=== PATIENT | male | born 1950 | race Caucasian/White ===

== ENCOUNTER 2016-11-27 11:09 | Inpatient (IN) | payer OTHER, MEDICAID ==
[2016-11-27] MEDS ORDERED: KETOROLAC TROMETHAMINE INJ/PF 30 MG/1 ML SDV IV ONE (12:19)
--- NOTE | 2016-11-27 12:22 | ER Document Report ---
ED Medical Screen (RME) - General Chief Complaint: Abdominal Pain Stated Complaint: ABDOMINAL PAIN Time Seen by Provider: 11/27/16 12:19 Notes: The patient is a 66-year-old male, past medical history chronic back pain, diverticulosis, presents with 5 days of increasing right lower quadrant abdominal pain and constipation. He has tried polyethylene glycol without much relief of his symptoms. He is no longer following with the GI doctor and has not had any problems with constipation for 2 years. He is also feeling nauseous during the time, but denies vomiting. RLQ tenderness I have greeted and performed a rapid initial assessment of this patient. A comprehensive ED assessment and evaluation of the patient, analysis of test results and completion of the medical decision making process will be conducted by additional ED providers. TRAVEL OUTSIDE OF THE [place] IN LAST 30 DAYS: No - Related Data Allergies/Adverse Reactions: cillin Allergy (Intermediate, Uncoded 11/27/16 11:23) Anaphylaxis Past Medical History - Past Medical History Cardiac Medical History: Reports: Hx Hypertension Renal/ Medical History: Denies: Hx Peritoneal Dialysis GI Medical History: Reports: Hx Diverticulitis - Immunizations Hx Diphtheria, Pertussis, Tetanus Vaccination: Yes Physical Exam - Vital signs Vitals: Temp Pulse Resp BP Pulse Ox 99.3 F 92 20 147/74 H 95 11/27/16 11:23 11/27/16 11:23 11/27/16 11:23 11/27/16 11:23 11/27/16 11:23 Course - Vital Signs Vital signs: Temp Pulse Resp BP Pulse Ox 99.3 F 92 20 147/74 H 95 11/27/16 11:23 11/27/16 11:23 11/27/16 11:23 11/27/16 11:23 11/27/16 11:23
[2016-11-27] MEDS ORDERED: MAGNESIUM CITRATE 296 ML BOTTLE PO ONE (12:30)
[2016-11-27 13:46] LABS: HEMATOCRIT 49.5 % (37.9-51.0); HEMOGLOBIN 16.5 g/dL (13.5-17.0); MEAN CORPUSCULAR HGB CONC 33.4 g/dL (32.0-36.0); MEAN CORPUSCULAR VOLUME 90 fl (80-97); RED BLOOD COUNT 5.51 10^6/uL (4.35-5.55); RED CELL DISTRIBUTION WIDTH 14.1 % (11.5-14.0); WHITE BLOOD COUNT 26.6 10^3/uL (4.0-10.5)
[2016-11-27 13:51] LABS: ALANINE AMINOTRANSFERASE 37 U/L (21-72); ALBUMIN 4.6 g/dL (3.5-5.0); ALKALINE PHOSPHATASE 97 U/L (38-126); ANION GAP 19 (5-19); ASPARTATE AMINO TRANSFERASE 25 U/L (17-59); BILIRUBIN,DIRECT 0.4 mg/dL (0.0-0.4); BILIRUBIN,TOTAL 2.2 mg/dL (0.2-1.3); BLOOD UREA NITROGEN 14 mg/dL (7-20); CALCIUM 9.4 mg/dL (8.4-10.2); CARBON DIOXIDE 29 mmol/L (22-30); CHLORIDE 93 mmol/L (98-107); CREATININE RESULT 1.31 mg/dL (0.52-1.25); GLUCOSE 163 mg/dL (75-110); LIPASE 37.3 U/L (23-300); POTASSIUM 4.3 mmol/L (3.6-5.0); SODIUM 140.6 mmol/L (137-145); TOTAL PROTEIN 7.7 g/dL (6.3-8.2)
[2016-11-27 14:00] LABS: BAND NEUTROPHILS % (MANUAL) 4 % (3-5); BASOPHILS % (MANUAL) 0 % (0-2); EOSINOPHILS % (MANUAL) 0 % (0-6); LYMPHOCYTES % (MANUAL) 8 % (13-45); TOTAL CELLS COUNTED 100
[2016-11-27 14:02] LABS: RBC MORPHOLOGY COMMENT NORMO-CYTIC/CHROMIC
[2016-11-27] MEDS ORDERED: LEVOFLOXACIN 750 MG/D5W RTU 150 ML IV ONE (15:04)
[2016-11-27] MEDS ORDERED: METRONIDAZOLE 500 MG/NS RTU 100 ML IV ONE (15:04)
[2016-11-27] MEDS ORDERED: RINGERS SOLUTION,LACTATED 1,000 ML IV ONE (15:05)
--- NOTE | 2016-11-27 15:29 | ER Document Report ---
ED General - General Chief Complaint: Abdominal Pain Stated Complaint: ABDOMINAL PAIN Time Seen by Provider: 11/27/16 12:19 Mode of Arrival: Ambulatory Information source: Patient Notes: This is a 66-year-old male who presents with abdominal pain. He describes a 3 day history of right-sided abdominal pain mainly in the right lower quadrant. He has had associated nausea and vomiting and last vomited last night. He also describes constipation and states his last bowel movement was 5 days ago. No fevers or chills. No dysuria. Last po was a banana yesterday afternoon. Pt has a history of diverticulitis, and this feels similar, except diverticulitis pain was on the left side. TRAVEL OUTSIDE OF THE [place] IN LAST 30 DAYS: No - Related Data Allergies/Adverse Reactions: cillin Allergy (Intermediate, Uncoded 11/27/16 11:23) Anaphylaxis Past Medical History - General Information source: Patient - Social History Smoking Status: Never Smoker Chew tobacco use (# tins/day): No Frequency of alcohol use: None Drug Abuse: None Family History: Reviewed & Not Pertinent Patient has suicidal ideation: No Patient has homicidal ideation: No - Past Medical History Cardiac Medical History: Reports: Hx Hypertension Renal/ Medical History: Denies: Hx Peritoneal Dialysis GI Medical History: Reports: Hx Diverticulitis, Hx Gastroesophageal Reflux Disease Psychiatric Medical History: Reports: Hx Depression Past Surgical History: Denies: Hx Abdominal Surgery, Hx Appendectomy, Hx Cholecystectomy - Immunizations Hx Diphtheria, Pertussis, Tetanus Vaccination: Yes Hx Pneumococcal Vaccination: 08/24/11 Review of Systems - Review of Systems Constitutional: No symptoms reported. denies: Chills, Fever EENT: No symptoms reported Cardiovascular: No symptoms reported. denies: Chest pain Respiratory: No symptoms reported. denies: Cough, Short of breath Gastrointestinal: See HPI Genitourinary: No symptoms reported. denies: Dysuria Musculoskeletal: No symptoms reported Skin: No symptoms reported Hematologic/Lymphatic: No symptoms reported Neurological/Psychological: No symptoms reported. denies: Headaches Physical Exam - Vital signs Vitals: Temp Pulse Resp BP Pulse Ox 99.3 F 92 20 147/74 H 95 11/27/16 11:23 11/27/16 11:23 11/27/16 11:23 11/27/16 11:23 11/27/16 11:23 - Notes Notes: PHYSICAL EXAMINATION: GENERAL: Well-appearing, well-nourished pleasant and conversant, and in no acute distress. HEAD: Atraumatic, normocephalic. EYES: Pupils equal round and reactive to light, extraocular movements intact, sclera anicteric, conjunctiva are normal. ENT: nares patent, oropharynx clear without exudates. Moist mucous membranes. NECK: Normal range of motion, supple without lymphadenopathy LUNGS: Breath sounds clear to auscultation bilaterally and equal. No wheezes rales or rhonchi. HEART: Regular rate and rhythm without murmurs ABDOMEN: Soft, mildly distended, normoactive bowel sounds. TTP in RLQ/RUQ without peritonitis. No guarding, no rebound. No masses appreciated. EXTREMITIES: Normal range of motion, no pitting or edema. No cyanosis. NEUROLOGICAL: Cranial nerves grossly intact. Normal speech. No gross focal motor or sensory deficits PSYCH: Normal mood, normal affect. SKIN: Warm, Dry, normal turgor, no rashes or lesions noted. Course - Re-evaluation Re-evalutation: 11/27/16 20:00 Patient has remained hemodynamically stable in the ER. He has had no vomiting. CT and US reviewed and I discussed his diagnosis of diverticulitis with him. He has no focal peritonitis and nonsurgical exam, but persistent significant TTP and leukocytosis, will admit to hospitalist for IV antibiotics and further monitoring. Patient comfortable with this plan, questions answered. - Vital Signs Vital signs: Temp Pulse Resp BP Pulse Ox 98.5 F 93 16 148/63 H 98 11/27/16 17:43 11/27/16 17:43 11/27/16 17:43 11/27/16 17:43 11/27/16 17:43 - Laboratory Result Diagrams: 11/27/16 13:15 11/27/16 13:15 Laboratory results interpreted by me: 11/27/16 11/27/16 13:15 13:15 WBC 26.6 H RDW 14.1 H Seg Neuts % (Manual) 81 H Lymphocytes % (Manual) 8 L Abs Neuts (Manual) 22.6 H Abs Monocytes (Manual) 1.9 H Chloride 93 L Creatinine 1.31 H Est GFR (Non-Af Amer) 55 L Glucose 163 H Total Bilirubin 2.2 H - Diagnostic Test Radiology reviewed: Reports reviewed - CT: diverticulitis at hepatic flexure, possible cholecystitis, rec RUQ US Discharge - Discharge Clinical Impression: Diverticulitis Qualifiers: Diverticulitis site: large intestine Diverticulitis bleeding: without bleeding Diverticulitis complication: without perforation or abscess Qualified Code(s): K57.32 - Diverticulitis of large intestine without perforation or abscess without bleeding Leukocytosis Qualifiers: Leukocytosis type: unspecified Qualified Code(s): D72.829 - Elevated white blood cell count, unspecified Condition: Stable Disposition: ADMITTED INPATIENT Admitting Provider: Hospitalist - Dr. rOr Unit Admitted: Telemetry
[2016-11-27] MEDS ORDERED: MORPHINE SULFATE 10 MG/ML INJ IV PRN (20:51)
[2016-11-27] MEDS ORDERED: NORMAL SALINE 1000 ML 1,000 ML IV PRN (20:51)
[2016-11-27] MEDS ORDERED: ACETAMINOPHEN 325 MG TABLET PO PRN (20:51)
[2016-11-27 21:16] LABS: ADD ON TESTING BLD IN LAB ACKNOWLEDGE
--- NOTE | 2016-11-27 21:17 | PDOC H&P ---
History of Present Illness Admission Date/PCP: 11/27/16 19:43 Ayana Mccarty [place] Patient complains of: abd pain History of Present Illness: LIAM GOLDMAN is a 66 year old male with history of occasional problems with diverticulitis, who presents to the emergency room for evaluation of above complaint. Patient has been discussed with emergency room physician who evaluated the patient. He describes a 5 day history of slowly progressive combination cramping and sharp mostly right lower quadrant abdominal pain. Nothing in particular makes the pain worse. It has simply slowly progressed with time. Several episodes of nausea and vomiting; last emesis approximately 18-24 hours ago. No fever or chills, or dysuria. Last bowel movement was 5 days ago; typically only has constipation with a flareup of his diverticulitis. Prior such episodes have been primarily on his left. Currently resting quietly, stating he does feel a bit better. Laboratory results are listed in [facility] and are reviewed. X-ray summary results are listed below, with full report(s) reviewed. . Social history/personal habits: . 2 children. Self-employed in [employer]. Allergies/adverse reactions are listed in [facility] and are reviewed. No problems with Keflex. Home medications initially autopopulated into [facility] may not accurately reflect patient's true medications, dosages, and/or frequencies. computer operations technician to reconcile medications. Unfortunately, patient not completely certain of all his medications/dosages/ frequencies. REVIEW OF SYSTEMS: Constitutional: No fever or chills. Eyes: Wears glasses. ENT: No swallowing problems or complaints. Tinnitus. Pulmonary: No current complaints. Cardiovascular: No current complaints, including chest pain. Gastrointestinal: See history and present illness. Skin: No current complaints, including rashes. Hematologic: No unusual easy bruising. Neurologic: No current complaints, including numbness or tingling. Musculoskeletal:Joint pain from arthritis. Degenerative disc disease; walks with a cane. Reportedly to have back surgery in the near future. Psychiatric: Anxiety. Endocrine: No current complaints, including polyuria. Genitourinary: No current complaints, including dysuria. PHYSICAL EXAMINATION: 6 feet 2 inches tall. 131.5 kg. BMI 37.2 kg/m. Blood pressure 153/76. Pulse 98 and regular. 96% saturation on room air. Respirations are 20 and unlabored. Temperature 98.5; 99.3 earlier. Obese but also somewhat stocky otherwise well-developed male appearing a bit younger than his stated age. Pleasant awake alert and cooperative. Rather talkative gentleman. Mildly anxious, without agitation. Skin is warm and dry. No grossly obvious evidence of rash in areas of skin examined. No subcutaneous nodules palpated. ENT: Hearing grossly normal to normal conversation. Tongue midline on protrusion pink and slightly tacky. Eyes: No scleral icterus. Pupils equal and reactive to light at 4 mm. [employer] conjunctivae. Neck is supple and nontender to gentle active range of motion and palpation. Midline trachea. No palpable thyroid nodule mass enlargement or tenderness. Lymphatic: No palpable cervical or clavicular nodes. Neck and lymphatic exams limited by patient body habitus. Psychiatric: Reasonable insight into acute and chronic medical issues. Oriented to time location and why here. Lungs: Auscultation reveals clear and equal breath sounds bilaterally. No use of accessory respiratory muscles. Cardiovascular: Heart regular rate and rhythm, without gallop murmur or rub. No carotid or abdominal aortic bruits. No ankle or pedal edema. Faintly palpable dorsalis pedis pulses. Abdomen:soft somewhat obese, perhaps mildly distended with positive bowel sounds. Quite minimal lower abdominal discomfort to palpation. Certainly no evidence of guarding or peritoneal signs. Unable to adequately evaluate abdomen for masses or organomegaly due to body habitus and distention. Extremities: Feet are warm and dry. No calf tenderness to compression. No grossly obvious visual evidence of calf swelling. Gentle manipulation of lower extremities fails to reveal any obvious evidence of injury or instability to knees hips or ankles. Neurologic: Moves upper extremities grossly normally. Patellar reflexes absent. Absent Babinski. Light touch is intact at feet. Dorsiflexion and plantarflexion of feet 5 / 5 and symmetric. Past Medical History Cardiac Medical History: Reports: Hypertension Denies: Congestive Heart Failure, DVT, Myocardial Infarction, Hyperlipidema, Pulmonary Embolism Pulmonary Medical History: Denies: Asthma, Chronic Obstructive Pulmonary Disease (COPD), Sleep Apnea EENT Medical History: Reports: Eyes - Glasses, Ears - Tinnitus Denies: Throat Neurological Medical History: Denies: Hemorrhagic CVA, Ischemic CVA, Seizures Endocrine Medical History: Denies: Diabetes Mellitus Type 1, Diabetes Mellitus Type 2, Hyperthyroidism, Hypothyroidism Renal/ Medical History: Reports: None GI Medical History: Reports: Diverticulitis, Gastroesophageal Reflux Disease Denies: Cirrhosis, Hepatitis, Peptic Ulcer Disease Musculoskeltal Medical History: Reports: Arthritis, Other - Degenerative disc disease Skin Medical History: Reports: None Psychiatric Medical History: Reports: General Anxiety Disorder, Other - Insomnia Denies: Alcohol Dependency, Depression, Substance Abuse, Tobacco Dependency Hematology: Reports: None Infectious Medical History: Denies: Clostridium Difficile, Hepatitis B, Hepatitis C, Methicillin- Resistant Staph Aureus Past Surgical History Past Surgical History: Reports: Tonsillectomy Social History Information Source: Patient, Emergency Med Personnel, [facility] Records Lives with: Spouse/Significant other Smoking Status: Never Smoker Frequency of Alcohol Use: None Drugs: None - Advance Directive Resuscitation Status: Full Code Surrogate healthcare decision maker:: Family History Family History: Reviewed & Not Pertinent Parental Family History Reviewed: Yes - Mother of cancer. Father alive at 88 with macular degeneration. Children Family History Reviewed: Yes - Son with seizure disorder Sibling(s) Family History Reviewed.: Yes - Healthy Medication/Allergy Home Medications: RX: Alprazolam [Xanax] 1 mg PO Q8 11/28/16 RX: Metoprolol Tartrate [Lopressor 25 mg Tablet] 25 mg PO DAILY 11/28/16 RX: Omeprazole Magnesium [Prilosec Otc] 20 mg PO QAM 11/28/16 RX: Tramadol HCl [Ultram 50 mg Tablet] 50 mg PO Q6 11/28/16 RX: Docusate Sodium [Colace 100 mg Capsule] 100 mg PO BID #60 capsule 12/02/16 RX: Lisinopril [Prinivil 10 mg Tablet] 10 mg PO Q12 #60 tablet 12/02/16 RX: Sennosides/Docusate 8.6-50 mg [Senna Plus Tablet] 2 each PO HSP PRN #60 tablet 12/02/16 RX: Trazodone HCl [Desyrel 50 mg Tablet] 100 mg PO QHS tablet 12/02/16 RX: Zolpidem Tartrate [Ambien 5 mg Tablet] 2.5 mg PO QHS tablet 12/02/16 Allergies/Adverse Reactions: Penicillins Allergy (Severe, Verified 11/28/16 06:01) Anaphylaxis cillin Allergy (Intermediate, Uncoded 11/27/16 20:51) Anaphylaxis Physical Exam Vital Signs: Temp Pulse Resp BP Pulse Ox 98.5 F 93 16 148/63 H 98 11/27/16 17:43 11/27/16 17:43 11/27/16 17:43 11/27/16 17:43 11/27/16 17:43 Results Impressions: Abdomen/Pelvis CT 11/27/16 12:20 IMPRESSION: Diverticulitis hepatic flexure. Consider correlation with gallbladder ultrasound to exclude cholecystitis. Abdomen Ultrasound 11/27/16 15:05 IMPRESSION: 1. Limited study due to overlying bowel gas. 2. Hepatic steatosis. No focal liver lesions. 3. Otherwise unremarkable right upper quadrant ultrasound. Assessment & Plan - Diagnosis (1) Diverticulitis of colon Is this a current diagnosis for this admission?: YesPlan: Ice chips. IV fluids. Pain control. Cefepime and intravenous Flagyl. I have strongly encouraged patient to be careful getting out of bed, to avoid a fall with injury. Knee high SCDs for DVT prophylaxis, along with subcutaneous Lovenox. Impression and plans were discussed with patient who concurs. Time spent in evaluation and management of patient: 61 minutes. (2) Elevated LFTs Is this a current diagnosis for this admission?: YesPlan: Denies underlying biliary disease. Repeat chemistry. (3) Renal insufficiency Is this a current diagnosis for this admission?: YesPlan: Likely due to an element of mild dehydration. IV fluids. Follow-up chemistry. (4) HTN (hypertension) Qualifiers: Hypertension type: essential hypertension Qualified Code(s): I10 - Essential (primary) hypertension Is this a current diagnosis for this admission?: YesPlan: Resume home medications as appropriate once these have been determined and reviewed. - Inpatient Certification Based on my medical assessment, after consideration of the patient's comorbidities, presenting symptoms, or acuity I expect that the services needed warrant INPATIENT care.: Yes I certify that my determination is in accordance with my understanding of Medicare's requirements for reasonable and necessary INPATIENT services [42 CFR 412.3e].: Yes Medical Necessity: Need For IV Fluids, Need for Pain Control, Need for IV Antibiotics, Risk of Complication if Not Cared For in Hospital Post Hospital Care: D/C or Transfer Summary
[2016-11-27 21:33] LABS: MAGNESIUM 2.3 mg/dL (1.6-2.3)
[2016-11-27] MEDS: METRONIDAZOLE RTU 500 MG/NS 100 ML IV SCH (22:56)
[2016-11-27] MEDS ORDERED: ZOLPIDEM TARTRATE 5 MG TABLET PO PRN (23:22)
[2016-11-27] MEDS ORDERED: LORAZEPAM 0.5 MG TABLET PO PRN (23:28)
[2016-11-28] MEDS: METRONIDAZOLE RTU 500 MG/NS 100 ML IV SCH ×3 (05:25→21:20)
[2016-11-28] MEDS ORDERED: CEFEPIME 2 GM/D5W RTU 2 GM/50 ML RTUPB IV ONE (05:32)
[2016-11-28] MEDS ORDERED: CEFEPIME 2 GM/D5W RTU 50 ML IV SCH (06:00)
[2016-11-28 06:54] LABS: HEMATOCRIT 40.2 % (37.9-51.0); HGB HCT DIFFERENCE 0.6; MEAN CORPUSCULAR HEMOGLOBIN 30.3 pg (27.0-33.4); MEAN CORPUSCULAR HGB CONC 33.8 g/dL (32.0-36.0); MEAN CORPUSCULAR VOLUME 90 fl (80-97); RED BLOOD COUNT 4.48 10^6/uL (4.35-5.55); RED CELL DISTRIBUTION WIDTH 13.9 % (11.5-14.0); WHITE BLOOD COUNT 17.9 10^3/uL (4.0-10.5)
[2016-11-28 07:00] LABS: ALANINE AMINOTRANSFERASE 30 U/L (21-72); ALBUMIN 3.2 g/dL (3.5-5.0); ALKALINE PHOSPHATASE 74 U/L (38-126); ANION GAP 11 (5-19); ASPARTATE AMINO TRANSFERASE 20 U/L (17-59); BILIRUBIN,DIRECT 0.6 mg/dL (0.0-0.4); BILIRUBIN,TOTAL 2.5 mg/dL (0.2-1.3); BLOOD UREA NITROGEN 19 mg/dL (7-20); CALCIUM 7.9 mg/dL (8.4-10.2); CARBON DIOXIDE 26 mmol/L (22-30); CHLORIDE 95 mmol/L (98-107); CREATININE RESULT 1.13 mg/dL (0.52-1.25); GLUCOSE 138 mg/dL (75-110); SODIUM 131.9 mmol/L (137-145); TOTAL PROTEIN 6.2 g/dL (6.3-8.2)
[2016-11-28 07:20] LABS: HEMOGLOBIN 13.6 g/dL (13.5-17.0)
[2016-11-28 07:23] LABS: BAND NEUTROPHILS % (MANUAL) 4 % (3-5); BASOPHILS % (MANUAL) 0 % (0-2); EOSINOPHILS % (MANUAL) 2 % (0-6); LYMPHOCYTES % (MANUAL) 4 % (13-45); TOTAL CELLS COUNTED 100
[2016-11-28 07:25] LABS: PLATELET CLUMPS PRESENT; POIKILOCYTOSIS 1+; POLYCHROMASIA SLIGHT
[2016-11-28] MEDS: ENOXAPARIN SODIUM INJ 40 MG/0.4 ML DISP.SYRIN SUBCUT SCH (09:11)
[2016-11-28] MEDS: DOCUSATE SODIUM 100 MG CAPSULE PO SCH ×2 (09:13→17:29)
[2016-11-28] MEDS ORDERED: LISINOPRIL 10 MG TABLET PO SCH (10:00)
[2016-11-28] MEDS ORDERED: METOPROLOL TARTRATE 25 MG TABLET PO SCH (10:00)
[2016-11-28] MEDS ORDERED: ALPRAZOLAM 0.5 MG TABLET PO PRN (12:01)
[2016-11-28] MEDS ORDERED: KETOROLAC TROMETHAMINE INJ/PF 30 MG/1 ML SDV IV ONE (12:45)
[2016-11-28] MEDS: CEFEPIME HCL 2 GM in DEXTROSE 5%-WATER 50 ML IV SCH ×2 (13:58→21:20)
[2016-11-28] MEDS: METOPROLOL TARTRATE 25 MG TABLET PO SCH (14:03)
[2016-11-28] MEDS ORDERED: NORMAL SALINE 1000 ML 1,000 ML IV PRN (14:42)
--- NOTE | 2016-11-28 23:48 | CONSULTATION REPORT E ---
Consultation Report NAME: LIAM GOLDMAN : 1950 AGE: 66Y DATE: 11/28/2016 534 A TO: CHRIS WAKEFIELD M.D. FROM: MADELEINE ARREDONDO M.D. Requesting Physician The patient is seen in consultation with Tacho Marino NP. CHIEF COMPLAINT: Abdominal pain. HISTORY OF PRESENTING ILLNESS: The patient is a 66-year-old white gentleman who was admitted to the hospital under hospitalist service for evaluation and treatment of abdominal pain. The pain started approximately 7 days ago after which time he had no bowel movement. He took Citrucel, got somewhat better, had a bowel movement and symptoms improved. He continued to have abdominal pain, however unresolved right lower and left lower quadrant. He came to the emergency department yesterday where he was worked up and found to have evidence of cholelithiasis. He was admitted to the hospitalist service for possible diverticulitis and was started on intravenous antibiotics. His symptoms persisted. A CT scan of the abdomen and pelvis showed gallstones and subhepatic inflammatory changes. Surgery was consulted. PAST MEDICAL HISTORY: Significant for chronic back problems, hypertension, degenerative joint disease, irregular heartbeat and hypertension. PAST SURGICAL HISTORY: Significant for vasectomy and tonsillectomy. ALLERGIES: PENICILLIN. MEDICATIONS: Include: 1. Metoprolol. 2. Lisinopril. SOCIAL HISTORY: The patient does not smoke. The patient is retired. LOCAL MEDICAL DOCTOR: Dr. Comer in [place]. FAMILY HISTORY: Noncontributory. REVIEW OF SYSTEMS: CONSTITUTIONAL: The patient denies. CARDIOVASCULAR: The patient denies. MUSCULOSKELETAL: The patient has chronic back pain and walks with a cane. GASTROINTESTINAL: As per HPI. The patient underwent colonoscopy 11 years old while in [place]. He has been hospitalized at least once for diverticulitis. He has had multiple episodes since 2010, however no Hx of diverticular complications. The remainder of the review of systems is unremarkable. PHYSICAL EXAMINATION: The patient is examined on the 5th floor of [facility]. VITAL SIGNS: Temperature 100.7, heart rate 100. GENERAL: In no acute distress. HEAD: No gross deformities. EYES: Without icterus. NECK: No adenopathy. LUNGS: Diminished in bases bilaterally. HEART: Without murmur or gallop. ABDOMEN: Diffusely tender, more so on the right than the left. No peritoneal signs, however there is mild guarding on the right side. LOWER EXTREMITIES: Without edema. VASCULAR EXAM: Reveals palpable radial dorsalis pedis pulses. INDEPENDENT INTERPRETATION: CT scan of the abdomen and pelvis shows a large gallstone, distended gallbladder, pericholecystic inflammatory change. No free air. No free fluid. Gallbladder ultrasound shows a very large gallstone. LABORATORY PROFILE: Shows a white blood cell count of 18,000 with 86% segs. Hemoglobin of 13.6. Electrolytes: Sodium of 132, BUN and creatinine of 19 and 1.13. Total bilirubin up to 2.5. Alkaline phosphatase, AST, ALT all within normal limits. IMPRESSION: 1. Subacute abdominal pain, right sided associated with nausea and one episode of vomiting, incompletely resolved; highly suspicious for cholecystitis with cholelithiasis. 2. History of diverticulosis. 3. History of degenerative joint disease. 4. History of hypertension. RECOMMENDATIONS: 1. Keep the patient n.p.o., on IV fluids and intravenous antibiotics. 2. Will check EKG. 3. We will discuss the roll of interval cholecystectomy, laparoscopic versus open in the morning; the oncoming surgicalist will reevaluate the patient and make recommendations accordingly. DICTATING PHYSICIAN: CHRIS WAKEFIELD M.D. [id number] PHY#: [id number] ID: [id number] JOB#: [id number] ACCT: [id number] cc:CHRIS WAKEFIELD M.D. > MTDJelly
[2016-11-29] MEDS: METRONIDAZOLE RTU 500 MG/NS 100 ML IV SCH (05:23)
[2016-11-29] MEDS: CEFEPIME HCL 2 GM in DEXTROSE 5%-WATER 50 ML IV SCH ×2 (05:24→17:13)
[2016-11-29 06:31] LABS: ABSOLUTE LYMPHOCYTES (AUTO) 0.8 10^3/uL (0.5-4.7); ABSOLUTE MONOCYTES (AUTO) 1.2 10^3/uL (0.1-1.4); ABSOLUTE NEUT (AUTO) 11.9 10^3/uL (1.7-8.2); BASOPHILS % (AUTO) 0.4 % (0-2); EOSINOPHILS % (AUTO) 0.2 % (0-6); HEMATOCRIT 40.1 % (37.9-51.0); HEMOGLOBIN 13.6 g/dL (13.5-17.0); HGB HCT DIFFERENCE 0.7; LYMPHOCYTES % (AUTO) 5.7 % (13-45); MEAN CORPUSCULAR HGB CONC 33.9 g/dL (32.0-36.0); MEAN CORPUSCULAR VOLUME 89 fl (80-97); MONOCYTES % (AUTO) 8.5 % (3-13); RED BLOOD COUNT 4.52 10^6/uL (4.35-5.55); RED CELL DISTRIBUTION WIDTH 14.1 % (11.5-14.0); SEGMENTED NEUTROPHILS % (AUTO) 85.2 % (42-78)
[2016-11-29 06:54] LABS: ALANINE AMINOTRANSFERASE 29 U/L (21-72); ALBUMIN 2.9 g/dL (3.5-5.0); ALKALINE PHOSPHATASE 84 U/L (38-126); ANION GAP 12 (5-19); ASPARTATE AMINO TRANSFERASE 23 U/L (17-59); BILIRUBIN,DIRECT 0.5 mg/dL (0.0-0.4); BILIRUBIN,TOTAL 1.7 mg/dL (0.2-1.3); BLOOD UREA NITROGEN 14 mg/dL (7-20); CALCIUM 7.8 mg/dL (8.4-10.2); CARBON DIOXIDE 26 mmol/L (22-30); CHLORIDE 94 mmol/L (98-107); GLUCOSE 131 mg/dL (75-110); MAGNESIUM 2.4 mg/dL (1.6-2.3); POTASSIUM 3.7 mmol/L (3.6-5.0); SODIUM 131.6 mmol/L (137-145); TOTAL PROTEIN 5.6 g/dL (6.3-8.2)
--- NOTE | 2016-11-29 07:25 | PROGRESS NOTE E ---
Progress Note NAME: LIAM GOLDMAN : 1950 AGE: 66Y DATE: 11/28/2016 ROOM: 534 SUBJECTIVE: The patient is lying in bed. He does admit to intermittent abdominal pain especially under his ribcage which he feels is gas. The patient did ambulate and it improved slightly. The patient complains of ongoing fevers. He denies any nausea, vomiting, no diarrhea, shortness of breath, dizziness, chest pain. The patient does not voice any other concerns at this time. REVIEW OF SYSTEMS: Rest of review of systems is negative. MEDICATIONS: Medications have been reviewed. OBJECTIVE: GENERAL: The patient is a 56-year-old male who is awake and alert. He is oriented to person, place, time and situation. He is verbal and conversational. He does not appear to be in any acute distress. VITAL SIGNS: Temperature is 100.6, pulse 85, respirations 18, blood pressure 157/69, oxygen saturation is 97% on room air. SKIN: Warm. He is diaphoretic. No rash. CARDIOVASCULAR: Heart is regular. There is no murmur or rub. CHEST: Clear, symmetrical, unlabored. ABDOMEN: Soft. There is diffuse tenderness noted throughout. Bowel sounds are present. BACK: No CVA tenderness or sacral edema. EXTREMITIES: No clubbing, cyanosis or edema. PSYCHIATRIC: Appropriate affect, appropriate mood. NEUROLOGIC: Grossly intact. DIAGNOSTICS: Lab values are as follows: Hematology obtained on 11/28/2016: WBC's 17.9, hemoglobin 13.6, hematocrit 40.2, and platelet count is 182,000. Chemistry obtained on 11/28/2016: Sodium 131, potassium 4.0, chloride is 95, carbon dioxide 26, BUN 19, creatinine is 1.13, glucose 138, calcium 7.9, magnesium 2.3, bilirubin 2.5, direct bilirubin is 0.6. AST is 20, ALT is 30, alk phos 72, total protein 6.2, albumin 3.2. for stool for occult blood is negative. IMPRESSION AND PLAN: 1. ACUTE DIVERTICULITIS. This is the read on the patient's CT, however, it is in an atypical setting of near the hepatic flexure. Given that and the patient's acute elevation of bilirubin, is concern for underlying possible biliary process. A followup ultrasound was done which does not appear completely conclusive given bowel gas pattern. Will consider further dedicated imaging, however, will discuss the case with surgicalist and in the meantime will continue antibiotic coverage. patient's white count has improved. Patient's temperature does appear to be trending down. Will follow. 2. ACUTE KIDNEY INJURY. This did resolved with hydration. Will go ahead and resume the patient's NILA inhibitor. 3. HYPERTENSION: Will resume patient's home medications. 4. GENERAL ANXIETY DISORDER. Will continue p.r.n. benzodiazepines. 5. GASTROESOPHAGEAL REFLUX DISEASE. Will continue PPI therapy. 6. DVT PROPHYLAXIS. Continue subcu Lovenox. Patient has had no evidence of GI bleed. DISPOSITION: The patient is a FULL CODE. Pending the patient's symptomatology and diagnostic findings, will re-evaluate in the a.m. TIME: Time spent on this followup including assessment, plan, physical examination and patient education, specialty collaboration is 40 minutes. DICTATING PHYSICIAN: ISREAL RAMESH NP [id number] PHY#: [id number] ID: [id number] JOB#: [id number] ACCT: [id number] cc: >
--- NOTE | 2016-11-29 07:56 | EKG REPORT ---
SEVERITY:- ABNORMAL ECG - SINUS RHYTHM LEFT VENTRICULAR HYPERTROPHY : Confirmed by: Jono Guaman MD 29-Nov-2016 07:55:34
[2016-11-29] MEDS ORDERED: CIPROFLOXACIN 400 MG/D5W RTU 200 ML IV SCH (10:00)
[2016-11-29] MEDS: ENOXAPARIN SODIUM INJ 40 MG/0.4 ML DISP.SYRIN SUBCUT SCH (10:51)
[2016-11-29] MEDS: DOCUSATE SODIUM 100 MG CAPSULE PO SCH ×2 (10:51→17:55)
[2016-11-29] MEDS: LISINOPRIL 10 MG TABLET PO SCH (10:55)
[2016-11-29] MEDS: LANSOPRAZOLE 15 MG TAB.RAP.DR PO SCH (10:55)
[2016-11-29] MEDS ORDERED: DEXAMETHASONE SOD PHOSPHATE INJ 4 MG/1 ML VIAL ONE (11:19)
[2016-11-29] MEDS ORDERED: LIDOCAINE 2% INJ-PF (20 MG/ML) 10 ML AMPUL ONE (11:19)
[2016-11-29] MEDS ORDERED: KETOROLAC TROMETHAMINE 60 MG/2 ML SDV ONE (11:19)
[2016-11-29] MEDS ORDERED: SUCCINYLCHOLINE CHLORIDE INJ 200 MG/10 ML VIAL ONE (11:19)
[2016-11-29] MEDS ORDERED: NEOSTIGMINE METHYLSULFATE 10 MG/10 ML VIAL ONE (11:19)
[2016-11-29] MEDS ORDERED: ONDANSETRON HCL INJ/PF 4 MG/2 ML SDV ONE (11:19)
[2016-11-29] MEDS ORDERED: GLYCOPYRROLATE INJ 0.4 MG/2 ML VIAL ONE (11:19)
[2016-11-29] MEDS ORDERED: ROCURONIUM BROMIDE INJ 50 MG/5 ML VIAL IV ONE (11:19)
[2016-11-29] MEDS ORDERED: PHENYLEPHRINE HCL INJ/PF 10 MG/1 ML SDV ONE (11:19)
[2016-11-29] MEDS ORDERED: METRONIDAZOLE RTU 500 MG/NS 100 ML IV SCH (12:00)
[2016-11-29] MEDS: METRONIDAZOLE 500 MG/NS RTU 100 ML IV SCH ×2 (12:18→18:10)
[2016-11-29] MEDS: METOPROLOL TARTRATE 25 MG TABLET PO SCH (12:18)
[2016-11-29] MEDS ORDERED: BUPIVACAINE HCL 0.25 % INJ/PF (2.5 MG/1 ML) 30 ML VIAL ONE (12:58)
[2016-11-29] MEDS ORDERED: FENTANYL CITRATE INJ/PF 250 MCG/5 ML AMPULE ONE (13:15)
[2016-11-29] MEDS ORDERED: FENTANYL CITRATE INJ/PF 100 MCG/2 ML AMPUL ONE (13:15)
[2016-11-29] MEDS ORDERED: EPHEDRINE SULFATE INJ 50 MG/1 ML AMPULE ONE (13:15)
[2016-11-29] MEDS ORDERED: MIDAZOLAM 2 MG/2 ML INJ ONE (13:15)
[2016-11-29] MEDS ORDERED: MORPHINE SULFATE 10 MG/ML INJ ONE ×2 (13:16)
[2016-11-29] MEDS ORDERED: ACETAMINOPHEN 0 ML IV ONE (13:16)
[2016-11-29] MEDS ORDERED: PROPOFOL INJ 200 MG/20 ML VIAL IV ONE (13:16)
[2016-11-29] MEDS ORDERED: LORAZEPAM INJ 2 MG/1 ML VIAL ONE (13:17)
[2016-11-29] MEDS ORDERED: ACETAMINOPHEN 650 MG SUPP.RECT PR ONE ×2 (13:20→14:00)
[2016-11-29] MEDS ORDERED: LORAZEPAM INJ 2 MG/1 ML VIAL IV ONE (14:00)
[2016-11-29] MEDS ORDERED: MORPHINE SULFATE 10 MG/ML INJ IV ONE (14:00)
[2016-11-29] MEDS ORDERED: ONDANSETRON HCL INJ/PF 4 MG/2 ML SDV IV PRN (16:33)
[2016-11-29] MEDS ORDERED: NORMAL SALINE 1000 ML 1,000 ML IV PRN (16:38)
--- NOTE | 2016-11-29 17:19 | OPERATIVE REPORT E ---
Operative Report NAME: LIAM GOLDMAN : 1950 AGE: 66Y DATE OF SURGERY: ROOM: 534 PREOPERATIVE DIAGNOSIS: Acute calculus cholecystitis. POSTOPERATIVE DIAGNOSIS: Acute gangrenous cholecystitis. OPERATION: Laparoscopic cholecystectomy. SURGEON: FRANCESCA APPIAH M.D. ANESTHESIA: General. INDICATION: This is a 66-year-old male who has been having abdominal pains for the past 4 to 5 days with nausea and vomiting. He had a CT scan of the abdomen which showed gallstones. Ultrasound also showed a gallstone with thickened wall, and pericholecystic fluid. The patient had marked tenderness in the right upper quadrant with positive Ward's sign and elevated white count. PROCEDURE: The patient was placed in supine position and after adequate general anesthesia, the abdomen was then prepped and draped in the usual sterile fashion. After appropriate timeout, an infraumbilical incision was made and the fascia identified and grasped with Lamar clamps on each side. The fascia was then divided and finger dissection inside the peritoneal cavity was then performed. No evidence of adhesion noted. At this time, a Carolyn trocar was then inserted into the abdomen and CO2 insufflated up to a pressure of 15 mm through the trocar. Next, 3 other trocars were placed at 12 mm in the subxiphoid and two 5 mm in the right upper quadrant. The omentum was noted to be plastered around the gallbladder, and blunt dissection was then done. The gallbladder was noted to be tense and with 1 area noted to be quite gangrenous. The gallbladder was partially emptied through a needle. About 60 mL of bile was aspirated and specimen was sent for C and S. Next, the tip of the gallbladder was subsequently grasped and further blunt dissection was performed. However, the omentum was so much plastered and covering the area of the infundibulum that we needed to put another trocar in the left upper quadrant. We put in a fan retractor. The omentum needed to be bluntly dissected laterally from the liver and medially toward the area of the falciform ligament. The cystic duct was partially dissected. However, because visibility was not adequate, it was felt better to go from retrograde fashion and dissecting towards the area of the cystic duct. This was then performed with the use of harmonic kenn and blunt dissection of the gallbladder from the liver bed. The gallbladder at this point was noted to be with areas of gangrenous changes and eventually some of the bile extruded out into the peritoneal cavity. Most of the bile was then irrigated and suctioned out. The gallbladder was then dissected almost to the area of the cystic duct. The cystic duct area was then dissected at this point by pulling on the infundibulum and some of the liver bed adhesions were then bluntly dissected and also with the use of harmonic kenn. The cystic duct was better seen at this point, and subsequently dissected with [place] dissector, allowing placement of hemoclips. Hemoclips were placed on the cystic duct towards the common bile duct. About 4 clips were placed using large clips. The cystic duct was noted to be somewhat thickened with inflammation. Another clip was placed toward the area of the gallbladder and the cystic duct divided just below the gallbladder clip. Cystic artery was identified, clipped with hemoclips, and divided between the hemoclips with the use of harmonic kenn. The gallbladder was then completely taken off the liver bed and placed in an Endobag and pulled out through the umbilical port with little difficulty. Part of the gallbladder contents spilled from the Endobag towards the area of the subcutaneous area o the umbilical port. The gallbladder port was further dilated bluntly with a Yanni clamp, and the gallbladder was pulled out after enlarging the skin incision for about 1 cm. At this point, the gallbladder was palpated after removing it from the abdominal cavity. There is a big stone roughly measuring about 3 to 4 cm, almost the size of a golf ball. The gallbladder was removed intact, though with some leakage from the wall because of gangrenous changes. Next, the liver bed was then inspected and irrigated copiously with at least 3 liters of saline. A Scar-Kapoor drain was then placed in the area of the liver bed and brought out through the lateral most trocar site. There was adequate hemostasis noted prior to placement of the drain. The defect at the infraumbilical fascia was then closed with a [id number] suture using 0 Vicryl. The other trocars were removed and no bleeding noted at the trocar sites prior to removal of the camera. A single suture over the site of the fascial defect was closed with simple sutures using 0 Vicryl. The drain was then anchored to the skin with 3-0 Nylon, and all the skin incisions closed with running subcuticular closure using 4-0 Vicryl undyed. Prior to closure of the skin, the umbilical defect was copiously irrigated with saline solution. The incisions were then dressed with Dermabond. Needle, instrument, and sponge counts were all correct, and estimated blood loss was about 30 mL. The patient was then brought to the recovery room in guarded condition. DICTATING PHYSICIAN: FRANCESCA APPIAH M.D. [id number] PHY#: [id number] ID: [id number] JOB#: [id number] ACCT: [id number] cc:FRANCESCA APPIAH M.D. >
[2016-11-29] MEDS ORDERED: ACETAMINOPHEN 650 MG SUPP.RECT PR PRN (18:07)
--- NOTE | 2016-11-29 18:24 | PDOC PROGRESS REPORT ---
Subjective Progress Note for:: 11/29/16 Subjective:: Patient seen prior to surgery. Patient febrile to 102.8 at this time. Patient also hypertensive with a systolic of 190. Patient reports that he has not received his normal Xanax in several days of admission. Patient does complain of abdominal pain. Patient is to go to the OR today for laparoscopic cholecystectomy. Physical Exam Vital Signs: Temp Pulse Resp BP Pulse Ox 100.0 F 89 18 161/72 H 95 11/29/16 05:00 11/29/16 05:00 11/29/16 05:00 11/29/16 05:00 11/29/16 05:00 Intake & Output 11/28/16 11/29/16 11/30/16 06:59 06:59 06:59 Intake Total 1999 780 Balance 1999 780 Weight 138.4 kg Exam: General: Awake, alert, oriented 3, no acute respiratory distress, acutely ill- appearing, diaphoretic, pale HEENT: AT/NC, PERRL,EOMI, oropharynx is moist, pink, no scleral icterus, no conjunctival injection Neck: No JVD, trachea midline Chest: Clear to auscultation bilaterally, no wheezes rhonchi or rales CV: Regular rate and rhythm, normal S1 and S2, no murmur, rub, or gallop Abdomen: Soft, tender to palpation RUQ, nondistended, active bowel sounds; + diaz's sign Extremities: No cyanosis, clubbing or edema Neuro: Cranial nerves II through XII are grossly intact without focal deficits; awake alert and oriented x3 Psych: Normal mood and affect Results Laboratory Results: 11/29/16 06:02 11/29/16 06:02 11/29/16 11/29/16 06:02 06:02 WBC 14.0 H RBC 4.52 Hgb 13.6 Hct 40.1 MCV 89 MCH 30.0 MCHC 33.9 RDW 14.1 H Plt Count 170 Seg Neutrophils % 85.2 H Lymphocytes % 5.7 L Monocytes % 8.5 Eosinophils % 0.2 Basophils % 0.4 Absolute Neutrophils 11.9 H Absolute Lymphocytes 0.8 Absolute Monocytes 1.2 Absolute Eosinophils 0.0 Absolute Basophils 0.0 Sodium 131.6 L Potassium 3.7 Chloride 94 L Carbon Dioxide 26 Anion Gap 12 BUN 14 Creatinine 1.00 Est GFR ( Amer) > 60 Est GFR (Non-Af Amer) > 60 Glucose 131 H Calcium 7.8 L Magnesium 2.4 H Total Bilirubin 1.7 H AST 23 ALT 29 Alkaline Phosphatase 84 Total Protein 5.6 L Albumin 2.9 L Impressions: Abdomen/Pelvis CT 11/27/16 12:20 IMPRESSION: Diverticulitis hepatic flexure. Consider correlation with gallbladder ultrasound to exclude cholecystitis. Abdomen Ultrasound 11/27/16 15:05 IMPRESSION: 1. Limited study due to overlying bowel gas. 2. Hepatic steatosis. No focal liver lesions. 3. Otherwise unremarkable right upper quadrant ultrasound. Assessment & Plan - Diagnosis (1) Acute cholecystitis Is this a current diagnosis for this admission?: YesPlan: Placed patient on imipenem. Patient is to go to the OR today and we will tailor treatment according to their findings. Appreciate surgery input. (2) Sepsis Is this a current diagnosis for this admission?: YesPlan: Likely secondary to enteric pathogen. Place patient on imipenem. Currently on cefepime and Flagyl. (3) Anxiety Is this a current diagnosis for this admission?: YesPlan: We will give patient 1 mg of IV Ativan now and will resume patient's home Xanax. (4) Hypertensive urgency Is this a current diagnosis for this admission?: YesPlan: This is likely secondary to pain, fever, and benzodiazepine withdrawal. Will follow closely. (5) Severe obesity (BMI 35.0-39.9) with comorbidity Is this a current diagnosis for this admission?: Yes (6) Diverticulitis Qualifiers: Diverticulitis site: large intestine Diverticulitis bleeding: without bleeding Diverticulitis complication: without perforation or abscess Qualified Code(s): K57.32 - Diverticulitis of large intestine without perforation or abscess without bleeding Is this a current diagnosis for this admission?: NoPlan: Feel this was a red diaz and patient's underlying etiology is secondary to his gangrenous gallbladder (7) Renal insufficiency Is this a current diagnosis for this admission?: YesPlan: Improved secondary to dehydration - Time Time Spent with patient: 25-34 minutes Medications reviewed and adjusted accordingly: Yes Anticipated discharge: Home Within: within 48 hours, within 72 hours - Inpatient Certification Based on my medical assessment, after consideration of the patient's comorbidities, presenting symptoms, or acuity I expect that the services needed warrant INPATIENT care.: Yes I certify that my determination is in accordance with my understanding of Medicare's requirements for reasonable and necessary INPATIENT services [42 CFR 412.3e].: Yes Medical Necessity: Need For IV Fluids, Need for Pain Control, Need for IV Antibiotics, Need for Surgery Post Hospital Care: D/C Cigarette Inspector Documentation
[2016-11-29] MEDS ORDERED: IMIPENEM/CILASTATIN SODIUM 1,000 MG in NORMAL SALINE 250 ML IV ONE (20:00)
[2016-11-30] MEDS: HYDROMORPHONE HCL INJ/PF 2 MG/ML AMPULE IV PRN (00:42)
[2016-11-30] MEDS: IMIPENEM/CILASTATIN SODIUM 1,000 MG in NORMAL SALINE 250 ML IV SCH ×5 (05:56→18:19)
[2016-11-30 07:12] LABS: HEMATOCRIT 35.8 % (37.9-51.0); HEMOGLOBIN 12.2 g/dL (13.5-17.0); HGB HCT DIFFERENCE 0.8; MEAN CORPUSCULAR HEMOGLOBIN 30.6 pg (27.0-33.4); MEAN CORPUSCULAR HGB CONC 34.2 g/dL (32.0-36.0); MEAN CORPUSCULAR VOLUME 90 fl (80-97); RED CELL DISTRIBUTION WIDTH 14.3 % (11.5-14.0); WHITE BLOOD COUNT 12.6 10^3/uL (4.0-10.5)
[2016-11-30 07:33] LABS: ALANINE AMINOTRANSFERASE 38 U/L (21-72); ALBUMIN 2.5 g/dL (3.5-5.0); ALKALINE PHOSPHATASE 72 U/L (38-126); ANION GAP 9 (5-19); ASPARTATE AMINO TRANSFERASE 50 U/L (17-59); BILIRUBIN,DIRECT 0.4 mg/dL (0.0-0.4); BILIRUBIN,TOTAL 0.6 mg/dL (0.2-1.3); BLOOD UREA NITROGEN 20 mg/dL (7-20); CALCIUM 7.9 mg/dL (8.4-10.2); CARBON DIOXIDE 28 mmol/L (22-30); CHLORIDE 99 mmol/L (98-107); CREATININE RESULT 1.06 mg/dL (0.52-1.25); GLUCOSE 173 mg/dL (75-110); LIPASE 25.9 U/L (23-300); POTASSIUM 3.9 mmol/L (3.6-5.0); SODIUM 135.8 mmol/L (137-145); TOTAL PROTEIN 5.1 g/dL (6.3-8.2)
[2016-11-30] MEDS: LANSOPRAZOLE 15 MG TAB.RAP.DR PO SCH (11:09)
[2016-11-30] MEDS: ENOXAPARIN SODIUM INJ 40 MG/0.4 ML DISP.SYRIN SUBCUT SCH (11:09)
[2016-11-30] MEDS: LISINOPRIL 10 MG TABLET PO SCH ×2 (11:09→22:14)
[2016-11-30] MEDS: DOCUSATE SODIUM 100 MG CAPSULE PO SCH ×2 (11:09→18:12)
[2016-11-30] MEDS: METOPROLOL TARTRATE 25 MG TABLET PO SCH (11:10)
[2016-11-30] MEDS: OXYCODONE-ACETAMINOPHEN 5-325 MG TABLET PO PRN ×2 (11:10→18:19)
--- NOTE | 2016-11-30 11:34 | PROGRESS NOTE E ---
Progress Note NAME: LIAM GOLDMAN : 1950 AGE: 66Y DATE: 11/30/2016 ROOM: 534 SUBJECTIVE: Patient is first postop day post laparoscopic cholecystectomy for a gangrenous gallbladder. He feels better this morning though he still has some more of incisional pains. His REJI drained 200 mL since last night; but this is most likely from the irrigation that we used during the procedure. We will check his H and H. PHYSICAL EXAMINATION: ABDOMEN: Is soft and with minimal tenderness along the trocar sites. PLAN: We are still awaiting culture from the bile in the OR yesterday. In the meantime, continue him on IV antibiotics and get physical therapy to getting him ambulating. He is tolerating clear liquids this morning and will increase his diet as tolerated. DICTATING PHYSICIAN: FRANCESCA APPIAH M.D. [id number] PHY#: [id number] ID: [id number] JOB#: [id number] ACCT: [id number] cc: > MTDD
[2016-11-30] MEDS ORDERED: NORMAL SALINE 1000 ML 1,000 ML IV PRN (13:54)
--- NOTE | 2016-11-30 21:25 | PDOC PROGRESS REPORT ---
Subjective Progress Note for:: 11/30/16 Subjective:: Patient reports he is feeling much better. He is eating regular food. Patient denies chest pain, shortness of breath, fever, chills, nausea, vomiting , and new onset weakness. Patient does report some shortness of breath with ambulation. Patient reports flatus. Physical Exam Vital Signs: Temp Pulse Resp BP Pulse Ox 97.5 F 83 20 144/61 H 96 11/30/16 07:55 11/30/16 08:00 11/30/16 07:55 11/30/16 07:55 11/30/16 12:00 Pulse Oximeter Continuous Start: 11/29/16 17: 05 Freq: RTQ4 Status: Active Document 11/30/16 12:00 [facility] [place]Rec[facility] 11/30/16 12[facility]05 [id number] Pulse Oximetry Assessment Oxygen Saturation (92-100) 96 Oxygen Flow Rate (L/min) 3 Oxygen Delivery Method Nasal Cannula Fraction of Inspired Oxygen (FIO2) 32 Equipment Usage Equipment in Use Continuous SpO2 Machine # 13 Intake & Output 11/29/16 11/30/16 12/01/16 06:59 06:59 06:59 Intake Total 780 8349 Output Total 4315 Balance 780 4034 Weight 140.1 kg Exam: General: Awake, alert, oriented 3, no acute respiratory distress, acutely ill- appearing, diaphoretic, pale HEENT: AT/NC, PERRL,EOMI, oropharynx is moist, pink, no scleral icterus, no conjunctival injection Neck: No JVD, trachea midline Chest: Clear to auscultation bilaterally, no wheezes rhonchi or rales CV: Regular rate and rhythm, normal S1 and S2, no murmur, rub, or gallop Abdomen: Soft, mildly tender to palpation RUQ, nondistended, hypoactive bowel sounds Extremities: No cyanosis, clubbing; trace edema Neuro: Cranial nerves II through XII are grossly intact without focal deficits; awake alert and oriented x3 Psych: Normal mood and affect Results Laboratory Results: 11/30/16 06:44 11/30/16 06:44 11/30/16 11/30/16 06:44 06:44 WBC 12.6 H RBC 4.00 L Hgb 12.2 L Hct 35.8 L MCV 90 MCH 30.6 MCHC 34.2 RDW 14.3 H Plt Count 178 Sodium 135.8 L Potassium 3.9 Chloride 99 Carbon Dioxide 28 Anion Gap 9 BUN 20 Creatinine 1.06 Est GFR ( Amer) > 60 Est GFR (Non-Af Amer) > 60 Glucose 173 H Calcium 7.9 L Total Bilirubin 0.6 AST 50 ALT 38 Alkaline Phosphatase 72 Total Protein 5.1 L Albumin 2.5 L Lipase 25.9 Impressions: Abdomen/Pelvis CT 11/27/16 12:20 IMPRESSION: Diverticulitis hepatic flexure. Consider correlation with gallbladder ultrasound to exclude cholecystitis. Abdomen Ultrasound 11/27/16 15:05 IMPRESSION: 1. Limited study due to overlying bowel gas. 2. Hepatic steatosis. No focal liver lesions. 3. Otherwise unremarkable right upper quadrant ultrasound. Assessment & Plan - Diagnosis (1) Acute cholecystitis Is this a current diagnosis for this admission?: YesPlan: On imipenem. Patient is postoperative day #1 from cholecystectomy and REJI placement. Continue antibiotics pending culture. Drainage currently growing gram-negative rods. (2) Sepsis Qualifiers: Sepsis type: sepsis due to unspecified organism Qualified Code(s): A41.9 - Sepsis, unspecified organism Is this a current diagnosis for this admission?: YesPlan: Likely secondary to enteric, gram-negative, pathogen. Patient on imipenem. (3) Anxiety Is this a current diagnosis for this admission?: YesPlan: resume patient's home Xanax. (4) Hypertensive urgency Is this a current diagnosis for this admission?: YesPlan: Have resumed lisinopril and metoprolol. (5) Severe obesity (BMI 35.0-39.9) with comorbidity Is this a current diagnosis for this admission?: Yes (6) Renal insufficiency Is this a current diagnosis for this admission?: Yes - Time Time Spent with patient: 25-34 minutes
[2016-11-30] MEDS ORDERED: ZOLPIDEM TARTRATE 5 MG TABLET PO SCH (22:00)
[2016-11-30] MEDS ORDERED: (PENDING PHARMACY ID) (Zolpidem Tartrate [Ambien] 5 MG) PO SCH (22:00)
[2016-11-30] MEDS ORDERED: TRAZODONE HCL 50 MG TABLET PO SCH (22:00)
[2016-12-01] MEDS: HYDROMORPHONE HCL INJ/PF 2 MG/ML AMPULE IV PRN ×2 (00:30→07:04)
[2016-12-01] MEDS: IMIPENEM/CILASTATIN SODIUM 1,000 MG in NORMAL SALINE 250 ML IV SCH ×4 (00:30→18:13)
[2016-12-01 06:19] LABS: HEMATOCRIT 37.4 % (37.9-51.0); HEMOGLOBIN 12.4 g/dL (13.5-17.0); HGB HCT DIFFERENCE -0.2; MEAN CORPUSCULAR HEMOGLOBIN 29.7 pg (27.0-33.4); MEAN CORPUSCULAR HGB CONC 33.1 g/dL (32.0-36.0); MEAN CORPUSCULAR VOLUME 90 fl (80-97); RED BLOOD COUNT 4.18 10^6/uL (4.35-5.55); RED CELL DISTRIBUTION WIDTH 14.9 % (11.5-14.0); WHITE BLOOD COUNT 17.5 10^3/uL (4.0-10.5)
[2016-12-01 07:03] LABS: ALANINE AMINOTRANSFERASE 33 U/L (21-72); ALBUMIN 2.4 g/dL (3.5-5.0); ALKALINE PHOSPHATASE 95 U/L (38-126); ASPARTATE AMINO TRANSFERASE 30 U/L (17-59); BILIRUBIN,DIRECT 0.4 mg/dL (0.0-0.4); BILIRUBIN,TOTAL 0.6 mg/dL (0.2-1.3); TOTAL PROTEIN 5.1 g/dL (6.3-8.2)
[2016-12-01] MEDS: LANSOPRAZOLE 15 MG TAB.RAP.DR PO SCH (07:05)
[2016-12-01] MEDS: ENOXAPARIN SODIUM INJ 40 MG/0.4 ML DISP.SYRIN SUBCUT SCH (07:06)
[2016-12-01] MEDS: LISINOPRIL 10 MG TABLET PO SCH ×2 (10:00→22:40)
[2016-12-01] MEDS: DOCUSATE SODIUM 100 MG CAPSULE PO SCH ×2 (10:00→17:58)
[2016-12-01] MEDS ORDERED: OXYCODONE-ACETAMINOPHEN 5-325 MG TABLET PO PRN (11:06)
[2016-12-01] MEDS ORDERED: SENNOSIDES/DOCUSATE 8.6-50 MG 1 EACH TABLET PO PRN (11:07)
[2016-12-01] MEDS ORDERED: HYDROMORPHONE HCL INJ/PF 2 MG/ML AMPULE IV PRN (11:07)
[2016-12-01] MEDS: METOPROLOL TARTRATE 25 MG TABLET PO SCH (11:17)
[2016-12-01] MEDS: OXYCODONE-ACETAMINOPHEN 5-325 MG TABLET PO PRN ×2 (11:40→15:50)
--- NOTE | 2016-12-01 12:16 | PDOC PROGRESS REPORT ---
Subjective Progress Note for:: 12/01/16 Subjective:: Feels okay. But does not wish to go home. Wants to go home on Monday if possible. Tolerating a diet well. Pain under good control. Has not had a bowel movement yet. Physical Exam Vital Signs: Temp Pulse Resp BP Pulse Ox 98.0 F 81 16 184/79 H 95 12/01/16 11:22 12/01/16 11:22 12/01/16 11:22 12/01/16 11:22 12/01/16 11:22 Pulse Oximeter Continuous Start: 11/29/16 17: 05 Freq: RTQ4 Status: Complete Document 11/30/16 18:20 [facility] (Rec: 11/30/16 18:21 [facility] [id number]) Pulse Oximetry Assessment Equipment Usage Equipment Discontinued Continuous SpO2 Machine # [id number] Intake & Output 11/30/16 12/01/16 12/02/16 06:59 06:59 06:59 Intake Total 8351 3728 Output Total 431 945 Balance 4034 2783 Weight 140.1 kg General appearance: PRESENT: no acute distress, cooperative Respiratory exam: PRESENT: clear to auscultation ana Cardiovascular exam: PRESENT: RRR GI/Abdominal exam: PRESENT: other - Soft, nondistended, appropriate mild tenderness. Wounds clean dry and intact with no erythema Results Laboratory Results: 12/01/16 06:03 11/30/16 06:44 12/01/16 12/01/16 06:03 06:03 WBC 17.5 H RBC 4.18 L Hgb 12.4 L Hct 37.4 L MCV 90 MCH 29.7 MCHC 33.1 RDW 14.9 H Plt Count 217 Total Bilirubin 0.6 AST 30 ALT 33 Alkaline Phosphatase 95 Total Protein 5.1 L Albumin 2.4 L Impressions: Abdomen/Pelvis CT 11/27/16 12:20 IMPRESSION: Diverticulitis hepatic flexure. Consider correlation with gallbladder ultrasound to exclude cholecystitis. Abdomen Ultrasound 11/27/16 15:05 IMPRESSION: 1. Limited study due to overlying bowel gas. 2. Hepatic steatosis. No focal liver lesions. 3. Otherwise unremarkable right upper quadrant ultrasound. Assessment & Plan - Diagnosis (1) Acute cholecystitis Is this a current diagnosis for this admission?: YesPlan: Post laparoscopic cholecystectomy. Patient looks good. May discharge patient home once the social situation is straightened out. Patient will be receiving senna for constipation.
[2016-12-01] MEDS: HYDRALAZINE HCL INJ/PF 20 MG/1 ML SDV IV PRN ×2 (17:59→22:42)
[2016-12-01] MEDS ORDERED: HYDROCHLOROTHIAZIDE 25 MG TABLET PO ONE (18:00)
[2016-12-01] MEDS ORDERED: LACTULOSE SYRUP 20 GM/30 ML UDCUP PO ONE (20:37)
[2016-12-01] MEDS ORDERED: NA PHOS,M-B/NA PHOS,DI-BA (ADULT) 133 ML ENEMA PR ONE (20:37)
[2016-12-01] MEDS ORDERED: ZOLPIDEM TARTRATE 5 MG TABLET PO SCH (22:00)
[2016-12-01] MEDS ORDERED: TRAZODONE HCL 50 MG TABLET PO SCH (22:00)
[2016-12-01] MEDS: NA PHOS,M-B/NA PHOS,DI-BA (ADULT) 133 ML ENEMA PR SCH (22:41)
[2016-12-02] MEDS: IMIPENEM/CILASTATIN SODIUM 1,000 MG in NORMAL SALINE 250 ML IV SCH ×3 (00:06→11:16)
[2016-12-02] MEDS: LISINOPRIL 10 MG TABLET PO SCH (08:56)
[2016-12-02] MEDS: LANSOPRAZOLE 15 MG TAB.RAP.DR PO SCH (08:57)
[2016-12-02] MEDS: ENOXAPARIN SODIUM INJ 40 MG/0.4 ML DISP.SYRIN SUBCUT SCH (08:58)
[2016-12-02] MEDS: DOCUSATE SODIUM 100 MG CAPSULE PO SCH (08:58)
[2016-12-02] MEDS: NA PHOS,M-B/NA PHOS,DI-BA (ADULT) 133 ML ENEMA PR SCH (08:58)
[2016-12-02 09:24] LABS: ABSOLUTE BASOPHILS # (AUTO) 0.1 10^3/uL (0.0-0.2); ABSOLUTE EOSINOPHILS # (AUTO) 0.1 10^3/uL (0.0-0.6); ABSOLUTE LYMPHOCYTES (AUTO) 1.5 10^3/uL (0.5-4.7); ABSOLUTE MONOCYTES (AUTO) 1.5 10^3/uL (0.1-1.4); ABSOLUTE NEUT (AUTO) 8.5 10^3/uL (1.7-8.2); BASOPHILS % (AUTO) 0.5 % (0-2); HEMATOCRIT 39.6 % (37.9-51.0); HEMOGLOBIN 13.4 g/dL (13.5-17.0); HGB HCT DIFFERENCE 0.6; LYMPHOCYTES % (AUTO) 13.2 % (13-45); MEAN CORPUSCULAR HEMOGLOBIN 30.1 pg (27.0-33.4); MEAN CORPUSCULAR HGB CONC 33.8 g/dL (32.0-36.0); MEAN CORPUSCULAR VOLUME 89 fl (80-97); MONOCYTES % (AUTO) 12.5 % (3-13); RED BLOOD COUNT 4.45 10^6/uL (4.35-5.55); RED CELL DISTRIBUTION WIDTH 14.7 % (11.5-14.0); SEGMENTED NEUTROPHILS % (AUTO) 72.8 % (42-78); WHITE BLOOD COUNT 11.6 10^3/uL (4.0-10.5)
[2016-12-02] MEDS ORDERED: HYDROCHLOROTHIAZIDE 25 MG TABLET PO SCH (10:00)
[2016-12-02] MEDS ORDERED: LACTULOSE SYRUP 20 GM/30 ML UDCUP PO SCH (10:00)
[2016-12-02] MEDS: METOPROLOL TARTRATE 25 MG TABLET PO SCH (11:16)
--- NOTE | 2016-12-02 13:02 | PDOC PROGRESS REPORT ---
Subjective Progress Note for:: 12/02/16 Subjective:: Feels well, tolerating diet, voiding. Physical Exam Vital Signs: Temp Pulse Resp BP Pulse Ox 98.6 F 85 22 H 161/76 H 97 12/02/16 11:41 12/02/16 11:41 12/02/16 11:41 12/02/16 11:41 12/02/16 11:41 Pulse Oximeter Continuous Start: 11/29/16 17: 05 Freq: RTQ4 Status: Complete Document 11/30/16 18:20 [facility] (Rec: 11/30/16 18:21 [facility] [id number]) Pulse Oximetry Assessment Equipment Usage Equipment Discontinued Continuous SpO2 Machine # [id number] Intake & Output 12/01/16 12/02/16 12/03/16 06:59 06:59 06:59 Intake Total 3728 1800 Output Total 945 Balance 2783 1800 General appearance: PRESENT: no acute distress GI/Abdominal exam: PRESENT: other - All operative incisions healing satisfactorily. No peritoneal signs; no drainage. Results Laboratory Results: 12/02/16 09:06 11/30/16 06:44 12/02/16 09:06 WBC 11.6 H RBC 4.45 Hgb 13.4 L Hct 39.6 MCV 89 MCH 30.1 MCHC 33.8 RDW 14.7 H Plt Count 241 Seg Neutrophils % 72.8 Lymphocytes % 13.2 Monocytes % 12.5 Eosinophils % 1.0 Basophils % 0.5 Absolute Neutrophils 8.5 H Absolute Lymphocytes 1.5 Absolute Monocytes 1.5 H Absolute Eosinophils 0.1 Absolute Basophils 0.1 11/29/16 14:30 Gall Bladder Fluid Gram Stain - Final 11/29/16 14:30 Gall Bladder Fluid Body Fluid Culture - Final Escherichia Coli No Anaerobic Organisms Impressions: Abdomen/Pelvis CT 11/27/16 12:20 IMPRESSION: Diverticulitis hepatic flexure. Consider correlation with gallbladder ultrasound to exclude cholecystitis. Abdomen Ultrasound 11/27/16 15:05 IMPRESSION: 1. Limited study due to overlying bowel gas. 2. Hepatic steatosis. No focal liver lesions. 3. Otherwise unremarkable right upper quadrant ultrasound. Assessment & Plan - Diagnosis (1) Acute cholecystitis Is this a current diagnosis for this admission?: YesPlan: Patient is 3 days status post laparoscopic cholecystectomy. He is doing well has no complications no fever and white blood cell count diminished. Plan: 1. Discontinue IV antibiotics and support 2. Discharge patient home 3. Patient can follow-up with [place] [facility] in 1-2 weeks 4. I provided him a prescription for Toradol.
[2016-12-02 13:22] VITALS: BP 193/87
--- NOTE | 2016-12-02 20:48 | PDOC PROGRESS REPORT ---
Subjective Progress Note for:: 12/01/16 Subjective:: Patient reports he is feeling much better. He has had a bowel movement. Patient denies chest pain, shortness of breath, fever, chills, nausea, vomiting , and new onset weakness. Physical Exam Vital Signs: Selected Entries 12/01/16 07:36 Temperature 98.5 F Pulse Rate 80 Respiratory 16 Rate Blood Pressure 176/76 H O2 Sat by Pulse 96 Oximetry Oxygen Delivery Room Air Method Exam: General: Awake, alert, oriented 3, no acute respiratory distress, acutely ill- appearing, diaphoretic, pale HEENT: AT/NC, PERRL,EOMI, oropharynx is moist, pink, no scleral icterus, no conjunctival injection Neck: No JVD, trachea midline Chest: Clear to auscultation bilaterally, no wheezes rhonchi or rales CV: Regular rate and rhythm, normal S1 and S2, no murmur, rub, or gallop Abdomen: Soft, nontender to palpation, nondistended, active bowel sounds Extremities: No cyanosis, clubbing; trace edema Neuro: Cranial nerves II through XII are grossly intact without focal deficits; awake alert and oriented x3 Psych: Normal mood and affect Results Laboratory Results: 12/02/16 09:06 11/30/16 06:44 12/02/16 09:06 WBC 11.6 H RBC 4.45 Hgb 13.4 L Hct 39.6 MCV 89 MCH 30.1 MCHC 33.8 RDW 14.7 H Plt Count 241 Seg Neutrophils % 72.8 Lymphocytes % 13.2 Monocytes % 12.5 Eosinophils % 1.0 Basophils % 0.5 Absolute Neutrophils 8.5 H Absolute Lymphocytes 1.5 Absolute Monocytes 1.5 H Absolute Eosinophils 0.1 Absolute Basophils 0.1 11/29/16 14:30 Gall Bladder Fluid Gram Stain - Final 11/29/16 14:30 Gall Bladder Fluid Body Fluid Culture - Final Escherichia Coli No Anaerobic Organisms Impressions: Abdomen/Pelvis CT 11/27/16 12:20 IMPRESSION: Diverticulitis hepatic flexure. Consider correlation with gallbladder ultrasound to exclude cholecystitis. Abdomen Ultrasound 11/27/16 15:05 IMPRESSION: 1. Limited study due to overlying bowel gas. 2. Hepatic steatosis. No focal liver lesions. 3. Otherwise unremarkable right upper quadrant ultrasound. Assessment & Plan - Diagnosis (1) Acute cholecystitis Is this a current diagnosis for this admission?: Yes (2) Sepsis Qualifiers: Sepsis type: sepsis due to unspecified organism Qualified Code(s): A41.9 - Sepsis, unspecified organism Is this a current diagnosis for this admission?: Yes (3) Anxiety Is this a current diagnosis for this admission?: Yes (4) Hypertensive urgency Is this a current diagnosis for this admission?: Yes (5) Severe obesity (BMI 35.0-39.9) with comorbidity Is this a current diagnosis for this admission?: Yes (6) Renal insufficiency Is this a current diagnosis for this admission?: Yes - Time Time Spent with patient: 25-34 minutes Medications reviewed and adjusted accordingly: Yes - Plan Summary Plan Summary: Continue patient on IV antibiotics pending final culture from gallbladder fossa. Patient does report taking sleep aids at home and requests these. These will be provided.
--- NOTE | 2016-12-02 20:51 | PDOC DISCHARGE SUMMARY ---
General - Admit/Disc Date/PCP Admission Date/Primary Care Provider: 11/27/16 20:52 MARANDA BURNETTE, Discharge Date: 12/02/16 - Discharge Diagnosis (1) Acute cholecystitis Is this a current diagnosis for this admission?: Yes (2) Sepsis Is this a current diagnosis for this admission?: Yes (3) Anxiety Is this a current diagnosis for this admission?: Yes (4) Hypertensive urgency Is this a current diagnosis for this admission?: Yes (5) Severe obesity (BMI 35.0-39.9) with comorbidity Is this a current diagnosis for this admission?: Yes (6) Renal insufficiency Is this a current diagnosis for this admission?: Yes (7) Insomnia Is this a current diagnosis for this admission?: Yes (8) Anemia Is this a current diagnosis for this admission?: Yes (9) Hyponatremia Is this a current diagnosis for this admission?: Yes (10) Hypoalbuminemia due to protein-calorie malnutrition Is this a current diagnosis for this admission?: Yes - Additional Information Resuscitation Status: Full Code Discharge Diet: Cardiac Discharge Activity: Activity As Tolerated, No Lifting Over 10 Pounds, Slowly Increase Activity, Walk Frequently Home Medications: Alprazolam [Xanax] 1 mg PO Q8 11/28/16 Metoprolol Tartrate [Lopressor 25 mg Tablet] 25 mg PO DAILY 11/28/16 Omeprazole Magnesium [Prilosec Otc] 20 mg PO QAM 11/28/16 Tramadol HCl [Ultram 50 mg Tablet] 50 mg PO Q6 11/28/16 Docusate Sodium [Colace 100 mg Capsule] 100 mg PO BID #60 capsule 12/02/16 Lisinopril [Prinivil 10 mg Tablet] 10 mg PO Q12 #60 tablet 12/02/16 Sennosides/Docusate 8.6-50 mg [Senna Plus Tablet] 2 each PO HSP PRN #60 tablet 12/02/16 Trazodone HCl [Desyrel 50 mg Tablet] 100 mg PO QHS tablet 12/02/16 Zolpidem Tartrate [Ambien 5 mg Tablet] 2.5 mg PO QHS tablet 12/02/16 History of Present Illness History of Present Illness: Please see H&P for full HPI Hospital Course Hospital Course: Patient was admitted initially thought due to CT findings to have diverticulitis and started empirically on Flagyl and Cipro. Patient was found as evaluated by surgery to have acute cholecystitis and taken urgently to the operating room. Patient was found to have gangrenous cholecystitis. Patient underwent laparoscopic cholecystectomy with REJI drain placement. Patient was continued on imipenem for 48 hours postoperatively. Patient's drain was removed by surgery. He was doing well eating drinking passing flatus and had a bowel movement. The remainder patient's hospital course was unremarkable. Patient was discharged home in stable condition to follow-up with the surgical team. He is advised to follow-up with his primary care physician. Physical Exam Vital Signs: Temp Pulse Resp BP Pulse Ox 98.6 F 85 22 H 193/87 H 97 12/02/16 13:21 12/02/16 13:21 12/02/16 13:21 12/02/16 13:21 12/02/16 13:21 Pulse Oximeter Continuous Start: 11/29/16 17: 05 Freq: RTQ4 Status: Complete Document 11/30/16 18:20 [facility] (Rec: 11/30/16 18:21 [facility] [id number]) Pulse Oximetry Assessment Equipment Usage Equipment Discontinued Continuous SpO2 Machine # [id number] Intake & Output 12/01/16 12/02/16 12/03/16 06:59 06:59 06:59 Intake Total 3728 1800 Output Total 945 Balance 2783 1800 Exam: General: Awake, alert, oriented 3, no acute respiratory distress HEENT: AT/NC, PERRL,EOMI, oropharynx is moist, pink, no scleral icterus, no conjunctival injection Neck: No JVD, trachea midline Chest: Clear to auscultation bilaterally, no wheezes rhonchi or rales CV: Regular rate and rhythm, normal S1 and S2, no murmur, rub, or gallop Abdomen: Soft, nontender to palpation, nondistended, active bowel sounds Extremities: No cyanosis, clubbing; trace edema Neuro: Cranial nerves II through XII are grossly intact without focal deficits; awake alert and oriented x3 Psych: Normal mood and affect Results Laboratory Results: 12/02/16 09:06 11/30/16 06:44 12/02/16 09:06 WBC 11.6 H RBC 4.45 Hgb 13.4 L Hct 39.6 MCV 89 MCH 30.1 MCHC 33.8 RDW 14.7 H Plt Count 241 Seg Neutrophils % 72.8 Lymphocytes % 13.2 Monocytes % 12.5 Eosinophils % 1.0 Basophils % 0.5 Absolute Neutrophils 8.5 H Absolute Lymphocytes 1.5 Absolute Monocytes 1.5 H Absolute Eosinophils 0.1 Absolute Basophils 0.1 11/29/16 14:30 Gall Bladder Fluid Gram Stain - Final 11/29/16 14:30 Gall Bladder Fluid Body Fluid Culture - Final Escherichia Coli No Anaerobic Organisms Impressions: Abdomen/Pelvis CT 11/27/16 12:20 IMPRESSION: Diverticulitis hepatic flexure. Consider correlation with gallbladder ultrasound to exclude cholecystitis. Abdomen Ultrasound 11/27/16 15:05 IMPRESSION: 1. Limited study due to overlying bowel gas. 2. Hepatic steatosis. No focal liver lesions. 3. Otherwise unremarkable right upper quadrant ultrasound. Qualifiers PATEINT BEING DISCHARGED WITH ANY OF THE FOLLOWING DIAGNOSIS?: No Plan Time Spent: Less than 30 Minutes
== END 2016-12-02 15:51 | disposition home or self-care (01) | DRG 854 ==
LOC: ER 11:09 → EH 19:43 → UNDOADMIN 19:43 → EH 20:52 → 5 22:17
PROVIDERS: ADMIT Family Medicine; ATTEND Family Medicine
PROC: 0DNS4ZZ (ICD-10-PCS; 2016-11-29)
PROC: 0FN04ZZ Release Liver, Percutaneous Endoscopic Approach (ICD-10-PCS; 2016-11-29)
PROC: 0W9G40Z Drainage of Peritoneal Cavity with Drainage Device, Percutaneous Endoscopic Approach (ICD-10-PCS; 2016-11-29)
PROC: 0FT44ZZ Resection of Gallbladder, Percutaneous Endoscopic Approach (ICD-10-PCS; principal; 2016-11-29 15:00)
DX: A41.9 Sepsis, unspecified organism (principal); K80.00 Calculus of gallbladder with acute cholecystitis without obstruction; E87.1 Hypo-osmolality and hyponatremia; E46 Unspecified protein-calorie malnutrition; K82.8 Other specified diseases of gallbladder; K66.0 Peritoneal adhesions (postprocedural) (postinfection); I16.0 Hypertensive urgency; I10 Essential (primary) hypertension; K59.00 Constipation, unspecified; K21.9 Gastro-esophageal reflux disease without esophagitis; M19.90 Unspecified osteoarthritis, unspecified site; F41.1 Generalized anxiety disorder; G47.00 Insomnia, unspecified; N28.9 Disorder of kidney and ureter, unspecified; E86.0 Dehydration; E66.01 Morbid (severe) obesity due to excess calories; Z79.899 Other long term (current) drug therapy; Z90.49 Acquired absence of other specified parts of digestive tract; Z88.0 Allergy status to penicillin; Z68.39 Body mass index [BMI] 39.0-39.9, adult
CPT/HCPCS: 00790; 36415; 74177; 76705; 80053; 80076; 82272; 83036; 83690; 83735; 85025; 85027; 87040; 87070; 87075; 87077; 87186; 87205; 87493; 88304; 93005; 93010; 94762; 94799; 96365; 96368; 96375; 99285; J0131; J0330; J0360; J0692; J0743; J0744; J1100; J1170; J1650; J1885; J1956; J2060; J2250; J2270; J2370; J2405; J2704; J3010; J3490; J7050; J7120

== ENCOUNTER 2018-09-01 03:19 | Emergency (ER) | payer OTHER, MEDICARE, MEDICAID ==
[2018-09-01] MEDS ORDERED: FAMOTIDINE INJ/PF 20 MG/2 ML SDV IV ONE (03:42)
[2018-09-01] MEDS ORDERED: EPINEPHRINE INJ/PF 1 MG/1 ML AMPULE IM ONE (03:43)
--- NOTE | 2018-09-01 03:56 | ER Document Report ---
ED Allergic Reaction - General Chief Complaint: Allergic Reaction Stated Complaint: SWOLLEN TONGUE Time Seen by Provider: 09/01/18 03:34 Primary Care Provider: MARANDA BURNETTE DO [Primary Care Provider] - Follow up as needed Notes: Patient is a 68 year old male that comes to the Emergency Department for chief complaint of tongue swelling that started at approximately midnight. He states that he noticed that only one side of his tongue is swollen (the left), he is not having difficulty swallowing or breathing, he denies rash, he denies any other complaints. At 1:30 AM he took 75 mg of Benadryl. He states that since the medication was taken he has not noticed improvement or progression. He denies history of the same. He is on lisinopril, he also was recently placed on prednisone and albuterol, he states he had an allergic reaction to prednisone as a child as well. TRAVEL OUTSIDE OF THE [place] IN LAST 30 DAYS: No - Related Data Allergies/Adverse Reactions: Penicillins Allergy (Severe, Verified 11/28/16 06:01) Anaphylaxis cillin Allergy (Intermediate, Uncoded 11/27/16 20:51) Anaphylaxis Past Medical History - General Information source: Patient - Social History Smoking Status: Never Smoker Frequency of alcohol use: None Drug Abuse: None Lives with: Alone Family History: Reviewed & Not Pertinent - Past Medical History Cardiac Medical History: Reports: Hx Hypertension Denies: Hx Congestive Heart Failure, Hx DVT, Hx Heart Attack, Hx Hypercholesterolemia, Hx Pulmonary Embolism Pulmonary Medical History: Denies: Hx Asthma, Hx COPD, Hx Sleep Apnea Neurological Medical History: Denies: Hx Seizures Endocrine Medical History: Denies: Hx Diabetes Mellitus Type 1, Hx Diabetes Mellitus Type 2, Hx Hyperthyroidism, Hx Hypothyroidism Renal/ Medical History: Denies: Hx Peritoneal Dialysis GI Medical History: Reports: Hx Diverticulitis, Hx Gastroesophageal Reflux Disease. Denies: Hx Cirrhosis, Hx Hepatitis Musculoskeletal Medical History: Reports Hx Arthritis Psychiatric Medical History: Denies: Hx Depression Infectious Medical History: Denies: Hx C-Diff, Hx Hepatitis, Hx MRSA Past Surgical History: Reports: Hx Tonsillectomy. Denies: Hx Abdominal Surgery, Hx Appendectomy, Hx Cholecystectomy - Immunizations Hx Diphtheria, Pertussis, Tetanus Vaccination: Yes Hx Pneumococcal Vaccination: 08/24/11 Review of Systems - Review of Systems Constitutional: No symptoms reported EENT: See HPI Cardiovascular: No symptoms reported Respiratory: No symptoms reported Gastrointestinal: No symptoms reported Genitourinary: No symptoms reported Male Genitourinary: No symptoms reported Musculoskeletal: No symptoms reported Skin: No symptoms reported Hematologic/Lymphatic: No symptoms reported Neurological/Psychological: No symptoms reported Physical Exam - Vital signs Vitals: Temp Pulse Resp BP Pulse Ox 98.7 F 101 H 18 161/82 H 97 09/01/18 03:26 09/01/18 03:26 09/01/18 03:26 09/01/18 03:26 09/01/18 03:26 - Notes Notes: GENERAL: Alert, interacts well. No acute distress. HEAD: Normocephalic, atraumatic. EYES: Pupils equal, round, and reactive to light. Extraocular movements intact. ENT: Oral mucosa moist, tongue is very swollen on the left side, not swollen on the right,. Oropharynx unremarkable. Airway patent. Nares patent, no nasal septal hematoma, TM's intact. NECK: Full range of motion. Supple. Trachea midline. LUNGS: Clear to auscultation bilaterally, no wheezes, rales, or rhonchi. No respiratory distress. HEART: Regular rate and rhythm. No murmur ABDOMEN: Soft, non-tender. Non-distended. Bowel sounds present in all 4 quadrants. GENITOURINARY: Deferred EXTREMITIES: Moves all 4 extremities spontaneously. No edema, normal radial and dorsalis pedis pulses bilaterally. No cyanosis. BACK: no cervical, thoracic, lumbar midline tenderness. No saddle anesthesia, normal distal neurovascular exam. NEUROLOGICAL: Alert and oriented x3. Normal speech. [cranial nerves II through XII grossly intact]. PSYCH: Normal affect, normal mood. SKIN: Warm, dry, normal turgor. No rashes or lesions noted. Course - Re-evaluation Re-evalutation: Slightly mixed clinical picture. Patient is a , he is on lisinopril, he reports allergic reaction to prednisone as a child but is unable to give specifics of this. Has already taken Benadryl, given Pepcid, epinephrine ini tially, will closely monitor. If this does not show improvement we will give FFP. Discussed with Dr. Abdi. 09/01/18 04:10 Patient reevaluated closely, approximately 5 minutes after the epinephrine he had significant reduction in the swelling of the tongue, this is very obvious on evaluation, this is apparently allergic reaction based on the response to treatment. He will continue to be monitored. 09/01/18 04:50 Patient has significantly improved again, there is some swelling but patient no longer has a strange sounding voice secondary to tongue swelling. We will continue to monitor. Patient monitored for about 2 and half hours. Swelling has almost completely resolved of the tongue now. Patient has asked multiple times to leave. Patient will be given epinephrine pen along with antihistamines, discussed follow-up, discussed strict return precautions. Patient states satisfaction and agreement with plan. - Vital Signs Vital signs: Temp Pulse Resp BP Pulse Ox 97.7 F 88 18 167/87 H 98 09/01/18 06:35 09/01/18 06:35 09/01/18 06:35 09/01/18 06:35 09/01/18 06:35 Discharge - Discharge Clinical Impression: Tongue swelling Allergic reaction Qualifiers: Encounter type: initial encounter Qualified Code(s): T78.40XA - Allergy, unspecified, initial encounter Condition: Stable Disposition: HOME, SELF-CARE Additional Instructions: Your evaluation is consistent with a severe allergic reaction causing the swelling of the tongue. The exact allergic source is uncertain but because you previously had problems with prednisone and recently started this again you should probably avoid this in the future. Take the antihistamines as prescribed for 1 week. Follow-up with primary care. In the event of a severe allergic reaction (difficulty breathing, difficulty swallowing, swelling of the tongue, lips, or face, etc), take the epinephrine pen and return immediately. Prescriptions: Cetirizine HCl [Zyrtec 10 mg Tablet] 1 tab PO DAILY #30 tablet Epinephrine [Epipen 2-Xavi] 0.3 mg IM ASDIR PRN #1 packet PRN Reason: Famotidine [Pepcid 20 mg Tablet] 20 mg PO DAILY #14 tablet Referrals: MARANDA BURNETTE DO [Primary Care Provider] - Follow up as needed
[2018-09-01] MEDS ORDERED: CETIRIZINE 10 MG TABLET PO ONE (05:27)
[2018-09-01 06:36] VITALS: BP 167/87
== END 2018-09-01 06:36 | disposition home or self-care (01) ==
LOC: ER 03:19
DX: T78.40XA Allergy, unspecified, initial encounter (principal); R22.0 Localized swelling, mass and lump, head; X58.XXXA Exposure to other specified factors, initial encounter; I10 Essential (primary) hypertension; Z79.899 Other long term (current) drug therapy; Z88.8 Allergy status to other drugs, medicaments and biological substances; Z88.0 Allergy status to penicillin
CPT/HCPCS: 99283; 96372; 96374; J0171; S0028

== ENCOUNTER → 2018-11-25 | Outpatient (CLI) | payer OTHER ==
--- NOTE | 2018-11-26 11:18 | RADIOLOGY REPORT (SQ) ---
EXAM DESCRIPTION: PET CT SKULL/THIGH COMPLETED DATE/TIME: 11/26/2018 4:09 am REASON FOR STUDY: LOCALIZED ENLARGED LYMPH NODES (R59.0) R59.0 LOCALIZED ENLARGED LYMPH NODES COMPARISON: None. RADIONUCLIDE AND DOSE: 9.79 mCi F18 FDG The route of agent administration: Intravenous FASTING BLOOD SUGAR: 112 mg/dl CONTRAST TYPE AND DOSE: No CT contrast given. TECHNIQUE: Blood glucose level was verified. Above dose of FDG was injected intravenously. 2-D seg mented attenuation correction images were obtained from the base of the skull to the midthighs. Nonc ontrast CT images were obtained for attenuation correction and fusion with emission images. CT image s were performed without oral or intravenous contrast and are not sensitive for parenchymal lesions. A series of overlapping emission PET images were obtained. Images reviewed and manipulated at [facility] work station by the radiologist. Images stored on PACS. LIMITATIONS: None. FINDINGS: HEAD AND NECK: No areas of abnormal metabolic activity in the soft tissues of the head and neck. CHEST: Image 72, hypermetabolic 1 cm level 1 R node. 2.6 SUV. Image 78, hypermetabolic 1.5 x 3.3 cm asygoesophageal node. 10.9 SUV. Image 90, hypermetabolic 2.6 x 3.0 cm level 7 node. 13.3 SUV. Image 116, hypermetabolic 1.5 cm pericardial node. 3.6 SUV. ABDOMEN AND PELVIS: Several hypermetabolic foci within mildly enlarged spleen without obvious corresp onding morphologic lesion. Hypermetabolic large rind of retroperitoneal nodes encasing the aorta to the iliac bifurcation. Sample measurement image 166, hypermetabolic 9.7 x 11.4 cm retroperitoneal diane mass. 13.6 SUV. PROXIMAL LOWER EXTREMITIES: No areas of abnormal metabolic activity in the soft tissues of the lower extremities. BONES: No abnormal metabolic activity in the visualized skeleton. ADDITIONAL CT FINDINGS: Large hiatal hernia. Diverticulosis. OTHER: Blood pool 1.6 SUV. Liver background 2.8 SUV. IMPRESSION: Extensive hypermetabolic adenopathy consistent with lymphoma. TECHNICAL DOCUMENTATION: JOB ID: [id number] [place]- All Rights Reserved Reading location - IP/workstation name: [email or web address]
== END ==
LOC: RAD 18:45
PROVIDERS: ATTEND Internal Medicine Medical Oncology
DX: R59.0 Localized enlarged lymph nodes (principal)
CPT/HCPCS: 78815; A9552

== ENCOUNTER 2018-12-01 18:55 | Emergency (ER) | payer OTHER, MEDICARE ==
--- NOTE | 2018-12-01 19:52 | ER Document Report ---
ED Medical Screen (RME) - General Chief Complaint: Constipation Stated Complaint: CONSTIPATION Time Seen by Provider: 12/01/18 19:41 Primary Care Provider: MALENA MANDUJANO MD [Primary Care Provider] - Follow up as needed Mode of Arrival: Wheelchair Information source: Patient Notes: 68-year-old male presented to ED for no stool in 7-3/4-day.. He states he has a history of lymphoma and is supposed to have biopsies done at the end of the month. He states he took MiraLAX for 2 days please suppository last night and biscadyl several times starting on November 26. He states he took the maximum dose. Patient is alert oriented respirations regular and unlabored and speaking in full sentences. Patient states he has had multiple CAT scans recently. We will get lab and an acute abdomen series at this time. I have greeted and performed a rapid initial assessment of this patient. A comprehensive ED assessment and evaluation of the patient, analysis of test res ults and completion of medical decision making process will be conducted by an additional ED providers. Dictation of this chart was performed using voice recognition software; therefore, there may be some unintended grammatical errors. TRAVEL OUTSIDE OF THE [place] IN LAST 30 DAYS: No - Related Data Allergies/Adverse Reactions: Penicillins Allergy (Severe, Verified 12/01/18 18:58) Anaphylaxis cillin Allergy (Intermediate, Uncoded 12/01/18 18:58) Anaphylaxis Past Medical History - Past Medical History Cardiac Medical History: Reports: Hx Hypertension Denies: Hx Congestive Heart Failure, Hx DVT, Hx Heart Attack, Hx Hypercholesterolemia, Hx Pulmonary Embolism Pulmonary Medical History: Denies: Hx Asthma, Hx COPD, Hx Sleep Apnea Neurological Medical History: Denies: Hx Seizures Endocrine Medical History: Denies: Hx Diabetes Mellitus Type 1, Hx Diabetes Mellitus Type 2, Hx Hyperthyroidism, Hx Hypothyroidism Renal/ Medical History: Denies: Hx Peritoneal Dialysis GI Medical History: Reports: Hx Diverticulitis, Hx Gastroesophageal Reflux Disease. Denies: Hx Cirrhosis, Hx Hepatitis Musculoskeltal Medical History: Reports Hx Arthritis Psychiatric Medical History: Denies: Hx Depression Infectious Medical History: Denies: Hx C-Diff, Hx Hepatitis, Hx MRSA Past Surgical History: Reports: Hx Tonsillectomy. Denies: Hx Abdominal Surgery, Hx Appendectomy, Hx Cholecystectomy - Immunizations Hx Diphtheria, Pertussis, Tetanus Vaccination: Yes Physical Exam - Vital signs Vitals: Temp Pulse Resp BP Pulse Ox 98.5 F 95 16 142/79 H 96 12/01/18 19:04 12/01/18 19:04 12/01/18 19:04 12/01/18 19:04 12/01/18 19:04 Course - Vital Signs Vital signs: Temp Pulse Resp BP Pulse Ox 98.5 F 95 16 142/79 H 96 12/01/18 19:04 12/01/18 19:04 12/01/18 19:04 12/01/18 19:04 12/01/18 19:04 Doctor's Discharge - Discharge Referrals: MALENA MANDUJANO MD [Primary Care Provider] - Follow up as needed
[2018-12-01 20:44] LABS: ABSOLUTE LYMPHOCYTES (AUTO) 1.1 10^3/uL (0.5-4.7); ABSOLUTE MONOCYTES (AUTO) 1.6 10^3/uL (0.1-1.4); ABSOLUTE NEUT (AUTO) 11.5 10^3/uL (1.7-8.2); BASOPHILS % (AUTO) 0.2 % (0-2); EOSINOPHILS % (AUTO) 0.2 % (0-6); HEMATOCRIT 33.3 % (37.9-51.0); HEMOGLOBIN 10.8 g/dL (13.5-17.0); LYMPHOCYTES % (AUTO) 7.8 % (13-45); MEAN CORPUSCULAR HEMOGLOBIN 23.9 pg (27.0-33.4); MEAN CORPUSCULAR HGB CONC 32.4 g/dL (32.0-36.0); MEAN CORPUSCULAR VOLUME 74 fl (80-97); MONOCYTES % (AUTO) 11.3 % (3-13); PLATELET COUNT 943 10^3/uL (150-450); RED BLOOD COUNT 4.53 10^6/uL (4.35-5.55); RED CELL DISTRIBUTION WIDTH 18.6 % (11.5-14.0); SEGMENTED NEUTROPHILS % (AUTO) 80.5 % (42-78); TOTAL CELLS COUNTED % (AUTO) 100 %; WHITE BLOOD COUNT 14.3 10^3/uL (4.0-10.5)
--- NOTE | 2018-12-01 20:46 | RADIOLOGY REPORT (SQ) ---
EXAM DESCRIPTION: XR ABDOMEN SUPINE AND ERECT WITH CHEST (ABD ACUTE SERIES) COMPLETED DATE/TME: 12/01/2018 19:47 CLINICAL HISTORY: 68 years, Male, no stool in 7 days COMPARISON: None. NUMBER OF VIEWS: Three TECHNIQUE: Three frontal radiographs of the chest and abdomen were performed. LIMITATIONS: None. FINDINGS: Cardiac and mediastinal contours are normal in appearance. Lungs are clear. No pleural effusion or pneumothorax. There is a moderately sized hiatal hernia. Cholecystectomy clips project over the right upper quadrant. Gas and a large amount of stool are noted throughout the large bowel. Scattered nondilated loops of small bowel are evident. Scattered phleboliths project over the pelvic inlet. Moderate right and mild left hip joint osteoarthrosis are noted. No suspicious soft tissue calcifications. No subdiaphragmatic free air. IMPRESSION: No acute disease within chest. Nonobstructive bowel gas pattern with large colonic stool load. Moderate hiatal hernia. copyright 2010 [employer]- All Rights Reserved
[2018-12-01 20:58] LABS: ALANINE AMINOTRANSFERASE 54 U/L (21-72); ALBUMIN 3.3 g/dL (3.5-5.0); ALKALINE PHOSPHATASE 452 U/L (38-126); ANION GAP 17 (5-19); ASPARTATE AMINO TRANSFERASE 50 U/L (17-59); BILIRUBIN,DIRECT 0.4 mg/dL (0.0-0.4); BILIRUBIN,TOTAL 0.8 mg/dL (0.2-1.3); BLOOD UREA NITROGEN 16 mg/dL (7-20); CALCIUM 9.4 mg/dL (8.4-10.2); CARBON DIOXIDE 30 mmol/L (22-30); CHLORIDE 93 mmol/L (98-107); GLUCOSE 143 mg/dL (75-110); POTASSIUM 4.8 mmol/L (3.6-5.0); SODIUM 139.5 mmol/L (137-145)
[2018-12-01] MEDS ORDERED: MINERAL OIL 30 ML UDCUP PR ONE (21:40)
[2018-12-01] MEDS ORDERED: LACTULOSE SYRUP 20 GM/30 ML UDCUP PO ONE (21:40)
[2018-12-01] MEDS ORDERED: MAGNESIUM CITRATE 296 ML BOTTLE PO ONE (23:48)
--- NOTE | 2018-12-01 23:54 | ER Document Report ---
ED General - General Chief Complaint: Constipation Stated Complaint: CONSTIPATION Time Seen by Provider: 12/01/18 19:41 Primary Care Provider: MALENA MANDUJANO MD [Primary Care Provider] - Follow up as needed Mode of Arrival: Wheelchair Notes: Patient is a 68-year-old male with a past medical history of hypertension, lymphoma, chronic constipation, presents complaining of abdominal distention, feeling uncomfortable with abdominal cramping, not having had a bowel movement in 1 week. The patient reports that he has tried MiraLAX at home with no relief. No exacerbating factors. Describes the abdominal cramping as being intermittent, generalized, mild to moderate in nature. States that it makes him feel very full. Denies associated nausea or vomiting. No melena or hematochezia. No hematemesis. No history of abdominal surgeries. Has not seen his primary care physician regarding today's concerns. TRAVEL OUTSIDE OF THE [place] IN LAST 30 DAYS: No - Related Data Allergies/Adverse Reactions: Penicillins Allergy (Severe, Verified 12/01/18 18:58) Anaphylaxis cillin Allergy (Intermediate, Uncoded 12/01/18 18:58) Anaphylaxis Past Medical History - General Information source: Patient - Social History Smoking Status: Never Smoker Frequency of alcohol use: None Drug Abuse: None Family History: Reviewed & Not Pertinent Patient has suicidal ideation: No Patient has homicidal ideation: No - Past Medical History Cardiac Medical History: Reports: Hx Hypertension Denies: Hx Congestive Heart Failure, Hx DVT, Hx Heart Attack, Hx Hypercholesterolemia, Hx Pulmonary Embolism Pulmonary Medical History: Denies: Hx Asthma, Hx COPD, Hx Sleep Apnea Neurological Medical History: Denies: Hx Seizures Endocrine Medical History: Denies: Hx Diabetes Mellitus Type 1, Hx Diabetes Mellitus Type 2, Hx Hyperthyroidism, Hx Hypothyroidism Renal/ Medical History: Denies: Hx Peritoneal Dialysis GI Medical History: Reports: Hx Diverticulitis, Hx Gastroesophageal Reflux Disease. Denies: Hx Cirrhosis, Hx Hepatitis Musculoskeletal Medical History: Reports Hx Arthritis Psychiatric Medical History: Denies: Hx Depression Infectious Medical History: Denies: Hx C-Diff, Hx Hepatitis, Hx MRSA Past Surgical History: Reports: Hx Tonsillectomy. Denies: Hx Abdominal Surgery, Hx Appendectomy, Hx Cholecystectomy - Immunizations Hx Diphtheria, Pertussis, Tetanus Vaccination: Yes Hx Pneumococcal Vaccination: 08/24/11 Review of Systems - Review of Systems Notes: Constitutional: Negative for fever. HENT: Negative for sore throat. Eyes: Negative for visual changes. Cardiovascular: Negative for chest pain. Respiratory: Negative for shortness of breath. Gastrointestinal: Positive for abdominal cramping, constipation Genitourinary: Negative for dysuria. Musculoskeletal: Negative for back pain. Skin: Negative for rash. Neurological: Negative for headaches, weakness or numbness. 10 point ROS negative except as marked above and in HPI. Physical Exam - Vital signs Vitals: Temp Pulse Resp BP Pulse Ox 98.5 F 95 16 142/79 H 96 12/01/18 19:04 12/01/18 19:04 12/01/18 19:04 12/01/18 19:04 12/01/18 19:04 Interpretation: Hypertensive Notes: PHYSICAL EXAMINATION: GENERAL: Well-appearing, well-nourished and in no acute distress. HEAD: Atraumatic, normocephalic. EYES: Pupils equal round and reactive to light, extraocular movements intact, sclera anicteric, conjunctiva are normal. ENT: nares patent, oropharynx clear without exudates. Moist mucous membranes. NECK: Normal range of motion, supple without lymphadenopathy LUNGS: Breath sounds clear to auscultation bilaterally and equal. No wheezes rales or rhonchi. HEART: Regular rate and rhythm without murmurs ABDOMEN: Soft, nontender, normoactive bowel sounds. No guarding, no rebound. No masses appreciated. EXTREMITIES: Normal range of motion, no pitting or edema. No cyanosis. NEUROLOGICAL: No focal neurological deficits. Moves all extremities spontaneously and on command. PSYCH: Normal mood, normal affect. SKIN: Warm, Dry, normal turgor, no rashes or lesions noted. Course - Re-evaluation Re-evalutation: 12/01/18 23:56 Patient presents with complaints of not having a bowel movement for 1 week and having generalized abdominal discomfort. Patient is very well in appearance, no focal abdominal tenderness, rebound or guarding on exam. Bowel sounds are present. No tympany. Acute abdominal series without evidence of perforation or obstruction, does show heavy colonic stool burden. Number symptoms many times in the past. States that his only complaint is that he cannot currently have a bowel movement. He has been tolerating oral intake without any difficulty, denies any vomiting. Denies any abdominal surgical history. I do not clinically suspect an acute appendicitis, biliary pathology, pancreatitis, bowel obstruction, bowel perforation or mesenteric ischemia based on exam and history. I provided symptom medic treatment here in the emergency department and advised excluding doses of MiraLAX at home. At this time will discharge with return precautions and follow-up recommendations. Verbal discharge instructions given a the bedside and opportunity for questions given. Medication warnings reviewed. Patient is in agreement with this plan and has verbalized understanding of return precautions and the need for primary care follow-up in the next 24-72 hours. - Vital Signs Vital signs: Temp Pulse Resp BP Pulse Ox 98.5 F 82 16 144/86 H 98 12/01/18 19:04 12/02/18 03:01 12/02/18 03:01 12/02/18 03:01 12/02/18 03:01 - Laboratory Result Diagrams: 12/01/18 20:14 12/01/18 20:14 Laboratory results interpreted by me: 12/01/18 12/01/18 20:14 20:14 WBC 14.3 H Hgb 10.8 L Hct 33.3 L MCV 74 L MCH 23.9 L RDW 18.6 H Plt Count 943 H Seg Neutrophils % 80.5 H Lymphocytes % 7.8 L Absolute Neutrophils 11.5 H Absolute Monocytes 1.6 H Chloride 93 L Glucose 143 H Alkaline Phosphatase 452 H Albumin 3.3 L - Diagnostic Test Radiology reviewed: Image reviewed, Reports reviewed Radiology results interpreted by me: 12/02/18 04:47 Abdominal series: No evidence of obstruction or perforation Discharge - Discharge Clinical Impression: Abdominal discomfort Constipation Qualifiers: Constipation type: unspecified constipation type Qualified Code(s): K59.00 - Constipation, unspecified Condition: Good Disposition: HOME, SELF-CARE Additional Instructions: For your constipation: You should take 8 caps of MiraLAX and placed in 1 liter of Gatorade. Drink one half of the solution and wait 4 hours. If you do not have a bowel movement take the remaining half of the solution. Return if you have vomiting, worsening discomfort, become unable to have a bowel movement for greater than 24 additional hours, or have any other symptoms that are worrisome to you. Once you have had a successful bowel movement, encourage you to take 1- 2 capfuls of MiraLAX every day and supplement fiber into your diet. Please follow-up with your primary care doctor within the next 72 hours. Referrals: MALENA MANDUJANO MD [Primary Care Provider] - Follow up as needed
[2018-12-02] MEDS ORDERED: ACETAMINOPHEN 325 MG TABLET ONE (02:48)
[2018-12-02 03:02] VITALS: BP 144/86
== END 2018-12-02 03:03 | disposition home or self-care (01) ==
LOC: ER 18:55
DX: K59.00 Constipation, unspecified (principal); R10.9 Unspecified abdominal pain; R14.0 Abdominal distension (gaseous); I10 Essential (primary) hypertension; Z79.899 Other long term (current) drug therapy
CPT/HCPCS: 99283; 36415; 85025; 80053; 74022; J3490

== ENCOUNTER 2018-12-24 14:54 | Emergency (ER) | payer OTHER, MEDICARE ==
[2018-12-24] MEDS ORDERED: TRAMADOL HCL 50 MG TABLET PO ONE (16:08)
[2018-12-24 16:22] LABS: APPEARANCE,URINE CLOUDY; BILIRUBIN,URINE NEGATIVE (NEGATIVE); COLOR,URINE AMBER; GLUCOSE, URINE NEGATIVE (NEGATIVE); KETONES,URINE NEGATIVE (NEGATIVE); LEUKOCYTE ESTERASE,URINE NEGATIVE (NEGATIVE); NITRITE,URINE NEGATIVE (NEGATIVE); PROTEIN,URINE 30 mg/dL (NEGATIVE); UROBILINOGEN,URINE NEGATIVE mg/dL (<2.0)
[2018-12-24 16:23] LABS: HEMATOCRIT 24.9 % (37.9-51.0); HEMOGLOBIN 8.2 g/dL (13.5-17.0); MEAN CORPUSCULAR HEMOGLOBIN 24.4 pg (27.0-33.4); MEAN CORPUSCULAR VOLUME 74 fl (80-97); RED BLOOD COUNT 3.37 10^6/uL (4.35-5.55); RED CELL DISTRIBUTION WIDTH 21.4 % (11.5-14.0); WHITE BLOOD COUNT 2.4 10^3/uL (4.0-10.5)
[2018-12-24 16:28] LABS: INTERNATIONAL RATION (INR) 1.27; PROTHROMBIN TIME 16.5 SEC (11.4-15.4); VENOUS BLOOD BASE EXCESS 5.5 mmol/L; VENOUS BLOOD PCO2 43.7 mmHg (35-63); VENOUS BLOOD PH 7.46 (7.30-7.42)
[2018-12-24 16:46] LABS: ABSOLUTE LYMPHOCYTES# (MANUAL) 0.9 10^3/uL (0.5-4.7); BAND NEUTROPHILS % (MANUAL) 3 % (3-5); BASOPHILS % (MANUAL) 0 % (0-2); EOSINOPHILS % (MANUAL) 5 % (0-6); LYMPHOCYTES % (MANUAL) 34 % (13-45); NUCLEATED RED BLOOD CELLS 1 /100 WBC (0); SEGMENTED NEUTROPHILS % (MAN) 12 % (42-78); TOTAL CELLS COUNTED 100
[2018-12-24 16:49] LABS: ALANINE AMINOTRANSFERASE 29 U/L (21-72); ALBUMIN 2.5 g/dL (3.5-5.0); ALKALINE PHOSPHATASE 159 U/L (38-126); ANION GAP 7 (5-19); ANISOCYTOSIS 3+; ASPARTATE AMINO TRANSFERASE 12 U/L (17-59); BILIRUBIN,DIRECT 0.3 mg/dL (0.0-0.4); BILIRUBIN,TOTAL 0.5 mg/dL (0.2-1.3); BLOOD UREA NITROGEN 9 mg/dL (7-20); CARBON DIOXIDE 31 mmol/L (22-30); CHLORIDE 95 mmol/L (98-107); GLUCOSE 112 mg/dL (75-110); LIPASE 42.1 U/L (23-300); OVALOCYTES SLIGHT; PLATELET CLUMPS PRESENT; PLATELET LARGE PRESENT; POIKILOCYTOSIS SLIGHT; POLYCHROMASIA 1+; POTASSIUM 3.5 mmol/L (3.6-5.0); TOTAL PROTEIN 5.7 g/dL (6.3-8.2)
[2018-12-24 16:50] LABS: PLATELET COMMENT INCREASED; PLATELET COUNT 524 10^3/uL (150-450)
[2018-12-24 16:51] LABS: CREATINE KINASE < 20 U/L (55-170); MONOCYTES % (MANUAL) 41 % (3-13)
[2018-12-24 17:08] LABS: CREATINE KINASE MB < 0.22 ng/mL (<4.55); TROPONIN I < 0.012 ng/mL
--- NOTE | 2018-12-24 18:06 | RADIOLOGY REPORT (SQ) ---
EXAM DESCRIPTION: CT ABD/PELVIS WITH IV ONLY COMPLETED DATE/TIME: 12/24/2018 5:41 pm REASON FOR STUDY: abd pain, worsened post neupogen, has abd lymphoma COMPARISON: 11/27/2016 TECHNIQUE: CT scan of the abdomen and pelvis performed using helical scanning technique with dynamic intravenous contrast injection. No oral contrast. Images reviewed with lung, soft tissue, and bone windows. Reconstructed coronal and sagittal MPR images reviewed. Delayed images for evaluation of the urinary system also acquired. All images stored on PACS. All CT scanners at this facility use dose modulation, iterative reconstruction, and/or weight based d osing when appropriate to reduce radiation dose to as low as reasonably achievable (ALARA). [facility]: Dose Right [facility]: CareDose [facility]: Dose Right [facility]: Teradose 4D [facility]: [employer]Gate CONTRAST TYPE AND DOSE: contrast/concentration: Isovue 350.00 mg/ml; Total Contrast Delivered: 100.0 ml; Total Saline Delivered: 72.0 ml RENAL FUNCTION: BUN 9; creatinine is 0.72 RADIATION DOSE: CT Rad equipment meets quality standard of care and radiation dose reduction techniq ues were employed. CTDIvol: 13.9 - 18.3 mGy. DLP: 1920 mGy-cm.. LIMITATIONS: None. FINDINGS: LOWER CHEST: Large hiatal hernia. LIVER: Normal size. No masses. No dilated ducts. SPLEEN: The spleen appears enlarged, demonstrating heterogeneous enhancement. PANCREAS: No masses. No significant calcifications. No adjacent inflammation or peripancreatic fluid collections. Pancreatic duct not dilated. GALLBLADDER: Surgically absent. ADRENAL GLANDS: No significant masses or asymmetry. RIGHT KIDNEY AND URETER: No solid masses. No significant calcifications. No hydronephrosis or hyd roureter. LEFT KIDNEY AND URETER: No solid masses. No significant calcifications. No hydronephrosis or hydr oureter. AORTA AND VESSELS: No aneurysm. No dissection. Renal arteries, SMA, celiac without stenosis. RETROPERITONEUM: Bulky retroperitoneal lymphadenopathy, asymmetric to the left, but surrounding the a heriberto and proximal iliac arteries. BOWEL AND PERITONEAL CAVITY: Scattered colonic diverticula without focal inflammatory changes. No ma sses. APPENDIX: Not visualized. PELVIS: No mass. No free fluid. Normal bladder. ABDOMINAL WALL: No masses. No hernias. BONES: Degenerative changes are seen of the hips and spine. No lytic or blastic osseous lesions. OTHER: No other significant finding. IMPRESSION: Bulky retroperitoneal lymphadenopathy and enlarged heterogeneous spleen, consistent with metastatic neoplasm of indeterminate origin. TECHNICAL DOCUMENTATION: JOB ID: [id number] Quality ID # [id number]: Final reports with documentation of one or more dose reduction techniques (e.g., Au tomated exposure control, adjustment of the mA and/or kV according to patient size, use of iterative reconstruction technique) 2010 [employer]- All Rights Reserved Reading location - IP/workstation name: [email or web address]
[2018-12-24] MEDS ORDERED: METHOCARBAMOL 750 MG TABLET PO ONE (19:49)
[2018-12-24 22:50] VITALS: BP 129/69
--- NOTE | 2018-12-24 22:55 | ER Document Report ---
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 Patient states that his discomfort began shortly after he left his oncologist's office today, Dr. Mandujano, who started him on Neupogen today. Patient denies dizziness, nausea, chest pain or discomfort, or shortness of breath. When I spoke with Dr. Mandujano she states that the patient was diagnosed with Hodgkin's lymphoma in his abdomen. TRAVEL OUTSIDE OF THE [place] IN LAST 30 DAYS: No - Related Data Allergies/Adverse Reactions: Penicillins Allergy (Severe, Verified 12/24/18 14:56) Anaphylaxis cillin Allergy (Intermediate, Uncoded 12/24/18 14:56) Anaphylaxis Past Medical History - General Information source: Patient, [facility] Records - Social History Smoking Status: Never Smoker Cigarette use (# per day): No Frequency of alcohol use: None Drug Abuse: None Lives with: Family Family History: Reviewed & Not Pertinent Patient has suicidal ideation: No Patient has homicidal ideation: No - Past Medical History Cardiac Medical History: Reports: Hx Hypertension Malignancy Medical History: Reports Hx Leukemia GI Medical History: Reports: Hx Diverticulitis, Hx Gastroesophageal Reflux Disease Musculoskeletal Medical History: Reports Hx Arthritis Past Surgical History: Reports: Hx Tonsillectomy - Immunizations Hx Diphtheria, Pertussis, Tetanus Vaccination: Yes Hx Pneumococcal Vaccination: 08/24/11 Review of Systems - Review of Systems Constitutional: No symptoms reported EENT: No symptoms reported Cardiovascular: See HPI, Chest pain. denies: Dizziness Respiratory: denies: Short of breath Gastrointestinal: See HPI, Abdominal pain. denies: Nausea Genitourinary: No symptoms reported Male Genitourinary: No symptoms reported Musculoskeletal: No symptoms reported Skin: No symptoms reported Hematologic/Lymphatic: No symptoms reported Neurological/Psychological: No symptoms reported -: Yes All other systems reviewed and negative Physical Exam - Vital signs Vitals: Temp Pulse Resp BP Pulse Ox 98.8 F 109 H 16 128/61 H 98 12/24/18 15:04 12/24/18 15:04 12/24/18 15:04 12/24/18 15:04 12/24/18 15:04 Interpretation: Tachycardic - Notes Notes: PHYSICAL EXAM GENERAL: Alert, interacts well. Pleasant. HEAD: Normocephalic, atraumatic. EYES: Pupils equal, round, and reactive to light. Extraocular movements intact. ENT: Oral mucosa moist, tongue midline. NECK: Full range of motion. Supple. Trachea midline. LUNGS: Clear to auscultation bilaterally, no wheezes, rales, or rhonchi. No respiratory distress. HEART: Mild tachycardia. No murmurs, gallops, or rubs. ABDOMEN: Soft, LUQ tenderness with palpation. Non-distended. Bowel sounds present in all 4 quadrants. No guarding, rigidity, or rebound. EXTREMITIES: Moves all 4 extremities spontaneously. No edema, radial and dorsa lis pedis pulses 2/4 bilaterally. No cyanosis. NEUROLOGICAL: Alert and oriented x3. Normal speech. PSYCH: Normal affect, normal mood. SKIN: Warm, dry, normal turgor. No rashes or lesions noted. Course - Re-evaluation Re-evalutation: 12/24/18 21:37 CBC shows neutropenia with a white blood cell count of 2.4 which is actually improved, anemia with hemoglobin 8.2, platelets are elevated at 524, he does have a monocytosis, INR slightly prolonged at 1.27, venous blood gas grossly unremarkable, CMP has multiple mild abnormalities but no signs of sepsis, cardiac enzymes negative x2, lipase normal, urinalysis unremarkable, CT scan of the abdomen and pelvis shows bulky retroperitoneal lymphadenopathy, heterogeneous enhancement of the spleen which is enlarged. This is consistent with the patient's history of abdominal lymphoma. Patient's pain was treated with his usual home tramadol and he then developed muscle spasms in his back that steadily worsened and he was treated with Robaxin. Patient does not wish to try a stronger muscle or x-ray at this time. There is no evidence of acute surgical intra-abdominal pathology nor is there any evidence of acute infection that needs to be treated at this time. On arrival I did discuss the patient with Dr. Mandujano who asked that we perform the CT scan of the abdomen pelvis and I agree and she was also concerned about cardiac etiology. At this point patient will be discharged to home to follow-up with Dr. Mandujano as an outpatient tomorrow. 12/24/18 22:54 Patient has remained mildly tachycardic despite decrease in his pain. Patient is not pain-free, still complains of low back pain. Patient is up CT scan of the abdomen and pelvis that does not reveal any intra-abdominal catastrophe, there was no evidence of bony involvement on the CAT scan although I did not specifically ask for lumbar reconstructions. Patient is not having any bowel or bladder dysfunction, not having any numbness or tingling in his legs, no red flag symptoms. At present I do think patient is still safe for discharge to home and patient is agreeable to discharge to home. I suspect the tachycardia is coming from his ongoing discomfort. - Vital Signs Vital signs: Temp Pulse Resp BP Pulse Ox 98.8 F 109 H 16 129/69 H 95 12/24/18 15:04 12/24/18 15:04 12/24/18 22:35 12/24/18 22:35 12/24/18 22:35 - Laboratory Result Diagrams: 12/24/18 16:05 12/24/18 16:05 Laboratory results interpreted by me: 12/24/18 12/24/18 12/24/18 15:31 16:05 16:05 WBC 2.4 L RBC 3.37 L Hgb 8.2 L Hct 24.9 L MCV 74 L MCH 24.4 L RDW 21.4 H Plt Count 524 H Seg Neuts % (Manual) 12 L Monocytes % (Manual) 41 H Abs Neuts (Manual) 0.4 L PT 16.5 H VBG pH Sodium Potassium Chloride Carbon Dioxide Glucose Calcium AST Alkaline Phosphatase Creatine Kinase Total Protein Albumin Urine Protein 30 H Urine Ascorbic Acid 40 H 12/24/18 12/24/18 16:05 16:05 WBC RBC Hgb Hct MCV MCH RDW Plt Count Seg Neuts % (Manual) Monocytes % (Manual) Abs Neuts (Manual) PT VBG pH 7.46 H Sodium 133.0 L Potassium 3.5 L Chloride 95 L Carbon Dioxide 31 H Glucose 112 H Calcium 8.0 L AST 12 L Alkaline Phosphatase 159 H Creatine Kinase < 20 L Total Protein 5.7 L Albumin 2.5 L Urine Protein Urine Ascorbic Acid - EKG Interpretation by Me Additional EKG results interpreted by me: 12/24/18 21:38 EKG shows sinus rhythm rate 98, occasional PACs, interventricular conduction delay with a QRS duration of 120, left axis deviation, no ST segment elevations or depressions per my interpretation. 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 It helps your bone marrow make white blood cells but it can cause pain. Some of your pain may also be coming from the lymphoma itself that causes e nlarged lymph nodes throughout your abdomen and your spleen. Please return to the emergency department for any new or concerning symptoms including fevers or uncontrollable pain. You may use your Ultram as prescribed at home up to 3 times a day. I have also prescribed the Robaxin which you may use up to 1500 mg 3 times a day as needed for muscle cramping. Prescriptions: Methocarbamol [Robaxin 750 mg Tablet] 750 mg PO ASDIR PRN #40 tablet PRN Reason: Referrals: MALENA MANDUJANO MD [Primary Care Provider] - Follow up tomorrow I personally performed the services described in the documentation, reviewed and edited the documentation which was dictated to the scribe in my presence, and it accurately records my words and actions.
--- NOTE | 2018-12-24 23:36 | EKG REPORT ---
SEVERITY:- ABNORMAL ECG - SINUS TACHYCARDIA BORDERLINE PROLONGED QT INTERVAL : Confirmed by: Kaitlin Ramirez MD 24-Dec-2018 23:35:45
--- NOTE | 2018-12-24 23:36 | EKG REPORT ---
SEVERITY:- ABNORMAL ECG - SINUS TACHYCARDIA ATRIAL PREMATURE COMPLEX NONSPECIFIC INTRAVENTRICULAR CONDUCTION DELAY MINIMAL ST DEPRESSION, LATERAL LEADS : Confirmed by: Kaitlin Ramirez MD 24-Dec-2018 23:35:34
[2018-12-25 12:12] LABS: PATH REVIEW PATHOLOGIST REVIEWED
== END 2018-12-24 23:30 | disposition home or self-care (01) ==
LOC: ER 14:54
DX: C81.93 Hodgkin lymphoma, unspecified, intra-abdominal lymph nodes (principal); M89.8X8 Other specified disorders of bone, other site; D70.9 Neutropenia, unspecified; D64.9 Anemia, unspecified; I10 Essential (primary) hypertension; K21.9 Gastro-esophageal reflux disease without esophagitis; M19.90 Unspecified osteoarthritis, unspecified site; Z88.0 Allergy status to penicillin; Z88.8 Allergy status to other drugs, medicaments and biological substances
CPT/HCPCS: 93005; 99284; 36415; 87040; 87086; 82553; 82962; 82550; 83690; 85025; 85610; 80053; 81001; 84484; 82803; 83605; 74177; 93010; J3490

== ENCOUNTER 2018-12-27 23:17 | Emergency (ER) | payer OTHER ==
--- NOTE | 2018-12-28 02:30 | ER Document Report ---
ED Medical Screen (RME) - General Chief Complaint: Leg Swelling Stated Complaint: LEG SWELLING Time Seen by Provider: 12/28/18 02:16 Primary Care Provider: MALENA MANDUJANO MD [Primary Care Provider] - Follow up as needed Notes: 68-year-old male with recent diagnosis of lymphoma presents to the emergency department with chief complaint of acute bilateral lower extremity edema. He said he was on his porch in the backyard yesterday laid down for a nap woke up about 7 PM and had acute swelling. He said there is no pain, no pain with passive movement, no redness or warmth, no fevers, no acute shortness of breath or chest pain. I have greeted and performed a rapid initial assessment of this patient. A comprehensive ED assessment and evaluation of the patient, analysis of test results and completion of medical decision making process will be conducted by an additional ED providers. TRAVEL OUTSIDE OF THE [place] IN LAST 30 DAYS: No - Related Data Allergies/Adverse Reactions: Penicillins Allergy (Severe, Verified 12/24/18 14:56) Anaphylaxis cillin Allergy (Intermediate, Uncoded 12/24/18 14:56) Anaphylaxis Past Medical History - Social History Chew tobacco use (# tins/day): No Drug Abuse: None - Past Medical History Cardiac Medical History: Reports: Hx Hypertension Denies: Hx Congestive Heart Failure, Hx DVT, Hx Heart Attack, Hx Hypercholesterolemia, Hx Pulmonary Embolism Pulmonary Medical History: Denies: Hx Asthma, Hx COPD, Hx Sleep Apnea Neurological Medical History: Denies: Hx Seizures Endocrine Medical History: Denies: Hx Diabetes Mellitus Type 1, Hx Diabetes Mellitus Type 2, Hx Hyperthyroidism, Hx Hypothyroidism Renal/ Medical History: Denies: Hx Peritoneal Dialysis Malignancy Medical History: Reports Hx Leukemia GI Medical History: Reports: Hx Diverticulitis, Hx Gastroesophageal Reflux Disease. Denies: Hx Cirrhosis, Hx Hepatitis Musculoskeltal Medical History: Reports Hx Arthritis Psychiatric Medical History: Denies: Hx Depression Infectious Medical History: Denies: Hx C-Diff, Hx Hepatitis, Hx MRSA Past Surgical History: Reports: Hx Tonsillectomy. Denies: Hx Abdominal Surgery, Hx Appendectomy, Hx Cholecystectomy - Immunizations Hx Diphtheria, Pertussis, Tetanus Vaccination: Yes Physical Exam - Vital signs Vitals: Temp Pulse Resp BP Pulse Ox 98.4 F 80 14 144/75 H 96 12/28/18 00:00 12/28/18 00:00 12/28/18 00:00 12/28/18 00:00 12/28/18 00:00 - Cardiovascular Rhythm: Regular Heart sounds: Normal auscultation, S1 appreciated, S2 appreciated Murmur: No Pulses: Normal: Posterior tibial, Dorsalis pedis Notes: 2+ pitting edema bilateral lower extremities Course - Vital Signs Vital signs: Temp Pulse Resp BP Pulse Ox 98.4 F 80 14 144/75 H 96 12/28/18 00:00 12/28/18 00:00 12/28/18 00:00 12/28/18 00:00 12/28/18 00:00 Doctor's Discharge - Discharge Referrals: MALENA MANDUJANO MD [Primary Care Provider] - Follow up as needed
[2018-12-28 03:00] LABS: HEMATOCRIT 29.2 % (37.9-51.0); HEMOGLOBIN 9.5 g/dL (13.5-17.0); MEAN CORPUSCULAR HEMOGLOBIN 24.1 pg (27.0-33.4); MEAN CORPUSCULAR HGB CONC 32.4 g/dL (32.0-36.0); MEAN CORPUSCULAR VOLUME 74 fl (80-97); PLATELET COUNT 521 10^3/uL (150-450); RED BLOOD COUNT 3.93 10^6/uL (4.35-5.55); RED CELL DISTRIBUTION WIDTH 20.7 % (11.5-14.0); WHITE BLOOD COUNT 6.6 10^3/uL (4.0-10.5)
[2018-12-28 03:14] LABS: ANION GAP 8 (5-19); BLOOD UREA NITROGEN 13 mg/dL (7-20); CALCIUM 8.8 mg/dL (8.4-10.2); CARBON DIOXIDE 32 mmol/L (22-30); CHLORIDE 99 mmol/L (98-107); GLUCOSE 155 mg/dL (75-110); POTASSIUM 3.9 mmol/L (3.6-5.0); SODIUM 138.6 mmol/L (137-145)
[2018-12-28 03:32] LABS: ABSOLUTE LYMPHOCYTES# (MANUAL) 0.5 10^3/uL (0.5-4.7); ABSOLUTE MONOCYTES # (MANUAL) 0.6 10^3/uL (0.1-1.4); BAND NEUTROPHILS % (MANUAL) 2 % (3-5); BASOPHILS % (MANUAL) 1 % (0-2); EOSINOPHILS % (MANUAL) 0 % (0-6); LYMPHOCYTES % (MANUAL) 8 % (13-45); MONOCYTES % (MANUAL) 9 % (3-13); SEGMENTED NEUTROPHILS % (MAN) 80 % (42-78); TOTAL CELLS COUNTED 100
[2018-12-28 03:34] LABS: ANISOCYTOSIS 3+; HYPOCHROMASIA 3+; PLATELET COMMENT INCREASED
--- NOTE | 2018-12-28 05:27 | ER Document Report ---
Entered by ALCON BERNABE SCRIBE 12/28/18 0524 Acting as scribe for:LITO LANCE MD ED General - General Mode of Arrival: Ambulatory Information source: Patient TRAVEL OUTSIDE OF THE [place] IN LAST 30 DAYS: No <LITO LANCE - Last Filed: 12/28/18 06:05> <SPENSER VALENTINO - Last Filed: 12/28/18 09:48> - General Chief Complaint: Leg Swelling Stated Complaint: LEG SWELLING Time Seen by Provider: 12/28/18 02:16 Primary Care Provider: MALENA MANDUJANO MD [Primary Care Provider] - Follow up as needed Notes: Patient is a 68 year old male with Hodgkin's lymphoma in the abdomen presents to the emergency department complaining of bilateral lower extremity swelling onset yesterday afternoon. Patient states after he woke up from a nap around 7 PM, he noticed his BLE were extremely swollen. Patient states "this has never happened to me before". Patient denies any pain to the legs or any other focal symptoms. Patient reports receiving chemo 2 days ago. (ALCON BERNABE) Patient is a 68 year old male with Hodgkin's lymphoma in the abdomen presents to the emergency department complaining of bilateral lower extremity swelling onset yesterday afternoon. Patient states after he woke up from a nap around 7 PM, he noticed his BLE were extremely swollen. Patient states "this has never happened to me before". Patient denies any pain to the legs or any other focal symptoms. Patient reports receiving chemo 2 days ago. (LITO LANCE) - Related Data Allergies/Adverse Reactions: Penicillins Allergy (Severe, Verified 12/24/18 14:56) Anaphylaxis cillin Allergy (Intermediate, Uncoded 12/24/18 14:56) Anaphylaxis Past Medical History - General Information source: Patient - Social History Smoking Status: Never Smoker Chew tobacco use (# tins/day): No Drug Abuse: None Family History: Reviewed & Not Pertinent Patient has suicidal ideation: No Patient has homicidal ideation: No - Past Medical History Cardiac Medical History: Reports: Hx Hypertension Malignancy Medical History: Reports Hx Lymphoma - Hodgkins Lymphoma GI Medical History: Reports: Hx Diverticulitis, Hx Gastroesophageal Reflux Disease Musculoskeletal Medical History: Reports Hx Arthritis Past Surgical History: Reports: Hx Tonsillectomy - Immunizations Hx Diphtheria, Pertussis, Tetanus Vaccination: Yes Hx Pneumococcal Vaccination: 08/24/11 <LITO LANCE - Last Filed: 12/28/18 06:05> Review of Systems - Review of Systems Constitutional: No symptoms reported EENT: No symptoms reported Cardiovascular: No symptoms reported Respiratory: No symptoms reported Gastrointestinal: No symptoms reported Genitourinary: No symptoms reported Male Genitourinary: No symptoms reported Musculoskeletal: See HPI Skin: No symptoms reported Hematologic/Lymphatic: No symptoms reported Neurological/Psychological: No symptoms reported -: Yes All other systems reviewed and negative <LITO LANCE - Last Filed: 12/28/18 06:05> Physical Exam <LITO LANCE - Last Filed: 12/28/18 06:05> - Vital signs Vitals: Temp Pulse Resp BP Pulse Ox 98.4 F 80 14 144/75 H 96 12/28/18 00:00 12/28/18 00:00 12/28/18 00:00 12/28/18 00:00 12/28/18 00:00 - Notes Notes: GENERAL: Alert, interacts well. No acute distress. HEAD: Normocephalic, atraumatic. EYES: Pupils equal, round, and reactive to light. Extraocular movements intact. ENT: Oral mucosa moist, tongue midline. NECK: Full range of motion. Supple. Trachea midline. LUNGS: Clear to auscultation bilaterally, no wheezes, rales, or rhonchi. No respiratory distress. HEART: Regular rate and rhythm. No murmurs, gallops, or rubs. ABDOMEN: Soft, non-tender. Non-distended. Bowel sounds present in all 4 quadrants. No guarding, rigidity, or rebound. EXTREMITIES: Moves all 4 extremities spontaneously. Pitting edema from below the knees to the feet bilaterally, progressively worsening distally. No calf tenderness or firmness bilaterally. NEUROLOGICAL: Alert and oriented x3. Normal speech. PSYCH: Normal affect, normal mood. SKIN: Warm, dry, normal turgor. No rashes or lesions noted. (ALCON BERNABE) GENERAL: Alert, interacts well. No acute distress. HEAD: Normocephalic, atraumatic. EYES: Pupils equal, round, and reactive to light. Extraocular movements intact. ENT: Oral mucosa moist, tongue midline. NECK: Full range of motion. Supple. Trachea midline. LUNGS: Clear to auscultation bilaterally, no wheezes, rales, or rhonchi. No re spiratory distress. HEART: Regular rate and rhythm. No murmurs, gallops, or rubs. ABDOMEN: Soft, non-tender. Non-distended. Bowel sounds present in all 4 quadrants. No guarding, rigidity, or rebound. EXTREMITIES: Moves all 4 extremities spontaneously. Pitting edema from below the knees to the feet bilaterally, progressively worsening distally. No calf tenderness or firmness bilaterally. NEUROLOGICAL: Alert and oriented x3. Normal speech. PSYCH: Normal affect, normal mood. SKIN: Warm, dry, normal turgor. No rashes or lesions noted. (LITO LANCE) Course - Laboratory Result Diagrams: 12/28/18 02:41 12/28/18 02:41 <LITO LANCE - Last Filed: 12/28/18 06:05> - Laboratory Result Diagrams: 12/28/18 02:41 12/28/18 02:41 <SPENSER VALENTINO - Last Filed: 12/28/18 09:48> - Vital Signs Vital signs: Temp Pulse Resp BP Pulse Ox 98.4 F 80 11 L 163/81 H 99 12/28/18 00:00 12/28/18 00:00 12/28/18 08:02 12/28/18 08:02 12/28/18 08:02 - Laboratory Laboratory results interpreted by me: 12/28/18 12/28/18 02:41 02:41 RBC 3.93 L Hgb 9.5 L Hct 29.2 L MCV 74 L MCH 24.1 L RDW 20.7 H Plt Count 521 H Seg Neuts % (Manual) 80 H Band Neutrophils % 2 L Lymphocytes % (Manual) 8 L Carbon Dioxide 32 H Glucose 155 H Discharge <LITO LANCE - Last Filed: 12/28/18 06:05> <SPENSER VALENTINO - Last Filed: 12/28/18 09:48> - Discharge Clinical Impression: Swelling of lower extremity, IVC (inferior vena cava obstruction) Condition: Good Disposition: HOME, SELF-CARE Prescriptions: Apixaban [Eliquis 5 mg Tablet] 5 mg PO DAILY #30 tablet Furosemide [Lasix 20 mg Tablet] 20 mg PO QAM #20 tablet Referrals: MALENA MANDUJANO MD [Primary Care Provider] - Follow up in 3-5 days Scribe Attestation: 12/28/18 06:05 I personally performed the services described in the documentation, reviewed and edited the documentation which was dictated to the scribe in my presence, and it accurately records my words and actions. (LITO LANCE) I personally performed the services described in the documentation, reviewed and edited the documentation which was dictated to the scribe in my presence, and it accurately records my words and actions.
--- NOTE | 2018-12-28 07:51 | RADIOLOGY REPORT (SQ) ---
EXAM DESCRIPTION: CT ABDOMEN WITHOUT THEN WITH IV CONTRAST, CT CHEST ANGIOGRAPHY WITHOUT THEN WITH IV CONTRAST COMPLETED DATE/TME: 12/28/2018 05:25 CLINICAL HISTORY: 68 years Male, Abd lymphoma,acute peripheral edema, SOB Comparison: CT, 12/24/2018. Technique: IV contrast. Coronal and sagittal reformat. 3d reconstruction. This exam was performed according to our departmental dose-optimization program, which includes automated exposure control, adjustment of the mA and/or kV according to patient size and/or use of iterative reconstruction technique.[facility]: Dose Right [facility]: CareDose [facility]: Dose Right [facility]: Teradose 4D [facility]: TryLife LIMITATIONS: Pelvis not imaged. Findings: No pulmonary embolus. No right ventricular strain. No thoracic aortic aneurysm. No dissection. Moderate hiatal hernia. Moderate matted retroperitoneal and posterior mediastinal lymphadenopathy consistent with clinical history of lymphoma. Mild right hilar lymphadenopathy. Colonic diverticulosis. Hepatic steatosis. Cholecystectomy. Numerous low-attenuation splenic lesions. Small fibrosis-scar of the left lower lobe. 0.2 cm right renal stone. Mild right hydronephrosis/hydroureter. Degenerative disc disease. Spondylosis. No ascites. Normal appendix. No bowel obstruction. No evidence of abdominal aortic aneurysm. Inferior neck, axillae, lungs, airway, heart, liver, pancreas, adrenals, remaining renal system, gastrointestinal tract, upper pelvis, vasculature, and musculoskeleton appear otherwise unremarkable. Impression: 1. Moderate, extensive matted lymphadenopathy involves the mediastinum, retroperitoneum, and right hilum. Numerous low-attenuation splenic lesions. These findings are consistent with clinical history of lymphoma. 2. No evidence of pulmonary embolus. No acute CTA findings of the chest and abdomen. 3. Moderate hiatal hernia. 4. Mild right hydronephrosis/hydroureter partially imaged. 0.2 cm right nephrolithiasis.
[2018-12-28 09:50] VITALS: BP 152/76
--- NOTE | 2018-12-28 10:17 | ER Document Report ---
ED General - General Chief Complaint: Leg Swelling Stated Complaint: LEG SWELLING Time Seen by Provider: 12/28/18 02:16 Primary Care Provider: MALENA MANDUJANO MD [Primary Care Provider] - Follow up in 3-5 days Mode of Arrival: Ambulatory Notes: 68-year-old male being followed by Dr. Mandujano for Hodgkin's lymphoma last chemo 1 week ago presents with leg swelling, onset yesterday abruptly. Has not had leg swelling this bad ever. Has no history of CHF. Swelling is symmetric and nonpainful. No redness or fever. TRAVEL OUTSIDE OF THE [place] IN LAST 30 DAYS: No - Related Data Allergies/Adverse Reactions: Penicillins Allergy (Severe, Verified 12/24/18 14:56) Anaphylaxis cillin Allergy (Intermediate, Uncoded 12/24/18 14:56) Anaphylaxis Past Medical History - General Information source: Patient - Social History Smoking Status: Never Smoker Chew tobacco use (# tins/day): No Drug Abuse: None Family History: Reviewed & Not Pertinent Patient has suicidal ideation: No Patient has homicidal ideation: No - Past Medical History Cardiac Medical History: Reports: Hx Hypertension Denies: Hx Congestive Heart Failure, Hx DVT, Hx Heart Attack, Hx Hyperc holesterolemia, Hx Pulmonary Embolism Pulmonary Medical History: Denies: Hx Asthma, Hx COPD, Hx Sleep Apnea Neurological Medical History: Denies: Hx Seizures Endocrine Medical History: Denies: Hx Diabetes Mellitus Type 1, Hx Diabetes Mellitus Type 2, Hx Hyperthyroidism, Hx Hypothyroidism Renal/ Medical History: Denies: Hx Peritoneal Dialysis Malignancy Medical History: Reports Hx Leukemia, Reports Hx Lymphoma - Hodgkins Lymphoma GI Medical History: Reports: Hx Diverticulitis, Hx Gastroesophageal Reflux Disease. Denies: Hx Cirrhosis, Hx Hepatitis Musculoskeletal Medical History: Reports Hx Arthritis Psychiatric Medical History: Denies: Hx Depression Infectious Medical History: Denies: Hx C-Diff, Hx Hepatitis, Hx MRSA Past Surgical History: Reports: Hx Tonsillectomy. Denies: Hx Abdominal Surgery, Hx Appendectomy, Hx Cholecystectomy - Immunizations Hx Diphtheria, Pertussis, Tetanus Vaccination: Yes Hx Pneumococcal Vaccination: 08/24/11 Review of Systems - Review of Systems Notes: REVIEW OF SYSTEMS GEN: Denies fever, chills, weight loss ENT: Denies sore throat, nasal discharge, ear pain EYES: Denies blurry vision, eye pain, discharge CV: Denies chest pain, palpitations, edema RESP: Denies cough, shortness of breath, wheezing GI: Denies abdominal pain, nausea, vomiting, diarrhea MSK: leg swelling SKIN: Denies rash, skin lesions LYMPH: Denies swollen glands/lymph nodes NEURO: Denies headache, focal weakness or numbness, dizziness PSYCH: Denies depression, suicidal or homicidal ideation PHYSICAL EXAMINATION General: No acute distress, well-nourished Head: Atraumatic, normocephalic ENT: Mouth normal, oropharynx moist, no exudates or tonsillar enlargement Eyes: Conjunctiva normal, pupils equal, lids normal Neck: No JVD, supple, no guarding CVS: Normal rate, regular rhythm, no murmurs Resp: No resp distress, equal and normal breath sounds bilaterally GI: Nondistended, soft, no tenderness to palpation, no rebound or guarding Ext: 2+ bilateral leg pitting edema worse at the toes but going up to the knees Back: No CVA or midline TTP Skin: No rash, warm Lymphatic: No lymphadeopathy noted Neuro: Awake, alert. Face symmetric. GCS 15. Physical Exam - Vital signs Vitals: Temp Pulse Resp BP Pulse Ox 98.4 F 80 14 144/75 H 96 12/28/18 00:00 12/28/18 00:00 12/28/18 00:00 12/28/18 00:00 12/28/18 00:00 Course - Re-evaluation Re-evalutation: 12/28/18 10:16 Hodgkin's patient presents with acute leg swelling bilaterally. Differential includes PE IVC or SVC occlusion or bilateral DVT. Previous provider had ordered CT chest abdomen pelvis. I reviewed the resultsthis shows lymphadenopathy in the retroperitoneum but is not protocoled adequately to see IVC compression. DVT scans are negative. Labs are otherwise essentially normal her baseline. Discussed with Dr. Murray who says that it would be reasonable to suspect IVC compression. Discussed with Dr. Mandujano the patient's oncologist. She wants to avoid hospital admission and asked me to start Lasix and anticoagulation to avoid potential blood clots. I discussed this with the patient he is amenable. He is stable for discharge and was discharged in stable condition and will follow up with Dr. Alan. I have discussed with the patient there likely diagnosis, aftercare plan, follow-up plans and my usual and customary return precautions. They verbalized understanding of this. - Vital Signs Vital signs: Temp Pulse Resp BP Pulse Ox 98.1 F 80 10 L 152/76 H 99 12/28/18 10:09 12/28/18 00:00 12/28/18 09:01 12/28/18 09:01 12/28/18 09:01 - Laboratory Result Diagrams: 12/28/18 02:41 12/28/18 02:41 Laboratory results interpreted by me: 12/28/18 12/28/18 02:41 02:41 RBC 3.93 L Hgb 9.5 L Hct 29.2 L MCV 74 L MCH 24.1 L RDW 20.7 H Plt Count 521 H Seg Neuts % (Manual) 80 H Band Neutrophils % 2 L Lymphocytes % (Manual) 8 L Carbon Dioxide 32 H Glucose 155 H - Diagnostic Test Radiology reviewed: Image reviewed, Reports reviewed Discharge - Discharge Clinical Impression: Swelling of lower extremity, IVC (inferior vena cava obstruction) Condition: Good Disposition: HOME, SELF-CARE Prescriptions: Apixaban [Eliquis 5 mg Tablet] 5 mg PO DAILY #30 tablet Furosemide [Lasix 20 mg Tablet] 20 mg PO QAM #20 tablet Referrals: MALENA MANDUJANO MD [Primary Care Provider] - Follow up in 3-5 days
--- NOTE | 2018-12-28 12:58 | XCELERA REPORT ---
[address] [facility] [address] Lower Extremity Venous Evaluation Procedure: Color flow and duplex imaging bilaterally of the veins of the lower extremities as well as the Common Femoral veins. Right Sided Venous Evaluation Normal vessel filling wall to wall, compression and augmentation as well as Colour flow down to the infrageniculate veins. Left Sided Venous Evaluation Normal vessel filling wall to wall, compression and augmentation as well as Colour flow down to the infrageniculate veins. Interpretation Summary No duplex evidence of DVT or obstruction in the bilateral lower extremities. Name: LIAM GOLDMAN Age: 68 yrs Gender: Male : 1950 Patient Status: Emergency Patient Location: ER Study Date: 12/28/2018 08:32 AM Reason For Study: acute BLE edema; active [place] Ordering Physician: JOSE SAAVEDRA Performed By: Pascual Nevarez : JOSE SAAVEDRA > Zohaib Griggs
== END 2018-12-28 10:09 | disposition home or self-care (01) ==
LOC: ER 23:17
DX: I87.1 Compression of vein (principal); M79.89 Other specified soft tissue disorders; C81.93 Hodgkin lymphoma, unspecified, intra-abdominal lymph nodes; I10 Essential (primary) hypertension; Z88.0 Allergy status to penicillin
CPT/HCPCS: 36415; 71275; 74174; 80048; 85025; 93970; 99283

== ENCOUNTER 2018-12-29 20:41 | Emergency (ER) | payer OTHER, MEDICARE ==
--- NOTE | 2018-12-29 21:26 | ER Document Report ---
ED Medical Screen (RME) - General Chief Complaint: Shortness Of Breath Stated Complaint: TROUBLE BREATHING Time Seen by Provider: 12/29/18 20:57 Primary Care Provider: MALENA MANDUJANO MD [Primary Care Provider] - Follow up as needed Notes: Patient is a 68-year-old male presents to the emergency department for respiratory distress. States he was at this facility yesterday for same. States he was given a prescription for Lasix and Eliquis. States he has been unable to fill those prescriptions due to they are too expensive. Patient states he continues with generalized respiratory distress but today "I am really shaky." States the only thing new is that he took his potassium medication 4 hours prior to his "feeling shaky." Patient initially complains of generalized respiratory distress and generalized chest pressure. GENERAL: Alert, diaphoretic, pale LUNGS: Diminished to auscultation bilaterally, No respiratory distress. I have greeted and performed a rapid initial assessment of this patient. A co mprehensive ED assessment and evaluation of the patient, analysis of test results and completion of the medical decision making process will be conducted by additional ED providers. I have specifically instructed the patient or family members with the patient to immediately return to any nursing staff should anything change in the patient's condition or with their chief complaint. This medical record was dictated with voice recognizing software. There may be grammatical, syntax errors that are unintended. TRAVEL OUTSIDE OF THE [place] IN LAST 30 DAYS: No - Related Data Allergies/Adverse Reactions: Penicillins Allergy (Severe, Verified 12/24/18 14:56) Anaphylaxis cillin Allergy (Intermediate, Uncoded 12/24/18 14:56) Anaphylaxis Past Medical History - Past Medical History Cardiac Medical History: Reports: Hx Hypertension Denies: Hx Congestive Heart Failure, Hx DVT, Hx Heart Attack, Hx Hypercholesterolemia, Hx Pulmonary Embolism Pulmonary Medical History: Denies: Hx Asthma, Hx COPD, Hx Sleep Apnea Neurological Medical History: Denies: Hx Seizures Endocrine Medical History: Denies: Hx Diabetes Mellitus Type 1, Hx Diabetes Mellitus Type 2, Hx Hyperthyroidism, Hx Hypothyroidism Renal/ Medical History: Denies: Hx Peritoneal Dialysis Malignancy Medical History: Reports Hx Leukemia, Reports Hx Lymphoma - Hodgkins Lymphoma GI Medical History: Reports: Hx Diverticulitis, Hx Gastroesophageal Reflux Disease. Denies: Hx Cirrhosis, Hx Hepatitis Musculoskeltal Medical History: Reports Hx Arthritis Psychiatric Medical History: Denies: Hx Depression Infectious Medical History: Denies: Hx C-Diff, Hx Hepatitis, Hx MRSA Past Surgical History: Reports: Hx Tonsillectomy. Denies: Hx Abdominal Surgery, Hx Appendectomy, Hx Cholecystectomy - Immunizations Hx Diphtheria, Pertussis, Tetanus Vaccination: Yes Physical Exam - Vital signs Vitals: Temp Pulse Resp BP Pulse Ox 98.3 F 104 H 22 H 137/80 H 99 12/29/18 20:46 12/29/18 20:46 12/29/18 20:46 12/29/18 20:46 12/29/18 20:46 Course - Vital Signs Vital signs: Temp Pulse Resp BP Pulse Ox 98.3 F 112 H 22 H 139/83 H 100 12/29/18 20:46 12/29/18 21:12 12/29/18 20:46 12/29/18 21:12 12/29/18 21:12 Doctor's Discharge - Discharge Referrals: MALENA MANDUJANO MD [Primary Care Provider] - Follow up as needed
[2018-12-29 21:34] LABS: ABSOLUTE LYMPHOCYTES (AUTO) 1.7 10^3/uL (0.5-4.7); ABSOLUTE MONOCYTES (AUTO) 0.3 10^3/uL (0.1-1.4); ABSOLUTE NEUT (AUTO) 5.6 10^3/uL (1.7-8.2); BASOPHILS % (AUTO) 0.1 % (0-2); HEMATOCRIT 32.2 % (37.9-51.0); HEMOGLOBIN 10.5 g/dL (13.5-17.0); LYMPHOCYTES % (AUTO) 22.6 % (13-45); MEAN CORPUSCULAR HGB CONC 32.7 g/dL (32.0-36.0); MEAN CORPUSCULAR VOLUME 73 fl (80-97); MONOCYTES % (AUTO) 4.3 % (3-13); PLATELET COUNT 547 10^3/uL (150-450); RED BLOOD COUNT 4.39 10^6/uL (4.35-5.55); RED CELL DISTRIBUTION WIDTH 20.5 % (11.5-14.0); TOTAL CELLS COUNTED % (AUTO) 100 %; WHITE BLOOD COUNT 7.7 10^3/uL (4.0-10.5)
[2018-12-29 21:51] LABS: ALANINE AMINOTRANSFERASE 30 U/L (21-72); ALBUMIN 3.6 g/dL (3.5-5.0); ALKALINE PHOSPHATASE 171 U/L (38-126); ANION GAP 11 (5-19); ASPARTATE AMINO TRANSFERASE 31 U/L (17-59); BILIRUBIN,DIRECT 0.3 mg/dL (0.0-0.4); BLOOD UREA NITROGEN 10 mg/dL (7-20); CALCIUM 9.2 mg/dL (8.4-10.2); CARBON DIOXIDE 28 mmol/L (22-30); CHLORIDE 96 mmol/L (98-107); GLUCOSE 125 mg/dL (75-110); SODIUM 134.7 mmol/L (137-145)
[2018-12-29 22:03] LABS: NT PRO BNP 1670 pg/mL (5-900)
[2018-12-29 22:08] LABS: TROPONIN I < 0.012 ng/mL
--- NOTE | 2018-12-29 22:29 | RADIOLOGY REPORT (SQ) ---
EXAM DESCRIPTION: [facility]: XR CHEST 2 VIEWS Views: 2 CLINICAL HISTORY: 68 years Male, SOB COMPARISON: 12/21/2018 FINDINGS: The lungs are clear. No pneumothorax or significant pleural effusion. Cardiomediastinal silhouette is within normal limits. Anterior bridging osteophytes are noted in the mid and lower thoracic spine. No acute bone findings. IMPRESSION: 1. No acute cardiothoracic abnormality.
--- NOTE | 2018-12-29 23:46 | ER Document Report ---
ED General - General Chief Complaint: Tremor Stated Complaint: Abdominal spasming Time Seen by Provider: 12/29/18 20:57 Primary Care Provider: MALENA MANDUJANO MD [Primary Care Provider] - Follow up as needed Notes: Patient is a 68-year-old male actively receiving chemotherapy for Hodgkin's lymphoma who presents with an ambiguous chief complaint. Apparently in triage she was complaining of shortness of breath although seems surprised when I bring this up to him on my initial assessment stating that he is here because he is having abdominal wall muscle spasming "quivering". When I asked the patient about his recent ED visit he states "I was here 2 days ago?" And then states that he has significant difficulty remembering events secondary to chemotherapy. The patient cannot actually identify why he came to the emergency department today. States that he feels "like I usually do" at the time of my assessment. He is specifically denying any abdominal pain, vomiting, diarrhea, fever, shortness of breath, headache or any other symptoms. In regards to his abdominal wall quivering nothing seems to improve or worsen this. States is intermittent in nature. It is not painful. He is uncertain whether or not this is happened in the past. States that he thinks this may be a side effect from chemotherapy. TRAVEL OUTSIDE OF THE [place] IN LAST 30 DAYS: No - Related Data Allergies/Adverse Reactions: Penicillins Allergy (Severe, Verified 12/24/18 14:56) Anaphylaxis cillin Allergy (Intermediate, Uncoded 12/24/18 14:56) Anaphylaxis Past Medical History - General Information source: Patient - Social History Smoking Status: Never Smoker Frequency of alcohol use: None Drug Abuse: None Lives with: Alone Family History: Reviewed & Not Pertinent Patient has suicidal ideation: No Patient has homicidal ideation: No - Past Medical History Cardiac Medical History: Reports: Hx Hypertension Denies: Hx Congestive Heart Failure, Hx DVT, Hx Heart Attack, Hx Hypercholesterolemia, Hx Pulmonary Embolism Pulmonary Medical History: Denies: Hx Asthma, Hx COPD, Hx Sleep Apnea Neurological Medical History: Denies: Hx Seizures Endocrine Medical History: Denies: Hx Diabetes Mellitus Type 1, Hx Diabetes Mellitus Type 2, Hx Hyperthyroidism, Hx Hypothyroidism Renal/ Medical History: Denies: Hx Peritoneal Dialysis Malignancy Medical History: Reports Hx Leukemia, Reports Hx Lymphoma - Hodgkins Lymphoma GI Medical History: Reports: Hx Diverticulitis, Hx Gastroesophageal Reflux Disease. Denies: Hx Cirrhosis, Hx Hepatitis Musculoskeletal Medical History: Reports Hx Arthritis Psychiatric Medical History: Denies: Hx Depression Infectious Medical History: Denies: Hx C-Diff, Hx Hepatitis, Hx MRSA Past Surgical History: Reports: Hx Tonsillectomy. Denies: Hx Abdominal Surgery, Hx Appendectomy, Hx Cholecystectomy - Immunizations Hx Diphtheria, Pertussis, Tetanus Vaccination: Yes Hx Pneumococcal Vaccination: 08/24/11 Review of Systems - Review of Systems Notes: Constitutional: Negative for fever. HENT: Negative for sore throat. Eyes: Negative for visual changes. Cardiovascular: Negative for chest pain. Respiratory: Negative for shortness of breath. Gastrointestinal: Negative for abdominal pain, vomiting or diarrhea. Genitourinary: Negative for dysuria. Musculoskeletal: Negative for back pain. Skin: Negative for rash. Neurological: Negative for headaches, weakness or numbness. 10 point ROS negative except as marked above and in HPI. Physical Exam - Vital signs Vitals: Temp Pulse Resp BP Pulse Ox 98.3 F 104 H 22 H 137/80 H 99 12/29/18 20:46 12/29/18 20:46 12/29/18 20:46 12/29/18 20:46 12/29/18 20:46 Interpretation: Tachycardic - Resolved at the time of my assessment Notes: PHYSICAL EXAMINATION: GENERAL: Well-appearing, well-nourished and in no acute distress. HEAD: Atraumatic, normocephalic. EYES: Pupils equal round and reactive to light, extraocular movements intact, sclera anicteric, conjunctiva are normal. ENT: nares patent, oropharynx clear without exudates. Moist mucous membranes. NECK: Normal range of motion, supple without lymphadenopathy LUNGS: Breath sounds clear to auscultation bilaterally and equal. No wheezes rales or rhonchi. HEART: Regular rate and rhythm without murmurs ABDOMEN: Soft, nontender, normoactive bowel sounds. No guarding, no rebound. No masses appreciated. EXTREMITIES: Normal range of motion, no pitting or edema. No cyanosis. NEUROLOGICAL: No focal neurological deficits. Moves all extremities spontaneously and on command. PSYCH: Normal mood, normal affect. SKIN: Warm, Dry, normal turgor, no rashes or lesions noted. Course - Re-evaluation Re-evalutation: 06/22/19 23:32 Patient presents with complaints that he is having tremors of his abdomen. Contrary to triage assessment at no point as the patient told me that he is having difficulty breathing although this is what he documented in triage. The patient was seen 2 days ago, had a CT scan of his chest abdomen pelvis which showed possible compression of the IVC. He was started clot formation as well as Lasix but states that he has not started any of these medications. At the time of my evaluation patient states that the only concern he actually has is that he is having spasming of his abdominal wall musculature that this made him concerned and prompted him to come back to the emergency department. On exam he is otherwise nontoxic in appearance, in no form of respiratory distress, vitals are within acceptable limits at the time of my patient without tachycardia, hypoxia or tachypnea. Patient's abdominal exam is likewise completely benign without any areas of focal tenderness, rebound or guarding. I do not suspect any acute pathology and the patient and I both have agreed that repeat CT imaging is not appropriate today. At this time will discharge with return precautions and follow-up recommendations. Verbal discharge instructions given a the bedside and opportunity for questions given. Medication warnings reviewed. Patient is in agreement with this plan and has verbalized understanding of retur n precautions and the need for primary care follow-up in the next 24-72 hours. - Vital Signs Vital signs: Temp Pulse Resp BP Pulse Ox 98.3 F 112 H 22 H 112/69 98 12/29/18 20:46 12/29/18 21:12 12/29/18 20:46 12/30/18 00:00 12/30/18 00:00 - Laboratory Result Diagrams: 12/29/18 21:15 12/29/18 21:15 Laboratory results interpreted by me: 12/29/18 12/29/18 12/29/18 21:15 21:15 21:15 Hgb 10.5 L Hct 32.2 L MCV 73 L MCH 24.0 L RDW 20.5 H Plt Count 547 H Sodium 134.7 L Chloride 96 L Glucose 125 H Alkaline Phosphatase 171 H NT-Pro-B Natriuret Pep 1670 H - Diagnostic Test Radiology reviewed: Image reviewed, Reports reviewed Radiology results interpreted by me: 12/29/18 23:46 Chest x-ray: No acute infiltrate or pneumothorax - EKG Interpretation by Me Additional EKG results interpreted by me: 12/29/18 23:46 Sinus tachycardia, rate 109, no ST elevations or depressions. QTC is 469. Discharge - Discharge Clinical Impression: Muscle spasm, Renal insufficiency, IVC (inferior vena cava obstruction) Lymphoma Qualifiers: Lymphoma type: non-Hodgkin Non-Hodgkin lymphoma type: unspecified type Lymphoma site: unspecified region Qualified Code(s): C85.90 - Non-Hodgkin lymphoma, unspecified, unspecified site Condition: Stable Disposition: HOME, SELF-CARE Additional Instructions: Please begin taking medications as prescribed previously. Return to the emergency department if you develop shortness of breath, nausea, vomiting, abdominal pain, pass out, develop a fever greater 101 F, or have any other symptoms that are worrisome to you. Referrals: MALENA MANDUJANO MD [Primary Care Provider] - Follow up as needed
[2018-12-30 00:07] VITALS: BP 112/69
--- NOTE | 2018-12-30 09:32 | EKG REPORT ---
SEVERITY:- ABNORMAL ECG - SINUS TACHYCARDIA CONSIDER ANTEROLATERAL INFARCT BORDERLINE T ABNORMALITIES, INFERIOR LEADS : Confirmed by: Kaitlin Ramirez MD 30-Dec-2018 09:31:19
== END 2018-12-30 00:27 | disposition home or self-care (01) ==
LOC: ER 20:41
DX: M62.838 Other muscle spasm (principal); C85.90 Non-Hodgkin lymphoma, unspecified, unspecified site; D65 Disseminated intravascular coagulation [defibrination syndrome]; N28.9 Disorder of kidney and ureter, unspecified; R00.0 Tachycardia, unspecified; I10 Essential (primary) hypertension; Z87.892 Personal history of anaphylaxis; Z88.0 Allergy status to penicillin
CPT/HCPCS: 36415; 71046; 80053; 83880; 84484; 85025; 93005; 93010; 99284

== ENCOUNTER 2019-01-10 17:40 | Inpatient (IN) | payer OTHER, MEDICARE ==
--- NOTE | 2019-01-10 18:03 | ER Document Report ---
ED Medical Screen (RME) - General Chief Complaint: Constipation Stated Complaint: ABDOMINAL PAIN, LEFT SIDE PAIN Time Seen by Provider: 01/10/19 17:57 Primary Care Provider: MALENA MANDUJANO MD [Primary Care Provider] - Follow up as needed Mode of Arrival: Wheelchair Information source: Patient Notes: 68-year-old male presents to ED for complaint of left lower quadrant abdominal pain. He thinks he is constipated has not had a bowel movement in 5 days. He does have severe tenderness to the left lower quadrant with a low-grade fever and pulse of 108. Patient states he has a history of diverticulitis but has not had a flareup in a long time. He also has Hodgkin's lymphoma high blood pressure and a clavicular fracture. He states his gallbladder has been removed. Patient states Lexa is his oncologist I have greeted and performed a rapid initial assessment of this patient. A comprehensive ED assessment and evaluation of the patient, analysis of test results and completion of medical decision making process will be conducted by an additional ED providers. Dictation of this chart was performed using voice recognition software; therefore, there may be some unintended grammatical errors. TRAVEL OUTSIDE OF THE [place] IN LAST 30 DAYS: No - Related Data Allergies/Adverse Reactions: Penicillins Allergy (Severe, Verified 12/24/18 14:56) Anaphylaxis cillin Allergy (Intermediate, Uncoded 12/24/18 14:56) Anaphylaxis Past Medical History - Past Medical History Cardiac Medical History: Reports: Hx Hypertension Denies: Hx Congestive Heart Failure, Hx DVT, Hx Heart Attack, Hx Hypercholesterolemia, Hx Pulmonary Embolism Pulmonary Medical History: Denies: Hx Asthma, Hx COPD, Hx Sleep Apnea Neurological Medical History: Denies: Hx Seizures Endocrine Medical History: Denies: Hx Diabetes Mellitus Type 1, Hx Diabetes Mellitus Type 2, Hx Hyperthyroidism, Hx Hypothyroidism Renal/ Medical History: Denies: Hx Peritoneal Dialysis Malignancy Medical History: Reports Hx Leukemia, Reports Hx Lymphoma - Hodgkins Lymphoma GI Medical History: Reports: Hx Diverticulitis, Hx Gastroesophageal Reflux Disease. Denies: Hx Cirrhosis, Hx Hepatitis Musculoskeltal Medical History: Reports Hx Arthritis Psychiatric Medical History: Denies: Hx Depression Infectious Medical History: Denies: Hx C-Diff, Hx Hepatitis, Hx MRSA Past Surgical History: Reports: Hx Tonsillectomy. Denies: Hx Abdominal Surgery, Hx Appendectomy, Hx Cholecystectomy - Immunizations Hx Diphtheria, Pertussis, Tetanus Vaccination: Yes Doctor's Discharge - Discharge Referrals: MALENA MANDUJANO MD [Primary Care Provider] - Follow up as needed
[2019-01-10] MEDS ORDERED: NORMAL SALINE 1000 ML 1,000 ML IV ONE ×2 (18:07→19:11)
--- NOTE | 2019-01-10 18:40 | EKG REPORT ---
SEVERITY:- ABNORMAL ECG - SINUS TACHYCARDIA ATRIAL PREMATURE COMPLEX LVH WITH SECONDARY REPOLARIZATION ABNORMALITY : Confirmed by: Oskar Fiore 10-Jan-2019 18:39:29
[2019-01-10 18:43] LABS: HEMOGLOBIN 10.7 g/dL (13.5-17.0); MEAN CORPUSCULAR HEMOGLOBIN 24.7 pg (27.0-33.4); MEAN CORPUSCULAR HGB CONC 32.5 g/dL (32.0-36.0); MEAN CORPUSCULAR VOLUME 76 fl (80-97); PLATELET COUNT 500 10^3/uL (150-450); RED BLOOD COUNT 4.34 10^6/uL (4.35-5.55); RED CELL DISTRIBUTION WIDTH 22.3 % (11.5-14.0); WHITE BLOOD COUNT 4.3 10^3/uL (4.0-10.5)
--- NOTE | 2019-01-10 18:53 | RADIOLOGY REPORT (SQ) ---
EXAM DESCRIPTION: ACUTE ABDOMEN SERIES COMPLETED DATE/TIME: 01/10/2019 6:45 pm REASON FOR STUDY: abdominal pain palpitations COMPARISON: 12/01/2018 NUMBER OF VIEWS: Three views. TECHNIQUE: Frontal chest, supine abdomen and upright/decubitus abdomen radiographic images acquired. LIMITATIONS: None. FINDINGS: CHEST: Lungs clear of infiltrates. FREE AIR: None. No abnormal gas collections. BOWEL GAS PATTERN: Nonobstructive pattern. No dilated loops or air fluid levels. CALCIFICATIONS: No suspicious calcifications. HARDWARE: None in the abdomen. SOFT TISSUES: No gross mass or suggestion of organomegaly. BONES: No acute fracture. No worrisome bone lesions. OTHER: No other significant finding. IMPRESSION: NO RADIOGRAPHIC EVIDENCE FOR ACUTE ABDOMINAL DISEASE. TECHNICAL DOCUMENTATION: JOB ID: [id number] [employer]- All Rights Reserved Reading location - IP/workstation name: [email or web address]
[2019-01-10 18:59] LABS: ALANINE AMINOTRANSFERASE 31 U/L (21-72); ALBUMIN 3.2 g/dL (3.5-5.0); ALKALINE PHOSPHATASE 128 U/L (38-126); ANION GAP 12 (5-19); ASPARTATE AMINO TRANSFERASE 31 U/L (17-59); BILIRUBIN,DIRECT 0.4 mg/dL (0.0-0.4); BLOOD UREA NITROGEN 7 mg/dL (7-20); CALCIUM 8.3 mg/dL (8.4-10.2); CARBON DIOXIDE 25 mmol/L (22-30); CHLORIDE 97 mmol/L (98-107); GLUCOSE 199 mg/dL (75-110); LIPASE 69.9 U/L (23-300); POTASSIUM 3.8 mmol/L (3.6-5.0); SODIUM 133.6 mmol/L (137-145); TOTAL PROTEIN 6.2 g/dL (6.3-8.2)
[2019-01-10 19:01] LABS: CREATINE KINASE < 20 U/L (55-170)
[2019-01-10 19:06] LABS: ABSOLUTE LYMPHOCYTES# (MANUAL) 0.5 10^3/uL (0.5-4.7); BASOPHILS % (MANUAL) 0 % (0-2); EOSINOPHILS % (MANUAL) 1 % (0-6); LYMPHOCYTES % (MANUAL) 11 % (13-45); METAMYELOCYTES % (MANUAL) 1 % (0); MONOCYTES % (MANUAL) 0 % (3-13); SEGMENTED NEUTROPHILS % (MAN) 72 % (42-78); TOTAL CELLS COUNTED 100
[2019-01-10 19:07] LABS: PLATELET COMMENT INCREASED
[2019-01-10 19:10] LABS: ANISOCYTOSIS 3+; HYPOCHROMASIA 1+; POIKILOCYTOSIS 1+
[2019-01-10 19:11] LABS: STOMATOCYTES SLIGHT
[2019-01-10] MEDS ORDERED: MORPHINE SULFATE 10 MG/ML INJ IV ONE (19:11)
[2019-01-10 19:12] LABS: BAND NEUTROPHILS % (MANUAL) 15 % (3-5)
[2019-01-10] MEDS ORDERED: ONDANSETRON HCL INJ/PF 4 MG/2 ML SDV IV ONE (19:12)
[2019-01-10 19:14] LABS: CREATINE KINASE MB < 0.22 ng/mL (<4.55); TROPONIN I < 0.012 ng/mL
--- NOTE | 2019-01-10 19:47 | ER Document Report ---
ED GI/ - General Chief Complaint: Constipation Stated Complaint: ABDOMINAL PAIN, LEFT SIDE PAIN Time Seen by Provider: 01/10/19 17:57 Mode of Arrival: Wheelchair Information source: Patient TRAVEL OUTSIDE OF THE [place] IN LAST 30 DAYS: No - HPI Patient complains to provider of: Abdominal pain - Left lower abdominal pain which has been ongoing for the past 2 days., Other - No bowel movement in the past 5 days. Patient has a history of common Hodgkin's lymphoma. Onset: Other - Days ago. Timing/Duration: Gradual, Constant Quality of pain: Sharp Severity at maximum: Severe Severity in ED: Severe Pain Level: 4 Context: denies: Bad food Location: LLQ. No: Chest pain Associated symptoms: Fever Exacerbated by: Movement, Other - Palpation Relieved by: Remaining still Similar symptoms previously: No Recently seen / treated by doctor: No - Related Data Allergies/Adverse Reactions: Penicillins Allergy (Severe, Verified 12/24/18 14:56) Anaphylaxis cillin Allergy (Intermediate, Uncoded 12/24/18 14:56) Anaphylaxis Past Medical History - General Information source: Patient - Social History Smoking Status: Unknown if Ever Smoked Family History: Reviewed & Not Pertinent - Past Medical History Cardiac Medical History: Reports: Hx Hypertension Denies: Hx Congestive Heart Failure, Hx DVT, Hx Heart Attack, Hx Hype rcholesterolemia, Hx Pulmonary Embolism Pulmonary Medical History: Denies: Hx Asthma, Hx COPD, Hx Sleep Apnea Neurological Medical History: Denies: Hx Seizures Endocrine Medical History: Denies: Hx Diabetes Mellitus Type 1, Hx Diabetes Mellitus Type 2, Hx Hyperthyroidism, Hx Hypothyroidism Renal/ Medical History: Denies: Hx Peritoneal Dialysis Malignancy Medical History: Reports Hx Leukemia, Reports Hx Lymphoma - Hodgkins Lymphoma GI Medical History: Reports: Hx Diverticulitis, Hx Gastroesophageal Reflux Disease. Denies: Hx Cirrhosis, Hx Hepatitis Musculoskeletal Medical History: Reports Hx Arthritis Psychiatric Medical History: Denies: Hx Depression Infectious Medical History: Denies: Hx C-Diff, Hx Hepatitis, Hx MRSA Past Surgical History: Reports: Hx Tonsillectomy. Denies: Hx Abdominal Surgery, Hx Appendectomy, Hx Cholecystectomy - Immunizations Hx Diphtheria, Pertussis, Tetanus Vaccination: Yes Hx Pneumococcal Vaccination: 08/24/11 Review of Systems - Review of Systems Constitutional: Fever EENT: No symptoms reported Cardiovascular: No symptoms reported Respiratory: No symptoms reported Gastrointestinal: Abdominal pain, Constipation Genitourinary: No symptoms reported Male Genitourinary: No symptoms reported Musculoskeletal: No symptoms reported Skin: No symptoms reported Hematologic/Lymphatic: No symptoms reported Neurological/Psychological: No symptoms reported Physical Exam - Vital signs Vitals: Temp Pulse Resp BP Pulse Ox 100.8 F H 107 H 18 144/90 H 97 01/10/19 17:52 01/10/19 17:52 01/10/19 17:52 01/10/19 17:52 01/10/19 17:52 Interpretation: Normal - General General appearance: Appears well, Alert - HEENT Head: Normocephalic, Atraumatic Eyes: Normal Pupils: PERRL - Respiratory Respiratory status: No respiratory distress Chest status: Nontender Breath sounds: Normal Chest palpation: Normal - Cardiovascular Rhythm: Regular Heart sounds: Normal auscultation Murmur: No - Abdominal Inspection: Normal Distension: No distension Bowel sounds: Normal Tenderness: Tender, Guarding - Left lower quadrant tenderness to palpation., Rebound Organomegaly: No organomegaly - Back Back: Normal, Nontender - Extremities General upper extremity: Normal inspection, Nontender, Normal color, Normal ROM, Normal temperature General lower extremity: Normal inspection, Nontender, Normal color, Normal ROM, Normal temperature, Normal weight bearing. No: Nubia's sign - Neurological Neuro grossly intact: Yes Cognition: Normal Orientation: AAOx4 [place] Coma Scale Eye Opening: Spontaneous [place] Coma Scale Verbal: Oriented [place] Coma Scale Motor: Obeys Commands [place] Coma Scale Total: 15 Speech: Normal Motor strength normal: LUE, RUE, LLE, RLE Sensory: Normal - Psychological Associated symptoms: Normal affect, Normal mood - Skin Skin Temperature: Warm Skin Moisture: Dry Skin Color: Normal Course - Vital Signs Vital signs: Temp Pulse Resp BP Pulse Ox 99.3 F 107 H 16 153/77 H 92 01/10/19 21:50 01/10/19 17:52 01/11/19 00:14 01/11/19 00:14 01/11/19 00:14 - Laboratory Result Diagrams: 01/10/19 18:26 01/10/19 18:26 Laboratory results interpreted by me: 01/10/19 01/10/19 01/10/19 18:26 18:26 18:26 RBC 4.34 L Hgb 10.7 L Hct 33.0 L MCV 76 L MCH 24.7 L RDW 22.3 H Plt Count 500 H Band Neutrophils % 15 H Lymphocytes % (Manual) 11 L Monocytes % (Manual) 0 L Metamyelocytes % 1 H Abs Monocytes (Manual) 0.0 L Sodium 133.6 L Chloride 97 L Glucose 199 H Lactic Acid 3.0 H Calcium 8.3 L Alkaline Phosphatase 128 H Creatine Kinase < 20 L Total Protein 6.2 L Albumin 3.2 L Urine Blood 01/10/19 21:15 RBC Hgb Hct MCV MCH RDW Plt Count Band Neutrophils % Lymphocytes % (Manual) Monocytes % (Manual) Metamyelocytes % Abs Monocytes (Manual) Sodium Chloride Glucose Lactic Acid Calcium Alkaline Phosphatase Creatine Kinase Total Protein Albumin Urine Blood MODERATE H - Diagnostic Test Radiology reviewed: Image reviewed, Reports reviewed Radiology results interpreted by me: 01/10/19 22:28 Acute diverticulitis with microperforation. - EKG Interpretation by Me EKG shows normal: Sinus rhythm Rate: Tachycardia When compared to previous EKG there are: No significant change Additional EKG results interpreted by me: 01/10/19 19:[address] changes. LVH with repolarization abnormality. No STEMI. - Consults No standard instances Time consulted: 22:25 Reason for consultation: 01/10/19 22:[address]Gary Plascencia was consulted and he will evaluate the patient in the emergency room. - Transfer of Care Notes: 01/10/19 23:25 Patient will be admitted to the hospital for further management by the hospitalist Dr. Black Everett. Discharge - Discharge Clinical Impression: Acute diverticulitis Abdominal pain Qualifiers: Abdominal location: left lower quadrant Qualified Code(s): R10.32 - Left lower quadrant pain Constipation Qualifiers: Constipation type: unspecified constipation type Qualified Code(s): K59.00 - Constipation, unspecified Condition: Stable Disposition: ADMITTED INPATIENT Admitting Provider: Karlos (Hospitalist) Unit Admitted: [facility]
[2019-01-10 22:14] LABS: APPEARANCE,URINE CLEAR; BILIRUBIN,URINE NEGATIVE (NEGATIVE); COLOR,URINE YELLOW; GLUCOSE, URINE NEGATIVE (NEGATIVE); KETONES,URINE NEGATIVE (NEGATIVE); LEUKOCYTE ESTERASE,URINE NEGATIVE (NEGATIVE); NITRITE,URINE NEGATIVE (NEGATIVE); PROTEIN,URINE NEGATIVE (NEGATIVE); URINE SPECIFIC GRAVITY 1.006; UROBILINOGEN,URINE NEGATIVE mg/dL (<2.0)
--- NOTE | 2019-01-10 22:16 | RADIOLOGY REPORT (SQ) ---
CT ABDOMEN PELVIS WITH IV CONTRAST EXAM DATE: 01/10/2019 6:37 PM CDT HISTORY: Left lower quadrant pain. COMPARISON: 12/24/2018 TECHNIQUE: CT scan of the abdomen and pelvis was performed with IV contrast. This exam was performed according to our departmental dose-optimization program, which includes automated exposure control, adjustment of the mA and/or kV according to patient size and/or use of iterative reconstruction technique. FINDINGS: The lung bases are clear without pleural or pericardial effusions. There is a large hiatal hernia. Unchanged right hilar adenopathy. There has been a prior cholecystectomy. Multiple subcentimeter nonspecific hypodense lesions in the spleen and pancreas. The liver, adrenal glands, and kidneys are unremarkable, with a punctate nonobstructing stone in the right kidney. No hydronephrosis. The pelvic organs are normal. Moderate amount of stool in the colon with scattered diverticula. Additionally, there is focal wall thickening with inflammatory stranding of the distal descending colon, consistent with acute diverticulitis. There are a few scattered pockets of free air in this region suggesting microperforation although no abscess or fluid collection is seen. There is a small amount of fluid in the pelvis. The colon is fluid-filled, suggesting a diarrheal illness. The appendix is normal. No small bowel obstruction. Again seen is bulky adenopathy most prominent in the retroperitoneum system with history of lymphoma. The aorta is normal caliber. No body wall hernia is seen. The bony structures are intact. IMPRESSION: 1. Acute diverticulitis involving the descending colon with microperforation. No abscess or fluid collection is seen however. 2. Unchanged bulky retroperitoneal and right hilar adenopathy along with small hypodense lesions in the pancreas and spleen, which may be related to patient's history of lymphoma.
[2019-01-10] MEDS ORDERED: LEVOFLOXACIN 750 MG/D5W RTU 750 MG/150 ML RTUPB IV ONE (22:26)
[2019-01-10] MEDS ORDERED: HYDROMORPHONE HCL INJ/PF 2 MG/ML AMPULE IV ONE (22:48)
[2019-01-10] MEDS ORDERED: DEXTROSE 40% GEL 15 GM TUBE PO PRN ×2 (23:08)
[2019-01-10] MEDS ORDERED: IPRATROPIUM/ALBUTEROL 0.5-2.5 MG/3 ML AMPUL NEB PRN (23:08)
[2019-01-10] MEDS ORDERED: METOPROLOL TARTRATE PF/INJ 5 MG/5 ML SDV IV PRN (23:08)
[2019-01-10] MEDS ORDERED: MAGNESIUM HYDROXIDE SUSP 30 ML UDCUP PO PRN (23:08)
[2019-01-10] MEDS ORDERED: MAG HYDROX/AL HYDROX/SIMETH SUSP 30 ML UDCUP PO PRN (23:08)
[2019-01-10] MEDS ORDERED: ACETAMINOPHEN 325 MG TABLET PO PRN (23:08)
[2019-01-10] MEDS ORDERED: GLUCAGON,HUMAN RECOMB 1 MG INJ SUBCUT PRN (23:08)
[2019-01-10] MEDS ORDERED: DEXTROSE 50%-WATER 25 GM/50 ML DISP.SYRIN IV PRN ×2 (23:08)
--- NOTE | 2019-01-10 23:18 | PDOC CONSULTATION ---
Consultation Consult Date: 01/10/19 Provider Consulted: UTE MARTINEZ Consult reason:: abdominal pain, diverticulitis History of Present Illness Admission Date/PCP: 01/10/19 22:53 MALENA MANDUJANO MD History of Present Illness: LIAM GOLDMAN is a 68 year old male with hx of lymphoma, on chemo rx. last dose 2 days ago. pt has hx of diverticuliits in the past in 2002. presents with 5 days of constipation and now with left sided abd pain no fever, chills or sweats, c/o generalized weakness ct in er c/w acute diverticulitis iwth microperf Past Medical History Cardiac Medical History: Reports: Hypertension Denies: Congestive Heart Failure, DVT, Myocardial Infarction, Hyperlipidema, Pulmonary Embolism Pulmonary Medical History: Denies: Asthma, Chronic Obstructive Pulmonary Disease (COPD), Sleep Apnea Neurological Medical History: Denies: Seizures Endocrine Medical History: Denies: Diabetes Mellitus Type 1, Diabetes Mellitus Type 2, Hyperthyroidism, Hypothyroidism Malignancy Medical History: Reports: Leukemia, Lymphoma - Hodgkins Lymphoma GI Medical History: Reports: Diverticulitis, Gastroesophageal Reflux Disease Denies: Cirrhosis, Hepatitis Musculoskeltal Medical History: Reports: Arthritis Psychiatric Medical History: Denies: Depression Infectious Medical History: Denies: Clostridium Difficile, Methicillin-Resistant Staph Aureus Past Surgical History Past Surgical History: Reports: Tonsillectomy Denies: Appendectomy, Cholecystectomy Social History Smoking Status: Unknown if Ever Smoked Frequency of Alcohol Use: None Drugs: None Family History Family History: Reviewed & Not Pertinent Parental Family History Reviewed: No Children Family History Reviewed: NA Sibling(s) Family History Reviewed.: NA Medication/Allergy Home Medications: Alprazolam [Xanax] 1 mg PO Q8 11/28/16 Metoprolol Tartrate [Lopressor 25 mg Tablet] 25 mg PO DAILY 11/28/16 Omeprazole Magnesium [Prilosec Otc] 20 mg PO QAM 11/28/16 Tramadol HCl [Ultram 50 mg Tablet] 50 mg PO Q6 11/28/16 Docusate Sodium [Colace 100 mg Capsule] 100 mg PO BID #60 capsule 12/02/16 Lisinopril [Prinivil 10 mg Tablet] 10 mg PO Q12 #60 tablet 12/02/16 Sennosides/Docusate 8.6-50 mg [Senna Plus Tablet] 2 each PO HSP PRN #60 tablet 12/02/16 Trazodone HCl [Desyrel 50 mg Tablet] 100 mg PO QHS tablet 12/02/16 Zolpidem Tartrate [Ambien 5 mg Tablet] 2.5 mg PO QHS tablet 12/02/16 Cetirizine HCl [Zyrtec 10 mg Tablet] 1 tab PO DAILY #30 tablet 09/01/18 Epinephrine [Epipen 2-Xavi] 0.3 mg IM ASDIR PRN #1 packet 09/01/18 Famotidine [Pepcid 20 mg Tablet] 20 mg PO DAILY #14 tablet 09/01/18 Nystatin [Mycostatin 500,000 Unit/5 ml Susp Udcup] 500,000 unit PO QID #28 udc 12/22/18 Methocarbamol [Robaxin 750 mg Tablet] 750 mg PO ASDIR PRN #40 tablet 12/24/18 Apixaban [Eliquis 5 mg Tablet] 5 mg PO DAILY #30 tablet 12/28/18 Furosemide [Lasix 20 mg Tablet] 20 mg PO QAM #20 tablet 12/28/18 Allergies/Adverse Reactions: Penicillins Allergy (Severe, Verified 12/24/18 14:56) Anaphylaxis cillin Allergy (Intermediate, Uncoded 12/24/18 14:56) Anaphylaxis Review of Systems Constitutional: PRESENT: fatigue, weakness Eyes: ABSENT: as per HPI, visual disturbances, other Ears: ABSENT: hearing changes Nose, Mouth, and Throat: ABSENT: as per HPI, headache(s), mouth pain, sore throat, vertigo, other Breasts: ABSENT: as per HPI, other Cardiovascular: ABSENT: as per HPI, chest pain, dyspnea on exertion, edema, orthropnea, palpitations, other Respiratory: ABSENT: as per HPI, cough, dyspnea, hemoptysis, sputum, other Gastrointestinal: PRESENT: as per HPI Genitourinary: ABSENT: as per HPI, difficulty urinating, dysuria, hematuria, nocturia, other Musculoskeletal: ABSENT: as per HPI, back pain, deformity, joint swelling, muscle weakness, other Integumentary: ABSENT: as per HPI, diaphoresis, erythema, lesions, pruritus, rash, wounds, other Neurological: ABSENT: as per HPI, abnormal gait, abnormal movements, abnormal speech, confusion, convulsions, dizziness, focal weakness, frequent falls, lack of coordination, memory loss, numbness, paresthesias, restless legs, syncope, tingling, tremor(s), vertigo, weakness, other Psychiatric: ABSENT: as per HPI, anxiety, depression, hallucinations, homidical ideation, suicidal ideation, other Endocrine: ABSENT: as per HPI, cold intolerance, flushing, heat intolerance, menstrual abnormalities, polydipsia, polyphagia, polyuria, other Hematologic/Lymphatic: ABSENT: as per HPI, easy bleeding, easy bruising, lymp hadenopathy, other Allergic/Immunologic: ABSENT: as per HPI, seasonal rhinorrhea, other Physical Exam Vital Signs: Temp Pulse Resp BP Pulse Ox 99.3 F 107 H 32 H 166/90 H 96 01/10/19 21:50 01/10/19 17:52 01/10/19 21:08 01/10/19 21:08 01/10/19 21:08 Intake & Output 01/09/19 01/10/19 01/11/19 06:59 06:59 06:59 Intake Total 1999 Output Total 20 Balance -20 1999 Weight 105 kg General appearance: PRESENT: mild distress Head exam: PRESENT: normocephalic Eye exam: PRESENT: EOMI Ear exam: PRESENT: normal external ear exam Mouth exam: PRESENT: moist Neck exam: PRESENT: full ROM Respiratory exam: PRESENT: clear to auscultation ana, unlabored Cardiovascular exam: PRESENT: other - sl tachycardia 90-106 GI/Abdominal exam: PRESENT: tenderness - tender to palpation in llq no rebound. Rectal exam: PRESENT: deferred Extremities exam: PRESENT: full ROM, +2 edema - lower ext edema secondary to lymphedema Neurological exam: PRESENT: alert, awake, oriented to person, oriented to place Psychiatric exam: PRESENT: appropriate affect Skin exam: PRESENT: dry Results Laboratory Results: 01/10/19 18:26 01/10/19 18:26 01/10/19 01/10/19 01/10/19 18:26 18:26 18:26 WBC 4.3 RBC 4.34 L Hgb 10.7 L Hct 33.0 L MCV 76 L MCH 24.7 L MCHC 32.5 RDW 22.3 H Plt Count 500 H Seg Neutrophils % Not Reportable Lymphocytes % Not Reportable Monocytes % Not Reportable Eosinophils % Not Reportable Basophils % Not Reportable Absolute Neutrophils Not Reportable Absolute Lymphocytes Not Reportable Absolute Monocytes Not Reportable Absolute Eosinophils Not Reportable Absolute Basophils Not Reportable Sodium 133.6 L Potassium 3.8 Chloride 97 L Carbon Dioxide 25 Anion Gap 12 BUN 7 Creatinine 0.53 Est GFR ( Amer) > 60 Est GFR (Non-Af Amer) > 60 Glucose 199 H Lactic Acid 3.0 H Calcium 8.3 L Total Bilirubin 1.0 AST 31 ALT 31 Alkaline Phosphatase 128 H Total Protein 6.2 L Albumin 3.2 L Lipase 69.9 Urine Color Urine Appearance Urine pH Ur Specific [place] Urine Protein Urine Glucose (UA) Urine Ketones Urine Blood Urine Nitrite Ur Leukocyte Esterase Urine WBC (Auto) Urine RBC (Auto) 01/10/19 01/10/19 21:15 22:13 WBC RBC Hgb Hct MCV MCH MCHC RDW Plt Count Seg Neutrophils % Lymphocytes % Monocytes % Eosinophils % Basophils % Absolute Neutrophils Absolute Lymphocytes Absolute Monocytes Absolute Eosinophils Absolute Basophils Sodium Potassium Chloride Carbon Dioxide Anion Gap BUN Creatinine Est GFR ( Amer) Est GFR (Non-Af Amer) Glucose Lactic Acid 1.6 Calcium Total Bilirubin AST ALT Alkaline Phosphatase Total Protein Albumin Lipase Urine Color YELLOW Urine Appearance CLEAR Urine pH 6.0 Ur Specific [place] 1.006 Urine Protein NEGATIVE Urine Glucose (UA) NEGATIVE Urine Ketones NEGATIVE Urine Blood MODERATE H Urine Nitrite NEGATIVE Ur Leukocyte Esterase NEGATIVE Urine WBC (Auto) 1 Urine RBC (Auto) 14 01/10/19 01/10/19 18:26 18:26 Creatine Kinase < 20 L CK-MB (CK-2) < 0.22 Troponin I < 0.012 Impressions: Acute Abdomen Series 01/10/19 17:58 IMPRESSION: NO RADIOGRAPHIC EVIDENCE FOR ACUTE ABDOMINAL DISEASE. Abdomen/Pelvis CT 01/10/19 18:37 IMPRESSION: 1. Acute diverticulitis involving the descending colon with microperforation. No abscess or fluid collection is seen however. 2. Unchanged bulky retroperitoneal and right hilar adenopathy along with small hypodense lesions in the pancreas and spleen, which may be related to patient's history of lymphoma. Assessment & Plan - Plan Summary Plan Summary: impression- acute diverticulitis with microperforation second bout,(last bout 15 yrs ago) colonosopy (reported by pt about 5 yrs ago) wnl hodgkins lymphoma on chemo recommend npo iv abx close observation hydration.
[2019-01-10] MEDS ORDERED: METOPROLOL TARTRATE 25 MG TABLET PO ONE (23:40)
[2019-01-11] MEDS ORDERED: IMIPENEM/CILASTATIN SODIUM 500 MG in NORMAL SALINE 100 ML IV SCH ×2
[2019-01-11] MEDS: METRONIDAZOLE 500 MG/NS RTU 500 MG/100 ML RTUPB IV SCH ×4 (00:59→17:14)
[2019-01-11] MEDS ORDERED: IMIPENEM/CILASTATIN SODIUM INJ 500 MG VIAL IV PRN (01:48)
[2019-01-11] MEDS ORDERED: IMIPENEM/CILASTATIN SODIUM 500 MG in NORMAL SALINE 100 ML IV ONE (02:00)
[2019-01-11] MEDS: NORMAL SALINE 1000 ML 1,000 ML IV PRN ×3 (02:10→12:40)
[2019-01-11] MEDS ORDERED: IMIPENEM/CILASTATIN SODIUM INJ 500 MG VIAL IV ONE (03:08)
[2019-01-11] MEDS ORDERED: PANTOPRAZOLE SODIUM 20 MG TABLET.DR PO ONE (04:00)
[2019-01-11] MEDS ORDERED: ALPRAZOLAM 0.5 MG TABLET PO ONE (04:00)
--- NOTE | 2019-01-11 04:31 | PDOC H&P ---
History of Present Illness Admission Date/PCP: 01/10/19 22:53 MALENA MANDUJANO MD Patient complains of: Constipation left lower quadrant pain History of Present Illness: LIAM GOLDMAN is a 68 year old male with a past medical history of GERD, anxiety, Hodgkin's lymphoma under treatment with Dr. Mandujano last chemotherapy 2 days ago. He presents with several days of constipation and left lower quadrant pain prompting evaluation in the emergency department where he has a CT revealing diverticulitis with microperforation and leukocytosis with bandemia. He is started on empiric antibiotics and referred to the hospitalist for admission. Patient admits to previous episode of diverticulitis approximately 5 or 6 years ago. Past Medical History Cardiac Medical History: Reports: Hypertension Denies: Congestive Heart Failure, DVT, Myocardial Infarction, Hyperlipidema, Pulmonary Embolism Pulmonary Medical History: Denies: Asthma, Chronic Obstructive Pulmonary Disease (COPD), Sleep Apnea Neurological Medical History: Denies: Seizures Endocrine Medical History: Denies: Diabetes Mellitus Type 1, Diabetes Mellitus Type 2, Hyperthyroidism, Hypothyroidism Malignancy Medical History: Reports: Leukemia, Lymphoma - Hodgkins Lymphoma GI Medical History: Reports: Diverticulitis, Gastroesophageal Reflux Disease Denies: Cirrhosis, Hepatitis Musculoskeltal Medical History: Reports: Arthritis Psychiatric Medical History: Reports: Depression, General Anxiety Disorder Infectious Medical History: Denies: Clostridium Difficile, Methicillin-Resistant Staph Aureus Past Surgical History Past Surgical History: Reports: Cholecystectomy, Tonsillectomy Denies: Appendectomy Social History Information Source: Patient, [facility] Records Smoking Status: Never Smoker Frequency of Alcohol Use: None Hx Recreational Drug Use: No Drugs: None Hx Prescription Drug Abuse: No - Advance Directive Resuscitation Status: Full Code Family History Family History: Hypertension Parental Family History Reviewed: Yes Children Family History Reviewed: Yes Sibling(s) Family History Reviewed.: Yes Medication/Allergy Home Medications: Alprazolam [Xanax] 1 mg PO Q8 11/28/16 Metoprolol Tartrate [Lopressor 25 mg Tablet] 25 mg PO DAILY 11/28/16 Omeprazole Magnesium [Prilosec Otc] 20 mg PO QAM 11/28/16 Tramadol HCl [Ultram 50 mg Tablet] 50 mg PO Q6 11/28/16 Docusate Sodium [Colace 100 mg Capsule] 100 mg PO BID #60 capsule 12/02/16 Lisinopril [Prinivil 10 mg Tablet] 10 mg PO Q12 #60 tablet 12/02/16 Sennosides/Docusate 8.6-50 mg [Senna Plus Tablet] 2 each PO HSP PRN #60 tablet 12/02/16 Trazodone HCl [Desyrel 50 mg Tablet] 100 mg PO QHS tablet 12/02/16 Zolpidem Tartrate [Ambien 5 mg Tablet] 2.5 mg PO QHS tablet 12/02/16 Cetirizine HCl [Zyrtec 10 mg Tablet] 1 tab PO DAILY #30 tablet 09/01/18 Epinephrine [Epipen 2-Xavi] 0.3 mg IM ASDIR PRN #1 packet 09/01/18 Famotidine [Pepcid 20 mg Tablet] 20 mg PO DAILY #14 tablet 09/01/18 Nystatin [Mycostatin 500,000 Unit/5 ml Susp Udcup] 500,000 unit PO QID #28 udc 12/22/18 Methocarbamol [Robaxin 750 mg Tablet] 750 mg PO ASDIR PRN #40 tablet 12/24/18 Apixaban [Eliquis 5 mg Tablet] 5 mg PO DAILY #30 tablet 12/28/18 Furosemide [Lasix 20 mg Tablet] 20 mg PO QAM #20 tablet 12/28/18 Allergies/Adverse Reactions: Penicillins Allergy (Severe, Verified 12/24/18 14:56) Anaphylaxis cillin Allergy (Intermediate, Uncoded 12/24/18 14:56) Anaphylaxis Review of Systems Constitutional: PRESENT: as per HPI, anorexia, chills, fatigue, fever(s), weakness, weight loss Eyes: ABSENT: visual disturbances Ears: ABSENT: hearing changes Cardiovascular: ABSENT: chest pain, dyspnea on exertion, edema, orthropnea, palpitations Respiratory: ABSENT: cough, hemoptysis Gastrointestinal: PRESENT: as per HPI, abdominal pain, constipation, nausea. ABSENT: bloating Genitourinary: ABSENT: dysuria, hematuria Musculoskeletal: ABSENT: joint swelling Integumentary: ABSENT: rash, wounds Neurological: ABSENT: abnormal gait, abnormal speech, confusion, dizziness, focal weakness, syncope Psychiatric: PRESENT: as per HPI, anxiety, other - Mild confusion and word finding difficulty post chemotherapy. ABSENT: depression, homidical ideation, suicidal ideation Endocrine: ABSENT: cold intolerance, heat intolerance, polydipsia, polyuria Hematologic/Lymphatic: ABSENT: easy bleeding, easy bruising Physical Exam Vital Signs: Temp Pulse Resp BP Pulse Ox 98.6 F 90 20 159/68 H 96 01/11/19 03:06 01/11/19 03:06 01/11/19 03:06 01/11/19 03:06 01/11/19 03:06 Intake & Output 01/09/19 01/10/19 01/11/19 11:59 11:59 11:59 Intake Total 2250 Output Total 20 Balance -20 0 Weight 105 kg General appearance: PRESENT: cooperative, mild distress, thin, well-developed, other - Temporal wasting, though appears younger than stated age Head exam: PRESENT: atraumatic, normocephalic Eye exam: PRESENT: conjunctiva pink, EOMI, PERRLA. ABSENT: scleral icterus Ear exam: PRESENT: normal external ear exam Mouth exam: PRESENT: dry mucosa. ABSENT: laceration, moist Neck exam: ABSENT: carotid bruit, JVD, lymphadenopathy, thyromegaly Respiratory exam: PRESENT: clear to auscultation ana. ABSENT: rales, rhonchi, wheezes Cardiovascular exam: PRESENT: RRR. ABSENT: diastolic murmur, rubs, systolic murmur Pulses: PRESENT: normal [place] pedis pul Vascular exam: PRESENT: normal capillary refill GI/Abdominal exam: PRESENT: hypoactive bowel sounds, soft, tenderness. ABSENT: distended, firm, guarding, rigid Rectal exam: PRESENT: deferred Extremities exam: PRESENT: full ROM, +1 edema. ABSENT: calf tenderness, clubbing, pedal edema Neurological exam: PRESENT: alert, awake, oriented to person, oriented to place, oriented to time, oriented to situation, CN II-XII grossly intact. ABSENT: motor sensory deficit Psychiatric exam: PRESENT: appropriate affect, normal mood. ABSENT: homicidal ideation, suicidal ideation Skin exam: PRESENT: dry, intact, warm. ABSENT: cyanosis, rash Results Laboratory Results: 01/10/19 18:26 01/10/19 18:26 01/10/19 01/10/19 01/10/19 18:26 18:26 18:26 WBC 4.3 RBC 4.34 L Hgb 10.7 L Hct 33.0 L MCV 76 L MCH 24.7 L MCHC 32.5 RDW 22.3 H Plt Count 500 H Seg Neutrophils % Not Reportable Lymphocytes % Not Reportable Monocytes % Not Reportable Eosinophils % Not Reportable Basophils % Not Reportable Absolute Neutrophils Not Reportable Absolute Lymphocytes Not Reportable Absolute Monocytes Not Reportable Absolute Eosinophils Not Reportable Absolute Basophils Not Reportable Sodium 133.6 L Potassium 3.8 Chloride 97 L Carbon Dioxide 25 Anion Gap 12 BUN 7 Creatinine 0.53 Est GFR ( Amer) > 60 Est GFR (Non-Af Amer) > 60 Glucose 199 H Lactic Acid 3.0 H Calcium 8.3 L Total Bilirubin 1.0 AST 31 ALT 31 Alkaline Phosphatase 128 H Total Protein 6.2 L Albumin 3.2 L Lipase 69.9 Urine Color Urine Appearance Urine pH Ur Specific [place] Urine Protein Urine Glucose (UA) Urine Ketones Urine Blood Urine Nitrite Ur Leukocyte Esterase Urine WBC (Auto) Urine RBC (Auto) 01/10/19 01/10/19 21:15 22:13 WBC RBC Hgb Hct MCV MCH MCHC RDW Plt Count Seg Neutrophils % Lymphocytes % Monocytes % Eosinophils % Basophils % Absolute Neutrophils Absolute Lymphocytes Absolute Monocytes Absolute Eosinophils Absolute Basophils Sodium Potassium Chloride Carbon Dioxide Anion Gap BUN Creatinine Est GFR ( Amer) Est GFR (Non-Af Amer) Glucose Lactic Acid 1.6 Calcium Total Bilirubin AST ALT Alkaline Phosphatase Total Protein Albumin Lipase Urine Color YELLOW Urine Appearance CLEAR Urine pH 6.0 Ur Specific [place] 1.006 Urine Protein NEGATIVE Urine Glucose (UA) NEGATIVE Urine Ketones NEGATIVE Urine Blood MODERATE H Urine Nitrite NEGATIVE Ur Leukocyte Esterase NEGATIVE Urine WBC (Auto) 1 Urine RBC (Auto) 14 01/10/19 01/10/19 18:26 18:26 Creatine Kinase < 20 L CK-MB (CK-2) < 0.22 Troponin I < 0.012 Impressions: Acute Abdomen Series 01/10/19 17:58 IMPRESSION: NO RADIOGRAPHIC EVIDENCE FOR ACUTE ABDOMINAL DISEASE. Abdomen/Pelvis CT 01/10/19 18:37 IMPRESSION: 1. Acute diverticulitis involving the descending colon with microperforation. No abscess or fluid collection is seen however. 2. Unchanged bulky retroperitoneal and right hilar adenopathy along with small hypodense lesions in the pancreas and spleen, which may be related to patient's history of lymphoma. Assessment and Plan - Diagnosis (1) Acute diverticulitis Is this a current diagnosis for this admission?: Yes Plan: Med floor admission, symptomatic management, bowel rest, imipenem ordered given immunocompromise and penicillin allergic. Given microperforation surgery consulted (2) Abdominal pain Qualifiers: Abdominal location: left lower quadrant Qualified Code(s): R10.32 - Left lower quadrant pain Is this a current diagnosis for this admission?: Yes Plan: Secondary to diverticulitis, symptomatic management (3) Constipation Qualifiers: Constipation type: unspecified constipation type Qualified Code(s): K59.00 - Constipation, unspecified Is this a current diagnosis for this admission?: Yes Plan: Bowel regiment (4) Lymphoma Is this a current diagnosis for this admission?: Yes Plan: Oncology consult with Dr. Mandujano ordered
[2019-01-11] MEDS: HEPARIN SOD (PORCINE) 5,000 UNIT/ML 1 ML SYRINGE SUBCUT SCH ×3 (05:13→22:04)
[2019-01-11] MEDS: ALPRAZOLAM 0.5 MG TABLET PO SCH ×3 (05:13→22:02)
[2019-01-11 05:45] LABS: HEMATOCRIT 27.1 % (37.9-51.0); HEMOGLOBIN 8.9 g/dL (13.5-17.0); MEAN CORPUSCULAR HEMOGLOBIN 24.9 pg (27.0-33.4); MEAN CORPUSCULAR HGB CONC 32.7 g/dL (32.0-36.0); MEAN CORPUSCULAR VOLUME 76 fl (80-97); PLATELET COUNT 265 10^3/uL (150-450); RED BLOOD COUNT 3.57 10^6/uL (4.35-5.55); RED CELL DISTRIBUTION WIDTH 22.6 % (11.5-14.0); WHITE BLOOD COUNT 5.5 10^3/uL (4.0-10.5)
[2019-01-11 05:53] LABS: ANION GAP 6 (5-19); BLOOD UREA NITROGEN 7 mg/dL (7-20); CALCIUM 7.6 mg/dL (8.4-10.2); CARBON DIOXIDE 29 mmol/L (22-30); CHLORIDE 99 mmol/L (98-107); GLUCOSE 106 mg/dL (75-110); POTASSIUM 3.6 mmol/L (3.6-5.0); SODIUM 133.5 mmol/L (137-145)
[2019-01-11 06:55] LABS: ABSOLUTE LYMPHOCYTES# (MANUAL) 0.4 10^3/uL (0.5-4.7); ABSOLUTE MONOCYTES # (MANUAL) 0.2 10^3/uL (0.1-1.4); BAND NEUTROPHILS % (MANUAL) 7 % (3-5); BASOPHILS % (MANUAL) 0 % (0-2); EOSINOPHILS % (MANUAL) 0 % (0-6); LYMPHOCYTES % (MANUAL) 7 % (13-45); MONOCYTES % (MANUAL) 4 % (3-13); SEGMENTED NEUTROPHILS % (MAN) 82 % (42-78); TOTAL CELLS COUNTED 100
[2019-01-11 06:57] LABS: ANISOCYTOSIS 3+; PLATELET COMMENT ADEQUATE; STOMATOCYTES 1+
[2019-01-11] MEDS: IMIPENEM/CILASTATIN SODIUM 500 MG in NORMAL SALINE 100 ML IV SCH ×3 (09:55→22:00)
[2019-01-11] MEDS: METOPROLOL TARTRATE 25 MG TABLET PO SCH ×2 (09:55→22:02)
[2019-01-11] MEDS: FENTANYL CITRATE INJ/PF 100 MCG/2 ML AMPUL IV PRN ×2 (12:42→17:18)
[2019-01-11 13:11] LABS: PATH REVIEW PATHOLOGIST REVIEWED
--- NOTE | 2019-01-11 14:12 | PDOC PROGRESS REPORT ---
Subjective Progress Note for:: 01/11/19 Subjective:: Patient still complaining of left lower quadrant pain. He remains n.p.o. No bowel movement this morning; however this afternoon patient attempted to evacuate stool and had some blood per rectum. He was straining. Of note the patient took milk of magnesia, parallax, suppositories and other [id number] agents prior to admission. Reason For Visit: SEPSPIS,ACUTE DIVERTICULITIS,NHL Physical Exam Vital Signs: Temp Pulse Resp BP Pulse Ox 98.4 F 76 16 147/72 H 96 01/11/19 11:59 01/11/19 11:59 01/11/19 11:59 01/11/19 11:59 01/11/19 11:59 Intake & Output 01/10/19 01/11/19 01/12/19 06:59 06:59 06:59 Intake Total 3350 1000 Output Total 1000 Balance 2350 1000 Weight 106 kg General appearance: PRESENT: mild distress GI/Abdominal exam: PRESENT: other - Tender left lower quadrant with guarding. No rigidity. Musculoskeletal exam: PRESENT: other - Moderate to severe edema lower extremities especially ankles Results Laboratory Results: 01/11/19 04:39 01/11/19 04:39 01/10/19 01/10/19 01/10/19 18:26 18:26 18:26 WBC 4.3 RBC 4.34 L Hgb 10.7 L Hct 33.0 L MCV 76 L MCH 24.7 L MCHC 32.5 RDW 22.3 H Plt Count 500 H Seg Neutrophils % Not Reportable Lymphocytes % Not Reportable Monocytes % Not Reportable Eosinophils % Not Reportable Basophils % Not Reportable Absolute Neutrophils Not Reportable Absolute Lymphocytes Not Reportable Absolute Monocytes Not Reportable Absolute Eosinophils Not Reportable Absolute Basophils Not Reportable Sodium 133.6 L Potassium 3.8 Chloride 97 L Carbon Dioxide 25 Anion Gap 12 BUN 7 Creatinine 0.53 Est GFR ( Amer) > 60 Est GFR (Non-Af Amer) > 60 Glucose 199 H Lactic Acid 3.0 H Calcium 8.3 L Magnesium Total Bilirubin 1.0 AST 31 ALT 31 Alkaline Phosphatase 128 H Total Protein 6.2 L Albumin 3.2 L Lipase 69.9 Urine Color Urine Appearance Urine pH Ur Specific [place] Urine Protein Urine Glucose (UA) Urine Ketones Urine Blood Urine Nitrite Ur Leukocyte Esterase Urine WBC (Auto) Urine RBC (Auto) 01/10/19 01/10/19 01/11/19 21:15 22:13 04:39 WBC 5.5 RBC 3.57 L Hgb 8.9 L Hct 27.1 L MCV 76 L MCH 24.9 L MCHC 32.7 RDW 22.6 H Plt Count 265 Seg Neutrophils % Not Reportable Lymphocytes % Not Reportable Monocytes % Not Reportable Eosinophils % Not Reportable Basophils % Not Reportable Absolute Neutrophils Not Reportable Absolute Lymphocytes Not Reportable Absolute Monocytes Not Reportable Absolute Eosinophils Not Reportable Absolute Basophils Not Reportable Sodium Potassium Chloride Carbon Dioxide Anion Gap BUN Creatinine Est GFR ( Amer) Est GFR (Non-Af Amer) Glucose Lactic Acid 1.6 Calcium Magnesium Total Bilirubin AST ALT Alkaline Phosphatase Total Protein Albumin Lipase Urine Color YELLOW Urine Appearance CLEAR Urine pH 6.0 Ur Specific [place] 1.006 Urine Protein NEGATIVE Urine Glucose (UA) NEGATIVE Urine Ketones NEGATIVE Urine Blood MODERATE H Urine Nitrite NEGATIVE Ur Leukocyte Esterase NEGATIVE Urine WBC (Auto) 1 Urine RBC (Auto) 14 01/11/19 04:39 WBC RBC Hgb Hct MCV MCH MCHC RDW Plt Count Seg Neutrophils % Lymphocytes % Monocytes % Eosinophils % Basophils % Absolute Neutrophils Absolute Lymphocytes Absolute Monocytes Absolute Eosinophils Absolute Basophils Sodium 133.5 L Potassium 3.6 Chloride 99 Carbon Dioxide 29 Anion Gap 6 BUN 7 Creatinine 0.47 L Est GFR ( Amer) > 60 Est GFR (Non-Af Amer) > 60 Glucose 106 Lactic Acid Calcium 7.6 L Magnesium 1.9 Total Bilirubin AST ALT Alkaline Phosphatase Total Protein Albumin Lipase Urine Color Urine Appearance Urine pH Ur Specific [place] Urine Protein Urine Glucose (UA) Urine Ketones Urine Blood Urine Nitrite Ur Leukocyte Esterase Urine WBC (Auto) Urine RBC (Auto) 01/10/19 01/10/19 18:26 18:26 Creatine Kinase < 20 L CK-MB (CK-2) < 0.22 Troponin I < 0.012 Impressions: Acute Abdomen Series 01/10/19 17:58 IMPRESSION: NO RADIOGRAPHIC EVIDENCE FOR ACUTE ABDOMINAL DISEASE. Abdomen/Pelvis CT 01/10/19 18:37 IMPRESSION: 1. Acute diverticulitis involving the descending colon with microperforation. No abscess or fluid collection is seen however. 2. Unchanged bulky retroperitoneal and right hilar adenopathy along with small hypodense lesions in the pancreas and spleen, which may be related to patient's history of lymphoma. Status: Pending Assessment & Plan - Time Time Spent with patient: 15-24 minutes Smoking Cessation Education: over 10 minutes Medications reviewed and adjusted accordingly: Yes Anticipated discharge: Home - Plan Summary Plan Summary: Impression: Complicated diverticulitis of the sigmoid colon, Hinchey classification 1, 24 hours on intravenous antibiotics with modest improvement in symptoms; still requiring pain medication. Active non-Hodgkin's lymphoma currently receiving chemotherapy Recommendations: 1. Keep patient n.p.o. on IV fluids intravenous antibiotics; may try gentle cathartics 2. Initiate [place] magic mouthwash 3. Explained pts pathophysiology, chadwick diagram on board;
[2019-01-11] MEDS ORDERED: HYDRALAZINE HCL INJ/PF 20 MG/1 ML SDV IV PRN (14:16)
--- NOTE | 2019-01-11 14:18 | PDOC PROGRESS REPORT ---
Subjective Progress Note for:: 01/11/19 Subjective:: This is a 68 year old male with a past medical history of GERD, anxiety, Hodgkin's lymphoma under treatment with Dr. Lindquist with last chemotherapy 2 days ago who presented with abdominal pain. He was found to have acute diverticulitis with microperforation. He was started on IV fluids, antibiotics and made n.p.o. Surgery was also consulted. No acute event overnight. Upon encounter, he appears comfortable and is currently abdominal pain-free. He does state that his left lower quadrant is tender when pressed. He is passing out gas. No nausea or vomiting. Reason For Visit: SEPSPIS,ACUTE DIVERTICULITIS,NHL Physical Exam Vital Signs: Temp Pulse Resp BP Pulse Ox 98.4 F 76 16 147/72 H 96 01/11/19 11:59 01/11/19 11:59 01/11/19 11:59 01/11/19 11:59 01/11/19 11:59 Intake & Output 01/10/19 01/11/19 01/12/19 06:59 06:59 06:59 Intake Total 3350 1000 Output Total 1000 Balance 2350 1000 Weight 233 lb 11.04 oz General appearance: PRESENT: no acute distress, well-developed, well-nourished Head exam: PRESENT: atraumatic, normocephalic Eye exam: PRESENT: conjunctiva pink, EOMI, PERRLA. ABSENT: scleral icterus Ear exam: PRESENT: normal external ear exam Mouth exam: PRESENT: moist, tongue midline Neck exam: ABSENT: carotid bruit, JVD, lymphadenopathy, thyromegaly Respiratory exam: PRESENT: clear to auscultation ana. ABSENT: rales, rhonchi, wheezes Cardiovascular exam: PRESENT: RRR. ABSENT: diastolic murmur, rubs, systolic murmur Pulses: PRESENT: normal dorsalis pedis pul GI/Abdominal exam: PRESENT: normal bowel sounds, soft, tenderness - Mild direct left lower quadrant tenderness, negative rebound tenderness. ABSENT: distended, guarding, mass, organolmegaly, rebound Rectal exam: PRESENT: deferred Neurological exam: PRESENT: alert, awake, oriented to person, oriented to place, oriented to time, oriented to situation, CN II-XII grossly intact. ABSENT: motor sensory deficit Results Laboratory Results: 01/11/19 04:39 01/11/19 04:39 01/10/19 01/10/19 01/10/19 18:26 18:26 18:26 WBC 4.3 RBC 4.34 L Hgb 10.7 L Hct 33.0 L MCV 76 L MCH 24.7 L MCHC 32.5 RDW 22.3 H Plt Count 500 H Seg Neutrophils % Not Reportable Lymphocytes % Not Reportable Monocytes % Not Reportable Eosinophils % Not Reportable Basophils % Not Reportable Absolute Neutrophils Not Reportable Absolute Lymphocytes Not Reportable Absolute Monocytes Not Reportable Absolute Eosinophils Not Reportable Absolute Basophils Not Reportable Sodium 133.6 L Potassium 3.8 Chloride 97 L Carbon Dioxide 25 Anion Gap 12 BUN 7 Creatinine 0.53 Est GFR ( Amer) > 60 Est GFR (Non-Af Amer) > 60 Glucose 199 H Lactic Acid 3.0 H Calcium 8.3 L Magnesium Total Bilirubin 1.0 AST 31 ALT 31 Alkaline Phosphatase 128 H Total Protein 6.2 L Albumin 3.2 L Lipase 69.9 Urine Color Urine Appearance Urine pH Ur Specific [place] Urine Protein Urine Glucose (UA) Urine Ketones Urine Blood Urine Nitrite Ur Leukocyte Esterase Urine WBC (Auto) Urine RBC (Auto) 01/10/19 01/10/19 01/11/19 21:15 22:13 04:39 WBC 5.5 RBC 3.57 L Hgb 8.9 L Hct 27.1 L MCV 76 L MCH 24.9 L MCHC 32.7 RDW 22.6 H Plt Count 265 Seg Neutrophils % Not Reportable Lymphocytes % Not Reportable Monocytes % Not Reportable Eosinophils % Not Reportable Basophils % Not Reportable Absolute Neutrophils Not Reportable Absolute Lymphocytes Not Reportable Absolute Monocytes Not Reportable Absolute Eosinophils Not Reportable Absolute Basophils Not Reportable Sodium Potassium Chloride Carbon Dioxide Anion Gap BUN Creatinine Est GFR ( Amer) Est GFR (Non-Af Amer) Glucose Lactic Acid 1.6 Calcium Magnesium Total Bilirubin AST ALT Alkaline Phosphatase Total Protein Albumin Lipase Urine Color YELLOW Urine Appearance CLEAR Urine pH 6.0 Ur Specific [place] 1.006 Urine Protein NEGATIVE Urine Glucose (UA) NEGATIVE Urine Ketones NEGATIVE Urine Blood MODERATE H Urine Nitrite NEGATIVE Ur Leukocyte Esterase NEGATIVE Urine WBC (Auto) 1 Urine RBC (Auto) 14 01/11/19 04:39 WBC RBC Hgb Hct MCV MCH MCHC RDW Plt Count Seg Neutrophils % Lymphocytes % Monocytes % Eosinophils % Basophils % Absolute Neutrophils Absolute Lymphocytes Absolute Monocytes Absolute Eosinophils Absolute Basophils Sodium 133.5 L Potassium 3.6 Chloride 99 Carbon Dioxide 29 Anion Gap 6 BUN 7 Creatinine 0.47 L Est GFR ( Amer) > 60 Est GFR (Non-Af Amer) > 60 Glucose 106 Lactic Acid Calcium 7.6 L Magnesium 1.9 Total Bilirubin AST ALT Alkaline Phosphatase Total Protein Albumin Lipase Urine Color Urine Appearance Urine pH Ur Specific [place] Urine Protein Urine Glucose (UA) Urine Ketones Urine Blood Urine Nitrite Ur Leukocyte Esterase Urine WBC (Auto) Urine RBC (Auto) 01/10/19 01/10/19 18:26 18:26 Creatine Kinase < 20 L CK-MB (CK-2) < 0.22 Troponin I < 0.012 Impressions: Acute Abdomen Series 01/10/19 17:58 IMPRESSION: NO RADIOGRAPHIC EVIDENCE FOR ACUTE ABDOMINAL DISEASE. Abdomen/Pelvis CT 01/10/19 18:37 IMPRESSION: 1. Acute diverticulitis involving the descending colon with microperforation. No abscess or fluid collection is seen however. 2. Unchanged bulky retroperitoneal and right hilar adenopathy along with small hypodense lesions in the pancreas and spleen, which may be related to patient's history of lymphoma. Assessment and Plan - Diagnosis (1) Acute diverticulitis Is this a current diagnosis for this admission?: Yes Plan: He remains NPO. Continue IV fluids and IV antibiotics. Surgery following. (2) HTN (hypertension) Qualifiers: Hypertension type: essential hypertension Qualified Code(s): I10 - Essential (primary) hypertension Is this a current diagnosis for this admission?: Yes Plan: He is on metoprolol and lisinopril at home. Blood pressures in the 140/70s. Hydralazine as needed. (3) Hodgkin lymphoma Is this a current diagnosis for this admission?: Yes Plan: Recently on chemotherapy. He follows up with Dr. Lindquist. - Time Time Spent with patient: 25-34 minutes
[2019-01-11] MEDS: NYSTATIN/DEXAMETH/DIPHEN SUSP 120 ML PO PRN (15:45)
[2019-01-11] MEDS: ZOLPIDEM TARTRATE 5 MG TABLET PO SCH (22:01)
[2019-01-12] MEDS: METRONIDAZOLE 500 MG/NS RTU 500 MG/100 ML RTUPB IV SCH ×4 (01:17→17:26)
[2019-01-12] MEDS: NYSTATIN/DEXAMETH/DIPHEN SUSP 120 ML PO PRN ×2 (01:31→20:20)
[2019-01-12] MEDS: IMIPENEM/CILASTATIN SODIUM 500 MG in NORMAL SALINE 100 ML IV SCH ×4 (02:34→21:59)
[2019-01-12] MEDS: PANTOPRAZOLE SODIUM 20 MG TABLET.DR PO SCH (05:20)
[2019-01-12] MEDS: HEPARIN SOD (PORCINE) 5,000 UNIT/ML 1 ML SYRINGE SUBCUT SCH ×3 (05:21→22:14)
[2019-01-12] MEDS: ALPRAZOLAM 0.5 MG TABLET PO SCH ×3 (05:21→22:15)
[2019-01-12] MEDS ORDERED: PANTOPRAZOLE SODIUM 20 MG TABLET.DR PO SCH (06:00)
[2019-01-12 06:03] LABS: ABSOLUTE LYMPHOCYTES (AUTO) 0.4 10^3/uL (0.5-4.7); ABSOLUTE MONOCYTES (AUTO) 0.1 10^3/uL (0.1-1.4); ABSOLUTE NEUT (AUTO) 6.4 10^3/uL (1.7-8.2); BASOPHILS % (AUTO) 0.3 % (0-2); EOSINOPHILS % (AUTO) 0.2 % (0-6); HEMATOCRIT 25.8 % (37.9-51.0); HEMOGLOBIN 8.4 g/dL (13.5-17.0); LYMPHOCYTES % (AUTO) 5.4 % (13-45); MEAN CORPUSCULAR HEMOGLOBIN 24.8 pg (27.0-33.4); MEAN CORPUSCULAR HGB CONC 32.8 g/dL (32.0-36.0); MEAN CORPUSCULAR VOLUME 76 fl (80-97); MONOCYTES % (AUTO) 1.5 % (3-13); PLATELET COUNT 278 10^3/uL (150-450); RED BLOOD COUNT 3.41 10^6/uL (4.35-5.55); RED CELL DISTRIBUTION WIDTH 22.1 % (11.5-14.0); SEGMENTED NEUTROPHILS % (AUTO) 92.6 % (42-78); TOTAL CELLS COUNTED % (AUTO) 100 %
[2019-01-12 06:23] LABS: ANION GAP 7 (5-19); BLOOD UREA NITROGEN 9 mg/dL (7-20); CARBON DIOXIDE 29 mmol/L (22-30); CHLORIDE 98 mmol/L (98-107); GLUCOSE 102 mg/dL (75-110); POTASSIUM 3.2 mmol/L (3.6-5.0); SODIUM 133.8 mmol/L (137-145)
[2019-01-12] MEDS: ALLOPURINOL 300 MG TABLET PO SCH (08:07)
[2019-01-12] MEDS: METOPROLOL TARTRATE 25 MG TABLET PO SCH (09:59)
[2019-01-12] MEDS ORDERED: POTASSIUM CHLORIDE 10 MEQ CAPSULE.ER PO ONE (10:00)
--- NOTE | 2019-01-12 11:04 | PDOC PROGRESS REPORT ---
Subjective Progress Note for:: 01/12/19 Subjective:: This is a 68 year old male with a past medical history of GERD, anxiety, Hodgkin's lymphoma under treatment with Dr. Lindquist with last chemotherapy 2 days ago who presented with abdominal pain. He was found to have acute diverticulitis with microperforation. He was started on IV fluids, antibiotics and made n.p.o. Surgery was also consulted. Upon encounter, he appears comfortable and is currently abdominal pain-free. He does state that his left lower quadrant is tender when pressed. He is passing out gas. No nausea or vomiting. 01/12: No acute event overnight aside from a BM with a few bright red blood yesterday afternoon. He says his left lower quadrant is less tender today. He was evaluated by surgery this morning and he is being advanced to clear liquid diet today. He says he feels better today and that he wants to eat or drink. Reason For Visit: SEPSPIS,ACUTE DIVERTICULITIS,NHL Physical Exam Vital Signs: Temp Pulse Resp BP Pulse Ox 98.2 F 83 14 146/66 H 96 01/12/19 07:09 01/12/19 09:00 01/12/19 09:00 01/12/19 07:09 01/12/19 09:00 Intake & Output 01/11/19 01/12/19 01/13/19 06:59 06:59 06:59 Intake Total 3350 2300 Output Total 1000 2050 Balance 2350 250 Weight 233 lb 11.04 oz 225 lb 12.054 oz General appearance: PRESENT: no acute distress, well-developed, well-nourished Head exam: PRESENT: atraumatic, normocephalic Eye exam: PRESENT: conjunctiva pink, EOMI, PERRLA. ABSENT: scleral icterus Ear exam: PRESENT: normal external ear exam Mouth exam: PRESENT: moist, tongue midline Neck exam: ABSENT: carotid bruit, JVD, lymphadenopathy, thyromegaly Respiratory exam: PRESENT: clear to auscultation ana. ABSENT: rales, rhonchi, wheezes Cardiovascular exam: PRESENT: RRR. ABSENT: diastolic murmur, rubs, systolic murmur Pulses: PRESENT: normal dorsalis pedis pul GI/Abdominal exam: PRESENT: normal bowel sounds, soft, tenderness - minimal LLQ tenderness. ABSENT: distended, guarding, mass, organolmegaly, rebound Rectal exam: PRESENT: deferred Extremities exam: PRESENT: full ROM. ABSENT: calf tenderness, clubbing, pedal edema Neurological exam: PRESENT: alert, awake, oriented to person, oriented to place, oriented to time, oriented to situation, CN II-XII grossly intact. ABSENT: motor sensory deficit Results Laboratory Results: 01/12/19 05:17 01/12/19 05:17 01/12/19 01/12/19 05:17 05:17 WBC 7.0 RBC 3.41 L Hgb 8.4 L Hct 25.8 L MCV 76 L MCH 24.8 L MCHC 32.8 RDW 22.1 H Plt Count 278 Seg Neutrophils % 92.6 H Lymphocytes % 5.4 L Monocytes % 1.5 L Eosinophils % 0.2 Basophils % 0.3 Absolute Neutrophils 6.4 Absolute Lymphocytes 0.4 L Absolute Monocytes 0.1 Absolute Eosinophils 0.0 Absolute Basophils 0.0 Sodium 133.8 L Potassium 3.2 L Chloride 98 Carbon Dioxide 29 Anion Gap 7 BUN 9 Creatinine 0.49 L Est GFR ( Amer) > 60 Est GFR (Non-Af Amer) > 60 Glucose 102 Calcium 8.0 L 01/10/19 01/10/19 18:26 18:26 Creatine Kinase < 20 L CK-MB (CK-2) < 0.22 Troponin I < 0.012 Impressions: Acute Abdomen Series 01/10/19 17:58 IMPRESSION: NO RADIOGRAPHIC EVIDENCE FOR ACUTE ABDOMINAL DISEASE. Abdomen/Pelvis CT 01/10/19 18:37 IMPRESSION: 1. Acute diverticulitis involving the descending colon with microperforation. No abscess or fluid collection is seen however. 2. Unchanged bulky retroperitoneal and right hilar adenopathy along with small hypodense lesions in the pancreas and spleen, which may be related to patient's history of lymphoma. Assessment and Plan - Diagnosis (1) Acute diverticulitis Is this a current diagnosis for this admission?: Yes Plan: 01/11: He remains NPO. Continue IV fluids and IV antibiotics. Surgery following. 01/12: Improving. Advance to clear liquid diet today. (2) HTN (hypertension) Qualifiers: Hypertension type: essential hypertension Qualified Code(s): I10 - Essential (primary) hypertension Is this a current diagnosis for this admission?: Yes Plan: He is on metoprolol and lisinopril at home. Blood pressures in the 140/70s. Hydralazine as needed. 01/12: Resume metoprolol and lisinopril. (3) Hodgkin lymphoma Is this a current diagnosis for this admission?: Yes Plan: Recently on chemotherapy. He follows up with Dr. Lindquist. (4) Hypokalemia Is this a current diagnosis for this admission?: Yes Plan: Replace with PO Potassium. - Time Time Spent with patient: 25-34 minutes
[2019-01-12] MEDS: LISINOPRIL 10 MG TABLET PO SCH (12:16)
--- NOTE | 2019-01-12 13:41 | PDOC PROGRESS REPORT ---
Subjective Progress Note for:: 01/12/19 Subjective:: This is a 68-year-old male with acute sigmoid diverticulitis. The patient reports that his pain is slowly improving. He denies fevers, chills, chest pain, shortness of breath, nausea, vomiting, dizziness, orthostasis, malaise, fatigue, blurry vision, melena, hematochezia, or hematemesis. Reason For Visit: SEPSPIS,ACUTE DIVERTICULITIS,NHL Physical Exam Vital Signs: Temp Pulse Resp BP Pulse Ox 97.9 F 89 16 137/76 H 95 01/12/19 11:26 01/12/19 11:26 01/12/19 11:26 01/12/19 11:26 01/12/19 11:26 Intake & Output 01/11/19 01/12/19 01/13/19 06:59 06:59 06:59 Intake Total 3350 2400 832 Output Total 1000 2050 650 Balance 2350 350 182 Weight 106 kg 102.4 kg General appearance: PRESENT: no acute distress, cooperative Head exam: PRESENT: atraumatic, normocephalic Eye exam: PRESENT: EOMI, PERRLA Mouth exam: PRESENT: moist, neck supple Neck exam: ABSENT: meningismus, tenderness, thyromegaly, tracheal deviation Respiratory exam: PRESENT: clear to auscultation ana, unlabored. ABSENT: chest wall tenderness, tachypnea Cardiovascular exam: PRESENT: RRR Pulses: PRESENT: normal radial pulses Vascular exam: PRESENT: normal capillary refill. ABSENT: pallor GI/Abdominal exam: PRESENT: soft, tenderness - LLQ. ABSENT: distended, firm, guarding, rebound Rectal exam: PRESENT: deferred Extremities exam: ABSENT: clubbing Musculoskeletal exam: ABSENT: deformity Neurological exam: PRESENT: alert, awake, oriented to person, oriented to place, oriented to time, oriented to situation, CN II-XII grossly intact. ABSENT: motor sensory deficit Psychiatric exam: ABSENT: agitated, anxious, depressed Focused psych exam: ABSENT: delusional Skin exam: ABSENT: cyanosis, erythema, jaundice Results Laboratory Results: 01/12/19 05:17 01/12/19 05:17 01/12/19 01/12/19 05:17 05:17 WBC 7.0 RBC 3.41 L Hgb 8.4 L Hct 25.8 L MCV 76 L MCH 24.8 L MCHC 32.8 RDW 22.1 H Plt Count 278 Seg Neutrophils % 92.6 H Lymphocytes % 5.4 L Monocytes % 1.5 L Eosinophils % 0.2 Basophils % 0.3 Absolute Neutrophils 6.4 Absolute Lymphocytes 0.4 L Absolute Monocytes 0.1 Absolute Eosinophils 0.0 Absolute Basophils 0.0 Sodium 133.8 L Potassium 3.2 L Chloride 98 Carbon Dioxide 29 Anion Gap 7 BUN 9 Creatinine 0.49 L Est GFR ( Amer) > 60 Est GFR (Non-Af Amer) > 60 Glucose 102 Calcium 8.0 L 01/10/19 01/10/19 18:26 18:26 Creatine Kinase < 20 L CK-MB (CK-2) < 0.22 Troponin I < 0.012 Impressions: Acute Abdomen Series 01/10/19 17:58 IMPRESSION: NO RADIOGRAPHIC EVIDENCE FOR ACUTE ABDOMINAL DISEASE. Abdomen/Pelvis CT 01/10/19 18:37 IMPRESSION: 1. Acute diverticulitis involving the descending colon with microperforation. No abscess or fluid collection is seen however. 2. Unchanged bulky retroperitoneal and right hilar adenopathy along with small hypodense lesions in the pancreas and spleen, which may be related to patient's history of lymphoma. Assessment & Plan - Diagnosis (1) Acute diverticulitis Is this a current diagnosis for this admission?: Yes - Plan Summary Plan Summary: This is a 68-year-old male with acute sigmoid diverticulitis. His pain appears to be improving. Today he does have some left lower quadrant tenderness, but he does not exhibit signs of peritonitis. The patient reports that he is hungry. I will start him on clear liquids today. Continue antibiotics. Continue hospital admission. I will advance his diet slowly if he tolerates clear liquids. Will continue to follow with you.
[2019-01-12] MEDS: KETOROLAC TROMETHAMINE INJ/PF 30 MG/1 ML SDV IV PRN (17:30)
[2019-01-12] MEDS: ZOLPIDEM TARTRATE 5 MG TABLET PO SCH (22:15)
[2019-01-13] MEDS: METRONIDAZOLE 500 MG/NS RTU 500 MG/100 ML RTUPB IV SCH ×4 (00:44→17:01)
[2019-01-13] MEDS: KETOROLAC TROMETHAMINE INJ/PF 30 MG/1 ML SDV IV PRN ×3 (00:51→22:14)
[2019-01-13] MEDS: IMIPENEM/CILASTATIN SODIUM 500 MG in NORMAL SALINE 100 ML IV SCH ×4 (02:50→20:11)
[2019-01-13] MEDS: ALPRAZOLAM 0.5 MG TABLET PO SCH ×3 (05:41→22:14)
[2019-01-13] MEDS: PANTOPRAZOLE SODIUM 20 MG TABLET.DR PO SCH (05:41)
[2019-01-13] MEDS: HEPARIN SOD (PORCINE) 5,000 UNIT/ML 1 ML SYRINGE SUBCUT SCH ×3 (05:42→22:14)
[2019-01-13 06:27] LABS: ABSOLUTE EOSINOPHILS # (AUTO) 0.1 10^3/uL (0.0-0.6); ABSOLUTE LYMPHOCYTES (AUTO) 0.4 10^3/uL (0.5-4.7); ABSOLUTE MONOCYTES (AUTO) 0.1 10^3/uL (0.1-1.4); ABSOLUTE NEUT (AUTO) 3.8 10^3/uL (1.7-8.2); BASOPHILS % (AUTO) 0.8 % (0-2); EOSINOPHILS % (AUTO) 1.3 % (0-6); HEMATOCRIT 25.1 % (37.9-51.0); HEMOGLOBIN 8.3 g/dL (13.5-17.0); LYMPHOCYTES % (AUTO) 9.3 % (13-45); MEAN CORPUSCULAR HGB CONC 33.1 g/dL (32.0-36.0); MEAN CORPUSCULAR VOLUME 76 fl (80-97); MONOCYTES % (AUTO) 1.9 % (3-13); PLATELET COUNT 351 10^3/uL (150-450); RED BLOOD COUNT 3.32 10^6/uL (4.35-5.55); RED CELL DISTRIBUTION WIDTH 22.2 % (11.5-14.0); SEGMENTED NEUTROPHILS % (AUTO) 86.7 % (42-78); TOTAL CELLS COUNTED % (AUTO) 100 %; WHITE BLOOD COUNT 4.4 10^3/uL (4.0-10.5)
[2019-01-13 07:06] LABS: ANION GAP 5 (5-19); BLOOD UREA NITROGEN 10 mg/dL (7-20); CALCIUM 7.7 mg/dL (8.4-10.2); CARBON DIOXIDE 29 mmol/L (22-30); CHLORIDE 99 mmol/L (98-107); GLUCOSE 96 mg/dL (75-110); POTASSIUM 3.5 mmol/L (3.6-5.0); SODIUM 133.3 mmol/L (137-145)
[2019-01-13] MEDS: ALLOPURINOL 300 MG TABLET PO SCH (08:09)
[2019-01-13] MEDS: METOPROLOL SUCCINATE 25 MG TAB.SR.24H PO SCH (09:14)
[2019-01-13] MEDS: LISINOPRIL 10 MG TABLET PO SCH (09:14)
[2019-01-13] MEDS ORDERED: POTASSIUM CHLORIDE 10 MEQ CAPSULE.ER PO ONE (09:30)
--- NOTE | 2019-01-13 13:32 | PDOC PROGRESS REPORT ---
Subjective Progress Note for:: 01/13/19 Subjective:: This is a 68 year old male with a past medical history of GERD, anxiety, Hodgkin's lymphoma under treatment with Dr. Lindquist with last chemotherapy 2 days ago who presented with abdominal pain. He was found to have acute diverticulitis with microperforation. He was started on IV fluids, antibiotics and made n.p.o. Surgery was also consulted. Upon encounter, he appears comfortable and is currently abdominal pain-free. He does state that his left lower quadrant is tender when pressed. He is passing out gas. No nausea or vomiting. 01/12: No acute event overnight aside from a BM with a few bright red blood yesterday afternoon. He says his left lower quadrant is less tender today. He was evaluated by surgery this morning and he is being advanced to clear liquid diet today. He says he feels better today and that he wants to eat or drink. 01/13: No acute event overnight. His abdominal pain continues to improve. He had a regular, non-bloody bowel movement last night. He is tolerating clear liquid diet well. Plan to advance to soft diet later today if he continues to do well. Reason For Visit: SEPSPIS,ACUTE DIVERTICULITIS,NHL Physical Exam Vital Signs: Temp Pulse Resp BP Pulse Ox 97.5 F 98 16 146/72 H 97 01/13/19 07:52 01/13/19 07:52 01/13/19 07:52 01/13/19 07:52 01/13/19 07:52 Intake & Output 01/12/19 01/13/19 01/14/19 06:59 06:59 06:59 Intake Total 2400 1845 Output Total 2050 1150 Balance 350 695 Weight 225 lb 12.054 oz 226 lb 10.163 oz General appearance: PRESENT: no acute distress, well-developed, well-nourished Head exam: PRESENT: atraumatic, normocephalic Eye exam: PRESENT: conjunctiva pink, EOMI, PERRLA. ABSENT: scleral icterus Ear exam: PRESENT: normal external ear exam Mouth exam: PRESENT: moist, tongue midline Neck exam: ABSENT: carotid bruit, JVD, lymphadenopathy, thyromegaly Respiratory exam: PRESENT: clear to auscultation ana. ABSENT: rales, rhonchi, wheezes Cardiovascular exam: PRESENT: RRR. ABSENT: diastolic murmur, rubs, systolic murmur Pulses: PRESENT: normal dorsalis pedis pul GI/Abdominal exam: PRESENT: normal bowel sounds, soft, tenderness - minimal direct LLQ tenderness. ABSENT: distended, guarding, mass, organolmegaly, rebound Rectal exam: PRESENT: deferred Neurological exam: PRESENT: alert, awake, oriented to person, oriented to place, oriented to time, oriented to situation, CN II-XII grossly intact. ABSENT: motor sensory deficit Results Laboratory Results: 01/13/19 05:58 01/13/19 05:58 01/13/19 01/13/19 05:58 05:58 WBC 4.4 RBC 3.32 L Hgb 8.3 L Hct 25.1 L MCV 76 L MCH 25.0 L MCHC 33.1 RDW 22.2 H Plt Count 351 Seg Neutrophils % 86.7 H Lymphocytes % 9.3 L Monocytes % 1.9 L Eosinophils % 1.3 Basophils % 0.8 Absolute Neutrophils 3.8 Absolute Lymphocytes 0.4 L Absolute Monocytes 0.1 Absolute Eosinophils 0.1 Absolute Basophils 0.0 Sodium 133.3 L Potassium 3.5 L Chloride 99 Carbon Dioxide 29 Anion Gap 5 BUN 10 Creatinine 0.53 Est GFR ( Amer) > 60 Est GFR (Non-Af Amer) > 60 Glucose 96 Calcium 7.7 L 01/10/19 01/10/19 18:26 18:26 Creatine Kinase < 20 L CK-MB (CK-2) < 0.22 Troponin I < 0.012 Impressions: Acute Abdomen Series 01/10/19 17:58 IMPRESSION: NO RADIOGRAPHIC EVIDENCE FOR ACUTE ABDOMINAL DISEASE. Abdomen/Pelvis CT 01/10/19 18:37 IMPRESSION: 1. Acute diverticulitis involving the descending colon with microperforation. No abscess or fluid collection is seen however. 2. Unchanged bulky retroperitoneal and right hilar adenopathy along with small hypodense lesions in the pancreas and spleen, which may be related to patient's history of lymphoma. Assessment and Plan - Diagnosis (1) Acute diverticulitis Is this a current diagnosis for this admission?: Yes Plan: 01/11: He remains NPO. Continue IV fluids and IV antibiotics. Surgery following. 01/12: Improving. Advance to clear liquid diet today. 01/13: His abdominal pain continues to improve. He had a regular, non-bloody bowel movement last night. He is tolerating clear liquid diet well. Plan to advance to soft diet later today if he continues to do well. (2) HTN (hypertension) Qualifiers: Hypertension type: essential hypertension Qualified Code(s): I10 - Essential (primary) hypertension Is this a current diagnosis for this admission?: Yes Plan: He is on metoprolol and lisinopril at home. Blood pressures in the 140/70s. Hydralazine as needed. 01/12: Resume metoprolol and lisinopril. (3) Hodgkin lymphoma Is this a current diagnosis for this admission?: Yes Plan: Recently on chemotherapy. He follows up with Dr. Lindquist. (4) Hypokalemia Is this a current diagnosis for this admission?: Yes Plan: Replace with PO Potassium. - Time Time Spent with patient: 25-34 minutes
--- NOTE | 2019-01-13 16:12 | PDOC PROGRESS REPORT ---
Subjective Subjective:: This is a 68-year-old male with acute sigmoid diverticulitis. The patient reports that his pain is slowly improving. He denies fevers, chills, chest pain, shortness of breath, nausea, vomiting, dizziness, orthostasis, malaise, fatigue, blurry vision, melena, hematochezia, or hematemesis. The patient has been taking in clear liquids, but he reports an increase in cramping with the ingestion of liquids. The patient reports a bowel movement last night. Reason For Visit: SEPSPIS,ACUTE DIVERTICULITIS,NHL Physical Exam Vital Signs: Temp Pulse Resp BP Pulse Ox 97.6 F 86 22 H 144/69 H 96 01/13/19 11:33 01/13/19 14:00 01/13/19 11:33 01/13/19 11:33 01/13/19 11:33 Intake & Output 01/12/19 01/13/19 01/14/19 06:59 06:59 06:59 Intake Total 2400 1945 980 Output Total 2050 1150 750 Balance 350 795 230 Weight 102.4 kg 102.8 kg Exam: General appearance: PRESENT: no acute distress, cooperative Head exam: PRESENT: atraumatic, normocephalic Eye exam: PRESENT: EOMI, PERRLA Mouth exam: PRESENT: moist, neck supple Neck exam: ABSENT: meningismus, tenderness, thyromegaly, tracheal deviation Respiratory exam: PRESENT: clear to auscultation ana, unlabored. ABSENT: chest wall tenderness, tachypnea Cardiovascular exam: PRESENT: RRR Pulses: PRESENT: normal radial pulses Vascular exam: PRESENT: normal capillary refill. ABSENT: pallor GI/Abdominal exam: PRESENT: soft, tenderness - LLQ. ABSENT: distended, firm, guarding, rebound Rectal exam: PRESENT: deferred Extremities exam: ABSENT: clubbing Musculoskeletal exam: ABSENT: deformity Neurological exam: PRESENT: alert, awake, oriented to person, oriented to place, oriented to time, oriented to situation, CN II-XII grossly intact. ABSENT: motor sensory deficit Psychiatric exam: ABSENT: agitated, anxious, depressed Focused psych exam: ABSENT: delusional Skin exam: ABSENT: cyanosis, erythema, jaundice Results Laboratory Results: 01/13/19 05:58 01/13/19 05:58 01/13/19 01/13/19 05:58 05:58 WBC 4.4 RBC 3.32 L Hgb 8.3 L Hct 25.1 L MCV 76 L MCH 25.0 L MCHC 33.1 RDW 22.2 H Plt Count 351 Seg Neutrophils % 86.7 H Lymphocytes % 9.3 L Monocytes % 1.9 L Eosinophils % 1.3 Basophils % 0.8 Absolute Neutrophils 3.8 Absolute Lymphocytes 0.4 L Absolute Monocytes 0.1 Absolute Eosinophils 0.1 Absolute Basophils 0.0 Sodium 133.3 L Potassium 3.5 L Chloride 99 Carbon Dioxide 29 Anion Gap 5 BUN 10 Creatinine 0.53 Est GFR ( Amer) > 60 Est GFR (Non-Af Amer) > 60 Glucose 96 Calcium 7.7 L 01/10/19 01/10/19 18:26 18:26 Creatine Kinase < 20 L CK-MB (CK-2) < 0.22 Troponin I < 0.012 Impressions: Acute Abdomen Series 01/10/19 17:58 IMPRESSION: NO RADIOGRAPHIC EVIDENCE FOR ACUTE ABDOMINAL DISEASE. Abdomen/Pelvis CT 01/10/19 18:37 IMPRESSION: 1. Acute diverticulitis involving the descending colon with microperforation. No abscess or fluid collection is seen however. 2. Unchanged bulky retroperitoneal and right hilar adenopathy along with small hypodense lesions in the pancreas and spleen, which may be related to patient's history of lymphoma. Assessment & Plan - Diagnosis (1) Acute diverticulitis Is this a current diagnosis for this admission?: Yes - Plan Summary Plan Summary: This is a 68-year-old male with acute sigmoid diverticulitis. His pain appears to be improving. He again has some left lower quadrant tenderness, but he does not exhibit signs of peritonitis. The pt reports abdominal cramps with the ingestion of clear liquids. He denies any nausea or vomiting. Continue clears. Continue antibiotics. Continue hospital admission. I will advance his diet slowly once his abdominal cramps lessen. Will continue to follow with you.
[2019-01-13] MEDS: ZOLPIDEM TARTRATE 5 MG TABLET PO SCH (22:13)
[2019-01-13] MEDS: NYSTATIN/DEXAMETH/DIPHEN SUSP 120 ML PO PRN (22:20)
[2019-01-14] MEDS: METRONIDAZOLE 500 MG/NS RTU 500 MG/100 ML RTUPB IV SCH ×4 (01:11→17:06)
[2019-01-14] MEDS: IMIPENEM/CILASTATIN SODIUM 500 MG in NORMAL SALINE 100 ML IV SCH ×4 (02:52→20:46)
[2019-01-14] MEDS: PANTOPRAZOLE SODIUM 20 MG TABLET.DR PO SCH (05:14)
[2019-01-14] MEDS: HEPARIN SOD (PORCINE) 5,000 UNIT/ML 1 ML SYRINGE SUBCUT SCH ×3 (05:14→21:19)
[2019-01-14] MEDS: ALPRAZOLAM 0.5 MG TABLET PO SCH ×3 (05:14→21:17)
[2019-01-14] MEDS: KETOROLAC TROMETHAMINE INJ/PF 30 MG/1 ML SDV IV PRN (08:01)
[2019-01-14] MEDS: ALLOPURINOL 300 MG TABLET PO SCH (08:01)
--- NOTE | 2019-01-14 09:15 | PDOC PROGRESS REPORT ---
Subjective Progress Note for:: 01/14/19 Subjective:: Patient having some bowel movements. Is tolerating liquids. Still complaining of left lower abdominal pain. Reason For Visit: SEPSPIS,ACUTE DIVERTICULITIS,NHL Physical Exam Vital Signs: Temp Pulse Resp BP Pulse Ox 98.4 F 74 18 125/59 L 95 01/14/19 07:25 01/14/19 07:25 01/14/19 07:25 01/14/19 07:25 01/14/19 07:25 Intake & Output 01/13/19 01/14/19 01/15/19 06:59 06:59 06:59 Intake Total 1945 2860 Output Total 1150 2500 Balance 795 360 Weight 102.8 kg 104.1 kg General appearance: PRESENT: no acute distress GI/Abdominal exam: PRESENT: other - Tender left lower quadrant with mild guarding. No rigidity. No peritoneal irritation Results Laboratory Results: 01/13/19 05:58 01/13/19 05:58 01/10/19 01/10/19 18:26 18:26 Creatine Kinase < 20 L CK-MB (CK-2) < 0.22 Troponin I < 0.012 Impressions: Acute Abdomen Series 01/10/19 17:58 IMPRESSION: NO RADIOGRAPHIC EVIDENCE FOR ACUTE ABDOMINAL DISEASE. Abdomen/Pelvis CT 01/10/19 18:37 IMPRESSION: 1. Acute diverticulitis involving the descending colon with microperforation. No abscess or fluid collection is seen however. 2. Unchanged bulky retroperitoneal and right hilar adenopathy along with small hypodense lesions in the pancreas and spleen, which may be related to patient's history of lymphoma. Assessment & Plan - Diagnosis (1) Acute diverticulitis Is this a current diagnosis for this admission?: Yes Plan: Impression: First episode of acute, complicated diverticulitis, Hinchey classif ication 1, managed successfully with bowel rest and IV antibiotics. No indication for surgical intervention Recommendations: 1. May slowly advance diet as tolerated. Would keep on full liquids for now. 2. Patient can follow-up with [facility] in 1 to 2 weeks after discharge. 3. Apparently a repeat CT has been ordered for later today. Please re-contact surgery if there are any significant changes.
[2019-01-14] MEDS: DOCUSATE SODIUM 100 MG CAPSULE PO SCH ×2 (09:19→17:07)
[2019-01-14] MEDS: LISINOPRIL 10 MG TABLET PO SCH (09:19)
[2019-01-14] MEDS: METOPROLOL SUCCINATE 25 MG TAB.SR.24H PO SCH (09:19)
--- NOTE | 2019-01-14 11:48 | RADIOLOGY REPORT (SQ) ---
EXAM DESCRIPTION: CT ABD/PELVIS WITH IV ONLY COMPLETED DATE/TIME: 01/14/2019 10:00 am REASON FOR STUDY: reassess diverticulitis and microperforation COMPARISON: CT abdomen and pelvis 02/23/2019, 12/28/2018, 01/10/2019 PET-CT 11/25/2018 TECHNIQUE: CT scan of the abdomen and pelvis performed using helical scanning technique with dynamic intravenous contrast injection. No oral contrast. Images reviewed with lung, soft tissue, and bone windows. Reconstructed coronal and sagittal MPR images reviewed. Delayed images for evaluation of the urinary system also acquired. All images stored on PACS. All CT scanners at this facility use dose modulation, iterative reconstruction, and/or weight based d osing when appropriate to reduce radiation dose to as low as reasonably achievable (ALARA). [facility]: Dose Right [facility]: CareDose [facility]: Dose Right [facility]: Teradose 4D [facility]: UiTV CONTRAST TYPE AND DOSE: contrast/concentration: Isovue 350.00 mg/ml; Total Contrast Delivered: 100.0 ml; Total Saline Delivered: 72.0 ml RENAL FUNCTION: Creatinine 0.5 RADIATION DOSE: CT Rad equipment meets quality standard of care and radiation dose reduction techniq ues were employed. CTDIvol: 13.1 - 15.5 mGy. DLP: 1643 mGy-cm.. LIMITATIONS: None. FINDINGS: In the left lower quadrant, along the lateral aspect of the distal descending colon, a 3.8 cm craniocaudad by 2.3 cm AP x 1.7 cm transverse thin rim fluid collection is present worrisome for early abscess formation. At this point, this would be too small to effectively percutaneously draine d under CT. There is persistent inflammation along the distal descending colon with tiny extraluminal air bubbles between the colon and abscess on axial images 73 and 75. There is increase in the cul-de-sac and right lower quadrant free fluid as compared to 01/10/2019. Oral contrast given for CT scanning on 01/10/2019 is now seen in the colon in a nonobstructive pattern. Patient may be developing ileus, with mild distention of small bowel loops in the left upper quadra nt. LOWER CHEST: Trace left pleural effusion with minimal left basilar atelectasis. Huge retrocardiac hi atal hernia containing nearly the entire stomach LIVER: Normal size. No masses. No dilated ducts. SPLEEN: Currently 14 cm in length with few hypodensities likely treated lymphoma (was [address] length on PET-CT 11/25/2018) PANCREAS: No masses. No significant calcifications. No adjacent inflammation or peripancreatic fluid collections. Pancreatic duct not dilated. GALLBLADDER: Surgically absent ADRENAL GLANDS: No significant masses or asymmetry. RIGHT KIDNEY AND URETER: No solid masses. No significant calcifications. No hydronephrosis or hyd roureter. LEFT KIDNEY AND URETER: No solid masses. No significant calcifications. No hydronephrosis or hydr oureter. AORTA AND VESSELS: No aneurysm. No dissection. Renal arteries, SMA, celiac without stenosis. RETROPERITONEUM: Adenopathy encasing the left renal vein is present, 6.3 x 5.3 cm in size (was 10 x 9 cm in size on PET-CT 11/25/2018). BOWEL AND PERITONEAL CAVITY: As above APPENDIX: Not identified PELVIS: Moderate free fluid as above. Urinary bladder unremarkable ABDOMINAL WALL: No masses. No hernias. BONES: No significant or acute findings. OTHER: No other significant finding. IMPRESSION: Tiny abscesses developing in the left lower quadrant, currently too small to percutaneou sly drain by CT Moderate free pelvic fluid, increase compared to 01/10/2019 Question early ileus with mild distention of left upper quadrant small bowel loops Decrease in size of spleen and left retroperitoneal adenopathy since PET-CT 11/25/2018 TECHNICAL DOCUMENTATION: JOB ID: [id number] Quality ID # [id number]: Final reports with documentation of one or more dose reduction techniques (e.g., Au tomated exposure control, adjustment of the mA and/or kV according to patient size, use of iterative reconstruction technique) 2010 [employer]- All Rights Reserved Reading location - IP/workstation name: [email or web address]
--- NOTE | 2019-01-14 12:45 | PDOC PROGRESS REPORT ---
Subjective Progress Note for:: 01/14/19 Subjective:: This is a 68 year old male with a past medical history of GERD, anxiety, Hodgkin's lymphoma under treatment with Dr. Lindquist with last chemotherapy 2 days ago who presented with abdominal pain. He was found to have acute diverticulitis with microperforation. He was started on IV fluids, antibiotics and made n.p.o. Surgery was also consulted. Upon encounter, he appears comfortable and is currently abdominal pain-free. He does state that his left lower quadrant is tender when pressed. He is passing out gas. No nausea or vomiting. 01/12: No acute event overnight aside from a BM with a few bright red blood yesterday afternoon. He says his left lower quadrant is less tender today. He was evaluated by surgery this morning and he is being advanced to clear liquid diet today. He says he feels better today and that he wants to eat or drink. 01/13: His abdominal pain continues to improve. He had a regular, non-bloody bowel movement last night. He is tolerating clear liquid diet well. Plan to advance to soft diet later today if he continues to do well. 01/14: No acute event overnight. He continues to slowly improve but still complaining of left lower quadrant tenderness. Surgery has advanced his diet to soft diet today. He continues to have left lower tenderness albeit not worse from yesterday. We will repeat CT the abdomen pelvis today to reassess the diverticulitis with microperforation. Reason For Visit: SEPSPIS,ACUTE DIVERTICULITIS,NHL Physical Exam Vital Signs: Temp Pulse Resp BP Pulse Ox 98.4 F 74 18 125/59 L 95 01/14/19 07:25 01/14/19 07:25 01/14/19 07:25 01/14/19 07:25 01/14/19 07:25 Intake & Output 01/13/19 01/14/19 01/15/19 06:59 06:59 06:59 Intake Total 1945 2860 Output Total 1150 2500 Balance 795 360 Weight 226 lb 10.163 oz 229 lb 8.019 oz General appearance: PRESENT: no acute distress, well-developed, well-nourished Head exam: PRESENT: atraumatic, normocephalic Eye exam: PRESENT: conjunctiva pink, EOMI, PERRLA. ABSENT: scleral icterus Ear exam: PRESENT: normal external ear exam Mouth exam: PRESENT: moist, tongue midline Neck exam: ABSENT: carotid bruit, JVD, lymphadenopathy, thyromegaly Respiratory exam: PRESENT: clear to auscultation ana. ABSENT: rales, rhonchi, wheezes Cardiovascular exam: PRESENT: RRR. ABSENT: diastolic murmur, rubs, systolic murmur Pulses: PRESENT: normal dorsalis pedis pul GI/Abdominal exam: PRESENT: normal bowel sounds, soft, tenderness - minimal LLQ tenderness. ABSENT: distended, guarding, mass, organolmegaly, rebound Rectal exam: PRESENT: deferred Extremities exam: PRESENT: full ROM. ABSENT: calf tenderness, clubbing, pedal edema Neurological exam: PRESENT: alert, awake, oriented to person, oriented to place, oriented to time, oriented to situation, CN II-XII grossly intact. ABSENT: motor sensory deficit Results Laboratory Results: 01/13/19 05:58 01/13/19 05:58 01/10/19 01/10/19 18:26 18:26 Creatine Kinase < 20 L CK-MB (CK-2) < 0.22 Troponin I < 0.012 Impressions: Acute Abdomen Series 01/10/19 17:58 IMPRESSION: NO RADIOGRAPHIC EVIDENCE FOR ACUTE ABDOMINAL DISEASE. Assessment and Plan - Diagnosis (1) Acute diverticulitis Is this a current diagnosis for this admission?: Yes Plan: 01/11: He remains NPO. Continue IV fluids and IV antibiotics. Surgery following. 01/12: Improving. Advance to clear liquid diet today. 01/13: His abdominal pain continues to improve. He had a regular, non-bloody gertrudis wel movement last night. He is tolerating clear liquid diet well. Plan to advance to soft diet later today if he continues to do well. 01/14: He continues to slowly improve but still complaining of left lower quadrant tenderness. Surgery has advanced his diet to soft diet today. He continues to have left lower tenderness albeit not worse from yesterday. Will repeat CT the abdomen pelvis today to reassess the diverticulitis with microperforation. (2) HTN (hypertension) Qualifiers: Hypertension type: essential hypertension Qualified Code(s): I10 - Essential (primary) hypertension Is this a current diagnosis for this admission?: Yes Plan: He is on metoprolol and lisinopril at home. Blood pressures in the 140/70s. Hydralazine as needed. 01/12: Resume metoprolol and lisinopril. (3) Hodgkin lymphoma Is this a current diagnosis for this admission?: Yes Plan: Recently on chemotherapy. He follows up with Dr. Lindquist. (4) Hypokalemia Is this a current diagnosis for this admission?: Yes Plan: 01/14: Improved. Add scheduled PO Potassium. - Time Time Spent with patient: 25-34 minutes
[2019-01-14] MEDS: POTASSIUM CHLORIDE 10 MEQ CAPSULE.ER PO SCH (13:22)
[2019-01-14] MEDS: ZOLPIDEM TARTRATE 5 MG TABLET PO SCH (21:17)
[2019-01-15] MEDS: METRONIDAZOLE 500 MG/NS RTU 500 MG/100 ML RTUPB IV SCH ×4 (01:24→17:28)
[2019-01-15] MEDS: KETOROLAC TROMETHAMINE INJ/PF 30 MG/1 ML SDV IV PRN ×3 (01:28→20:05)
[2019-01-15] MEDS: NYSTATIN/DEXAMETH/DIPHEN SUSP 120 ML PO PRN ×2 (01:28→09:33)
[2019-01-15] MEDS: IMIPENEM/CILASTATIN SODIUM 500 MG in NORMAL SALINE 100 ML IV SCH ×4 (03:30→21:16)
[2019-01-15] MEDS: ALPRAZOLAM 0.5 MG TABLET PO SCH ×3 (05:33→21:17)
[2019-01-15] MEDS: PANTOPRAZOLE SODIUM 20 MG TABLET.DR PO SCH (05:33)
[2019-01-15] MEDS: HEPARIN SOD (PORCINE) 5,000 UNIT/ML 1 ML SYRINGE SUBCUT SCH ×3 (05:34→21:16)
[2019-01-15 05:49] LABS: ABSOLUTE LYMPHOCYTES (AUTO) 0.3 10^3/uL (0.5-4.7); ABSOLUTE MONOCYTES (AUTO) 0.3 10^3/uL (0.1-1.4); ABSOLUTE NEUT (AUTO) 2.4 10^3/uL (1.7-8.2); EOSINOPHILS % (AUTO) 1.3 % (0-6); HEMATOCRIT 25.7 % (37.9-51.0); HEMOGLOBIN 8.5 g/dL (13.5-17.0); LYMPHOCYTES % (AUTO) 9.8 % (13-45); MEAN CORPUSCULAR HEMOGLOBIN 25.2 pg (27.0-33.4); MEAN CORPUSCULAR HGB CONC 32.9 g/dL (32.0-36.0); MEAN CORPUSCULAR VOLUME 76 fl (80-97); MONOCYTES % (AUTO) 9.5 % (3-13); PLATELET COUNT 398 10^3/uL (150-450); RED BLOOD COUNT 3.37 10^6/uL (4.35-5.55); RED CELL DISTRIBUTION WIDTH 22.4 % (11.5-14.0); SEGMENTED NEUTROPHILS % (AUTO) 78.4 % (42-78); TOTAL CELLS COUNTED % (AUTO) 100 %; WHITE BLOOD COUNT 3.1 10^3/uL (4.0-10.5)
[2019-01-15 06:05] LABS: ANION GAP 6 (5-19); BLOOD UREA NITROGEN 5 mg/dL (7-20); CALCIUM 7.8 mg/dL (8.4-10.2); CARBON DIOXIDE 30 mmol/L (22-30); CHLORIDE 99 mmol/L (98-107); GLUCOSE 98 mg/dL (75-110); POTASSIUM 3.3 mmol/L (3.6-5.0); SODIUM 135.3 mmol/L (137-145)
[2019-01-15] MEDS: ALLOPURINOL 300 MG TABLET PO SCH (08:09)
[2019-01-15] MEDS: LISINOPRIL 10 MG TABLET PO SCH (09:30)
[2019-01-15] MEDS: METOPROLOL SUCCINATE 25 MG TAB.SR.24H PO SCH (09:30)
[2019-01-15] MEDS: DOCUSATE SODIUM 100 MG CAPSULE PO SCH ×2 (09:30→17:28)
[2019-01-15] MEDS: POTASSIUM CHLORIDE 10 MEQ CAPSULE.ER PO SCH (09:30)
--- NOTE | 2019-01-15 13:11 | PDOC PROGRESS REPORT ---
Subjective Progress Note for:: 01/15/19 Subjective:: Mr. Miranda is a very pleasant 68-year-old gentleman who was initially admitted with left lower quadrant pain and tenderness with a CAT scan showing a microperforation of diverticulitis. Patient continued to have left lower quadrant abdominal pain on palpation especially with pressure more so than on rebound. Patient states this pain is exacerbated by movement but states that pain is well controlled at this time with Toradol and tramadol. Patient had a CAT scan on 01/14/2018 that showed a small abscess that was not amendable to drainage at this time. Patient continues on a soft diet with no complaints. Reason For Visit: SEPSPIS,ACUTE DIVERTICULITIS,NHL Physical Exam Vital Signs: Temp Pulse Resp BP Pulse Ox 97.7 F 100 14 142/77 H 97 01/15/19 07:31 01/15/19 07:31 01/15/19 07:31 01/15/19 07:31 01/15/19 07:31 Intake & Output 01/14/19 01/15/19 01/16/19 06:59 06:59 06:59 Intake Total 2860 640 Output Total 2500 2225 Balance 360 -1585 Weight 104.1 kg 102 kg General appearance: PRESENT: no acute distress, well-developed, well-nourished Head exam: PRESENT: atraumatic, normocephalic Eye exam: PRESENT: conjunctiva pink, EOMI, PERRLA. ABSENT: scleral icterus Mouth exam: PRESENT: moist, tongue midline Neck exam: ABSENT: carotid bruit, JVD, lymphadenopathy, thyromegaly Respiratory exam: PRESENT: clear to auscultation ana. ABSENT: rales, rhonchi, wheezes Cardiovascular exam: PRESENT: RRR. ABSENT: diastolic murmur, rubs, systolic murmur Pulses: PRESENT: normal dorsalis pedis pul GI/Abdominal exam: PRESENT: hyperactive bowel sounds, soft, tenderness Extremities exam: PRESENT: full ROM. ABSENT: calf tenderness, clubbing, pedal edema Neurological exam: PRESENT: alert, awake, oriented to person, oriented to place, oriented to time, oriented to situation, CN II-XII grossly intact. ABSENT: motor sensory deficit Psychiatric exam: PRESENT: appropriate affect, normal mood. ABSENT: homicidal ideation, suicidal ideation Skin exam: PRESENT: dry, intact, warm. ABSENT: cyanosis, rash Results Laboratory Results: 01/15/19 04:54 01/15/19 04:54 01/15/19 01/15/19 04:54 04:54 WBC 3.1 L RBC 3.37 L Hgb 8.5 L Hct 25.7 L MCV 76 L MCH 25.2 L MCHC 32.9 RDW 22.4 H Plt Count 398 Seg Neutrophils % 78.4 H Lymphocytes % 9.8 L Monocytes % 9.5 Eosinophils % 1.3 Basophils % 1.0 Absolute Neutrophils 2.4 Absolute Lymphocytes 0.3 L Absolute Monocytes 0.3 Absolute Eosinophils 0.0 Absolute Basophils 0.0 Sodium 135.3 L Potassium 3.3 L Chloride 99 Carbon Dioxide 30 Anion Gap 6 BUN 5 L Creatinine 0.53 Est GFR ( Amer) > 60 Est GFR (Non-Af Amer) > 60 Glucose 98 Calcium 7.8 L 01/10/19 01/10/19 18:26 18:26 Creatine Kinase < 20 L CK-MB (CK-2) < 0.22 Troponin I < 0.012 Impressions: Acute Abdomen Series 01/10/19 17:58 IMPRESSION: NO RADIOGRAPHIC EVIDENCE FOR ACUTE ABDOMINAL DISEASE. Abdomen/Pelvis CT 01/14/19 00:00 IMPRESSION: Tiny abscesses developing in the left lower quadrant, currently too small to percutaneously drain by CT Moderate free pelvic fluid, increase compared to 01/10/2019 Question early ileus with mild distention of left upper quadrant small bowel loops Decrease in size of spleen and left retroperitoneal adenopathy since PET-CT 11/25/2018 Assessment and Plan - Diagnosis (1) Acute diverticulitis Is this a current diagnosis for this admission?: Yes Plan: Continue soft diet at this time. Patient states good pain control at this time with tramadol and Toradol. Patient had a CAT scan is worrisome for a small abscess forming and he does have nebulized with microperforation. We will continue to watch him overnight reassess in the a.m. We may have to repeat CAT scan at some point to assess if this abscesses growing to any extent. Patient continues to pass flatulence although he has not had a bowel movement in 3 days. He does not have an acute abdomen does not show any signs of small bowel obstruction at this time. (2) HTN (hypertension) Qualifiers: Hypertension type: essential hypertension Qualified Code(s): I10 - Essential (primary) hypertension Is this a current diagnosis for this admission?: Yes Plan: Controlled at this time will follow me just with plan of care based on needs. (3) Hodgkin lymphoma Is this a current diagnosis for this admission?: Yes Plan: Past found to chemotherapy was on 01/11/2019. He will continue to follow Dr. Lindquist. (4) Hypokalemia Is this a current diagnosis for this admission?: Yes Plan: Persist. Will continue potassium chloride 20 juventino p.o. daily repeat BMP in a.m. - Time Time Spent with patient: 15-24 minutes - Inpatient Certification Medical Necessity: Need For IV Fluids, Need for IV Antibiotics, Risk of Complication if Not Cared For in Hospital
[2019-01-15] MEDS: ZOLPIDEM TARTRATE 5 MG TABLET PO SCH (21:17)
[2019-01-16] MEDS: METRONIDAZOLE 500 MG/NS RTU 500 MG/100 ML RTUPB IV SCH ×4 (00:13→18:40)
[2019-01-16] MEDS: NYSTATIN/DEXAMETH/DIPHEN SUSP 120 ML PO PRN ×2 (00:13→16:45)
[2019-01-16] MEDS: IMIPENEM/CILASTATIN SODIUM 500 MG in NORMAL SALINE 100 ML IV SCH ×4 (03:47→22:07)
[2019-01-16] MEDS: ALPRAZOLAM 0.5 MG TABLET PO SCH ×3 (06:39→22:08)
[2019-01-16] MEDS: HEPARIN SOD (PORCINE) 5,000 UNIT/ML 1 ML SYRINGE SUBCUT SCH (06:39)
[2019-01-16] MEDS: PANTOPRAZOLE SODIUM 20 MG TABLET.DR PO SCH (06:39)
[2019-01-16] MEDS: ALLOPURINOL 300 MG TABLET PO SCH (08:29)
--- NOTE | 2019-01-16 10:38 | PDOC PROGRESS REPORT ---
Subjective Progress Note for:: 01/16/19 Subjective:: Mr. Miranda is a very pleasant 68-year-old gentleman who was initially admitted with left lower quadrant pain and tenderness with a CAT scan showing a microperforation of diverticulitis. Patient continued to have left lower quadrant abdominal pain on palpation especially with pressure more so than on rebound. Patient states this pain is exacerbated by movement but states that pain is well controlled at this time with Toradol and tramadol. Patient had a CAT scan on 01/14/2018 that showed a small abscess that was not amendable to drainage at this time. Patient continues on a soft diet with no complaints. 01/16/2019-patient states abdominal pain still in left lower quadrant. Patient did eat preface morning became distended and had some abdominal pain. Surgery stated they were going to repeat CAT scan at some point in time although patient may require exploratory lap. Previous CT did show a microperforation. Will await surgical recommendations. Reason For Visit: SEPSPIS,ACUTE DIVERTICULITIS,NHL Physical Exam Vital Signs: Temp Pulse Resp BP Pulse Ox 97.3 F 102 H 16 141/73 H 95 01/16/19 08:00 01/16/19 08:00 01/16/19 08:00 01/16/19 08:00 01/16/19 08:00 Intake & Output 01/15/19 01/16/19 01/17/19 06:59 06:59 06:59 Intake Total 640 860 Output Total 2225 1900 Balance -1585 -1040 Weight 102 kg 102.1 kg General appearance: PRESENT: no acute distress, well-developed, well-nourished Neck exam: ABSENT: carotid bruit, JVD, lymphadenopathy, thyromegaly Respiratory exam: PRESENT: clear to auscultation ana. ABSENT: rales, rhonchi, wheezes Cardiovascular exam: PRESENT: RRR. ABSENT: diastolic murmur, rubs, systolic m urmur Pulses: PRESENT: normal dorsalis pedis pul Vascular exam: PRESENT: normal capillary refill GI/Abdominal exam: PRESENT: hyperactive bowel sounds, other - Tenderness on palpation of her left lower quadrant. No other tenderness noted on exam. Abdomen is much softer than it was yesterday on exam. Extremities exam: PRESENT: full ROM. ABSENT: calf tenderness, clubbing, pedal edema Neurological exam: PRESENT: alert, awake, oriented to person, oriented to place, oriented to time, oriented to situation, CN II-XII grossly intact. ABSENT: motor sensory deficit Psychiatric exam: PRESENT: appropriate affect, normal mood. ABSENT: homicidal ideation, suicidal ideation Skin exam: PRESENT: dry, intact, warm. ABSENT: cyanosis, rash Results Laboratory Results: 01/15/19 04:54 01/15/19 04:54 01/11/19 00:48 Blood Blood Culture - Final NO GROWTH IN 5 DAYS 01/10/19 18:26 Blood Blood Culture - Final NO GROWTH IN 5 DAYS 01/10/19 01/10/19 18:26 18:26 Creatine Kinase < 20 L CK-MB (CK-2) < 0.22 Troponin I < 0.012 Impressions: Acute Abdomen Series 01/10/19 17:58 IMPRESSION: NO RADIOGRAPHIC EVIDENCE FOR ACUTE ABDOMINAL DISEASE. Abdomen/Pelvis CT 01/14/19 00:00 IMPRESSION: Tiny abscesses developing in the left lower quadrant, currently too small to percutaneously drain by CT Moderate free pelvic fluid, increase compared to 01/10/2019 Question early ileus with mild distention of left upper quadrant small bowel loops Decrease in size of spleen and left retroperitoneal adenopathy since PET-CT 11/25/2018 Assessment and Plan - Diagnosis (1) Acute diverticulitis Is this a current diagnosis for this admission?: Yes Plan: Continue soft diet at this time. Patient states good pain control at this time with tramadol and Toradol. Patient had a CAT scan is worrisome for a small abscess forming and he does have nebulized with microperforation. We will continue to watch him overnight reassess in the a.m. We may have to repeat CAT scan at some point to assess if this abscesses growing to any extent. Patient continues to pass flatulence although he has not had a bowel movement in 3 days. He does not have an acute abdomen does not show any signs of small bowel obstruction at this time. 01/16/2019-patient did have soft diet this morning. Patient nurse states that patient got distended and had further abdominal pain. Patient states that he over ate. CT scan 2 days ago did show worrisome for a small abscess forming al though it was not amendable to drainage. Patient may require exploratory lap for true visualization of GI complications. Will await surgical recommendations. (2) HTN (hypertension) Qualifiers: Hypertension type: essential hypertension Qualified Code(s): I10 - Essential (primary) hypertension Is this a current diagnosis for this admission?: Yes Plan: Controlled at this time will follow me just with plan of care based on needs. 01/16/2019-controlled at this time will continue current therapy. (3) Hodgkin lymphoma Is this a current diagnosis for this admission?: Yes Plan: Past found to chemotherapy was on 01/11/2019. He will continue to follow Dr. Lindquist. 01/16/2019-patient continue be followed by oncology. (4) Hypokalemia Is this a current diagnosis for this admission?: Yes Plan: Persist. Will continue potassium chloride 20 juventino p.o. daily repeat BMP in a.m. 01/16/2019-persist we will continue daily potassium replacement as well as daily BMPs. (5) Anemia Qualifiers: Anemia type: unspecified type Qualified Code(s): D64.9 - Anemia, unspecified Is this a current diagnosis for this admission?: Yes Plan: 01/16/2019-persistent. I believe stable at this time but I will obtain a stool for occult blood. Patient's hemoglobin in the mid 8's for the last 4 draws. Repeat CBC in a.m. hold heparin this time place patient on SCD's for DVT prophylaxis. - Time Time Spent with patient: 15-24 minutes - Inpatient Certification Medical Necessity: Other - Patient at risk for further abdominal perforation. Patient require IV antibiotics at this time. Patient may require surgical intervention.
[2019-01-16] MEDS: METOPROLOL SUCCINATE 25 MG TAB.SR.24H PO SCH (10:41)
[2019-01-16] MEDS: LISINOPRIL 10 MG TABLET PO SCH (10:42)
[2019-01-16] MEDS: POTASSIUM CHLORIDE 10 MEQ CAPSULE.ER PO SCH (10:43)
[2019-01-16] MEDS: DOCUSATE SODIUM 100 MG CAPSULE PO SCH ×2 (10:47→18:40)
[2019-01-16] MEDS ORDERED: NORMAL SALINE 500 ML IV ONE (16:45)
[2019-01-16] MEDS: ZOLPIDEM TARTRATE 5 MG TABLET PO SCH (22:07)
[2019-01-17] MEDS: METRONIDAZOLE 500 MG/NS RTU 500 MG/100 ML RTUPB IV SCH ×4 (00:37→18:15)
[2019-01-17] MEDS: IMIPENEM/CILASTATIN SODIUM 500 MG in NORMAL SALINE 100 ML IV SCH ×2 (04:05→08:39)
[2019-01-17] MEDS: PANTOPRAZOLE SODIUM 20 MG TABLET.DR PO SCH (05:13)
[2019-01-17] MEDS: ALPRAZOLAM 0.5 MG TABLET PO SCH ×3 (05:13→21:22)
[2019-01-17 05:26] LABS: HEMATOCRIT 28.7 % (37.9-51.0); HEMOGLOBIN 9.5 g/dL (13.5-17.0); MEAN CORPUSCULAR HEMOGLOBIN 25.4 pg (27.0-33.4); MEAN CORPUSCULAR VOLUME 77 fl (80-97); PLATELET COUNT 568 10^3/uL (150-450); RED BLOOD COUNT 3.73 10^6/uL (4.35-5.55); WHITE BLOOD COUNT 2.2 10^3/uL (4.0-10.5)
[2019-01-17 05:47] LABS: ANION GAP 6 (5-19); BLOOD UREA NITROGEN 3 mg/dL (7-20); CALCIUM 8.1 mg/dL (8.4-10.2); CARBON DIOXIDE 32 mmol/L (22-30); CHLORIDE 98 mmol/L (98-107); GLUCOSE 98 mg/dL (75-110); POTASSIUM 3.5 mmol/L (3.6-5.0); SODIUM 136.3 mmol/L (137-145)
[2019-01-17] MEDS: ALLOPURINOL 300 MG TABLET PO SCH (08:39)
--- NOTE | 2019-01-17 10:14 | PDOC PROGRESS REPORT ---
Addendum entered and electronically signed by CHUY CHÁVEZ NP 01/17/19 12:33: Provider Note Provider Note: CT scan from today shows slight improvement from previous. I discussed this with Dr. Starr from surgery. At this time we are going to do complete bowel rest, will change imipenem to Levaquin and follow patient. It is felt that this will allow time for complete healing of microperforation. I will discuss this further with Dr. Lindqiust the patient's oncologist. Original Note: Subjective Progress Note for:: 01/17/19 Subjective:: Mr. Miranda is a very pleasant 68-year-old gentleman who was initially admitted with left lower quadrant pain and tenderness with a CAT scan showing a microperforation of diverticulitis. Patient continued to have left lower quadrant abdominal pain on palpation especially with pressure more so than on rebound. Patient states this pain is exacerbated by movement but states that pain is well controlled at this time with Toradol and tramadol. Patient had a CAT scan on 01/14/2018 that showed a small abscess that was not amendable to drainage at this time. Patient continues on a soft diet with no complaints. 01/16/2019-patient states abdominal pain still in left lower quadrant. Patient did eat preface morning became distended and had some abdominal pain. Surgery stated they were going to repeat CAT scan at some point in time although patient may require exploratory lap. Previous CT did show a microperforation. Will await surgical recommendations. 01/17/2019-patient continues to have left lower quadrant abdominal pain. Patient states pain is getting somewhat worse but it is only when he is active. Patient also stating concern over possible expiratory lap and possible colostomy. I have talked with patient in order to set his mind a little more ease. I have also discussed case with Dr. Lindquist this a.m. Reason For Visit: SEPSPIS,ACUTE DIVERTICULITIS,NHL Physical Exam Vital Signs: Temp Pulse Resp BP Pulse Ox 98.2 F 87 16 141/76 H 97 01/17/19 07:22 01/17/19 07:22 01/17/19 07:22 01/17/19 07:22 01/17/19 07:22 Intake & Output 01/16/19 01/17/19 01/18/19 06:59 06:59 06:59 Intake Total 860 875 Output Total 1900 1465 Balance -1040 -590 Weight 102.1 kg 102.5 kg General appearance: PRESENT: no acute distress Neck exam: ABSENT: carotid bruit, JVD, lymphadenopathy, thyromegaly Respiratory exam: PRESENT: clear to auscultation ana. ABSENT: rales, rhonchi, wheezes Cardiovascular exam: PRESENT: RRR. ABSENT: diastolic murmur, rubs, systolic murmur Pulses: PRESENT: normal dorsalis pedis pul Vascular exam: PRESENT: normal capillary refill GI/Abdominal exam: PRESENT: guarding, hyperactive bowel sounds, tenderness - Left lower quadrant Neurological exam: PRESENT: alert, awake, oriented to person, oriented to place, oriented to time, oriented to situation, CN II-XII grossly intact. ABSENT: motor sensory deficit Psychiatric exam: PRESENT: anxious, depressed Skin exam: PRESENT: dry, intact, warm. ABSENT: cyanosis, rash Results Laboratory Results: 01/17/19 04:32 01/17/19 04:32 01/16/19 01/17/19 01/17/19 16:50 04:32 04:32 WBC 2.2 L RBC 3.73 L Hgb 9.5 L Hct 28.7 L MCV 77 L MCH 25.4 L MCHC 33.0 RDW 23.0 H Plt Count 568 H Sodium 136.3 L Potassium 3.5 L Chloride 98 Carbon Dioxide 32 H Anion Gap 6 BUN 3 L Creatinine 0.48 L Est GFR ( Amer) > 60 Est GFR (Non-Af Amer) > 60 Glucose 98 Calcium 8.1 L Stool Occult Blood NEGATIVE 01/10/19 01/10/19 18:26 18:26 Creatine Kinase < 20 L CK-MB (CK-2) < 0.22 Troponin I < 0.012 Impressions: Acute Abdomen Series 01/10/19 17:58 IMPRESSION: NO RADIOGRAPHIC EVIDENCE FOR ACUTE ABDOMINAL DISEASE. Abdomen/Pelvis CT 01/14/19 00:00 IMPRESSION: Tiny abscesses developing in the left lower quadrant, currently too small to percutaneously drain by CT Moderate free pelvic fluid, increase compared to 01/10/2019 Question early ileus with mild distention of left upper quadrant small bowel loo ps Decrease in size of spleen and left retroperitoneal adenopathy since PET-CT 11/25/2018 Assessment and Plan - Diagnosis (1) Acute diverticulitis Is this a current diagnosis for this admission?: Yes Plan: Continue soft diet at this time. Patient states good pain control at this time with tramadol and Toradol. Patient had a CAT scan is worrisome for a small abscess forming and he does have nebulized with microperforation. We will continue to watch him overnight reassess in the a.m. We may have to repeat CAT scan at some point to assess if this abscesses growing to any extent. Patient continues to pass flatulence although he has not had a bowel movement in 3 days. He does not have an acute abdomen does not show any signs of small bowel obstruction at this time. 01/16/2019-patient did have soft diet this morning. Patient nurse states that patient got distended and had further abdominal pain. Patient states that he over ate. CT scan 2 days ago did show worrisome for a small abscess forming although it was not amendable to drainage. Patient may require exploratory lap for true visualization of GI complications. Will await surgical recommendations. 01/17/2019-patient continues have increased left lower quadrant abdominal pain. At this time the patient n.p.o. I am going obtain a CT scan of abdomen pelvis with IV contrast and consult surgery if need be. I have discussed case with Dr. Lindquist and she is in agreement with plan. I have added Dilaudid 0.5 mg IV every 4 hours as needed I will adjust this dose as needed. (2) HTN (hypertension) Qualifiers: Hypertension type: essential hypertension Qualified Code(s): I10 - Essential (primary) hypertension Is this a current diagnosis for this admission?: Yes Plan: Controlled at this time will follow me just with plan of care based on needs. 01/16/2019-controlled at this time will continue current therapy. 01/17/2019-stable controlled (3) Hodgkin lymphoma Is this a current diagnosis for this admission?: Yes Plan: Past found to chemotherapy was on 01/11/2019. He will continue to follow Dr. Lindquist. 01/16/2019-patient continue be followed by oncology. 01/17/2019-discussed case with Dr. Lindquist. I will give patient 300 mics of Neupogen x1, Claritin 10 mg and Solu-Medrol 40 mg as patient had a reaction to previous doses of Neupogen. Neupogen was at the request of Dr. Lindquist. (4) Hypokalemia Is this a current diagnosis for this admission?: Yes Plan: Persist. Will continue potassium chloride 20 juventino p.o. daily repeat BMP in a.m. 01/16/2019-persist we will continue daily potassium replacement as well as daily BMPs. 01/17/2019-improved potassium 3.5 today. Continue daily BMPs. (5) Anemia Qualifiers: Anemia type: unspecified type Qualified Code(s): D64.9 - Anemia, unspecified Is this a current diagnosis for this admission?: Yes Plan: 01/16/2019-persistent. I believe stable at this time but I will obtain a stool for occult blood. Patient's hemoglobin in the mid 8's for the last 4 draws. Repeat CBC in a.m. hold heparin this time place patient on SCD's for DVT prophylaxis. 01/17/2019-stable continue to follow daily CBCs. - Time Time Spent with patient: 15-24 minutes - Inpatient Certification Medical Necessity: Other - Patient required IV pain control at this time, CT scan to rule out increased perforation and lower abdomen, and possible surgical consultation.
[2019-01-17] MEDS: HYDROMORPHONE HCL INJ/PF 2 MG/ML AMPULE IV PRN ×2 (10:15→18:12)
[2019-01-17] MEDS ORDERED: LORATADINE 10 MG TABLET PO ONE (10:15)
--- NOTE | 2019-01-17 10:18 | ADVANCED CARE ---
- Diagnosis (1) Acute diverticulitis Diagnosis Current: Yes (3) Hodgkin lymphoma Diagnosis Current: Yes Attendance: Patient Resuscitation Status: Full Code Discussion: After brief discussion with Dr. Lindquist over plan of care I discussed plan of care with patient. Patient educated we will obtain a CT scan abdomen pelvis with IV contrast to see if this microperforation has increased in size. If indeterminate or CT scan shows nothing new I will have patient evaluated by surgery for possible expiratory lap. I also educated patient that Dr. Lindquist wanted him to have Neupogen 300 mics subcu. Patient has had previous doses of Neupogen for which he had muscle spasm reactions. This was treated with Claritin before I will give him Claritin and 40 mg of IV Solu-Medrol. Patient also have increased pain all he has Toradol ordered I have added Dilaudid 0.5 mg IV every 4 hours as needed for pain and will titrate this to effect. I discussed with patient possible need for colostomy as this is what patient has been discussing with myself and nursing staff on every occasion. Patient's very concerned over the need for a possible colostomy and what effect this would have on his ability to obtain chemotherapy for his Hodgkin's lymphoma. After conversation patient felt better about the possible need for surgical intervention possible colostomy and his ability to continue chemotherapy. Care Planning Goals: 1. Reevaluate microperforation with CT abdomen pelvis with IV contrast 2. Surgical intervention as needed 3. Pain control with IV Dilaudid 4. Neupogen premedicate with Claritin and Solu-Medrol 40 mg IV x1 Document(s) Completed: Total of 20 minutes was spent discussing these issues with patient. Time Spent: 20 minutes
[2019-01-17] MEDS ORDERED: FILGRASTIM INJ 300 MCG/1 ML VIAL SUBCUT ONE (10:30)
[2019-01-17] MEDS ORDERED: METHYLPREDNISOLONE INJ 40 MG/1 ML SDV IV ONE (11:00)
--- NOTE | 2019-01-17 11:23 | RADIOLOGY REPORT (SQ) ---
EXAM DESCRIPTION: CT ABD/PELVIS WITH IV ONLY COMPLETED DATE/TIME: 01/17/2019 10:55 am REASON FOR STUDY: increased left quad abdominal pain COMPARISON: 01/14/2019 TECHNIQUE: CT scan of the abdomen and pelvis performed using helical scanning technique with dynamic intravenous contrast injection. No oral contrast. Images reviewed with lung, soft tissue, and bone windows. Reconstructed coronal and sagittal MPR images reviewed. Delayed images for evaluation of the urinary system also acquired. All images stored on PACS. All CT scanners at this facility use dose modulation, iterative reconstruction, and/or weight based d osing when appropriate to reduce radiation dose to as low as reasonably achievable (ALARA). [facility]: Dose Right [facility]: CareDose [facility]: Dose Right [facility]: Teradose 4D [facility]: WeShow CONTRAST TYPE AND DOSE: contrast/concentration: Isovue 350.00 mg/ml; Total Contrast Delivered: 100.0 ml; Total Saline Delivered: 72.0 ml RENAL FUNCTION: BUN 3, creatinine 0.48 RADIATION DOSE: CT Rad equipment meets quality standard of care and radiation dose reduction techniq ues were employed. CTDIvol: 12.0 - 14.0 mGy. DLP: 1534 mGy-cm.. LIMITATIONS: None. FINDINGS: LOWER CHEST: Small left effusion is again noted. This is at unchanged in size and configu ration. LIVER: Stable in appearance. SPLEEN: Stable in appearance. PANCREAS: No masses. No significant calcifications. No adjacent inflammation or peripancreatic fluid collections. Pancreatic duct not dilated. GALLBLADDER: Surgically absent. ADRENAL GLANDS: No significant masses or asymmetry. RIGHT KIDNEY AND URETER: No solid masses. No significant calcifications. No hydronephrosis or hyd roureter. LEFT KIDNEY AND URETER: No solid masses. No significant calcifications. No hydronephrosis or hydr oureter. AORTA AND VESSELS: No aneurysm. No dissection. Renal arteries, SMA, celiac without stenosis. RETROPERITONEUM: Retroperitoneal adenopathy is unchanged. BOWEL AND PERITONEAL CAVITY: Stable in appearance. Small fluid collection in the left lower quadrant is slightly decreased in size measured 1.9 cm in greatest dimensions on today's study. There is les s small-bowel distention today. APPENDIX: Not identified. PELVIS: Free fluid in the pelvis is unchanged from prior study. ABDOMINAL WALL: No masses. No hernias. BONES: No significant or acute findings. OTHER: No other significant finding. IMPRESSION: Less small-bowel distention on today's study. Small left lower quadrant fluid collectio n has slightly decreased in size now measured at 1.9 cm in greatest dimensions. TECHNICAL DOCUMENTATION: JOB ID: [id number] Quality ID # [id number]: Final reports with documentation of one or more dose reduction techniques (e.g., Au tomated exposure control, adjustment of the mA and/or kV according to patient size, use of iterative reconstruction technique) 2010 [employer]- All Rights Reserved Reading location - IP/workstation name: [email or web address]
[2019-01-17] MEDS: DOCUSATE SODIUM 100 MG CAPSULE PO SCH ×2 (11:32→18:19)
[2019-01-17] MEDS: POTASSIUM CHLORIDE 10 MEQ CAPSULE.ER PO SCH (11:42)
[2019-01-17] MEDS: METOPROLOL SUCCINATE 25 MG TAB.SR.24H PO SCH (11:45)
[2019-01-17] MEDS: LISINOPRIL 10 MG TABLET PO SCH (11:46)
--- NOTE | 2019-01-17 12:55 | PDOC PROGRESS REPORT ---
Subjective Progress Note for:: 01/17/19 Subjective:: Asked to reevaluate patient with diverticulitis. Patient has been on IV antibiotics for almost 1 week for proximal sigmoid distal descending colon diverticulitis. This is his second episode of diverticulitis, first one 15 years ago. Patient has been eating and has been having solid bowel movements with no emesis but the pain has been persistent for the past several days. Patient does state that he feels overall better than when he was first admitted. No fevers or chills. He does have a history of lymphoma for which he underwent a round of chemotherapy a few days before the diverticulitis episode. He is now apparently having neutropenia as a consequence. Oncology is planning Neupogen treatment today. Reason For Visit: SEPSPIS,ACUTE DIVERTICULITIS,NHL Physical Exam Vital Signs: Temp Pulse Resp BP Pulse Ox 98.2 F 87 16 141/76 H 97 01/17/19 07:22 01/17/19 07:22 01/17/19 07:22 01/17/19 07:22 01/17/19 07:22 Intake & Output 01/16/19 01/17/19 01/18/19 06:59 06:59 06:59 Intake Total 860 975 Output Total 1900 1465 Balance -1040 -490 Weight 102.1 kg 102.5 kg General appearance: PRESENT: no acute distress, cooperative Respiratory exam: PRESENT: clear to auscultation ana Cardiovascular exam: PRESENT: RRR GI/Abdominal exam: PRESENT: other - Soft, nondistended, focal tenderness to palpation in the left lower quadrant with focal guarding. Remainder the abdomen is nontender. Neurological exam: PRESENT: alert, awake Psychiatric exam: PRESENT: appropriate affect Results Laboratory Results: 01/17/19 04:32 01/17/19 04:32 01/16/19 01/17/19 01/17/19 16:50 04:32 04:32 WBC 2.2 L RBC 3.73 L Hgb 9.5 L Hct 28.7 L MCV 77 L MCH 25.4 L MCHC 33.0 RDW 23.0 H Plt Count 568 H Sodium 136.3 L Potassium 3.5 L Chloride 98 Carbon Dioxide 32 H Anion Gap 6 BUN 3 L Creatinine 0.48 L Est GFR ( Amer) > 60 Est GFR (Non-Af Amer) > 60 Glucose 98 Calcium 8.1 L Stool Occult Blood NEGATIVE 01/10/19 01/10/19 18:26 18:26 Creatine Kinase < 20 L CK-MB (CK-2) < 0.22 Troponin I < 0.012 Impressions: Acute Abdomen Series 01/10/19 17:58 IMPRESSION: NO RADIOGRAPHIC EVIDENCE FOR ACUTE ABDOMINAL DISEASE. Abdomen/Pelvis CT 01/17/19 09:55 IMPRESSION: Less small-bowel distention on today's study. Small left lower quadrant fluid collection has slightly decreased in size now measured at 1.9 cm in greatest dimensions. Assessment & Plan - Diagnosis (1) Acute diverticulitis Is this a current diagnosis for this admission?: Yes Plan: With small diverticular abscess less than 2 cm that appears stable from couple o f days ago, perhaps smaller-- too small to place a drain. He does not appear septic. Localized peritoneal signs in llq. Recommend bowel rest, change antibiotic to levaquin and flagyl. And see response to neupogen. Hopefully, combination of above measures will help. If not, will do partial colon resection with possible ostomy.
[2019-01-17] MEDS: LEVOFLOXACIN 750 MG/D5W RTU 750 MG/150 ML RTUPB IV SCH (13:46)
[2019-01-17] MEDS: ZOLPIDEM TARTRATE 5 MG TABLET PO SCH (21:21)
[2019-01-18] MEDS: METRONIDAZOLE 500 MG/NS RTU 500 MG/100 ML RTUPB IV SCH (01:15)
[2019-01-18] MEDS: NYSTATIN/DEXAMETH/DIPHEN SUSP 120 ML PO PRN (01:16)
[2019-01-18] MEDS: HYDROMORPHONE HCL INJ/PF 2 MG/ML AMPULE IV PRN ×3 (01:16→18:20)
[2019-01-18] MEDS: PANTOPRAZOLE SODIUM 20 MG TABLET.DR PO SCH (05:00)
[2019-01-18 05:29] LABS: HEMATOCRIT 31.5 % (37.9-51.0); HEMOGLOBIN 10.3 g/dL (13.5-17.0); MEAN CORPUSCULAR HEMOGLOBIN 25.6 pg (27.0-33.4); MEAN CORPUSCULAR HGB CONC 32.7 g/dL (32.0-36.0); MEAN CORPUSCULAR VOLUME 78 fl (80-97); PLATELET COUNT 677 10^3/uL (150-450); RED BLOOD COUNT 4.02 10^6/uL (4.35-5.55)
[2019-01-18 05:39] LABS: ANION GAP 9 (5-19); BLOOD UREA NITROGEN 8 mg/dL (7-20); CALCIUM 8.6 mg/dL (8.4-10.2); CARBON DIOXIDE 30 mmol/L (22-30); CHLORIDE 98 mmol/L (98-107); GLUCOSE 87 mg/dL (75-110); POTASSIUM 3.9 mmol/L (3.6-5.0); SODIUM 136.9 mmol/L (137-145)
[2019-01-18] MEDS: ALLOPURINOL 300 MG TABLET PO SCH (08:44)
[2019-01-18] MEDS: POTASSIUM CHLORIDE 10 MEQ CAPSULE.ER PO SCH (10:36)
[2019-01-18] MEDS: METOPROLOL SUCCINATE 25 MG TAB.SR.24H PO SCH (10:37)
[2019-01-18] MEDS: LISINOPRIL 10 MG TABLET PO SCH (10:38)
[2019-01-18] MEDS: LEVOFLOXACIN 750 MG/D5W RTU 750 MG/150 ML RTUPB IV SCH (10:38)
[2019-01-18] MEDS ORDERED: NORMAL SALINE 1000 ML 1,000 ML IV PRN (12:06)
--- NOTE | 2019-01-18 13:00 | PDOC PROGRESS REPORT ---
Subjective Progress Note for:: 01/18/19 Subjective:: Patient states he feels better. Has been n.p.o. Has swallowed pills with water. Had some loose stools yesterday. Reason For Visit: SEPSPIS,ACUTE DIVERTICULITIS,NHL Physical Exam Vital Signs: Temp Pulse Resp BP Pulse Ox 97.6 F 86 16 138/57 H 96 01/18/19 08:02 01/18/19 08:02 01/18/19 08:02 01/18/19 08:02 01/18/19 08:02 Intake & Output 01/17/19 01/18/19 01/19/19 06:59 06:59 06:59 Intake Total 975 350 0 Output Total 1465 900 Balance -490 -550 0 Weight 102.5 kg 98.9 kg General appearance: PRESENT: no acute distress GI/Abdominal exam: PRESENT: other - Slightly full left lower quadrant but no peritoneal signs no Results Laboratory Results: 01/18/19 04:12 01/18/19 04:12 01/18/19 01/18/19 04:12 04:12 WBC 5.0 D RBC 4.02 L Hgb 10.3 L Hct 31.5 L MCV 78 L MCH 25.6 L MCHC 32.7 RDW 24.0 H Plt Count 677 H Sodium 136.9 L Potassium 3.9 Chloride 98 Carbon Dioxide 30 Anion Gap 9 BUN 8 Creatinine 0.72 Est GFR ( Amer) > 60 Est GFR (Non-Af Amer) > 60 Glucose 87 Calcium 8.6 01/10/19 01/10/19 18:26 18:26 Creatine Kinase < 20 L CK-MB (CK-2) < 0.22 Troponin I < 0.012 Impressions: Acute Abdomen Series 01/10/19 17:58 IMPRESSION: NO RADIOGRAPHIC EVIDENCE FOR ACUTE ABDOMINAL DISEASE. Abdomen/Pelvis CT 01/17/19 09:55 IMPRESSION: Less small-bowel distention on today's study. Small left lower quadrant fluid collection has slightly decreased in size now measured at 1.9 cm in greatest dimensions. Assessment & Plan - Diagnosis (1) Acute diverticulitis Is this a current diagnosis for this admission?: Yes (2) Abdominal pain Qualifiers: Abdominal location: left lower quadrant Qualified Code(s): R10.32 - Left lower quadrant pain Is this a current diagnosis for this admission?: Yes Plan: Abdominal pain secondary to acute complicated diverticulitis; appears better today. No peritoneal signs on physical examination. Recommendations: 1. Start surgical sips of clear liquids 2. No clinical indication for surgical intervention today. Hopefully we can bridge patient over to be managed on an outpatient basis.
[2019-01-18] MEDS: DOCUSATE SODIUM 100 MG CAPSULE PO SCH ×2 (14:35→20:13)
[2019-01-18] MEDS: ALPRAZOLAM 0.5 MG TABLET PO SCH ×2 (14:40→21:24)
--- NOTE | 2019-01-18 15:11 | PDOC PROGRESS REPORT ---
Subjective Progress Note for:: 01/18/19 Subjective:: Mr. Miranda is a very pleasant 68-year-old gentleman who was initially admitted with left lower quadrant pain and tenderness with a CAT scan showing a microperforation of diverticulitis. Patient continued to have left lower quadrant abdominal pain on palpation especially with pressure more so than on rebound. Patient states this pain is exacerbated by movement but states that pain is well controlled at this time with Toradol and tramadol. Patient had a CAT scan on 01/14/2018 that showed a small abscess that was not amendable to drainage at this time. Patient continues on a soft diet with no complaints. 01/16/2019-patient states abdominal pain still in left lower quadrant. Patient did eat preface morning became distended and had some abdominal pain. Surgery stated they were going to repeat CAT scan at some point in time although patient may require exploratory lap. Previous CT did show a microperforation. Will await surgical recommendations. 01/17/2019-patient continues to have left lower quadrant abdominal pain. Patient states pain is getting somewhat worse but it is only when he is active. Patient also stating concern over possible expiratory lap and possible colostomy. I have talked with patient in order to set his mind a little more ease. I have also discussed case with Dr. Lindquist this a.m. 01/18/2019-improved abdominal pain today after bowel rest. Patient was seen by surgery today and okayed for brenda gabriella which he is tolerating well at this time. Abdomen much less tender on palpation at this time. Will reassess in the a.m. Reason For Visit: SEPSPIS,ACUTE DIVERTICULITIS,NHL Physical Exam Vital Signs: Temp Pulse Resp BP Pulse Ox 97.6 F 86 16 138/57 H 96 01/18/19 08:02 01/18/19 08:02 01/18/19 08:02 01/18/19 08:02 01/18/19 08:02 Intake & Output 01/17/19 01/18/19 01/19/19 06:59 06:59 06:59 Intake Total 975 350 240 Output Total 1465 900 Balance -490 -550 240 Weight 102.5 kg 98.9 kg General appearance: PRESENT: no acute distress, well-developed, well-nourished Neck exam: ABSENT: carotid bruit, JVD, lymphadenopathy, thyromegaly Respiratory exam: PRESENT: clear to auscultation ana. ABSENT: rales, rhonchi, wheezes Cardiovascular exam: PRESENT: RRR. ABSENT: diastolic murmur, rubs, systolic murmur Pulses: PRESENT: normal dorsalis pedis pul Vascular exam: PRESENT: normal capillary refill GI/Abdominal exam: PRESENT: diminished bowel sounds, tenderness Extremities exam: PRESENT: full ROM. ABSENT: calf tenderness, clubbing, pedal edema Neurological exam: PRESENT: alert, awake, oriented to person, oriented to place, oriented to time, oriented to situation, CN II-XII grossly intact. ABSENT: motor sensory deficit Psychiatric exam: PRESENT: appropriate affect, normal mood. ABSENT: homicidal ideation, suicidal ideation Skin exam: PRESENT: dry, intact, warm. ABSENT: cyanosis, rash Results Laboratory Results: 01/18/19 04:12 01/18/19 04:12 01/18/19 01/18/19 04:12 04:12 WBC 5.0 D RBC 4.02 L Hgb 10.3 L Hct 31.5 L MCV 78 L MCH 25.6 L MCHC 32.7 RDW 24.0 H Plt Count 677 H Sodium 136.9 L Potassium 3.9 Chloride 98 Carbon Dioxide 30 Anion Gap 9 BUN 8 Creatinine 0.72 Est GFR ( Amer) > 60 Est GFR (Non-Af Amer) > 60 Glucose 87 Calcium 8.6 01/10/19 01/10/19 18:26 18:26 Creatine Kinase < 20 L CK-MB (CK-2) < 0.22 Troponin I < 0.012 Impressions: Acute Abdomen Series 01/10/19 17:58 IMPRESSION: NO RADIOGRAPHIC EVIDENCE FOR ACUTE ABDOMINAL DISEASE. Abdomen/Pelvis CT 01/17/19 09:55 IMPRESSION: Less small-bowel distention on today's study. Small left lower quadrant fluid collection has slightly decreased in size now measured at 1.9 cm in greatest dimensions. Assessment and Plan - Diagnosis (1) Acute diverticulitis Is this a current diagnosis for this admission?: Yes Plan: Continue soft diet at this time. Patient states good pain control at this time with tramadol and Toradol. Patient had a CAT scan is worrisome for a small abscess forming and he does have nebulized with microperforation. We will continue to watch him overnight reassess in the a.m. We may have to repeat CAT scan at some point to assess if this abscesses growing to any extent. Patient continues to pass flatulence although he has not had a bowel movement in 3 days. He does not have an acute abdomen does not show any signs of small bowel obstruction at this time. 01/16/2019-patient did have soft diet this morning. Patient nurse states that patient got distended and had further abdominal pain. Patient states that he over ate. CT scan 2 days ago did show worrisome for a small abscess forming although it was not amendable to drainage. Patient may require exploratory lap for true visualization of GI complications. Will await surgical recommendations. 01/17/2019-patient continues have increased left lower quadrant abdominal pain. At this time the patient n.p.o. I am going obtain a CT scan of abdomen pelvis with IV contrast and consult surgery if need be. I have discussed case with Dr. Lindquist and she is in agreement with plan. I have added Dilaudid 0.5 mg IV every 4 hours as needed I will adjust this dose as needed. 01/18/2019-improved. Brenda quiroz at this time. Patient is being followed by surgery as well. Continue PRN pain medications. (2) HTN (hypertension) Qualifiers: Hypertension type: essential hypertension Qualified Code(s): I10 - Essential (primary) hypertension Is this a current diagnosis for this admission?: Yes (3) Hodgkin lymphoma Is this a current diagnosis for this admission?: Yes Plan: Past found to chemotherapy was on 01/11/2019. He will continue to follow Dr. Lindquist. 01/16/2019-patient continue be followed by oncology. 01/17/2019-discussed case with Dr. Lindquist. I will give patient 300 mics of Neupogen x1, Claritin 10 mg and Solu-Medrol 40 mg as patient had a reaction to previous doses of Neupogen. Neupogen was at the request of Dr. Lindquist. 01/18/2019-continue to follow along with Dr. Lindquist. Patient's white count up to 5 today after Neupogen. Continue to follow daily CBCs (4) Hypokalemia Is this a current diagnosis for this admission?: Yes Plan: Persist. Will continue potassium chloride 20 juventino p.o. daily repeat BMP in a.m. 01/16/2019-persist we will continue daily potassium replacement as well as daily BMPs. 01/17/2019-improved potassium 3.5 today. Continue daily BMPs. 01/18/2019-resolved (5) Anemia Qualifiers: Anemia type: unspecified type Qualified Code(s): D64.9 - Anemia, unspecified Is this a current diagnosis for this admission?: Yes Plan: 01/16/2019-persistent. I believe stable at this time but I will obtain a stool for occult blood. Patient's hemoglobin in the mid 8's for the last 4 draws. Repeat CBC in a.m. hold heparin this time place patient on SCD's for DVT prophylaxis. 01/17/2019-stable continue to follow daily CBCs. 01/18/2019-stable, daily CBCs - Time Time Spent with patient: 15-24 minutes - Inpatient Certification Based on my medical assessment, after consideration of the patient's comorbidities, presenting symptoms, or acuity I expect that the services needed warrant INPATIENT care.: Yes I certify that my determination is in accordance with my understanding of Medicare's requirements for reasonable and necessary INPATIENT services [42 CFR 412.3e].: Yes Medical Necessity: Other - Continue IV fluids and IV pain medication
[2019-01-18] MEDS: METHOCARBAMOL 750 MG TABLET PO PRN (16:25)
[2019-01-18] MEDS: KETOROLAC TROMETHAMINE INJ/PF 30 MG/1 ML SDV IV PRN (21:24)
[2019-01-19] MEDS: METHOCARBAMOL 750 MG TABLET PO PRN (04:26)
[2019-01-19] MEDS: HYDROMORPHONE HCL INJ/PF 2 MG/ML AMPULE IV PRN (04:26)
[2019-01-19 04:58] LABS: HEMATOCRIT 29.1 % (37.9-51.0); HEMOGLOBIN 9.5 g/dL (13.5-17.0); MEAN CORPUSCULAR HEMOGLOBIN 25.2 pg (27.0-33.4); MEAN CORPUSCULAR HGB CONC 32.7 g/dL (32.0-36.0); MEAN CORPUSCULAR VOLUME 77 fl (80-97); PLATELET COUNT 585 10^3/uL (150-450); RED BLOOD COUNT 3.78 10^6/uL (4.35-5.55); RED CELL DISTRIBUTION WIDTH 23.8 % (11.5-14.0); WHITE BLOOD COUNT 4.5 10^3/uL (4.0-10.5)
[2019-01-19 05:21] LABS: ANION GAP 6 (5-19); BLOOD UREA NITROGEN 5 mg/dL (7-20); CALCIUM 8.3 mg/dL (8.4-10.2); CARBON DIOXIDE 32 mmol/L (22-30); CHLORIDE 98 mmol/L (98-107); GLUCOSE 86 mg/dL (75-110); POTASSIUM 3.6 mmol/L (3.6-5.0); SODIUM 136.2 mmol/L (137-145)
[2019-01-19] MEDS: ALPRAZOLAM 0.5 MG TABLET PO SCH ×3 (06:17→21:29)
[2019-01-19] MEDS: PANTOPRAZOLE SODIUM 20 MG TABLET.DR PO SCH (06:17)
[2019-01-19] MEDS: ALLOPURINOL 300 MG TABLET PO SCH (07:39)
--- NOTE | 2019-01-19 09:15 | Progress Note Acknowledgement ---
Progress Note Acknowledgement Progess Note Acknowledgement: I, the undersigned member of the medical staff with appropriate privileges and with supervisory authority over Brian Hernandez, a [facility] practice allied health professional, acknowledge that I have reviewed the progress notes entered on this patient, and in my professional judgment believe that the assessment made and/or any care evidenced was appropriate
--- NOTE | 2019-01-19 09:20 | PDOC PROGRESS REPORT ---
Subjective Progress Note for:: 01/19/19 Subjective:: Mr. Miranda is a very pleasant 68-year-old gentleman who was initially admitted with left lower quadrant pain and tenderness with a CAT scan showing a microperforation of diverticulitis. Patient continued to have left lower quadrant abdominal pain on palpation especially with pressure more so than on rebound. Patient states this pain is exacerbated by movement but states that pain is well controlled at this time with Toradol and tramadol. Patient had a CAT scan on 01/14/2018 that showed a small abscess that was not amendable to drainage at this time. Patient continues on a soft diet with no complaints. 01/16/2019-patient states abdominal pain still in left lower quadrant. Patient did eat preface morning became distended and had some abdominal pain. Surgery stated they were going to repeat CAT scan at some point in time although patient may require exploratory lap. Previous CT did show a microperforation. Will await surgical recommendations. 01/17/2019-patient continues to have left lower quadrant abdominal pain. Patient states pain is getting somewhat worse but it is only when he is active. Patient also stating concern over possible expiratory lap and possible colostomy. I have talked with patient in order to set his mind a little more ease. I have also discussed case with Dr. Lindquist this a.m. 01/18/2019-improved abdominal pain today after bowel rest. Patient was seen by surgery today and okayed for brenda gabriella which he is tolerating well at this time. Abdomen much less tender on palpation at this time. Will reassess in the a.m. 01/19/2019-much improved today. Patient has no point tenderness at this time. Will discuss with surgery if we can increase patient's diet. Reason For Visit: SEPSPIS,ACUTE DIVERTICULITIS,NHL Physical Exam Vital Signs: Temp Pulse Resp BP Pulse Ox 98.0 F 82 16 146/70 H 96 01/19/19 07:41 01/19/19 07:41 01/19/19 07:41 01/19/19 07:41 01/19/19 07:41 Intake & Output 01/18/19 01/19/19 01/20/19 06:59 06:59 06:59 Intake Total 350 1391 Output Total 900 1750 Balance -550 -359 Weight 98.9 kg 99.9 kg General appearance: PRESENT: no acute distress, well-developed, well-nourished Neck exam: ABSENT: carotid bruit, JVD, lymphadenopathy, thyromegaly Respiratory exam: PRESENT: clear to auscultation ana. ABSENT: rales, rhonchi, wheezes Cardiovascular exam: PRESENT: RRR. ABSENT: diastolic murmur, rubs, systolic murmur Pulses: PRESENT: normal dorsalis pedis pul Vascular exam: PRESENT: normal capillary refill GI/Abdominal exam: PRESENT: normal bowel sounds, soft. ABSENT: distended, guarding, mass, organolmegaly, rebound, tenderness Extremities exam: PRESENT: full ROM. ABSENT: calf tenderness, clubbing, pedal edema Neurological exam: PRESENT: alert, awake, oriented to person, oriented to place, oriented to time, oriented to situation, CN II-XII grossly intact. ABSENT: motor sensory deficit Psychiatric exam: PRESENT: appropriate affect, normal mood. ABSENT: homicidal ideation, suicidal ideation Skin exam: PRESENT: dry, intact, warm. ABSENT: cyanosis, rash Results Laboratory Results: 01/19/19 04:38 01/19/19 04:38 01/19/19 01/19/19 04:38 04:38 WBC 4.5 RBC 3.78 L Hgb 9.5 L Hct 29.1 L MCV 77 L MCH 25.2 L MCHC 32.7 RDW 23.8 H Plt Count 585 H Sodium 136.2 L Potassium 3.6 Chloride 98 Carbon Dioxide 32 H Anion Gap 6 BUN 5 L Creatinine 0.60 Est GFR ( Amer) > 60 Est GFR (Non-Af Amer) > 60 Glucose 86 Calcium 8.3 L 01/10/19 01/10/19 18:26 18:26 Creatine Kinase < 20 L CK-MB (CK-2) < 0.22 Troponin I < 0.012 Impressions: Acute Abdomen Series 01/10/19 17:58 IMPRESSION: NO RADIOGRAPHIC EVIDENCE FOR ACUTE ABDOMINAL DISEASE. Abdomen/Pelvis CT 01/17/19 09:55 IMPRESSION: Less small-bowel distention on today's study. Small left lower quadrant fluid collection has slightly decreased in size now measured at 1.9 cm in greatest dimensions. Assessment and Plan - Diagnosis (1) Acute diverticulitis Is this a current diagnosis for this admission?: Yes Plan: Continue soft diet at this time. Patient states good pain control at this time with tramadol and Toradol. Patient had a CAT scan is worrisome for a small abscess forming and he does have nebulized with microperforation. We will continue to watch him overnight reassess in the a.m. We may have to repeat CAT scan at some point to assess if this abscesses growing to any extent. Patient continues to pass flatulence although he has not had a bowel movement in 3 days. He does not have an acute abdomen does not show any signs of small bowel obstruction at this time. 01/16/2019-patient did have soft diet this morning. Patient nurse states that patient got distended and had further abdominal pain. Patient states that he over ate. CT scan 2 days ago did show worrisome for a small abscess forming although it was not amendable to drainage. Patient may require exploratory lap for true visualization of GI complications. Will await surgical recommendations. 01/17/2019-patient continues have increased left lower quadrant abdominal pain. At this time the patient n.p.o. I am going obtain a CT scan of abdomen pelvis with IV contrast and consult surgery if need be. I have discussed case with Dr. Lindquist and she is in agreement with plan. I have added Dilaudid 0.5 mg IV every 4 hours as needed I will adjust this dose as needed. 01/18/2019-improved. Brenda quiroz at this time. Patient is being followed by surgery as well. Continue PRN pain medications. 01/19/2019-improved. Discussed with surgery will increase patient to clear liquid full diet will continue to increase as patient can tolerate. (2) HTN (hypertension) Qualifiers: Hypertension type: essential hypertension Qualified Code(s): I10 - Essential (primary) hypertension Is this a current diagnosis for this admission?: Yes (3) Hodgkin lymphoma Is this a current diagnosis for this admission?: Yes Plan: Past found to chemotherapy was on 01/11/2019. He will continue to follow Dr. Lindquist. 01/16/2019-patient continue be followed by oncology. 01/17/2019-discussed case with Dr. Lindquist. I will give patient 300 mics of Neupogen x1, Claritin 10 mg and Solu-Medrol 40 mg as patient had a reaction to previous doses of Neupogen. Neupogen was at the request of Dr. Lindquist. 01/18/2019-continue to follow along with Dr. Lindquist. Patient's white count up to 5 today after Neupogen. Continue to follow daily CBCs 01/19/2019-following with daily CBCs and oncology. (4) Hypokalemia Is this a current diagnosis for this admission?: Yes Plan: Persist. Will continue potassium chloride 20 juventino p.o. daily repeat BMP in a.m. 01/16/2019-persist we will continue daily potassium replacement as well as daily BMPs. 01/17/2019-improved potassium 3.5 today. Continue daily BMPs. 01/18/2019-resolved 01/19/2019-potassium 3.6 today. (5) Anemia Qualifiers: Anemia type: unspecified type Qualified Code(s): D64.9 - Anemia, unspecified Is this a current diagnosis for this admission?: Yes Plan: 01/16/2019-persistent. I believe stable at this time but I will obtain a stool for occult blood. Patient's hemoglobin in the mid 8's for the last 4 draws. Repeat CBC in a.m. hold heparin this time place patient on SCD's for DVT prophylaxis. 01/17/2019-stable continue to follow daily CBCs. 01/18/2019-stable, daily CBCs 01/19/2019-remained stable - Time Time Spent with patient: 15-24 minutes - Inpatient Certification Based on my medical assessment, after consideration of the patient's comorbidities, presenting symptoms, or acuity I expect that the services needed warrant INPATIENT care.: Yes I certify that my determination is in accordance with my understanding of Medicare's requirements for reasonable and necessary INPATIENT services [42 CFR 412.3e].: Yes Medical Necessity: Other - Continue IV pain medication surgical consultation.
[2019-01-19] MEDS: DOCUSATE SODIUM 100 MG CAPSULE PO SCH ×2 (09:24→17:13)
[2019-01-19] MEDS: POTASSIUM CHLORIDE 10 MEQ CAPSULE.ER PO SCH (09:24)
[2019-01-19] MEDS: LISINOPRIL 10 MG TABLET PO SCH (09:24)
[2019-01-19] MEDS: LEVOFLOXACIN 750 MG/D5W RTU 750 MG/150 ML RTUPB IV SCH (09:25)
[2019-01-19] MEDS: METOPROLOL SUCCINATE 25 MG TAB.SR.24H PO SCH (09:25)
--- NOTE | 2019-01-19 11:05 | PDOC PROGRESS REPORT ---
Subjective Progress Note for:: 01/19/19 Subjective:: Feeling better passing some flatus Reason For Visit: SEPSPIS,ACUTE DIVERTICULITIS,NHL Physical Exam Vital Signs: Temp Pulse Resp BP Pulse Ox 98.0 F 82 16 146/70 H 96 01/19/19 07:41 01/19/19 07:41 01/19/19 07:41 01/19/19 07:41 01/19/19 07:41 Intake & Output 01/18/19 01/19/19 01/20/19 06:59 06:59 06:59 Intake Total 350 1541 Output Total 900 1750 Balance -550 -209 Weight 98.9 kg 99.9 kg General appearance: PRESENT: no acute distress Head exam: PRESENT: normocephalic Eye exam: PRESENT: EOMI Ear exam: PRESENT: normal external ear exam Mouth exam: PRESENT: moist Neck exam: PRESENT: full ROM Respiratory exam: PRESENT: clear to auscultation ana Cardiovascular exam: PRESENT: RRR Pulses: PRESENT: +2 pedal pulses bilateral GI/Abdominal exam: PRESENT: firm, soft Rectal exam: PRESENT: deferred Extremities exam: PRESENT: full ROM Musculoskeletal exam: PRESENT: full ROM Neurological exam: PRESENT: alert, awake, oriented to person, oriented to place Psychiatric exam: PRESENT: appropriate affect Skin exam: PRESENT: dry Results Laboratory Results: 01/19/19 04:38 01/19/19 04:38 01/19/19 01/19/19 04:38 04:38 WBC 4.5 RBC 3.78 L Hgb 9.5 L Hct 29.1 L MCV 77 L MCH 25.2 L MCHC 32.7 RDW 23.8 H Plt Count 585 H Sodium 136.2 L Potassium 3.6 Chloride 98 Carbon Dioxide 32 H Anion Gap 6 BUN 5 L Creatinine 0.60 Est GFR ( Amer) > 60 Est GFR (Non-Af Amer) > 60 Glucose 86 Calcium 8.3 L 01/10/19 01/10/19 18:26 18:26 Creatine Kinase < 20 L CK-MB (CK-2) < 0.22 Troponin I < 0.012 Impressions: Acute Abdomen Series 01/10/19 17:58 IMPRESSION: NO RADIOGRAPHIC EVIDENCE FOR ACUTE ABDOMINAL DISEASE. Abdomen/Pelvis CT 01/17/19 09:55 IMPRESSION: Less small-bowel distention on today's study. Small left lower quadrant fluid collection has slightly decreased in size now measured at 1.9 cm in greatest dimensions. Assessment & Plan - Diagnosis (1) Acute diverticulitis Is this a current diagnosis for this admission?: Yes - Plan Summary Plan Summary: Impression diverticulitis Patient's exam has improved we he is passing some flatus we will start him on clear liquid diet today continue IV antibiotics and observation
[2019-01-19] MEDS: KETOROLAC TROMETHAMINE INJ/PF 30 MG/1 ML SDV IV PRN (19:10)
[2019-01-20] MEDS: NYSTATIN/DEXAMETH/DIPHEN SUSP 120 ML PO PRN ×2 (01:54→21:48)
[2019-01-20] MEDS: KETOROLAC TROMETHAMINE INJ/PF 30 MG/1 ML SDV IV PRN (01:55)
[2019-01-20] MEDS: PANTOPRAZOLE SODIUM 20 MG TABLET.DR PO SCH (05:15)
[2019-01-20] MEDS: ALPRAZOLAM 0.5 MG TABLET PO SCH ×3 (05:16→21:44)
[2019-01-20 05:21] LABS: HEMATOCRIT 31.2 % (37.9-51.0); MEAN CORPUSCULAR HEMOGLOBIN 24.8 pg (27.0-33.4); MEAN CORPUSCULAR VOLUME 78 fl (80-97); PLATELET COUNT 572 10^3/uL (150-450); RED BLOOD COUNT 4.02 10^6/uL (4.35-5.55); WHITE BLOOD COUNT 5.5 10^3/uL (4.0-10.5)
[2019-01-20 05:52] LABS: ANION GAP 6 (5-19); BLOOD UREA NITROGEN 6 mg/dL (7-20); CALCIUM 8.2 mg/dL (8.4-10.2); CARBON DIOXIDE 32 mmol/L (22-30); CHLORIDE 97 mmol/L (98-107); GLUCOSE 88 mg/dL (75-110); POTASSIUM 3.3 mmol/L (3.6-5.0); SODIUM 135.3 mmol/L (137-145)
[2019-01-20] MEDS: ALLOPURINOL 300 MG TABLET PO SCH (07:18)
[2019-01-20] MEDS: METOPROLOL SUCCINATE 25 MG TAB.SR.24H PO SCH (09:37)
[2019-01-20] MEDS: LISINOPRIL 10 MG TABLET PO SCH (09:37)
[2019-01-20] MEDS: POTASSIUM CHLORIDE 10 MEQ CAPSULE.ER PO SCH (09:38)
[2019-01-20] MEDS: DOCUSATE SODIUM 100 MG CAPSULE PO SCH ×2 (09:38→17:01)
[2019-01-20] MEDS: LEVOFLOXACIN 750 MG/D5W RTU 750 MG/150 ML RTUPB IV SCH (09:38)
[2019-01-20] MEDS ORDERED: POTASSIUM CHLORIDE 10 MEQ CAPSULE.ER PO ONE (10:47)
--- NOTE | 2019-01-20 10:47 | PDOC PROGRESS REPORT ---
Subjective Progress Note for:: 01/20/19 Subjective:: Feeling better now passing stool Reason For Visit: SEPSPIS,ACUTE DIVERTICULITIS,NHL Physical Exam Vital Signs: Temp Pulse Resp BP Pulse Ox 97.8 F 89 20 145/66 H 95 01/20/19 08:07 01/20/19 08:07 01/20/19 08:07 01/20/19 08:07 01/20/19 08:07 Intake & Output 01/19/19 01/20/19 01/21/19 06:59 06:59 06:59 Intake Total 1541 2220 Output Total 1750 2250 Balance -209 -30 Weight 99.9 kg 98.7 kg General appearance: PRESENT: no acute distress Head exam: PRESENT: normocephalic Eye exam: PRESENT: EOMI Ear exam: PRESENT: normal external ear exam Mouth exam: PRESENT: moist Neck exam: PRESENT: full ROM Respiratory exam: PRESENT: clear to auscultation ana Cardiovascular exam: PRESENT: RRR Pulses: PRESENT: normal radial pulses, normal femoral pulses Vascular exam: PRESENT: normal capillary refill GI/Abdominal exam: PRESENT: soft - Abdominal exam shows markedly decreased tenderness on the left side however still slightly tender to deep palpation no evidence of rebound tenderness Extremities exam: PRESENT: full ROM Musculoskeletal exam: PRESENT: full ROM Neurological exam: PRESENT: alert, awake, oriented to person Psychiatric exam: PRESENT: appropriate affect Skin exam: PRESENT: dry Results Laboratory Results: 01/20/19 04:43 01/20/19 04:43 01/20/19 01/20/19 01/20/19 04:43 04:43 04:43 WBC 5.5 RBC 4.02 L Hgb 10.0 L Hct 31.2 L MCV 78 L MCH 24.8 L MCHC 32.0 RDW 24.0 H Plt Count 572 H Sodium 135.3 L Potassium 3.3 L Chloride 97 L Carbon Dioxide 32 H Anion Gap 6 BUN 6 L Creatinine 0.66 Est GFR ( Amer) > 60 Est GFR (Non-Af Amer) > 60 Glucose 88 Calcium 8.2 L Magnesium 1.8 01/10/19 01/10/19 18:26 18:26 Creatine Kinase < 20 L CK-MB (CK-2) < 0.22 Troponin I < 0.012 Impressions: Acute Abdomen Series 01/10/19 17:58 IMPRESSION: NO RADIOGRAPHIC EVIDENCE FOR ACUTE ABDOMINAL DISEASE. Abdomen/Pelvis CT 01/17/19 09:55 IMPRESSION: Less small-bowel distention on today's study. Small left lower quadrant fluid collection has slightly decreased in size now measured at 1.9 cm in greatest dimensions. Assessment & Plan - Time Time Spent with patient: 25-34 minutes - Plan Summary Plan Summary: Patient feeling better now passing liquid soft stools Continue antibiotics and slowly advance his diet If he tolerates his diet he probably could be discharged home tomorrow on p.o. antibiotics and follow-up in surgical clinic
--- NOTE | 2019-01-20 10:49 | PDOC PROGRESS REPORT ---
Subjective Progress Note for:: 01/20/19 Subjective:: Mr. Miranda is a very pleasant 68-year-old gentleman who was initially admitted with left lower quadrant pain and tenderness with a CAT scan showing a microperforation of diverticulitis. Patient continued to have left lower quadrant abdominal pain on palpation especially with pressure more so than on rebound. Patient states this pain is exacerbated by movement but states that pain is well controlled at this time with Toradol and tramadol. Patient had a CAT scan on 01/14/2018 that showed a small abscess that was not amendable to drainage at this time. Patient continues on a soft diet with no complaints. 01/16/2019-patient states abdominal pain still in left lower quadrant. Patient did eat preface morning became distended and had some abdominal pain. Surgery stated they were going to repeat CAT scan at some point in time although patient may require exploratory lap. Previous CT did show a microperforation. Will await surgical recommendations. 01/17/2019-patient continues to have left lower quadrant abdominal pain. Patient states pain is getting somewhat worse but it is only when he is active. Patient also stating concern over possible expiratory lap and possible colostomy. I have talked with patient in order to set his mind a little more ease. I have also discussed case with Dr. Lindquist this a.m. 01/18/2019-improved abdominal pain today after bowel rest. Patient was seen by surgery today and okayed for brenda gabriella which he is tolerating well at this time. Abdomen much less tender on palpation at this time. Will reassess in the a.m. 01/19/2019-much improved today. Patient has no point tenderness at this time. Will discuss with surgery if we can increase patient's diet. 01/20/2019-complains of having some tachycardia while ambulating. Reason For Visit: SEPSPIS,ACUTE DIVERTICULITIS,NHL Physical Exam Vital Signs: Temp Pulse Resp BP Pulse Ox 97.8 F 89 20 145/66 H 95 01/20/19 08:07 01/20/19 08:07 01/20/19 08:07 01/20/19 08:07 01/20/19 08:07 Intake & Output 01/19/19 01/20/19 01/21/19 06:59 06:59 06:59 Intake Total 1541 2220 Output Total 1750 2250 Balance -209 -30 Weight 99.9 kg 98.7 kg General appearance: PRESENT: no acute distress, well-developed, well-nourished Neck exam: ABSENT: carotid bruit, JVD, lymphadenopathy, thyromegaly Respiratory exam: PRESENT: clear to auscultation ana. ABSENT: rales, rhonchi, wheezes Cardiovascular exam: PRESENT: RRR. ABSENT: diastolic murmur, rubs, systolic murmur Pulses: PRESENT: normal dorsalis pedis pul Vascular exam: PRESENT: normal capillary refill GI/Abdominal exam: PRESENT: soft Extremities exam: PRESENT: full ROM. ABSENT: calf tenderness, clubbing, pedal edema Neurological exam: PRESENT: alert, awake, oriented to person, oriented to place, oriented to time, oriented to situation, CN II-XII grossly intact. ABSENT: motor sensory deficit Psychiatric exam: PRESENT: appropriate affect, normal mood. ABSENT: homicidal ideation, suicidal ideation Skin exam: PRESENT: dry, intact, warm. ABSENT: cyanosis, rash Results Laboratory Results: 01/20/19 04:43 01/20/19 04:43 01/20/19 01/20/19 01/20/19 04:43 04:43 04:43 WBC 5.5 RBC 4.02 L Hgb 10.0 L Hct 31.2 L MCV 78 L MCH 24.8 L MCHC 32.0 RDW 24.0 H Plt Count 572 H Sodium 135.3 L Potassium 3.3 L Chloride 97 L Carbon Dioxide 32 H Anion Gap 6 BUN 6 L Creatinine 0.66 Est GFR ( Amer) > 60 Est GFR (Non-Af Amer) > 60 Glucose 88 Calcium 8.2 L Magnesium 1.8 01/10/19 01/10/19 18:26 18:26 Creatine Kinase < 20 L CK-MB (CK-2) < 0.22 Troponin I < 0.012 Impressions: Acute Abdomen Series 01/10/19 17:58 IMPRESSION: NO RADIOGRAPHIC EVIDENCE FOR ACUTE ABDOMINAL DISEASE. Abdomen/Pelvis CT 01/17/19 09:55 IMPRESSION: Less small-bowel distention on today's study. Small left lower quadrant fluid collection has slightly decreased in size now measured at 1.9 cm in greatest dimensions. Assessment and Plan - Diagnosis (1) Acute diverticulitis Is this a current diagnosis for this admission?: Yes Plan: Continue soft diet at this time. Patient states good pain control at this time with tramadol and Toradol. Patient had a CAT scan is worrisome for a small abscess forming and he does have nebulized with microperforation. We will continue to watch him overnight reassess in the a.m. We may have to repeat CAT scan at some point to assess if this abscesses growing to any extent. Patient continues to pass flatulence although he has not had a bowel movement in 3 days. He does not have an acute abdomen does not show any signs of small bowel obstruction at this time. 01/16/2019-patient did have soft diet this morning. Patient nurse states that patient got distended and had further abdominal pain. Patient states that he over ate. CT scan 2 days ago did show worrisome for a small abscess forming although it was not amendable to drainage. Patient may require exploratory lap for true visualization of GI complications. Will await surgical recommendations. 01/17/2019-patient continues have increased left lower quadrant abdominal pain. At this time the patient n.p.o. I am going obtain a CT scan of abdomen pelvis with IV contrast and consult surgery if need be. I have discussed case with Dr. Lindquist and she is in agreement with plan. I have added Dilaudid 0.5 mg IV every 4 hours as needed I will adjust this dose as needed. 01/18/2019-improved. Brenda quiroz at this time. Patient is being followed by surgery as well. Continue PRN pain medications. 01/19/2019-improved. Discussed with surgery will increase patient to clear l iquid full diet will continue to increase as patient can tolerate. 01/20/2019-much improved. Patient take clear liquid diet without problem at this time. Will reassess process in the a.m. await surgical recommendations for patient to return home. (2) HTN (hypertension) Qualifiers: Hypertension type: essential hypertension Qualified Code(s): I10 - Essential (primary) hypertension Is this a current diagnosis for this admission?: Yes Plan: Controlled at this time will follow me just with plan of care based on needs. 01/16/2019-controlled at this time will continue current therapy. 01/17/2019-stable controlled 01/20/2019-stable (3) Hodgkin lymphoma Is this a current diagnosis for this admission?: Yes Plan: Past found to chemotherapy was on 01/11/2019. He will continue to follow Dr. Lindquist. 01/16/2019-patient continue be followed by oncology. 01/17/2019-discussed case with Dr. Lindquist. I will give patient 300 mics of Neupogen x1, Claritin 10 mg and Solu-Medrol 40 mg as patient had a reaction to previous doses of Neupogen. Neupogen was at the request of Dr. Lindquist. 01/18/2019-continue to follow along with Dr. Lindquist. Patient's white count up to 5 today after Neupogen. Continue to follow daily CBCs 01/19/2019-following with daily CBCs and oncology. [id number] with Dr. Lindquist on discharge (4) Hypokalemia Is this a current diagnosis for this admission?: Yes Plan: Persist. Will continue potassium chloride 20 juventino p.o. daily repeat BMP in a.m. 01/16/2019-persist we will continue daily potassium replacement as well as daily BMPs. 01/17/2019-improved potassium 3.5 today. Continue daily BMPs. 01/18/2019-resolved 01/19/2019-potassium 3.6 today. 01/20/2019-potassium 3.1 today. Give potassium chloride 40 mEq p.o. times 1 repeat potassium in the a.m. (5) Anemia Qualifiers: Anemia type: unspecified type Qualified Code(s): D64.9 - Anemia, unspecified Is this a current diagnosis for this admission?: Yes - Time Time Spent with patient: 15-24 minutes - Inpatient Certification Based on my medical assessment, after consideration of the patient's comorbidities, presenting symptoms, or acuity I expect that the services needed warrant INPATIENT care.: Yes I certify that my determination is in accordance with my understanding of Medicare's requirements for reasonable and necessary INPATIENT services [42 CFR 412.3e].: Yes Medical Necessity: Other - IV fluids, IV pain management surgical consultation.
[2019-01-21] MEDS: KETOROLAC TROMETHAMINE INJ/PF 30 MG/1 ML SDV IV PRN ×3 (03:22→17:37)
[2019-01-21] MEDS: PANTOPRAZOLE SODIUM 20 MG TABLET.DR PO SCH (05:19)
[2019-01-21] MEDS: ALPRAZOLAM 0.5 MG TABLET PO SCH ×3 (05:19→21:16)
[2019-01-21 07:04] LABS: HEMATOCRIT 32.7 % (37.9-51.0); HEMOGLOBIN 10.7 g/dL (13.5-17.0); MEAN CORPUSCULAR HEMOGLOBIN 25.5 pg (27.0-33.4); MEAN CORPUSCULAR HGB CONC 32.6 g/dL (32.0-36.0); MEAN CORPUSCULAR VOLUME 78 fl (80-97); PLATELET COUNT 561 10^3/uL (150-450); RED BLOOD COUNT 4.18 10^6/uL (4.35-5.55); RED CELL DISTRIBUTION WIDTH 23.2 % (11.5-14.0); WHITE BLOOD COUNT 7.7 10^3/uL (4.0-10.5)
[2019-01-21 07:26] LABS: ANION GAP 8 (5-19); BLOOD UREA NITROGEN 7 mg/dL (7-20); CALCIUM 8.2 mg/dL (8.4-10.2); CARBON DIOXIDE 32 mmol/L (22-30); CHLORIDE 97 mmol/L (98-107); GLUCOSE 94 mg/dL (75-110); POTASSIUM 3.8 mmol/L (3.6-5.0); SODIUM 137.1 mmol/L (137-145)
[2019-01-21] MEDS: ALLOPURINOL 300 MG TABLET PO SCH (08:01)
[2019-01-21] MEDS: METOPROLOL SUCCINATE 25 MG TAB.SR.24H PO SCH (09:25)
[2019-01-21] MEDS: LISINOPRIL 10 MG TABLET PO SCH (09:25)
[2019-01-21] MEDS: POTASSIUM CHLORIDE 10 MEQ CAPSULE.ER PO SCH (09:26)
[2019-01-21] MEDS: DOCUSATE SODIUM 100 MG CAPSULE PO SCH ×2 (09:26→17:37)
[2019-01-21] MEDS: LEVOFLOXACIN 750 MG/D5W RTU 750 MG/150 ML RTUPB IV SCH (09:26)
--- NOTE | 2019-01-21 09:46 | PDOC PROGRESS REPORT ---
Subjective Progress Note for:: 01/21/19 Subjective:: Patient tolerating full liquid; feels better. Reason For Visit: SEPSPIS,ACUTE DIVERTICULITIS,NHL Physical Exam Vital Signs: Temp Pulse Resp BP Pulse Ox 97.6 F 82 16 141/68 H 99 01/21/19 08:17 01/21/19 08:17 01/21/19 08:17 01/21/19 08:17 01/21/19 08:17 Intake & Output 01/20/19 01/21/19 01/22/19 06:59 06:59 06:59 Intake Total 2220 3613 Output Total 2250 2230 Balance -30 1383 Weight 98.7 kg 99.1 kg General appearance: PRESENT: no acute distress GI/Abdominal exam: PRESENT: other - Soft, negligible abdominal tenderness Results Laboratory Results: 01/21/19 06:12 01/21/19 06:12 01/20/19 01/21/19 01/21/19 04:43 06:12 06:12 WBC 7.7 RBC 4.18 L Hgb 10.7 L Hct 32.7 L MCV 78 L MCH 25.5 L MCHC 32.6 RDW 23.2 H Plt Count 561 H Sodium 137.1 Potassium 3.8 Chloride 97 L Carbon Dioxide 32 H Anion Gap 8 BUN 7 Creatinine 0.63 Est GFR ( Amer) > 60 Est GFR (Non-Af Amer) > 60 Glucose 94 Calcium 8.2 L Magnesium 1.8 01/10/19 01/10/19 18:26 18:26 Creatine Kinase < 20 L CK-MB (CK-2) < 0.22 Troponin I < 0.012 Impressions: Acute Abdomen Series 01/10/19 17:58 IMPRESSION: NO RADIOGRAPHIC EVIDENCE FOR ACUTE ABDOMINAL DISEASE. Abdomen/Pelvis CT 01/17/19 09:55 IMPRESSION: Less small-bowel distention on today's study. Small left lower quadrant fluid collection has slightly decreased in size now measured at 1.9 cm in greatest dimensions. Assessment & Plan - Diagnosis (1) Acute diverticulitis Is this a current diagnosis for this admission?: Yes Plan: Impression: Doing better no fever tolerating diet no leukocytosis. Recommendations: 1. We will sign off from surgical standpoint 2. Suggest considering port placement on an outpatient basis after acute colonic infection resolved (2) Abdominal pain Qualifiers: Abdominal location: left lower quadrant Qualified Code(s): R10.32 - Left lower quadrant pain Is this a current diagnosis for this admission?: Yes
--- NOTE | 2019-01-21 11:02 | Progress Note Acknowledgement ---
Progress Note Acknowledgement Progess Note Acknowledgement: I, the undersigned member of the medical staff with appropriate privileges and with supervisory authority over [Brian Hernandez], a dependent practice allied health professional, acknowledge that I have reviewed the progress notes entered on this patient, and in my professional judgment believe that the assessment made and/or any care evidenced was appropriate
--- NOTE | 2019-01-21 11:07 | PDOC PROGRESS REPORT ---
Subjective Progress Note for:: 01/21/19 Subjective:: Mr. Miranda is a very pleasant 68-year-old gentleman who was initially admitted with left lower quadrant pain and tenderness with a CAT scan showing a microperforation of diverticulitis. Patient continued to have left lower quadrant abdominal pain on palpation especially with pressure more so than on rebound. Patient states this pain is exacerbated by movement but states that pain is well controlled at this time with Toradol and tramadol. Patient had a CAT scan on 01/14/2018 that showed a small abscess that was not amendable to drainage at this time. Patient continues on a soft diet with no complaints. 01/16/2019-patient states abdominal pain still in left lower quadrant. Patient did eat preface morning became distended and had some abdominal pain. Surgery stated they were going to repeat CAT scan at some point in time although patient may require exploratory lap. Previous CT did show a microperforation. Will await surgical recommendations. 01/17/2019-patient continues to have left lower quadrant abdominal pain. Patient states pain is getting somewhat worse but it is only when he is active. Patient also stating concern over possible expiratory lap and possible colostomy. I have talked with patient in order to set his mind a little more ease. I have also discussed case with Dr. Lindquist this a.m. 01/18/2019-improved abdominal pain today after bowel rest. Patient was seen by surgery today and okayed for brenda gabriella which he is tolerating well at this time. Abdomen much less tender on palpation at this time. Will reassess in the a.m. 01/19/2019-much improved today. Patient has no point tenderness at this time. Will discuss with surgery if we can increase patient's diet. 01/20/2019-complains of having some tachycardia while ambulating. 01/21/2019-no further palpitations this morning. Reason For Visit: SEPSPIS,ACUTE DIVERTICULITIS,NHL Physical Exam Vital Signs: Temp Pulse Resp BP Pulse Ox 97.6 F 82 16 141/68 H 99 01/21/19 08:17 01/21/19 08:17 01/21/19 08:17 01/21/19 08:17 01/21/19 08:17 Intake & Output 01/20/19 01/21/19 01/22/19 06:59 06:59 06:59 Intake Total 2220 3613 Output Total 2250 2230 Balance -30 1383 Weight 98.7 kg 99.1 kg General appearance: PRESENT: no acute distress, well-developed, well-nourished Head exam: PRESENT: atraumatic, normocephalic Eye exam: PRESENT: conjunctiva pink, EOMI, PERRLA. ABSENT: scleral icterus Ear exam: PRESENT: normal external ear exam Mouth exam: PRESENT: moist, tongue midline Neck exam: ABSENT: carotid bruit, JVD, lymphadenopathy, thyromegaly Respiratory exam: PRESENT: clear to auscultation ana. ABSENT: rales, rhonchi, wheezes Cardiovascular exam: PRESENT: RRR. ABSENT: diastolic murmur, rubs, systolic murmur Pulses: PRESENT: normal dorsalis pedis pul Vascular exam: PRESENT: normal capillary refill GI/Abdominal exam: PRESENT: normal bowel sounds, soft. ABSENT: distended, guarding, mass, organolmegaly, rebound, tenderness Rectal exam: PRESENT: deferred Extremities exam: PRESENT: full ROM. ABSENT: calf tenderness, clubbing, pedal edema Neurological exam: PRESENT: alert, awake, oriented to person, oriented to place, oriented to time, oriented to situation, CN II-XII grossly intact. ABSENT: motor sensory deficit Psychiatric exam: PRESENT: appropriate affect, normal mood. ABSENT: homicidal ideation, suicidal ideation Skin exam: PRESENT: dry, intact, warm. ABSENT: cyanosis, rash Results Laboratory Results: 01/21/19 06:12 01/21/19 06:12 01/21/19 01/21/19 06:12 06:12 WBC 7.7 RBC 4.18 L Hgb 10.7 L Hct 32.7 L MCV 78 L MCH 25.5 L MCHC 32.6 RDW 23.2 H Plt Count 561 H Sodium 137.1 Potassium 3.8 Chloride 97 L Carbon Dioxide 32 H Anion Gap 8 BUN 7 Creatinine 0.63 Est GFR ( Amer) > 60 Est GFR (Non-Af Amer) > 60 Glucose 94 Calcium 8.2 L 01/10/19 01/10/19 18:26 18:26 Creatine Kinase < 20 L CK-MB (CK-2) < 0.22 Troponin I < 0.012 Impressions: Acute Abdomen Series 01/10/19 17:58 IMPRESSION: NO RADIOGRAPHIC EVIDENCE FOR ACUTE ABDOMINAL DISEASE. Abdomen/Pelvis CT 01/17/19 09:55 IMPRESSION: Less small-bowel distention on today's study. Small left lower quadrant fluid collection has slightly decreased in size now measured at 1.9 cm in greatest dimensions. Assessment and Plan - Diagnosis (1) Acute diverticulitis Is this a current diagnosis for this admission?: Yes Plan: Continue soft diet at this time. Patient states good pain control at this time with tramadol and Toradol. Patient had a CAT scan is worrisome for a small abscess forming and he does have nebulized with microperforation. We will continue to watch him overnight reassess in the a.m. We may have to repeat CAT scan at some point to assess if this abscesses growing to any extent. Patient continues to pass flatulence although he has not had a bowel movement in 3 days. He does not have an acute abdomen does not show any signs of small bowel obstruction at this time. 01/16/2019-patient did have soft diet this morning. Patient nurse states that patient got distended and had further abdominal pain. Patient states that he over ate. CT scan 2 days ago did show worrisome for a small abscess forming although it was not amendable to drainage. Patient may require exploratory lap for true visualization of GI complications. Will await surgical recommendations. 01/17/2019-patient continues have increased left lower quadrant abdominal pain. At this time the patient n.p.o. I am going obtain a CT scan of abdomen pelvis with IV contrast and consult surgery if need be. I have discussed case with Dr. Lindquist and she is in agreement with plan. I have added Dilaudid 0.5 mg IV every 4 hours as needed I will adjust this dose as needed. 01/18/2019-improved. Brenda quiroz at this time. Patient is being followed by surgery as well. Continue PRN pain medications. 01/19/2019-improved. Discussed with surgery will increase patient to clear liquid full diet will continue to increase as patient can tolerate. 01/20/2019-much improved. Patient take clear liquid diet without problem at this time. Will reassess process in the a.m. await surgical recommendations for patient to return home. 01/21/2019-patient feels much better today. Surgery is signed off. Advance diet to full. If patient tolerates anticipate discharge home tomorrow (2) HTN (hypertension) Qualifiers: Hypertension type: essential hypertension Qualified Code(s): I10 - Essential (primary) hypertension Is this a current diagnosis for this admission?: Yes Plan: Controlled at this time will follow me just with plan of care based on needs. 01/16/2019-controlled at this time will continue current therapy. 01/17/2019-stable controlled 01/20/2019-stable 01/21/2019-stable (3) Hodgkin lymphoma Is this a current diagnosis for this admission?: Yes Plan: Past found to chemotherapy was on 01/11/2019. He will continue to follow Dr. Lindquist. 01/16/2019-patient continue be followed by oncology. 01/17/2019-discussed case with Dr. Lindquist. I will give patient 300 mics of Neupogen x1, Claritin 10 mg and Solu-Medrol 40 mg as patient had a reaction to previous doses of Neupogen. Neupogen was at the request of Dr. Lindquist. 01/18/2019-continue to follow along with Dr. Lindquist. Patient's white count up to 5 today after Neupogen. Continue to follow daily CBCs 01/19/2019-following with daily CBCs and oncology. 01/[id number] with Dr. Lindquist on discharge 01/21/2019-anticipate discharge home tomorrow. At that time patient can scheduled to have outpatient port placed for chemotherapy. Dr. Lindquist will follow. (4) Hypokalemia Is this a current diagnosis for this admission?: Yes Plan: Persist. Will continue potassium chloride 20 juventino p.o. daily repeat BMP in a.m. 01/16/2019-persist we will continue daily potassium replacement as well as daily BMPs. 01/17/2019-improved potassium 3.5 today. Continue daily BMPs. 01/18/2019-resolved 01/19/2019-potassium 3.6 today. 01/20/2019-potassium 3.1 today. Give potassium chloride 40 mEq p.o. times 1 repeat potassium in the a.m. 01/21/2019-resolved repeat potassium in the a.m. (5) Anemia Qualifiers: Anemia type: unspecified type Qualified Code(s): D64.9 - Anemia, unspecified Is this a current diagnosis for this admission?: Yes Plan: 01/16/2019-persistent. I believe stable at this time but I will obtain a stool for occult blood. Patient's hemoglobin in the mid 8's for the last 4 draws. Repeat CBC in a.m. hold heparin this time place patient on SCD's for DVT prophylaxis. 01/17/2019-stable continue to follow daily CBCs. 01/18/2019-stable, daily CBCs 01/19/2019-remained stable 01/21/2019-stable - Time Time Spent with patient: 15-24 minutes - Inpatient Certification Based on my medical assessment, after consideration of the patient's comorbidities, presenting symptoms, or acuity I expect that the services needed warrant INPATIENT care.: Yes I certify that my determination is in accordance with my understanding of Medicare's requirements for reasonable and necessary INPATIENT services [42 CFR 412.3e].: Yes Medical Necessity: Other - Advance diet and pain control.
[2019-01-22] MEDS: PANTOPRAZOLE SODIUM 20 MG TABLET.DR PO SCH (05:16)
[2019-01-22] MEDS: ALPRAZOLAM 0.5 MG TABLET PO SCH ×3 (05:16→21:26)
[2019-01-22] MEDS: ALLOPURINOL 300 MG TABLET PO SCH (07:55)
[2019-01-22] MEDS: POTASSIUM CHLORIDE 10 MEQ CAPSULE.ER PO SCH (09:08)
[2019-01-22] MEDS: METOPROLOL SUCCINATE 25 MG TAB.SR.24H PO SCH (09:09)
[2019-01-22] MEDS: LEVOFLOXACIN 750 MG/D5W RTU 750 MG/150 ML RTUPB IV SCH (09:09)
[2019-01-22] MEDS: DOCUSATE SODIUM 100 MG CAPSULE PO SCH ×2 (09:09→17:15)
[2019-01-22] MEDS: LISINOPRIL 10 MG TABLET PO SCH (09:09)
[2019-01-22] MEDS: KETOROLAC TROMETHAMINE INJ/PF 30 MG/1 ML SDV IV PRN ×2 (09:17→17:16)
[2019-01-22] MEDS ORDERED: LISINOPRIL 10 MG TABLET PO ONE (14:00)
[2019-01-23] MEDS: KETOROLAC TROMETHAMINE INJ/PF 30 MG/1 ML SDV IV PRN ×2 (01:49→09:09)
[2019-01-23] MEDS: ALPRAZOLAM 0.5 MG TABLET PO SCH ×2 (05:07→14:24)
[2019-01-23] MEDS: PANTOPRAZOLE SODIUM 20 MG TABLET.DR PO SCH (05:07)
[2019-01-23 08:49] VITALS: BP 154/86
[2019-01-23] MEDS: POTASSIUM CHLORIDE 10 MEQ CAPSULE.ER PO SCH (09:09)
[2019-01-23] MEDS: DOCUSATE SODIUM 100 MG CAPSULE PO SCH (09:09)
[2019-01-23] MEDS: ALLOPURINOL 300 MG TABLET PO SCH (09:09)
[2019-01-23] MEDS: LISINOPRIL 10 MG TABLET PO SCH (09:09)
[2019-01-23] MEDS: METOPROLOL SUCCINATE 25 MG TAB.SR.24H PO SCH (09:09)
[2019-01-23] MEDS: LEVOFLOXACIN 750 MG/D5W RTU 750 MG/150 ML RTUPB IV SCH (09:09)
[2019-01-23] MEDS: NYSTATIN/DEXAMETH/DIPHEN SUSP 120 ML PO PRN (09:12)
--- NOTE | 2019-01-24 17:21 | PDOC PROGRESS REPORT ---
Subjective Progress Note for:: 01/22/19 Subjective:: Mr. Miranda is a very pleasant 68-year-old gentleman who was initially admitted with left lower quadrant pain and tenderness with a CAT scan showing a microperforation of diverticulitis. Patient continued to have left lower quadrant abdominal pain on palpation especially with pressure more so than on rebound. Patient states this pain is exacerbated by movement but states that pain is well controlled at this time with Toradol and tramadol. Patient had a CAT scan on 01/14/2018 that showed a small abscess that was not amendable to drainage at this time. Patient continues on a soft diet with no complaints. 01/22/2019. No acute events overnight, patient still complaining of left lower abdominal pain which has improved since admission, having normal bowel movement and denies any fever, chills, nausea, vomiting, diarrhea, constipation or any urinary symptoms. Reason For Visit: SEPSPIS,ACUTE DIVERTICULITIS,NHL Physical Exam Vital Signs: Temp Pulse Resp BP Pulse Ox 97.7 F 84 18 146/76 H 95 01/23/19 08:01 01/23/19 08:01 01/23/19 08:01 01/23/19 08:01 01/23/19 08:01 Intake & Output 01/23/19 01/24/19 01/25/19 06:59 06:59 06:59 Intake Total 1930 720 Output Total 2225 Balance -295 720 Weight 99 kg General appearance: PRESENT: no acute distress, well-developed, well-nourished Head exam: PRESENT: atraumatic, normocephalic Respiratory exam: PRESENT: clear to auscultation ana. ABSENT: rales, rhonchi, wheezes Cardiovascular exam: PRESENT: RRR. ABSENT: diastolic murmur, rubs, systolic murmur GI/Abdominal exam: PRESENT: tenderness - Left lower quadrant Neurological exam: PRESENT: alert, awake, oriented to person, oriented to place, oriented to time, oriented to situation, CN II-XII grossly intact. ABSENT: motor sensory deficit Results Laboratory Results: 01/21/19 06:12 01/21/19 06:12 01/10/19 01/10/19 18:26 18:26 Creatine Kinase < 20 L CK-MB (CK-2) < 0.22 Troponin I < 0.012 Impressions: Acute Abdomen Series 01/10/19 17:58 IMPRESSION: NO RADIOGRAPHIC EVIDENCE FOR ACUTE ABDOMINAL DISEASE. Abdomen/Pelvis CT 01/17/19 09:55 IMPRESSION: Less small-bowel distention on today's study. Small left lower quadrant fluid collection has slightly decreased in size now measured at 1.9 cm in greatest dimensions. Assessment and Plan - Diagnosis (1) Acute diverticulitis Is this a current diagnosis for this admission?: Yes Plan: Much improved. Having normal bowel movement. Minimal pain. Surgery has signed off. Surgery was consulted initially and no intervention was recommended and close observation and IV antibiotics recommended. Received 1 dose levofloxacin IV on 01/10/2019. Received and meropenem . Received levofloxacin from . Received metronidazole from . 01/10/2019. CT abdomen: 1. Acute diverticulitis involving the descending colon with microperforation. No abscess or fluid collection is seen however. 2. Unchanged bulky retroperitoneal and right hilar adenopathy along with small hypodense lesions in the pancreas and spleen, which may be related to patient's history of lymphoma. (2) Hodgkin lymphoma Is this a current diagnosis for this admission?: Yes Plan: Dr. Lindquist was updated on [id number]. Recommendations were noted. Outpatient follow-up with Dr. Tucker. (3) Anemia Qualifiers: Anemia type: unspecified type Qualified Code(s): D64.9 - Anemia, unspecified Is this a current diagnosis for this admission?: Yes Plan: H&H remained stable. H&H monitor daily. Stool guaiac negative. (4) HTN (hypertension) Qualifiers: Hypertension type: essential hypertension Qualified Code(s): I10 - Essential (primary) hypertension Is this a current diagnosis for this admission?: Yes Plan: Uncontrolled. On lisinopril and metoprolol. Monitor vitals and adjust meds as needed. Outpatient PCP follow-up. (5) Hypokalemia Is this a current diagnosis for this admission?: Yes Plan: Likely due to GI losses. Daily BMP. Replace as needed. Potassium WNL.
--- NOTE | 2019-01-24 17:40 | PDOC DISCHARGE SUMMARY ---
General - Admit/Disc Date/PCP Admission Date/Primary Care Provider: 01/10/19 22:53 MALENA MANDUJANO MD Discharge Date: 01/23/19 - Discharge Diagnosis (1) Acute diverticulitis Is this a current diagnosis for this admission?: Yes (2) Hodgkin lymphoma Is this a current diagnosis for this admission?: Yes (3) Anemia Is this a current diagnosis for this admission?: Yes (4) HTN (hypertension) Is this a current diagnosis for this admission?: Yes (5) Hypokalemia Is this a current diagnosis for this admission?: Yes - Additional Information Resuscitation Status: Full Code Prescriptions: Lisinopril [Zestril] 40 mg PO DAILY 30 Days #30 tablet Home Medications: Alprazolam [Xanax] 1 mg PO Q8 01/11/19 Metoprolol Succinate [Toprol Xl 25 mg Tab.sr] 25 mg PO DAILY 01/11/19 Nystatin/Dexameth/Diphen [Magic Mouthwash] 5 ml PO QID 01/11/19 Tramadol HCl [Ultram 50 mg Tablet] 50 mg PO Q8 01/11/19 Zolpidem Tartrate [Ambien] 10 mg PO QHS 01/11/19 Lisinopril [Zestril] 40 mg PO DAILY 30 Days #30 tablet 01/23/19 History of Present Illness History of Present Illness: LIAM GOLDMAN is a 68 year old male with a past medical history of GERD, anxiety, Hodgkin's lymphoma under treatment with Dr. Mandujano last chemotherapy 2 days ago. He presents with several days of constipation and left lower quadrant pain prompting evaluation in the emergency department where he has a CT revealing diverticulitis with microperforation and leukocytosis with bandemia. He is started on empiric antibiotics and referred to the hospitalist for admission. Patient admits to previous episode of diverticulitis approximately 5 or 6 years ago. Hospital Course Hospital Course: (1) Acute diverticulitis Much improved. Having normal bowel movement. Minimal pain. Surgery was consulted initially and no intervention was recommended and close observation and IV antibiotics recommended. Received IV antibiotics for total of 13 days. Received 1 dose levofloxacin IV on 01/10/2019. Received and meropenem . Received metronidazole from . Received levofloxacin from . 01/10/2019. CT abdomen: 1. Acute diverticulitis involving the descending colon with microperforation. No abscess or fluid collection is seen however. 2. Unchanged bulky retroperitoneal and right hilar adenopathy along with small hypodense lesions in the pancreas and spleen, which may be related to patient's history of lymphoma. 01/17/2019. Repeat CT abdomen. Less small-bowel distention on today's study. Small left lower quadrant fluid collection has slightly decreased in size now measured at 1.9 cm in greatest dimensions. (2) Hodgkin lymphoma Dr. Mandujano was contacted and updated about patient's by the attending. Recommendations were carried out. Plan was made for patient to see Dr. Mandujano on 01/28/2019. (3) Anemia H&H remained stable. H&H monitor daily. Stool guaiac negative. (4) HTN (hypertension) Improved, but not optimized. On lisinopril and metoprolol. His lisinopril was increased from 10 to 40 mg p.o. daily. Patient was advised to follow-up with PCP for readjustment of his BP meds. An appointment was made for him to follow-up at the [facility] on 01/30/2019. (5) Hypokalemia Likely due to GI losses. Daily BMP. Replace as needed. Potassium WNL. Physical Exam Vital Signs: Temp Pulse Resp BP Pulse Ox 97.7 F 84 18 146/76 H 95 01/23/19 08:01 01/23/19 08:01 01/23/19 08:01 01/23/19 08:01 01/23/19 08:01 Intake & Output 01/23/19 01/24/19 01/25/19 06:59 06:59 06:59 Intake Total 1930 720 Output Total 2225 Balance -295 720 Weight 99 kg General appearance: PRESENT: no acute distress, well-developed, well-nourished Head exam: PRESENT: atraumatic, normocephalic Eye exam: PRESENT: conjunctiva pink, EOMI, PERRLA. ABSENT: scleral icterus Ear exam: PRESENT: normal external ear exam Mouth exam: PRESENT: moist, tongue midline Neck exam: ABSENT: carotid bruit, JVD, lymphadenopathy, thyromegaly Respiratory exam: PRESENT: clear to auscultation ana. ABSENT: rales, rhonchi, wheezes Cardiovascular exam: PRESENT: RRR. ABSENT: diastolic murmur, rubs, systolic murmur Pulses: PRESENT: normal dorsalis pedis pul Vascular exam: PRESENT: normal capillary refill GI/Abdominal exam: PRESENT: normal bowel sounds, soft. ABSENT: distended, guarding, mass, organolmegaly, rebound, tenderness Rectal exam: PRESENT: deferred Extremities exam: PRESENT: full ROM. ABSENT: calf tenderness, clubbing, pedal edema Neurological exam: PRESENT: alert, awake, oriented to person, oriented to place, oriented to time, oriented to situation, CN II-XII grossly intact. ABSENT: motor sensory deficit Psychiatric exam: PRESENT: appropriate affect, normal mood. ABSENT: homicidal ideation, suicidal ideation Skin exam: PRESENT: dry, intact, warm. ABSENT: cyanosis, rash Results Laboratory Results: 01/21/19 06:12 01/21/19 06:12 01/10/19 01/10/19 18:26 18:26 Creatine Kinase < 20 L CK-MB (CK-2) < 0.22 Troponin I < 0.012 Impressions: Acute Abdomen Series 01/10/19 17:58 IMPRESSION: NO RADIOGRAPHIC EVIDENCE FOR ACUTE ABDOMINAL DISEASE. Abdomen/Pelvis CT 01/17/19 09:55 IMPRESSION: Less small-bowel distention on today's study. Small left lower quadrant fluid collection has slightly decreased in size now measured at 1.9 cm in greatest dimensions. Qualifiers - * PATIENT BEING DISCHARGED WITH ANY OF THE FOLLOWING DIAGNOSIS: No Acute Heart Failure - Is this a Heart Failure Patient?: No
== END 2019-01-23 14:37 | disposition home or self-care (01) | DRG 392 ==
LOC: ER 17:40 → EH 22:53 → 3N 01-11 02:05
PROVIDERS: ADMIT Internal Medicine; ATTEND Internal Medicine
DX: K57.20 Diverticulitis of large intestine with perforation and abscess without bleeding (principal); C81.90 Hodgkin lymphoma, unspecified, unspecified site; E87.6 Hypokalemia; K59.00 Constipation, unspecified; D64.9 Anemia, unspecified; I10 Essential (primary) hypertension; K21.9 Gastro-esophageal reflux disease without esophagitis; F41.9 Anxiety disorder, unspecified; Z79.01 Long term (current) use of anticoagulants; Z79.899 Other long term (current) drug therapy
CPT/HCPCS: 36415; 74022; 74177; 80048; 80053; 81001; 82272; 82550; 82553; 83605; 83690; 83735; 84484; 85025; 85027; 87040; 93005; 93010; 96361; 96374; 96375; 99285; J0743; J1170; J1442; J1644; J1885; J1956; J2270; J2405; J2920; J3010; J3490; J7030; J7040; J7050

== ENCOUNTER → 2019-02-08 | Outpatient (CLI) | payer OTHER, MEDICARE ==
--- NOTE | 2019-01-17 12:35 | PROGRESS NOTE E ---
Progress Note NAME: LIAM GOLDMAN : 1950 AGE: 68Y DATE: 01/17/2019 ROOM: SUBJECTIVE: The patient is a 68-year-old man who was diagnosed with classical Hodgkin's lymphoma December 2018, he had presented with generalized feeling of being unwell which started around July of 2018 with weight loss and loss of appetite. He also had some swallowing difficulty. He had lost approximately 50 pounds. He had CAT scan of his chest and abdomen done that had shown suspicious lymphadenopathy both in his chest and abdomen. He had a biopsy of one of the abdominal lymph nodes and it was consistent with Hodgkin's lymphoma, classical. He was started on ABVD chemotherapy December 12, 2018, 3 doses. His last treatment was January 07, 2019. He was admitted into the hospital January 10, 2019 with left lower quadrant pain. He had a CAT scan of the abdomen that showed acute diverticulitis involving the descending colon with microperforation. He has since been on admission receiving antibiotics. I saw him at the bedside today. OBJECTIVE: On exam, he is an elderly man. He is not acutely ill-looking but appears to have a lot of discomfort in his left lower quadrant of his abdomen. He has had no fever. He has good air entry bilaterally. Abdomen is soft and tender in left lower quadrant. Bowel sounds present, refused. Extremities no edema. Labs shows neutropenia. A CAT scan of the abdomen, as stated above. ASSESSMENT/PLAN: The patient is a 68-year-old man with classical Hodgkin's lymphoma. He is status post ABVD chemotherapy. His last treatment was January 07, 2019. The plan was for him to receive 6 months of therapy. I had a long discussion with him today explaining that chemotherapy is on hold until this acute episode is resolved. He is unable to receive chemotherapy with ongoing infection. I agree with obtaining another CAT scan to reevaluate his left lower quadrant pain. I explained that he may need surgery if he has a perforation of his abdomen. I will plan on seeing him back for followup as an outpatient after he discharges from the hospital. Thank you for this consultation and allowing me to be a part of his care. DICTATING PHYSICIAN: MALENA MANDUJANO M.D. [id number] PHY#: [id number] ID: [id number] JOB#: [id number] ACCT: [id number] cc: >
[~2019-02-08] MED LIST: ALBUTEROL SULFATE 0.083% NEB 2.5 MG/3 ML AMPUL NEB ONE
--- NOTE | 2019-02-12 13:17 | Pulmonary Function Test ---
Pulmonary Function Test Date of Procedure:: 02/08/19 INDICATION:: Dyspnea Referring Provider: Dr. Lindquist Garage Hand: Judith Sandoval, SCREEDMAN/LABORER, COMPUTERIZED MACHINE [employer]AB[employer]IC CUTTER - Report Spirometry: Spirometry: pre-FVC: 4.03 L 75% post-FVC 4.01 L 85% pre-FEV:1 2.58 L 61% post-FEV1; 2.99 L 71% pre-FEV1/FVC % 64 post-FEV1/FVC% 75 predicted 78 [id number]% 1.32 L 32% [id number]% 2.40 L 59% Diffusion Capactity: DLCO: 23.7 89% DLCO/VA: 3.63 97% Impression: Moderate obstructive ventilatory defect. Good response to bronchodilator therapy. Additional restrictive lung defect cannot be excluded by spirometry alone. Normal diffusion capacity.
== END ==
LOC: RT 14:07
PROVIDERS: ATTEND Internal Medicine Medical Oncology
DX: R06.02 Shortness of breath (principal)
CPT/HCPCS: 94060; 94729

== ENCOUNTER 2019-02-13 13:02 | Day surgery (SDC) | payer OTHER, MEDICARE ==
[2019-02-08 12:35] LABS: ANION GAP 6 (5-19); BLOOD UREA NITROGEN 6 mg/dL (7-20); CALCIUM 8.8 mg/dL (8.4-10.2); CARBON DIOXIDE 30 mmol/L (22-30); CHLORIDE 103 mmol/L (98-107); GLUCOSE 126 mg/dL (75-110); POTASSIUM 3.7 mmol/L (3.6-5.0)
[2019-02-08 16:51] LABS: HEMATOCRIT 36.7 % (37.9-51.0); HEMOGLOBIN 11.7 g/dL (13.5-17.0); MEAN CORPUSCULAR HEMOGLOBIN 26.6 pg (27.0-33.4); MEAN CORPUSCULAR HGB CONC 31.8 g/dL (32.0-36.0); PLATELET COUNT 348 10^3/uL (150-450); RED BLOOD COUNT 4.38 10^6/uL (4.35-5.55); RED CELL DISTRIBUTION WIDTH 25.1 % (11.5-14.0); WHITE BLOOD COUNT 8.5 10^3/uL (4.0-10.5)
[2019-02-08 17:04] LABS: MEAN CORPUSCULAR VOLUME 84 fl (80-97)
[~2019-02-13 13:02] MED LIST changes: +ACETAMINOPHEN 325 MG TABLET PO PRN; -ALBUTEROL SULFATE 0.083% NEB 2.5 MG/3 ML AMPUL NEB ONE; +CLINDAMYCIN 600 MG/D5W RTU 600 MG/50 ML RTUPB IV PRN; +LACTATED RINGERS 1000 ML IV PRN; +LIDOCAINE 0.5% INJ-PF (5 MG/ML) 50 ML SDV SUBCUT PRN
[2019-02-13] MEDS ORDERED: CLINDAMYCIN 600 MG/D5W RTU 600 MG/50 ML RTUPB IV ONE (14:27)
[2019-02-13] MEDS ORDERED: FENTANYL CITRATE INJ/PF 100 MCG/2 ML AMPUL ONE (16:23)
[2019-02-13] MEDS ORDERED: MIDAZOLAM 2 MG/2 ML INJ ONE (16:23)
[2019-02-13] MEDS ORDERED: PROPOFOL INJ 200 MG/20 ML VIAL IV ONE (16:23)
[2019-02-13] MEDS ORDERED: LIDOCAINE 1%/EPINEPHRINE INJ 20 ML VIAL INFIL ONE ×2 (17:00)
[2019-02-13] MEDS ORDERED: ONDANSETRON HCL INJ/PF 4 MG/2 ML SDV IV PRN (17:01)
[2019-02-13] MEDS ORDERED: FENTANYL CITRATE INJ/PF 100 MCG/2 ML AMPUL IV PRN ×3 (17:01)
[2019-02-13] MEDS ORDERED: MORPHINE SULFATE 10 MG/ML INJ IV PRN (17:01)
[2019-02-13] MEDS ORDERED: OXYCODONE-ACETAMINOPHEN 5-325 MG TABLET PO PRN ×2 (17:01)
[2019-02-13] MEDS ORDERED: DIPHENHYDRAMINE HCL 50 MG/ML VIAL IV PRN (17:01)
[2019-02-13] MEDS ORDERED: MEPERIDINE HCL/PF INJ 25 MG/1 ML DISP.SYRIN IV PRN (17:01)
--- NOTE | 2019-02-13 17:24 | Discharge Summary ---
Discharge Summary (SDC) - Discharge Final Diagnosis: Hodgkin's lymphoma Date of Surgery: 02/13/19 Discharge Date: 02/13/19 Condition: Good Treatment or Instructions: May use catheter; return to surgical clinic for follow-up check in 2 weeks; shower in 48 hours Referrals: CHRIS WAKEFIELD MD [ACTIVE STAFF] - 02/22/19 1:15 pm [facility] [Primary Care Provider] - Discharge Diet: As Tolerated Discharge Activity: No Lifting Over 10 Pounds, No Lifting/Push/Pulling Home Care Assistance: None Needed Report the Following to Your Physician Immediately: Shortness of Breath, Increase in Pain, Fever over 101 Degrees
--- NOTE | 2019-02-13 17:28 | Operative Report ---
Operative Report DATE OF SURGERY: 02/13/19 PREOPERATIVE DIAGNOSIS: Hodgkin's lymphoma POSTOPERATIVE DIAGNOSIS: Same OPERATION: 1. Focused ultrasound of the right neck and ultrasound directed insertion of micro introducer. 2. Placement of right subclavian [id number] catheter, single-chamber. 3. Interpretation of intraoperative fluoroscopy SURGEON: CHRIS GODINEZ ANESTHESIA: LMAC TISSUE REMOVED OR ALTERED: None COMPLICATIONS: None ESTIMATED BLOOD LOSS: Scant INTRAOPERATIVE FINDINGS: See below PROCEDURE: The patient was seen in the preop holding her with the right neck was marked. Then taken the main operating room where LMAC anesthesia was induced. Right arm tucked, neck and chest wall prepped and draped in sterile fashion Surgical plan and surgical time were conducted. The neck was scanned with a variable frequency linear transducer. Skin was anesthetized 1% plain lidocaine Using a Seldinger technique, a micro needle and wire were threaded into the right internal jugular vein. Suitable site for placement of the port was chosen in the right subclavian position. The skin was anesthetized with 1% plain lidocaine. A 2-1/2 cm incision was made with a knife, 15 blade, and a port pocket developed large enough to accommodate dual-chamber port. The catheter was then tunneled between the 2 incisions, trimmed to the appropriate length, then the catheter was attached to the port. The port was tucked into the pocket. The micro wire was switched over to a conventional 0.030 guidewire using the micro introducer sheath. A 9 Setswana catheter follow up clerk sheath and dilator were threaded over the wire. The dilator and wire removed, catheter threaded into the strip away sheath, and the catheter was left into the internal jugular vein. Fluoroscopically at the tip of the catheter was a superior vena cava. There is no kinking of catheter. There was excellent aspiration and flush through the catheter. We felt the operation was complete. All wounds closed with 3-0 Vicryl benzoin and Steri-Strips. Patient tolerated procedure well, taken to recovery in stable condition. Dr. Godinez dictating.
--- NOTE | 2019-02-13 17:40 | EKG REPORT ---
SEVERITY:- NORMAL ECG - SINUS RHYTHM : Confirmed by: Jono Guaman MD 13-Feb-2019 17:40:26
[2019-02-13 19:48] VITALS: BP 159/69
--- NOTE | 2019-02-14 11:15 | RADIOLOGY REPORT (SQ) ---
EXAM DESCRIPTION: FLUORO/CV PLACEMENT COMPLETED DATE/TIME: 02/13/2019 5:35 pm REASON FOR STUDY: PORTACATH RT SIDE C81.90 HODGKIN LYMPHOMA, UNSPECIFIED, UNSPECIFIED SITE COMPARISON: Two-view chest 12/29/2018 FLUOROSCOPY TIME: 6 seconds 4 digital C-arm images saved to PACS. TECHNIQUE: Intra-operative images acquired during surgical procedure to evaluate progress. NUMBER OF IMAGES: 4 digital C-arm images LIMITATIONS: None. FINDINGS: Intra procedural imaging and fluoro during placement of a right-sided permanent central li ne. Please see the operative report for further details IMPRESSION: Intra procedural imaging and fluoro COMMENT: Quality ID [id number]: Final reports for procedures using fluoroscopy that document radiation exp osure indices, or exposure time and number of fluorographic images (if radiation exposure indices are not available) Please consult full operative report of the attending physician for description of the procedure. TECHNICAL DOCUMENTATION: JOB ID: [id number] [employer]- All Rights Reserved Reading location - IP/workstation name: [email or web address]
== END 2019-02-13 19:54 | disposition home or self-care (01) ==
LOC: OROUT 13:02
PROVIDERS: ATTEND Surgery
DX: C81.90 Hodgkin lymphoma, unspecified, unspecified site (principal); R00.2 Palpitations; I10 Essential (primary) hypertension; Z79.899 Other long term (current) drug therapy
CPT/HCPCS: 36561; 36415; 85027; 80048; 77001; 93005; 93010; C1752; C1788; J2250; J3010; J3490; J2704; J1642; 532

== ENCOUNTER → 2019-03-05 | Outpatient (CLI) | payer OTHER ==
--- NOTE | 2019-03-06 10:39 | RADIOLOGY REPORT (SQ) ---
EXAM DESCRIPTION: PET CT SKULL/THIGH COMPLETED DATE/TIME: 03/05/2019 9:20 pm REASON FOR STUDY: (C81.70)OTHER HODGKIN LYMPHOMA, UNSPECIFIED SITE C81.70 OTHER HODGKIN LYMPHOMA, U NSPECIFIED SITE COMPARISON: PET-CT dated 11/25/2018, CT abdomen pelvis dated 01/17/2019 RADIONUCLIDE AND DOSE: 9.88 mCi F18 FDG The route of agent administration: Intravenous FASTING BLOOD SUGAR: 95 mg/dl CONTRAST TYPE AND DOSE: No CT contrast given. TECHNIQUE: Blood glucose level was verified. Above dose of FDG was injected intravenously. 2-D seg mented attenuation correction images were obtained from the base of the skull to the midthighs. Nonc ontrast CT images were obtained for attenuation correction and fusion with emission images. CT image s were performed without oral or intravenous contrast and are not sensitive for parenchymal lesions. A series of overlapping emission PET images were obtained. Images reviewed and manipulated at [facility] work station by the radiologist. Images stored on PACS. LIMITATIONS: None. FINDINGS: HEAD AND NECK: No areas of abnormal metabolic activity in the soft tissues of the head and neck. CHEST: No areas of abnormal metabolic activity in the chest. ABDOMEN AND PELVIS: No areas of abnormal metabolic activity in the abdomen or pelvis. Expected physi ologic activity is present in the genitourinary system and bowel. PROXIMAL LOWER EXTREMITIES: No areas of abnormal metabolic activity in the soft tissues of the lower extremities. BONES: No abnormal metabolic activity in the visualized skeleton. ADDITIONAL CT FINDINGS: Persistent periaortic and retroperitoneal adenopathy but no abnormal activity on today's study. The mediastinal adenopathy is significantly improved as well large hiatal hernia is again noted. OTHER: No other significant findings. IMPRESSION: 1. Persistent mediastinal and periaortic adenopathy. The number of nodes and size have significantly decreased since prior PET-CT. There is no abnormal metabolic activity on today's exam. TECHNICAL DOCUMENTATION: JOB ID: [id number] [employer]- All Rights Reserved Reading location - IP/workstation name: [email or web address]
== END ==
LOC: RAD 18:32
PROVIDERS: ATTEND Internal Medicine Medical Oncology
DX: C81.70 Other Hodgkin lymphoma, unspecified site (principal)
CPT/HCPCS: 78815; A9552

== ENCOUNTER → 2019-03-29 | Outpatient (CLI) | payer OTHER ==
[2019-03-29 14:56] LABS: HEMATOCRIT 34.4 % (37.9-51.0); HEMOGLOBIN 11.6 g/dL (13.5-17.0); MEAN CORPUSCULAR HEMOGLOBIN 28.7 pg (27.0-33.4); MEAN CORPUSCULAR HGB CONC 33.7 g/dL (32.0-36.0); MEAN CORPUSCULAR VOLUME 85 fl (80-97); PLATELET COUNT 361 10^3/uL (150-450); RED BLOOD COUNT 4.03 10^6/uL (4.35-5.55); RED CELL DISTRIBUTION WIDTH 20.6 % (11.5-14.0); WHITE BLOOD COUNT 2.1 10^3/uL (4.0-10.5)
[2019-03-29 15:11] LABS: ALBUMIN 3.6 g/dL (3.5-5.0); ALKALINE PHOSPHATASE 78 U/L (38-126); ANION GAP 8 (5-19); ASPARTATE AMINO TRANSFERASE 31 U/L (17-59); BILIRUBIN,DIRECT 0.1 mg/dL (0.0-0.4); BILIRUBIN,TOTAL 0.4 mg/dL (0.2-1.3); BLOOD UREA NITROGEN 7 mg/dL (7-20); CARBON DIOXIDE 31 mmol/L (22-30); CHLORIDE 100 mmol/L (98-107); GLUCOSE 110 mg/dL (75-110); POTASSIUM 4.9 mmol/L (3.6-5.0); TOTAL PROTEIN 6.2 g/dL (6.3-8.2)
[2019-03-29 15:44] LABS: ABSOLUTE LYMPHOCYTES# (MANUAL) 0.9 10^3/uL (0.5-4.7); ABSOLUTE MONOCYTES # (MANUAL) 0.1 10^3/uL (0.1-1.4); BASOPHILS % (MANUAL) 1 % (0-2); EOSINOPHILS % (MANUAL) 1 % (0-6); LYMPHOCYTES % (MANUAL) 43 % (13-45); MONOCYTES % (MANUAL) 5 % (3-13); NUCLEATED RED BLOOD CELLS 1 /100 WBC (0); SEGMENTED NEUTROPHILS % (MAN) 50 % (42-78); TOTAL CELLS COUNTED 100
[2019-03-29 15:45] LABS: ANISOCYTOSIS 1+; PLATELET COMMENT ADEQUATE; TOXIC GRANULATION SLIGHT
== END ==
LOC: OD 13:50
PROVIDERS: ATTEND Internal Medicine Medical Oncology
DX: C81.70 Other Hodgkin lymphoma, unspecified site (principal)
CPT/HCPCS: 36415; 80053; 85025

== ENCOUNTER 2019-04-19 09:14 | Outpatient (CLI) | payer MEDICARE, OTHER ==
[~2019-04-19 09:14] MED LIST changes: -ACETAMINOPHEN 325 MG TABLET PO PRN; -CLINDAMYCIN 600 MG/D5W RTU 600 MG/50 ML RTUPB IV PRN; +DACARBAZINE IV PRN; +DEXAMETHASONE SOD PHOSPHATE 10 MG in NORMAL SALINE 50 ML IV PRN; +DISPOSABLE IV PRN; +DOXORUBICIN HCL IV PRN; -LACTATED RINGERS 1000 ML IV PRN; -LIDOCAINE 0.5% INJ-PF (5 MG/ML) 50 ML SDV SUBCUT PRN; +NORMAL SALINE 250 ML IV PRN; +NORMAL SALINE IV PRN; +PALONOSETRON 0.25 MG/5 ML SDV IV PRN; +VINBLASTINE SULFATE IV PRN
[2019-04-19 09:37] VITALS: BP 142/69
== END 2019-04-19 12:40 | disposition home or self-care (01) ==
LOC: II 09:14 → 5TH 09:16 → II 12:40
PROVIDERS: ATTEND Internal Medicine Hematology & Oncology
PROC: 3E04305 Introduction of Other Antineoplastic into Central Vein, Percutaneous Approach (ICD-10-PCS; principal; 2019-04-19)
PROC: 3E0433Z Introduction of Anti-inflammatory into Central Vein, Percutaneous Approach (ICD-10-PCS; 2019-04-19)
PROC: 3E043GC Introduction of Other Therapeutic Substance into Central Vein, Percutaneous Approach (ICD-10-PCS; 2019-04-19)
DX: Z51.11 Encounter for antineoplastic chemotherapy (principal); C81.93 Hodgkin lymphoma, unspecified, intra-abdominal lymph nodes
CPT/HCPCS: 96411; 96413; 96367; 96375; J9000; J9130; J9360; J7050; J3490; J1100; J1642; J2469

== ENCOUNTER 2019-05-03 09:28 | Outpatient (CLI) | payer OTHER ==
[~2019-05-03 09:28] MED LIST changes: +DEXAMETHASONE 10 MG in NS 50 ML IV PRN; -DEXAMETHASONE SOD PHOSPHATE 10 MG in NORMAL SALINE 50 ML IV PRN; +NORMAL SALINE 250 ML @ KVO IV PRN; -NORMAL SALINE 250 ML IV PRN; -PALONOSETRON 0.25 MG/5 ML SDV IV PRN; +PALONOSETRON 0.25 MG/5 ML VIAL IV PRN
[2019-05-03 11:01] VITALS: BP 125/75
== END 2019-05-03 13:03 | disposition home or self-care (01) ==
LOC: II 09:28 → 5TH 09:34 → II 13:03
PROVIDERS: ATTEND Internal Medicine Hematology & Oncology
PROC: 3E04305 Introduction of Other Antineoplastic into Central Vein, Percutaneous Approach (ICD-10-PCS; principal; 2019-05-03)
PROC: 3E0433Z Introduction of Anti-inflammatory into Central Vein, Percutaneous Approach (ICD-10-PCS; 2019-05-03)
PROC: 3E043GC Introduction of Other Therapeutic Substance into Central Vein, Percutaneous Approach (ICD-10-PCS; 2019-05-03)
DX: Z51.11 Encounter for antineoplastic chemotherapy (principal); C81.93 Hodgkin lymphoma, unspecified, intra-abdominal lymph nodes
CPT/HCPCS: 96409; 96411; 96413; 96367; 96375; J9000; J9130; J9360; J7050; J3490; J1100; J2469; J1642; 96417

== ENCOUNTER 2019-05-24 09:20 | Outpatient (CLI) | payer OTHER ==
[~2019-05-24 09:20] MED LIST changes: +DEXAMETHASONE SOD PHOSPHATE 10 MG in NORMAL SALINE 50 ML IV PRN; +NORMAL SALINE 250 ML IV PRN; +PALONOSETRON 0.25 MG/5 ML SDV IV PRN
[2019-05-24 09:34] VITALS: BP 141/66
== END 2019-05-24 12:15 | disposition home or self-care (01) ==
LOC: II 09:20 → 5TH 09:23 → II 12:15
PROVIDERS: ATTEND Internal Medicine Hematology & Oncology
DX: Z51.11 Encounter for antineoplastic chemotherapy (principal); C81.93 Hodgkin lymphoma, unspecified, intra-abdominal lymph nodes
CPT/HCPCS: 96409; 96411; 96413; 96367; 96375; J9000; J9130; J9360; J7050; J3490; J1100; J2469; J1642; 96417

== ENCOUNTER 2019-06-14 09:17 | Outpatient (CLI) | payer OTHER ==
[~2019-06-14 09:17] MED LIST changes: -DEXAMETHASONE SOD PHOSPHATE 10 MG in NORMAL SALINE 50 ML IV PRN; -NORMAL SALINE 250 ML IV PRN; -PALONOSETRON 0.25 MG/5 ML SDV IV PRN
[2019-06-14 09:35] VITALS: BP 134/68
== END 2019-06-14 12:30 | disposition home or self-care (01) ==
LOC: II 09:17 → 5TH 09:19 → II 12:30
PROVIDERS: ATTEND Internal Medicine Hematology & Oncology
DX: Z51.11 Encounter for antineoplastic chemotherapy (principal); C81.93 Hodgkin lymphoma, unspecified, intra-abdominal lymph nodes
CPT/HCPCS: 96409; 96411; 96413; 96367; 96375; J9000; J9130; J9360; J7050; J3490; J1100; J2469; J1642

== ENCOUNTER 2019-06-28 09:11 | Outpatient (CLI) | payer OTHER ==
[2019-06-28 09:30] VITALS: BP 134/67
== END 2019-06-28 11:40 | disposition home or self-care (01) ==
LOC: II 09:11 → 5TH 09:13 → II 11:40
PROVIDERS: ATTEND Internal Medicine Hematology & Oncology
DX: Z51.11 Encounter for antineoplastic chemotherapy (principal); C81.93 Hodgkin lymphoma, unspecified, intra-abdominal lymph nodes
CPT/HCPCS: 96411; 96413; 96367; 96375; J9000; J9130; J9360; J7050; J3490; J1100; J2469; J1642; 96409

== ENCOUNTER 2019-07-12 09:15 | Outpatient (CLI) | payer OTHER ==
[2019-07-12 09:31] VITALS: BP 134/63
== END 2019-07-12 12:04 | disposition home or self-care (01) ==
LOC: II 09:15 → 5TH 09:20 → II 12:04
PROVIDERS: ATTEND Internal Medicine Hematology & Oncology
DX: Z51.11 Encounter for antineoplastic chemotherapy (principal); C81.93 Hodgkin lymphoma, unspecified, intra-abdominal lymph nodes
CPT/HCPCS: 96409; 96411; 96413; 96367; 96375; J9000; J9130; J9360; J7050; J3490; J1100; J2469; J1642

== ENCOUNTER 2019-07-26 09:08 | Outpatient (CLI) | payer OTHER ==
[2019-07-26 09:22] VITALS: BP 146/67
== END 2019-07-26 12:15 | disposition home or self-care (01) ==
LOC: II 09:08 → 5TH 09:13 → II 12:15
PROVIDERS: ATTEND Internal Medicine Hematology & Oncology
DX: Z51.11 Encounter for antineoplastic chemotherapy (principal); C81.93 Hodgkin lymphoma, unspecified, intra-abdominal lymph nodes
CPT/HCPCS: 96411; 96413; 96367; 96375; J9000; J9130; J9360; J7050; J3490; J1100; J2469; J1642

== ENCOUNTER 2019-08-09 09:26 | Outpatient (CLI) | payer OTHER ==
[~2019-08-09 09:26] MED LIST changes: -DEXAMETHASONE 10 MG in NS 50 ML IV PRN; +DEXAMETHASONE SOD PHOSPHATE 10 MG in NORMAL SALINE 50 ML IV PRN; -NORMAL SALINE 250 ML @ KVO IV PRN; +NORMAL SALINE 250 ML IV PRN; +PALONOSETRON 0.25 MG/5 ML SDV IV PRN; -PALONOSETRON 0.25 MG/5 ML VIAL IV PRN
[2019-08-09] MEDS ORDERED: NORMAL SALINE IV PRN (09:45)
[2019-08-09] MEDS ORDERED: DACARBAZINE IV PRN (09:45)
[2019-08-09 09:47] VITALS: BP 135/69
== END 2019-08-09 12:35 | disposition home or self-care (01) ==
LOC: II 09:26 → 5TH 09:28 → II 12:35
PROVIDERS: ATTEND Internal Medicine Hematology & Oncology
DX: Z51.11 Encounter for antineoplastic chemotherapy (principal); C81.93 Hodgkin lymphoma, unspecified, intra-abdominal lymph nodes
CPT/HCPCS: 96411; 96413; 96367; 96375; J9000; J9130; J9360; J7050; J3490; J1100; J2469; J1642

== ENCOUNTER 2019-10-07 13:11 | Emergency (ER) | payer OTHER ==
--- NOTE | 2019-10-07 13:26 | EKG REPORT ---
SEVERITY:- ABNORMAL ECG - ATRIAL FIBRILLATION, V-RATE 86-134 MULTIPLE PREMATURE COMPLEXES, VENTRICULAR BORDERLINE PROLONGED QT INTERVAL : Confirmed by: Oskar Fiore 07-Oct-2019 13:24:25
--- NOTE | 2019-10-07 14:05 | ER Document Report ---
ED Medical Screen (RME) - General Chief Complaint: Shortness Of Breath Stated Complaint: CHEST TIGHTNESS Time Seen by Provider: 10/07/19 13:52 Notes: Patient is a 69-year-old male who presents the emergency department with a chief complaint of chest tightness. Patient recently was diagnosed with a blood clot in his neck (confirmed with CTA). He was started on Eliquis about 5 days ago. Patient admits to having a cough. He was also started on antibiotics, for bronchitis, as per patient. Patient states that he has not left his house for the past 4 weeks. Patient states that he feels like he cannot get a good deep breath in. Exam: Atrial fibrillation on twelve-lead EKG with a heart rate of 112. I have greeted and performed a rapid initial assessment of this patient. A comprehensive ED assessment and evaluation of the patient, analysis of test results and completion of medical decision making process will be conducted by an additional ED providers. TRAVEL OUTSIDE OF THE [place] IN LAST 30 DAYS: No - Related Data Allergies/Adverse Reactions: Penicillins Allergy (Severe, Verified 02/13/19 14:12) Anaphylaxis cillin Allergy (Intermediate, Uncoded 02/13/19 14:12) Anaphylaxis Past Medical History - Social History Chew tobacco use (# tins/day): No Frequency of alcohol use: None Drug Abuse: None - Past Medical History Cardiac Medical History: Reports: Hx Hypertension - BETA VANI Denies: Hx Congestive Heart Failure, Hx Coronary Artery Disease, Hx DVT, Hx Heart Attack, Hx Hypercholesterolemia, Hx Pulmonary Embolism Pulmonary Medical History: Denies: Hx Asthma, Hx Bronchitis, Hx COPD, Hx Pneumonia, Hx Sleep Apnea Neurological Medical History: Denies: Hx Cerebrovascular Accident, Hx Seizures Endocrine Medical History: Denies: Hx Diabetes Mellitus Type 1, Hx Diabetes Mellitus Type 2, Hx Hyperthyroidism, Hx Hypothyroidism Renal/ Medical History: Denies: Hx Peritoneal Dialysis Malignancy Medical History: Reports Hx Leukemia, Reports Hx Lymphoma - Hodgkins Lymphoma GI Medical History: Reports: Hx Diverticulitis, Hx Gastroesophageal Reflux Disease. Denies: Hx Cirrhosis, Hx Hepatitis Musculoskeltal Medical History: Reports Hx Arthritis Psychiatric Medical History: Reports: Hx Depression Infectious Medical History: Denies: Hx C-Diff, Hx Hepatitis, Hx MRSA Past Surgical History: Reports: Hx Cholecystectomy, Hx Tonsillectomy. Denies: H x Abdominal Surgery, Hx Appendectomy - Immunizations Hx Diphtheria, Pertussis, Tetanus Vaccination: Yes Physical Exam - Vital signs Vitals: Temp Pulse Resp BP Pulse Ox 98.2 F 64 18 146/95 H 97 10/07/19 13:30 10/07/19 13:30 10/07/19 13:30 10/07/19 13:30 10/07/19 13:30 Course - Vital Signs Vital signs: Temp Pulse Resp BP Pulse Ox 98.2 F 64 18 146/95 H 97 10/07/19 13:30 10/07/19 13:30 10/07/19 13:30 10/07/19 13:30 10/07/19 13:30
--- NOTE | 2019-10-07 14:37 | ER Document Report ---
ED General - General Chief Complaint: Shortness Of Breath Stated Complaint: CHEST TIGHTNESS Time Seen by Provider: 10/07/19 13:52 Information source: Patient TRAVEL OUTSIDE OF THE [place] IN LAST 30 DAYS: No - HPI Notes: Patient presents complaining of shortness of breath. He states that approximately a week ago he was diagnosed with the right carotid artery thrombus. He was started on Eliquis. He also states around the time he was diagnosed with atrial fibrillation. He states over the last couple of days he is felt more short of breath and called his primary care doctor today. His primary care doctor asked him to come the emergency department for evaluation. He states he had a cough for several weeks which now seems to be getting better. Some mild productivity to it. He denies any known exposure to coronavirus. He states he has not been out of his house except to see his doctor for the last 4 weeks. He denies any fevers. No nausea vomiting or diarrhea. The shortness of breath is constant. It is worse with exertion and better with rest. There is no known radiation of the symptoms. It is mild to moderate in intensity. - Related Data Allergies/Adverse Reactions: Penicillins Allergy (Severe, Verified 02/13/19 14:12) Anaphylaxis cillin Allergy (Intermediate, Uncoded 02/13/19 14:12) Anaphylaxis Past Medical History - General Information source: Patient - Social History Smoking Status: Never Smoker Chew tobacco use (# tins/day): No Frequency of alcohol use: None Drug Abuse: None Family History: Hypertension Patient has suicidal ideation: No Patient has homicidal ideation: No - Past Medical History Cardiac Medical History: Reports: Hx Hypertension - BETA VANI Denies: Hx Congestive Heart Failure, Hx Coronary Artery Disease, Hx DVT, Hx Heart Attack, Hx Hypercholesterolemia, Hx Pulmonary Embolism Pulmonary Medical History: Denies: Hx Asthma, Hx Bronchitis, Hx COPD, Hx Pneumonia, Hx Sleep Apnea Neurological Medical History: Denies: Hx Cerebrovascular Accident, Hx Seizures Endocrine Medical History: Denies: Hx Diabetes Mellitus Type 1, Hx Diabetes Mellitus Type 2, Hx Hyperthyroidism, Hx Hypothyroidism Renal/ Medical History: Denies: Hx Peritoneal Dialysis Malignancy Medical History: Reports Hx Leukemia, Reports Hx Lymphoma - Hodgkins Lymphoma GI Medical History: Reports: Hx Diverticulitis, Hx Gastroesophageal Reflux Disease. Denies: Hx Cirrhosis, Hx Hepatitis Musculoskeletal Medical History: Reports Hx Arthritis Psychiatric Medical History: Reports: Hx Depression Infectious Medical History: Denies: Hx C-Diff, Hx Hepatitis, Hx MRSA Past Surgical History: Reports: Hx Cholecystectomy, Hx Tonsillectomy. Denies: Hx Abdominal Surgery, Hx Appendectomy - Immunizations Hx Diphtheria, Pertussis, Tetanus Vaccination: Yes Hx Pneumococcal Vaccination: 08/24/11 Review of Systems - Review of Systems Constitutional: denies: Chills, Fever Cardiovascular: Dyspnea. denies: Chest pain Respiratory: Cough, Short of breath -: Yes All other systems reviewed and negative Physical Exam - Vital signs Vitals: Temp Pulse Resp BP Pulse Ox 98.2 F 64 18 146/95 H 97 10/07/19 13:30 10/07/19 13:30 10/07/19 13:30 10/07/19 13:30 10/07/19 13:30 Interpretation: Normal - General General appearance: Appears well, Alert - HEENT Head: Normocephalic, Atraumatic Eyes: Normal Pupils: PERRL - Respiratory Respiratory status: No respiratory distress Chest status: Nontender Breath sounds: Normal Chest palpation: Normal - Cardiovascular Rhythm: Irregularly irregular, Tachycardia Heart sounds: Normal auscultation Murmur: No - Abdominal Inspection: Normal Distension: No distension Bowel sounds: Normal Tenderness: Nontender Organomegaly: No organomegaly - Back Back: Normal, Nontender - Extremities General upper extremity: Normal inspection, Nontender, Normal color, Normal ROM, Normal temperature General lower extremity: Normal inspection, Nontender, Normal color, Normal ROM, Normal temperature, Normal weight bearing. No: Nubia's sign - Neurological Neuro grossly intact: Yes Cognition: Normal Orientation: AAOx4 [place] Coma Scale Eye Opening: Spontaneous [place] Coma Scale Verbal: Oriented [place] Coma Scale Motor: Obeys Commands [place] Coma Scale Total: 15 Speech: Normal Motor strength normal: LUE, RUE, LLE, RLE Sensory: Normal - Psychological Associated symptoms: Normal affect, Normal mood - Skin Skin Temperature: Warm Skin Moisture: Dry Skin Color: Normal Course - Re-evaluation Re-evalutation: 10/07/19 18:13 Patient presents with shortness of breath. Patient was sent by his family physi jennifer to rule out pulmonary embolism. There is no evidence of pulmonary embolism on CTA. There is also no evidence of infection. Patient's troponins are stable. EKG shows A. fib but no signs of ischemia. Patient has had no chest pain. I feel patient at this time is stable for discharge and follow-up as an outpatient. - Vital Signs Vital signs: Temp Pulse Resp BP Pulse Ox 98.2 F 64 18 146/95 H 97 10/07/19 13:30 10/07/19 13:30 10/07/19 13:30 10/07/19 13:30 10/07/19 13:30 - Laboratory Result Diagrams: 10/07/19 14:36 10/07/19 14:36 Laboratory results interpreted by me: 10/07/19 10/07/19 10/07/19 14:36 14:36 14:36 RBC 4.19 L Hgb 12.9 L Hct 37.4 L RDW 15.0 H [place] % (Auto) 15.3 H PT 18.0 H APTT 36.1 H Glucose 128 H Albumin 3.4 L - Diagnostic Test Radiology reviewed: Image reviewed, Reports reviewed - EKG Interpretation by Me Rate: Tachycardia - 112 Rhythm: A.Fib [place]/QRS: No: Right axis deviation, Left axis deviation Discharge - Discharge Clinical Impression: Dyspnea Qualifiers: Dyspnea type: dyspnea on exertion Qualified Code(s): R06.00 - Dyspnea, unspecified Condition: Stable Disposition: HOME, SELF-CARE Instructions: Dyspnea, Nonspecific ([facility]) Additional Instructions: Please follow-up with your boat patcher plastic as soon as possible. Referrals: [facility] [Primary Care Provider] - Follow up tomorrow
[2019-10-07 14:57] LABS: INTERNATIONAL RATION (INR) 1.47
[2019-10-07 14:58] LABS: ABSOLUTE BASOPHILS # (AUTO) 0.1 10^3/uL (0.0-0.2); ABSOLUTE EOSINOPHILS # (AUTO) 0.2 10^3/uL (0.0-0.6); ABSOLUTE LYMPHOCYTES (AUTO) 1.1 10^3/uL (0.5-4.7); ABSOLUTE NEUT (AUTO) 4.3 10^3/uL (1.7-8.2); BASOPHILS % (AUTO) 0.9 % (0-2); EOSINOPHILS % (AUTO) 2.8 % (0-6); HEMATOCRIT 37.4 % (37.9-51.0); HEMOGLOBIN 12.9 g/dL (13.5-17.0); LYMPHOCYTES % (AUTO) 16.3 % (13-45); MEAN CORPUSCULAR HEMOGLOBIN 30.8 pg (27.0-33.4); MEAN CORPUSCULAR HGB CONC 34.5 g/dL (32.0-36.0); MEAN CORPUSCULAR VOLUME 89 fl (80-97); MONOCYTES % (AUTO) 15.3 % (3-13); PARTIAL THROMBOPLASTIN TIME 36.1 SEC (23.5-35.8); PLATELET COUNT 319 10^3/uL (150-450); RED BLOOD COUNT 4.19 10^6/uL (4.35-5.55); SEGMENTED NEUTROPHILS % (AUTO) 64.7 % (42-78); TOTAL CELLS COUNTED % (AUTO) 100 %; WHITE BLOOD COUNT 6.6 10^3/uL (4.0-10.5)
[2019-10-07 15:12] LABS: ALBUMIN 3.4 g/dL (3.5-5.0); ALKALINE PHOSPHATASE 92 U/L (38-126); ANION GAP 6 (5-19); ASPARTATE AMINO TRANSFERASE 22 U/L (17-59); BILIRUBIN,TOTAL 0.4 mg/dL (0.2-1.3); BLOOD UREA NITROGEN 12 mg/dL (7-20); CALCIUM 8.6 mg/dL (8.4-10.2); CARBON DIOXIDE 28 mmol/L (22-30); CHLORIDE 104 mmol/L (98-107); GLUCOSE 128 mg/dL (75-110); POTASSIUM 4.1 mmol/L (3.6-5.0); TOTAL PROTEIN 6.3 g/dL (6.3-8.2)
--- NOTE | 2019-10-07 17:35 | RADIOLOGY REPORT (SQ) ---
EXAM DESCRIPTION: CTA CHEST IMAGES COMPLETED DATE/TIME: 10/07/2019 4:33 pm REASON FOR STUDY: dyspnea/hx dvt COMPARISON: 12/28/2018 TECHNIQUE: CT scan of the chest performed using helical scanning technique with dynamic intravenous contrast injection. Images reviewed with lung, soft tissue and bone windows. Reconstructed coronal and sagittal MPR images reviewed. Additional 3 dimensional post-processing performed to develop Maximal Intensity Projection images (ND P). All images stored on PACS. All CT scanners at this facility use dose modulation, iterative reconstruction, and/or weight based d osing when appropriate to reduce radiation dose to as low as reasonably achievable (ALARA). [facility]: Dose Right [facility]: CareDose [facility]: Dose Right [facility]: Teradose 4D [facility]: valuescope CONTRAST TYPE AND DOSE: contrast/concentration: Isovue 350.00 mg/ml; Total Contrast Delivered: 71.0 ml; Total Saline Delivered: 51.0 ml Contrast bolus optimized for the pulmonary arteries. Not diagnostic for the aorta. RENAL FUNCTION: BUN 12 creatinine 1.09 RADIATION DOSE: CT Rad equipment meets quality standard of care and radiation dose reduction techniq ues were employed. CTDIvol: 9.9 - 29.8 mGy. DLP: 1347 mGy-cm. . LIMITATIONS: None. FINDINGS: LUNGS AND PLEURA: Moderate right pleural effusion. Smaller left pleural effusion. Mild a ssociated atelectatic changes in the lower lobes. Mild ground-glass opacification in the upper lobes . No mass. AORTA AND GREAT VESSELS: No aneurysm. Contrast bolus not optimized for the aorta. HEART: No pericardial effusion. No significant coronary artery calcifications. PULMONARY ARTERIES: No emboli visualized in the main pulmonary arteries or the segmental branches. HILAR AND MEDIASTINAL STRUCTURES: There are some nonspecific mediastinal nodes. There appears to be a eventration of the left hemidiaphragm medially. 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 HARDWARE: None in the chest. UPPER ABDOMEN: No significant findings. Limited exam. THYROID AND OTHER SOFT TISSUES: No masses. No adenopathy. BONES: No acute or significant finding. 3D MIPS: Confirm above findings. OTHER: No other significant finding. IMPRESSION: 1. There is no pulmonary embolus. 2. There is no aortic aneurysm. 3. Bilateral pleu ral effusions, right more than left. Mild lower lobe atelectasis. 4. 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 COMMENT: Quality ID # [id number]: Final reports with documentation of one or more dose reduction techniques (e.g., Automated exposure control, adjustment of the mA and/or kV according to patient size, use of iterative reconstruction technique) TECHNICAL DOCUMENTATION: JOB ID: [id number] 2010 [employer]- All Rights Reserved Reading location - IP/workstation name: [email or web address]
[2019-10-07 18:52] VITALS: BP 122/107
== END 2019-10-07 18:59 | disposition home or self-care (01) ==
LOC: ER 13:11
DX: R06.00 Dyspnea, unspecified (principal); R06.02 Shortness of breath; R07.89 Other chest pain; R05 Cough; Z79.02 Long term (current) use of antithrombotics/antiplatelets; Z88.0 Allergy status to penicillin; Z90.49 Acquired absence of other specified parts of digestive tract
CPT/HCPCS: 93005; 99285; 36415; 85025; 85610; 85730; 80053; 84484; 71275; 93010; J1642

== ENCOUNTER 2019-10-21 19:48 | Inpatient (IN) | payer OTHER, MEDICARE ==
[2019-10-21 20:39] LABS: ABSOLUTE LYMPHOCYTES (AUTO) 1.3 10^3/uL (0.5-4.7); ABSOLUTE MONOCYTES (AUTO) 2.4 10^3/uL (0.1-1.4); ABSOLUTE NEUT (AUTO) 10.1 10^3/uL (1.7-8.2); BASOPHILS % (AUTO) 0.2 % (0-2); EOSINOPHILS % (AUTO) 0.1 % (0-6); HEMATOCRIT 43.6 % (37.9-51.0); HEMOGLOBIN 14.6 g/dL (13.5-17.0); LYMPHOCYTES % (AUTO) 9.7 % (13-45); MEAN CORPUSCULAR HEMOGLOBIN 30.6 pg (27.0-33.4); MEAN CORPUSCULAR HGB CONC 33.3 g/dL (32.0-36.0); MEAN CORPUSCULAR VOLUME 92 fl (80-97); MONOCYTES % (AUTO) 17.3 % (3-13); PLATELET COUNT 285 10^3/uL (150-450); RED BLOOD COUNT 4.76 10^6/uL (4.35-5.55); RED CELL DISTRIBUTION WIDTH 16.2 % (11.5-14.0); SEGMENTED NEUTROPHILS % (AUTO) 72.7 % (42-78); TOTAL CELLS COUNTED % (AUTO) 100 %; WHITE BLOOD COUNT 13.8 10^3/uL (4.0-10.5)
--- NOTE | 2019-10-21 20:44 | ER Document Report ---
Entered by PRITI CHÁVEZ SCRIBE 10/21/192041 Acting as scribe for:MICHELL BARNETT DO ED General - General Chief Complaint: Altered Mental Status Stated Complaint: TROUBLE BREATHING Time Seen by Provider: 10/21/19 20:33 Primary Care Provider: DEEPIKA MO FNP-C [Primary Care Provider] - Follow up as needed Information source: Relative, Emergency Med Personnel Notes: This 69 year old male patient brought in from home by the daughter of his ex- presents to the ED today with complaints of worsening altered mental status, confusion, and shortness of breath per family. Patient has difficulty articulating his thoughts and states no specific complaints, so ROS is obtainable only through family. Patient was seen here x2 weeks ago and was evaluated for shortness of breath. He was discharged with instructions to follow up with outpatient. He has a history of A fib, obesity, lymphoma, HTN, renal insufficiency, and chronic back pain. TRAVEL OUTSIDE OF THE [place] IN LAST 30 DAYS: No - Related Data Allergies/Adverse Reactions: Penicillins Allergy (Severe, Verified 02/13/19 14:12) Anaphylaxis cillin Allergy (Intermediate, Uncoded 02/13/19 14:12) Anaphylaxis Home Medications: ultram Past Medical History - General Information source: [facility] Records - Social History Smoking Status: Never Smoker Cigarette use (# per day): No Chew tobacco use (# tins/day): No Smoking Education Provided: No Frequency of alcohol use: None Drug Abuse: None Lives with: Family Family History: Reviewed & Not Pertinent, Hypertension Patient has suicidal ideation: No Patient has homicidal ideation: No - Past Medical History Cardiac Medical History: Reports: Hx Hypertension - BETA VANI Renal/ Medical History: Reports: Hx Renal Insufficiency Malignancy Medical History: Reports Hx Leukemia, Reports Hx Lymphoma - Hodgkins Lymphoma GI Medical History: Reports: Hx Diverticulitis, Hx Gastroesophageal Reflux Disease Musculoskeletal Medical History: Reports Hx Arthritis Psychiatric Medical History: Reports: Hx Depression Past Surgical History: Reports: Hx Cholecystectomy, Hx Tonsillectomy - Immunizations Hx Diphtheria, Pertussis, Tetanus Vaccination: Yes Hx Pneumococcal Vaccination: 08/24/11 Review of Systems - Review of Systems Constitutional: No symptoms reported EENT: No symptoms reported Cardiovascular: No symptoms reported Respiratory: See HPI, Short of breath Gastrointestinal: No symptoms reported Genitourinary: No symptoms reported Male Genitourinary: No symptoms reported Musculoskeletal: No symptoms reported Skin: No symptoms reported Hematologic/Lymphatic: No symptoms reported Neurological/Psychological: See HPI, Confusion, Other - Altered mental status. denies: Homicidal ideation, Suicidal ideation -: Yes All other systems reviewed and negative Physical Exam - Vital signs Vitals: Pulse Ox 98 10/21/19 19:58 - General General appearance: Alert, Other - Chronically ill appearing. Appears stated age. - HEENT Head: Normocephalic, Atraumatic Eyes: Normal Pupils: PERRL Mucous membranes: Dry Neck: Supple. No: Lymphadenopathy, Meningismus - Respiratory Respiratory status: No respiratory distress Chest status: Nontender Breath sounds: Decreased air movement - Diminished breath sounds bilaterally. No: Rales, Rhonchi, Wheezing Chest palpation: Normal - Cardiovascular Rhythm: Regular, Tachycardia Heart sounds: Normal auscultation Murmur: No Friction rub: No Gallop: None auscultated - Abdominal Inspection: Obese Distension: No distension Bowel sounds: Normal Tenderness: Nontender - Abdomen soft Organomegaly: No organomegaly - Back Back: Normal, Nontender - Extremities General upper extremity: Normal inspection General lower extremity: Edema - Trace edema noted to bilateral LE - Neurological Neuro grossly intact: Yes Cognition: Confused - Psychological Associated symptoms: Confused, Other - Drifts off to sleep easily. Denies SI or HI. - Skin Skin Temperature: Warm Skin Moisture: Dry Skin Color: Normal Course - Re-evaluation Re-evalutation: 10/21/19 23:34 MDM I have discussed with Dr. Wick and he has graciously agreed to see and evaluate for admission. Pt wiht alco, elevated lactic acid and lfts and ua with a few wbcs along with atelectasis vs infitrate in lung bases. No fever. He is acutely encephalopathic here. - Vital Signs Vital signs: Temp Pulse Resp BP Pulse Ox 97.6 F 117 H 25 H 131/92 H 93 10/21/19 20:11 10/21/19 20:25 10/21/19 22:01 10/21/19 22:02 10/21/19 22:02 - Laboratory Result Diagrams: 10/21/19 20:13 10/21/19 20:13 Laboratory results interpreted by me: 10/21/19 10/21/19 10/21/19 20:13 20:13 20:13 WBC 13.8 H RDW 16.2 H Lymph % (Auto) 9.7 L Garden % (Auto) 17.3 H Absolute Neuts (auto) 10.1 H Absolute Monos (auto) 2.4 H PT BUN 29 H Creatinine 1.58 H Est GFR ( Amer) 53 L Est GFR (MDRD) Non-Af 44 L Glucose 131 H Lactic Acid 2.4 H Total Bilirubin 1.4 H AST 719 H ALT 666 H Alkaline Phosphatase 173 H TSH Urine Protein Urine Urobilinogen 10/21/19 10/21/19 10/21/19 20:13 20:13 20:56 WBC RDW Lymph % (Auto) Garden % (Auto) Absolute Neuts (auto) Absolute Monos (auto) PT 32.3 H BUN Creatinine Est GFR ( Amer) Est GFR (MDRD) Non-Af Glucose Lactic Acid Total Bilirubin AST ALT Alkaline Phosphatase TSH 5.19 H Urine Protein 100 H Urine Urobilinogen 2.0 H - Diagnostic Test Radiology reviewed: Image reviewed, Reports reviewed - EKG Interpretation by Me EKG shows normal: Sinus rhythm Rate: Tachycardia Rhythm: NSR - A fib Nl [place] [address] elevation or depression repol abnormality. My interpretation. Critical Care Note - Critical Care Note Total time excluding time spent on procedures (mins): 30 Discharge - Discharge Clinical Impression: Acute encephalopathy, Acute kidney injury Atrial fibrillation Qualifiers: Atrial fibrillation type: unspecified Qualified Code(s): I48.91 - Unspecified atrial fibrillation Condition: Fair Disposition: ADMITTED INPATIENT Admitting Provider: Shamika (Hospitalist) Unit Admitted: Medical Floor Referrals: DEEPIKA MO FNP-C [Primary Care Provider] - Follow up as needed I personally performed the services described in the documentation, reviewed and edited the documentation which was dictated to the scribe in my presence, and it accurately records my words and actions.
[2019-10-21 21:00] LABS: ALBUMIN 3.9 g/dL (3.5-5.0); ALKALINE PHOSPHATASE 173 U/L (38-126); ANION GAP 8 (5-19); ASPARTATE AMINO TRANSFERASE 719 U/L (17-59); BILIRUBIN,DIRECT 0.1 mg/dL (0.0-0.4); BILIRUBIN,TOTAL 1.4 mg/dL (0.2-1.3); BLOOD UREA NITROGEN 29 mg/dL (7-20); CALCIUM 9.3 mg/dL (8.4-10.2); CARBON DIOXIDE 28 mmol/L (22-30); CHLORIDE 103 mmol/L (98-107); GLUCOSE 131 mg/dL (75-110); POTASSIUM 4.7 mmol/L (3.6-5.0); TOTAL PROTEIN 6.6 g/dL (6.3-8.2)
[2019-10-21 21:01] LABS: ALCOHOL < 10 mg/dL (NONE DETECTED)
[2019-10-21] MEDS ORDERED: VANCOMYCIN HCL INJ 1000 MG VIAL IV ONE (21:07)
[2019-10-21 21:22] LABS: VENOUS BLOOD BASE EXCESS -1.2 mmol/L; VENOUS BLOOD HCO3 23.1 mmol/L (20-32); VENOUS BLOOD PCO2 37.3 mmHg (35-63); VENOUS BLOOD PH 7.41 (7.30-7.42)
[2019-10-21 21:25] LABS: INTERNATIONAL RATION (INR) 3.06; PROTHROMBIN TIME 32.3 SEC (11.4-15.4)
--- NOTE | 2019-10-21 21:45 | RADIOLOGY REPORT (SQ) ---
CT HEAD WITHOUT IV CONTRAST CLINICAL STATEMENT: aloc Hodgkin's lymphoma. TECHNIQUE: Axial CT images from skull base to vertex without IV contrast. This exam was performed according to our departmental dose optimization program, and includes the following measures where applicable: automated exposure control, adjustment of the mAs and/or kVp according to patient size and/or exam, and an iterative reconstruction algorithm. COMPARISON: PET/CT scan 10/15/2019. FINDINGS: There is no acute intracranial hemorrhage, mass, mass effect or abnormal extra-axial fluid collection. No evidence of an acute territorial infarct is identified. The ventricles are normal. Calvaria: There is a subtle, permeative appearance of the left superior lateral orbital ridge with possible subtle cortical disruption. No associated soft tissue mass. No fracture. No other lesions are noted. This area was not fully imaged on the previous PET scan. Paranasal sinuses: Visualized portions of the orbits and paranasal sinuses are unremarkable. skull base: Unremarkable IMPRESSION: 1. No intracranial hemorrhage or mass lesion. 2. Possible permeative calvarial lesion at the left anterior superior orbital ridge. This area is not well seen. Correlation with symptomatology is recommended. This area was not imaged on the previous PET scan.
[2019-10-21 22:00] LABS: APPEARANCE,URINE CLOUDY; BILIRUBIN,URINE NEGATIVE (NEGATIVE); COLOR,URINE AMBER; GLUCOSE, URINE NEGATIVE (NEGATIVE); KETONES,URINE NEGATIVE (NEGATIVE); LEUKOCYTE ESTERASE,URINE NEGATIVE (NEGATIVE); NITRITE,URINE NEGATIVE (NEGATIVE); PROTEIN,URINE 100 mg/dL (NEGATIVE); URINE SPECIFIC GRAVITY 1.026
--- NOTE | 2019-10-21 22:03 | RADIOLOGY REPORT (SQ) ---
EXAM DESCRIPTION: Chest x-ray portable one view October 21, 2019 9:23 PM CLINICAL HISTORY: htn COMPARISON: None FINDINGS: Cardiac silhouette is enlarged which could be secondary to cardiomegaly. There is an infusion catheter with the tip ending at the level of superior vena cava. EKG leads project over the chest. Increased opacity at the lower lungs and indistinctness of the left hemidiaphragm noted. IMPRESSION: Abnormal opacity at the left lower lung and indistinctness of the left hemidiaphragm could represent a combination of pleural fluid and atelectasis. Other etiologies including an infectious process cannot be excluded. Increased opacity of the right lower lung may represent atelectasis versus an infectious process. Underlying pleural fluid cannot be excluded.
[2019-10-21] MEDS ORDERED: CEFEPIME 2 GM/D5W RTU 2 GM/50 ML RTUPB IV ONE (22:05)
[2019-10-21 22:11] LABS: A TYPE INFLUENZA AG NEGATIVE (NEGATIVE); B INFLUENZA AG NEGATIVE (NEGATIVE)
[2019-10-21 22:20] LABS: URINE AMPHETAMINES SCREEN NEGATIVE; URINE BARBITURATES SCREEN NEGATIVE; URINE COCAINE SCREEN NEGATIVE; URINE MARIJUANA (THC) SCREEN NEGATIVE; URINE METHADONE SCREEN NEGATIVE; URINE PHENCYCLIDINE SCREEN NEGATIVE
[2019-10-21 22:21] LABS: URINE BENZODIAZEPINES SCREEN UNCONFIRMED POSITIVE
--- NOTE | 2019-10-22 | RADIOLOGY REPORT (SQ) ---
EXAM DESCRIPTION: US ABDOMEN LIMITED COMPLETED DATE/TME: 10/21/2019 22:05 CLINICAL HISTORY: 69 years Male increased lfts' COMPARISON: None. TECHNIQUE: Transabdominal grayscale imaging were performed to evaluate the right upper quadrant. FINDINGS: The visualized segments of the aorta appear unremarkable. The proximal and mid portions are not well seen. Right pleural effusion. Absent gallbladder. Patent portal vein which is largely hepatopedal but has occasional bidirectional flow. Unremarkable right kidney. Increased is not seen secondary to bowel gas. IMPRESSION: Right effusion Question bidirectional flow in the portal vein No additional evidence of acute process
[2019-10-22] MEDS ORDERED: MAG HYDROX/AL HYDROX/SIMETH SUSP 30 ML UDCUP PO PRN (00:35)
[2019-10-22] MEDS ORDERED: MAGNESIUM HYDROXIDE SUSP 30 ML UDCUP PO PRN (00:35)
[2019-10-22] MEDS ORDERED: PROMETHAZINE HCL INJ 25 MG/1 ML VIAL IV PRN (00:35)
[2019-10-22] MEDS ORDERED: CEFEPIME 2 GM/D5W RTU 2 GM/50 ML RTUPB IV ONE (01:09)
[2019-10-22 01:23] LABS: ALBUMIN 3.7 g/dL (3.5-5.0); ALKALINE PHOSPHATASE 177 U/L (38-126); ASPARTATE AMINO TRANSFERASE 726 U/L (17-59); BILIRUBIN,DIRECT 0.2 mg/dL (0.0-0.4); BILIRUBIN,TOTAL 1.3 mg/dL (0.2-1.3); TOTAL PROTEIN 6.5 g/dL (6.3-8.2)
[2019-10-22] MEDS ORDERED: CHLORPROMAZINE HCL INJ 25 MG/1 ML AMPULE IV PRN (02:51)
--- NOTE | 2019-10-22 04:57 | PDOC H&P ---
History of Present Illness Admission Date/PCP: 10/21/2019 23:41 SERGIO BANGURA Patient complains of: Altered mental status History of Present Illness: LIAM GOLDMAN is a 69 year old male who presented the emergency room from his home accompanied by his ex-stepdaughter with a history of acute delirium/confusion. Patient is confused and delirious, thus he cannot provide reliably accurate historical information. His neck stepdaughter indicates that he has been acutely confused today and has been short of breath since his last ER visit 2 weeks ago. In the emergency room he was found to have a white blood count of 13,800, a lactic acid of 2.4, a creatinine of 1.58 and elevated liver function tests. He was started on a sepsis protocol utilizing Maxipime and vancomycin in the emergency room though no source of infection was identified. Coronavirus testing was performed. Patient was subsequently admitted to medical floor for further evaluation and treatment. Past Medical History Past Medical History: With the patient's confusion and delirium all information presented here in past medical history, past surgical history, social history and family medical history are obtained from the best available reliable source. Cardiac Medical History: Reports: Hypertension Denies: Congestive Heart Failure, Coronary Artery Disease, DVT, Myocardial Infarction, Hyperlipidema, Pulmonary Embolism Pulmonary Medical History: Denies: Asthma, Bronchitis, Chronic Obstructive Pulmonary Disease (COPD), Pneumonia, Sleep Apnea EENT Medical History: Denies: Cataracts, Ears - Hearing aids Neurological Medical History: Denies: Hemorrhagic CVA, Ischemic CVA, Seizures Endocrine Medical History: Reports: Obesity Denies: Diabetes Mellitus Type 1, Diabetes Mellitus Type 2, Hyperthyroidism, Hypothyroidism Renal/ Medical History: Denies: Chronic Kidney Disease, Nephrolithiasis Malignancy Medical History: Reports: Leukemia, Lymphoma - Hodgkins Lymphoma GI Medical History: Reports: Diverticulitis, Gastroesophageal Reflux Disease Denies: Cirrhosis, Hepatitis Musculoskeltal Medical History: Reports: Arthritis Denies: Gout Skin Medical History: Denies: Eczema, Psoriasis Psychiatric Medical History: Reports: Depression Denies: Alcohol Dependency, Substance Abuse, Tobacco Dependency Traumatic Medical History: Reports: None Hematology: Denies: Anemia, Bleeding Tendencies Infectious Medical History: Reports: None Past Surgical History Past Surgical History: With the patient's confusion and delirium all information presented here in past medical history, past surgical history, social history and family medical history are obtained from the best available reliable source. Past Surgical History: Reports: Cholecystectomy, Tonsillectomy Social History Information Source: Relative Lives with: Alone Smoking Status: Never Smoker Electronic Cigarette use?: No Frequency of Alcohol Use: None Hx Recreational Drug Use: No Drugs: None Hx Prescription Drug Abuse: No Past Social History Note: With the patient's confusion and delirium all information presented here in past medical history, past surgical history, social history and family medical history are obtained from the best available reliable source. - Advance Directive Resuscitation Status: Full Code Surrogate healthcare decision maker:: Shelley Mead Family History Family History: Hypertension Family History: With the patient's confusion and delirium all information presented here in past medical history, past surgical history, social history and family medical history are obtained from the best available reliable source. Parental Family History Reviewed: Yes Children Family History Reviewed: No Sibling(s) Family History Reviewed.: Yes Medication/Allergy Home Medications: Alprazolam [Xanax] 0.5 mg PO BID 01/11/19 Metoprolol Succinate [Toprol Xl 25 mg Tab.sr] 50 mg PO DAILY 01/11/19 Tramadol HCl [Ultram 50 mg Tablet] 50 mg PO TID 01/11/19 Zolpidem Tartrate [Ambien] 10 mg PO QHS 01/11/19 Lisinopril [Zestril] 20 mg PO DAILY 02/07/19 Albuterol Sulfate [Proair HFA Inhalation Aerosol 8.5 gm MDI] 2 puff IH Q4HP PRN 10/22/19 Allergies/Adverse Reactions: Penicillins Allergy (Severe, Verified 02/13/19 14:12) Anaphylaxis cillin Allergy (Intermediate, Uncoded 02/13/19 14:12) Anaphylaxis Review of Systems ROS unobtainable: Due to mental status Physical Exam Vital Signs: Temp Pulse Resp BP Pulse Ox 97.6 F 117 H 25 H 131/92 H 93 10/21/19 20:11 10/21/19 20:25 10/21/19 22:01 10/21/19 22:02 10/21/19 22:02 Intake & Output 10/19/19 10/20/19 10/21/19 23:59 23:59 23:59 Weight 113.398 kg General appearance: PRESENT: no acute distress, cooperative, other - Delirious Head exam: PRESENT: atraumatic, normocephalic Eye exam: ABSENT: conjunctival injection, scleral icterus Ear exam: PRESENT: normal external ear exam. ABSENT: bleeding, drainage Mouth exam: PRESENT: dry mucosa, neck supple Neck exam: ABSENT: thyromegaly, tracheal deviation Respiratory exam: PRESENT: clear to auscultation ana, symmetrical, unlabored Cardiovascular exam: PRESENT: RRR. ABSENT: clicks, gallop, rubs Pulses: PRESENT: normal radial pulses, normal dorsalis pedis pul Vascular exam: PRESENT: normal capillary refill. ABSENT: pallor GI/Abdominal exam: PRESENT: normal bowel sounds, soft Rectal exam: PRESENT: deferred Extremities exam: ABSENT: joint swelling, pedal edema Musculoskeletal exam: ABSENT: deformity, dislocation Neurological exam: PRESENT: altered - Delirium noted, CN II-XII grossly intact, other - Confused Psychiatric exam: PRESENT: unusual affect, other - Delirious Skin exam: PRESENT: dry, intact, warm. ABSENT: jaundice, rash, urticaria Results Laboratory Results: 10/21/19 20:13 10/21/19 20:13 10/21/19 10/21/19 10/21/19 20:13 20:13 20:13 WBC 13.8 H RBC 4.76 Hgb 14.6 Hct 43.6 MCV 92 MCH 30.6 MCHC 33.3 RDW 16.2 H Plt Count 285 Seg Neutrophils % 72.7 VBG pH VBG pCO2 VBG HCO3 VBG Base Excess Sodium 139.1 Potassium 4.7 Chloride 103 Carbon Dioxide 28 Anion Gap 8 BUN 29 H Creatinine 1.58 H Est GFR ( Amer) 53 L Glucose 131 H Lactic Acid 2.4 H Calcium 9.3 Magnesium 2.1 Total Bilirubin 1.4 H AST 719 H Alkaline Phosphatase 173 H Total Protein 6.6 Albumin 3.9 TSH Urine Color Urine Appearance Urine pH Ur Specific Jackson Urine Protein Urine Glucose (UA) Urine Ketones Urine Blood Urine Nitrite Ur Leukocyte Esterase Urine WBC (Auto) Urine RBC (Auto) 10/21/19 10/21/19 10/21/19 20:13 20:13 20:56 WBC RBC Hgb Hct MCV MCH MCHC RDW Plt Count Seg Neutrophils % VBG pH 7.41 VBG pCO2 37.3 VBG HCO3 23.1 VBG Base Excess -1.2 Sodium Potassium Chloride Carbon Dioxide Anion Gap BUN Creatinine Est GFR ( Amer) Glucose Lactic Acid Calcium Magnesium Total Bilirubin AST Alkaline Phosphatase Total Protein Albumin TSH 5.19 H Urine Color STORMY Urine Appearance CLOUDY Urine pH 5.0 Ur Specific [place] 1.026 Urine Protein 100 H Urine Glucose (UA) NEGATIVE Urine Ketones NEGATIVE Urine Blood NEGATIVE Urine Nitrite NEGATIVE Ur Leukocyte Esterase NEGATIVE Urine WBC (Auto) 14 Urine RBC (Auto) 4 10/21/19 20:13 Troponin I 0.071 Impressions: Head CT 10/21/19 20:58 IMPRESSION: 1. No intracranial hemorrhage or mass lesion. 2. Possible permeative calvarial lesion at the left anterior superior orbital ridge. This area is not well seen. Correlation with symptomatology is recommended. This area was not imaged on the previous PET scan. Chest X-Ray 10/21/19 20:59 IMPRESSION: Abnormal opacity at the left lower lung and indistinctness of the left hemidiaphragm could represent a combination of pleural fluid and atelectasis. Other etiologies including an infectious process cannot be excluded. Increased opacity of the right lower lung may represent atelectasis versus an infectious process. Underlying pleural fluid cannot be excluded. Assessment and Plan - Diagnosis (1) Acute encephalopathy Is this a current diagnosis for this admission?: Yes (2) Acute kidney injury Is this a current diagnosis for this admission?: Yes (3) Leukocytosis Qualifiers: Leukocytosis type: unspecified Qualified Code(s): D72.829 - Elevated white blood cell count, unspecified Is this a current diagnosis for this admission?: Yes (4) Elevated LFTs Is this a current diagnosis for this admission?: Yes (5) Hodgkins lymphoma Qualifiers: Hodgkin lymphoma type: unspecified type Lymphoma site: unspecified region Qualified Code(s): C81.90 - Hodgkin lymphoma, unspecified, unspecified site Is this a current diagnosis for this admission?: Yes (6) Atrial fibrillation Qualifiers: Atrial fibrillation type: unspecified chronic Qualified Code(s): I48.20 - Chronic atrial fibrillation, unspecified; I48.2 - Chronic atrial fibrillation Is this a current diagnosis for this admission?: Yes (7) HTN (hypertension) Qualifiers: Hypertension type: essential hypertension Qualified Code(s): I10 - Essential (primary) hypertension Is this a current diagnosis for this admission?: Yes - Time Time Spent with patient: Less than 15 minutes Medications reviewed and adjusted accordingly: Yes Anticipated discharge: SNF - Inpatient Certification Based on my medical assessment, after consideration of the patient's comorbidities, presenting symptoms, or acuity I expect that the services needed warrant INPATIENT care.: Yes I certify that my determination is in accordance with my understanding of Medicare's requirements for reasonable and necessary INPATIENT services [42 CFR 412.3e].: Yes Medical Necessity: Significant Comorbidiites Make Outpatient Treatment Too Risky, Need Close Monitoring Due to Risk of Patient Decompensation, Need For IV Fluids, Need for Neurological Checks, Need for IV Antibiotics, Risk of Comp lication if Not Cared For in Hospital
[2019-10-22] MEDS ORDERED: VANCOMYCIN HCL INJ 1000 MG VIAL IV PRN (05:35)
[2019-10-22] MEDS: RINGERS SOLUTION,LACTATED 1,000 ML IV PRN ×3 (05:43→20:36)
[2019-10-22] MEDS ORDERED: VANCOMYCIN HCL 1,000 MG in DEXTROSE 5%-WATER 250 ML IV ONE (05:45)
[2019-10-22] MEDS ORDERED: HEPARIN SOD (PORCINE) 5,000 UNIT/ML 1 ML VIAL SUBCUT SCH (06:00)
[2019-10-22] MEDS: LORAZEPAM INJ 2 MG/1 ML VIAL IV PRN ×3 (07:59→20:25)
--- NOTE | 2019-10-22 08:13 | EKG REPORT ---
SEVERITY:- ABNORMAL ECG - ATRIAL FIBRILLATION VENTRICULAR PREMATURE COMPLEX LOW VOLTAGE IN FRONTAL LEADS NONSPECIFIC T ABNORMALITIES, LATERAL LEADS BORDERLINE PROLONGED QT INTERVAL LEFT VENTRICULAR HYPERTROPHY : Confirmed by: Jono Guaman MD 22-Oct-2019 08:12:44
[2019-10-22] MEDS ORDERED: CEFEPIME 2 GM/D5W RTU 2 GM/50 ML RTUPB IV SCH (10:00)
[2019-10-22] MEDS ORDERED: VANCOMYCIN HCL INJ 1000 MG VIAL IV SCH (10:00)
[2019-10-22] MEDS: DOCUSATE SODIUM 100 MG CAPSULE PO SCH ×2 (10:06→18:16)
[2019-10-22] MEDS: FAMOTIDINE 20 MG TABLET PO SCH ×2 (10:06→22:53)
[2019-10-22] MEDS: CEFEPIME HCL 2 GM in DEXTROSE 5%-WATER 50 ML IV SCH ×2 (11:20→21:11)
[2019-10-22] MEDS: VANCOMYCIN HCL 1,250 MG in DEXTROSE 5%-WATER 250 ML IV SCH ×2 (11:21→22:53)
--- NOTE | 2019-10-22 16:57 | Progress Note ---
Provider Note Provider Note: Hematology/Oncology consultation was requested for patient with history of Hodgkin Lymphoma. Due to COVID-19 concerns, I did not examine patient. However, his chart was reviewed and I discussed his case in depth with Dr. Varner. He was diagnosed in November 2018. Patient received 4 cycles of Adriamycin, vincristine, Dexamethasone (He did NOT receive Bleomycin) for his Stage IIIB Hodgkin Lymphoma. This completed on 08/09/2019. Most recent PET/CT on 10/15/2019 showed continued Decrease in size of the retroperitoneal lymphadenopathy without any abnormal metabolic activity. He was also diagnosed with a Right IJ DVT thought to be due to his port on 10/04/2019. He was started on Eliquis and although port should be removed, this has not been done due to COVID-19 restrictions. He presented with delirium and was found to have elevated LFTs and abnormal lesion in the calavarium/orbit without any bleeding or mass in the brain. No obvious infection, but this is still being evaluated. MRI brain has been ordered. I will continue to follow from a distance. His blood counts are stable. Please call me if I can help in any way.
[2019-10-22] MEDS ORDERED: TRAMADOL HCL 50 MG TABLET PO SCH (18:00)
--- NOTE | 2019-10-22 18:11 | PDOC PROGRESS REPORT ---
Subjective Progress Note for:: 10/22/19 Subjective:: Patient was confused this morning and got aggressive with staff. Required Ativan and had subsequent improvement in behavior. Discussed patient's condition with his and daughter. Reason For Visit: ACUTE ENCEPHALOPATHY, ELEVATED LACTIC ACID LEVEL, Physical Exam Vital Signs: Temp Pulse Resp BP Pulse Ox 97.5 F 38 L 16 116/91 H 97 10/22/19 11:22 10/22/19 16:30 10/22/19 16:30 10/22/19 16:30 10/22/19 16:30 Intake & Output 10/21/19 10/22/19 10/23/19 06:59 06:59 06:59 Intake Total 150 2132 Output Total 0 325 Balance 150 1807 Weight 130.2 kg General appearance: PRESENT: no acute distress, cooperative Neck exam: ABSENT: JVD Respiratory exam: PRESENT: rhonchi, symmetrical, unlabored. ABSENT: tachypnea, wheezes Cardiovascular exam: PRESENT: RRR, +S1, +S2. ABSENT: tachycardia GI/Abdominal exam: PRESENT: soft. ABSENT: rebound, rigid, tenderness Neurological exam: PRESENT: alert, awake Psychiatric exam: ABSENT: agitated, anxious Focused psych exam: ABSENT: pressured speech Skin exam: ABSENT: jaundice Results Laboratory Results: 10/21/19 20:13 10/21/19 20:13 10/21/19 10/21/19 10/21/19 20:13 20:13 20:13 WBC 13.8 H RBC 4.76 Hgb 14.6 Hct 43.6 MCV 92 MCH 30.6 MCHC 33.3 RDW 16.2 H Plt Count 285 Seg Neutrophils % 72.7 VBG pH VBG pCO2 VBG HCO3 VBG Base Excess Sodium 139.1 Potassium 4.7 Chloride 103 Carbon Dioxide 28 Anion Gap 8 BUN 29 H Creatinine 1.58 H Est GFR ( Amer) 53 L Glucose 131 H Lactic Acid 2.4 H Calcium 9.3 Magnesium 2.1 Ferritin Total Bilirubin 1.4 H AST 719 H Alkaline Phosphatase 173 H Ammonia Total Protein 6.6 Albumin 3.9 TSH Urine Color Urine Appearance Urine pH Ur Specific [place] Urine Protein Urine Glucose (UA) Urine Ketones Urine Blood Urine Nitrite Ur Leukocyte Esterase Urine WBC (Auto) Urine RBC (Auto) 10/21/19 10/21/19 10/21/19 20:13 20:13 20:13 WBC RBC Hgb Hct MCV MCH MCHC RDW Plt Count Seg Neutrophils % VBG pH 7.41 VBG pCO2 37.3 VBG HCO3 23.1 VBG Base Excess -1.2 Sodium Potassium Chloride Carbon Dioxide Anion Gap BUN Creatinine Est GFR ( Amer) Glucose Lactic Acid Calcium Magnesium Ferritin Total Bilirubin 1.3 AST 726 H Alkaline Phosphatase 177 H Ammonia Total Protein 6.5 Albumin 3.7 TSH 5.19 H Urine Color Urine Appearance Urine pH Ur Specific [place] Urine Protein Urine Glucose (UA) Urine Ketones Urine Blood Urine Nitrite Ur Leukocyte Esterase Urine WBC (Auto) Urine RBC (Auto) 10/21/19 10/22/19 10/22/19 20:56 05:09 05:09 WBC RBC Hgb Hct MCV MCH MCHC RDW Plt Count Seg Neutrophils % VBG pH VBG pCO2 VBG HCO3 VBG Base Excess Sodium Potassium Chloride Carbon Dioxide Anion Gap BUN Creatinine Est GFR ( Amer) Glucose Lactic Acid 3.1 H Calcium Magnesium Ferritin Total Bilirubin AST Alkaline Phosphatase Ammonia < 8.7 L Total Protein Albumin TSH Urine Color STORMY Urine Appearance CLOUDY Urine pH 5.0 Ur Specific [place] 1.026 Urine Protein 100 H Urine Glucose (UA) NEGATIVE Urine Ketones NEGATIVE Urine Blood NEGATIVE Urine Nitrite NEGATIVE Ur Leukocyte Esterase NEGATIVE Urine WBC (Auto) 14 Urine RBC (Auto) 4 10/22/19 10/22/19 05:09 12:55 WBC RBC Hgb Hct MCV MCH MCHC RDW Plt Count Seg Neutrophils % VBG pH VBG pCO2 VBG HCO3 VBG Base Excess Sodium Potassium Chloride Carbon Dioxide Anion Gap BUN Creatinine Est GFR ( Amer) Glucose Lactic Acid 2.3 H Calcium Magnesium Ferritin 331.00 Total Bilirubin AST Alkaline Phosphatase Ammonia Total Protein Albumin TSH Urine Color Urine Appearance Urine pH Ur Specific [place] Urine Protein Urine Glucose (UA) Urine Ketones Urine Blood Urine Nitrite Ur Leukocyte Esterase Urine WBC (Auto) Urine RBC (Auto) 10/21/19 20:13 Troponin I 0.071 Impressions: Head CT 10/21/19 20:58 IMPRESSION: 1. No intracranial hemorrhage or mass lesion. 2. Possible permeative calvarial lesion at the left anterior superior orbital ridge. This area is not well seen. Correlation with symptomatology is recommended. This area was not imaged on the previous PET scan. Chest X-Ray 10/21/19 20:59 IMPRESSION: Abnormal opacity at the left lower lung and indistinctness of the left hemidiaphragm could represent a combination of pleural fluid and atelectasis. Other etiologies including an infectious process cannot be excluded. Increased opacity of the right lower lung may represent atelectasis versus an infectious process. Underlying pleural fluid cannot be excluded. Abdomen Ultrasound 10/21/19 22:05 IMPRESSION: Right effusion Question bidirectional flow in the portal vein No additional evidence of acute process Assessment and Plan - Diagnosis (1) Acute metabolic encephalopathy Is this a current diagnosis for this admission?: Yes Plan: Became aggressive earlier today. Patient has orders for Ativan and Haldol as needed. Head CT did show some lesion in his calvarium but not in his brain. I have discussed with oncology and patient will need further evaluation with MRI brain. Will favor waiting for COVID to be ruled out prior to MRI. (2) Pneumonia Is this a current diagnosis for this admission?: Yes Plan: Possible pneumonia noted on right lung. Also has leukocytosis and lactic acidosis. Test results are pending for COVID-19. Receiving IV antibiotics. IV fluids administered. Will recheck lactic acid. (3) Hepatocellular injury Is this a current diagnosis for this admission?: Yes Plan: Patient has no history of liver disease or alcoholism. I discussed with patient's family who states that patient's has not been started on any other new medication or herbal supplements besides Eliquis. Also Dr. Peña confirms patient has not received chemo since July. Right upper quadrant ultrasound is unremarkable. Check hepatitis panel. Trend CMP. (4) Hodgkin lymphoma Qualifiers: Hodgkin lymphoma type: unspecified type Lymphoma site: intra-abdominal nodes Qualified Code(s): C81.93 - Hodgkin lymphoma, unspecified, intra- abdominal lymph nodes Is this a current diagnosis for this admission?: Yes Plan: Discussed with patient's oncologist Dr. Ferguson who states that patient has stage IIIb Hodgkin's lymphoma underwent therapy with ABVD which was completed in July of this year. Recent PET/CT shows significant improvement and continued decrease in size of lymph nodes without enhanced metabolic activity. (5) Internal jugular (IJ) vein thromboembolism, acute Qualifiers: Laterality: right Qualified Code(s): I82.C11 - Acute embolism and thrombosis of right internal jugular vein Is this a current diagnosis for this admission?: Yes Plan: This was recently diagnosed last month and patient was started on Eliquis. Family states that patient's confusion started after initiation of Eliquis with plans for removal of port at a later date. I do not know encephalopathy to be a side effect of Eliquis. Patient currently on Lovenox therapeutic dose. INR notably elevated. (6) Obesity (BMI 30.0-34.9) Is this a current diagnosis for this admission?: Yes - Time Time Spent with patient: 15-24 minutes
[2019-10-22] MEDS: ENOXAPARIN SODIUM INJ 120 MG/0.8 ML DISP.SYRIN SUBCUT SCH (22:52)
[2019-10-22] MEDS: ZOLPIDEM TARTRATE 5 MG TABLET PO SCH (22:52)
[2019-10-23 00:58] LABS: ALBUMIN 3.5 g/dL (3.5-5.0); ALKALINE PHOSPHATASE 157 U/L (38-126); ASPARTATE AMINO TRANSFERASE 192 U/L (17-59); BILIRUBIN,DIRECT 0.1 mg/dL (0.0-0.4); BILIRUBIN,TOTAL 1.4 mg/dL (0.2-1.3); TOTAL PROTEIN 6.3 g/dL (6.3-8.2)
[2019-10-23] MEDS: LORAZEPAM INJ 2 MG/1 ML VIAL IV PRN ×2 (03:16→17:01)
[2019-10-23 05:25] LABS: ABSOLUTE BASOPHILS # (AUTO) 0.1 10^3/uL (0.0-0.2); ABSOLUTE EOSINOPHILS # (AUTO) 0.1 10^3/uL (0.0-0.6); ABSOLUTE LYMPHOCYTES (AUTO) 1.1 10^3/uL (0.5-4.7); ABSOLUTE MONOCYTES (AUTO) 1.7 10^3/uL (0.1-1.4); ABSOLUTE NEUT (AUTO) 8.9 10^3/uL (1.7-8.2); EOSINOPHILS % (AUTO) 0.5 % (0-6); HEMATOCRIT 42.6 % (37.9-51.0); HEMOGLOBIN 14.5 g/dL (13.5-17.0); LYMPHOCYTES % (AUTO) 8.9 % (13-45); MEAN CORPUSCULAR HEMOGLOBIN 30.6 pg (27.0-33.4); MEAN CORPUSCULAR HGB CONC 34.1 g/dL (32.0-36.0); MEAN CORPUSCULAR VOLUME 90 fl (80-97); MONOCYTES % (AUTO) 14.5 % (3-13); PLATELET COUNT 248 10^3/uL (150-450); RED BLOOD COUNT 4.75 10^6/uL (4.35-5.55); RED CELL DISTRIBUTION WIDTH 16.5 % (11.5-14.0); SEGMENTED NEUTROPHILS % (AUTO) 75.1 % (42-78); TOTAL CELLS COUNTED % (AUTO) 100 %; WHITE BLOOD COUNT 11.8 10^3/uL (4.0-10.5)
[2019-10-23 05:47] LABS: ANION GAP 11 (5-19); BLOOD UREA NITROGEN 26 mg/dL (7-20); CALCIUM 8.5 mg/dL (8.4-10.2); CARBON DIOXIDE 24 mmol/L (22-30); CHLORIDE 102 mmol/L (98-107); GLUCOSE 121 mg/dL (75-110)
[2019-10-23 05:59] LABS: FREE T3 3.1 pg/mL (2.77-5.27)
[2019-10-23 06:13] LABS: THYROID STIMULATING HORMONE 4.69 uIU/mL (0.47-4.68)
[2019-10-23] MEDS: ENOXAPARIN SODIUM INJ 120 MG/0.8 ML DISP.SYRIN SUBCUT SCH ×2 (11:17→22:43)
[2019-10-23] MEDS: FAMOTIDINE 20 MG TABLET PO SCH ×3 (11:17→23:23)
[2019-10-23] MEDS: DOCUSATE SODIUM 100 MG CAPSULE PO SCH ×2 (11:17→17:08)
[2019-10-23] MEDS: METOPROLOL SUCCINATE 25 MG TAB.SR.24H PO SCH ×2 (15:04→15:36)
[2019-10-23] MEDS: LISINOPRIL 10 MG TABLET PO SCH ×2 (15:04→15:36)
[2019-10-23] MEDS: VANCOMYCIN HCL 1,250 MG in DEXTROSE 5%-WATER 250 ML IV SCH ×2 (15:05→20:40)
[2019-10-23] MEDS: CEFEPIME HCL 2 GM in DEXTROSE 5%-WATER 50 ML IV SCH ×2 (15:05→22:46)
[2019-10-23] MEDS: DILTIAZEM HCL 30 MG TABLET PO SCH ×2 (18:07→22:45)
[2019-10-23] MEDS: HALOPERIDOL LACTATE INJ 5 MG/1 ML VIAL IM PRN (18:49)
--- NOTE | 2019-10-23 19:06 | PDOC PROGRESS REPORT ---
Subjective Progress Note for:: 10/23/19 Subjective:: Patient continues to be confused and per family this is nowhere near his baseline. They have spoken to the nurse today they are concerned that patient's anticoagulant is to blame for this due to chronologic timing of his confusion when he started this drug. This is highly unlikely. I noted that his CT head showed possible permeative calvarial lesion left anterior superior orbital ridge. MRI was reportedly canceled/delayed due to rhinovirus rule out isolation and patient intermittent agitation. We will reorder the MRI to be done now and he can have a 1 mg on-call dose of Ativan IV as needed. Discussed with nursing. Patient is oriented only to self today. He cannot specifically voice any complaints. Reason For Visit: ACUTE ENCEPHALOPATHY, ELEVATED LACTIC ACID LEVEL, Physical Exam Vital Signs: Temp Pulse Resp BP Pulse Ox 97.5 F 124 H 16 100/65 99 10/23/19 15:51 10/23/19 17:53 10/23/19 15:51 10/23/19 15:51 10/23/19 15:51 Intake & Output 10/22/19 10/23/19 10/24/19 06:59 06:59 06:59 Intake Total 150 3672 0 Output Total 0 625 Balance 150 3047 0 Weight 130.2 kg 133.8 kg General appearance: PRESENT: no acute distress, cooperative, obese, well- developed, well-nourished Eye exam: PRESENT: conjunctiva pink Mouth exam: PRESENT: moist Respiratory exam: PRESENT: clear to auscultation ana. ABSENT: rales, rhonchi, w heezes Cardiovascular exam: PRESENT: irregular rhythm - A. fib, tachycardia. ABSENT: diastolic murmur, rubs, systolic murmur GI/Abdominal exam: PRESENT: normal bowel sounds, soft. ABSENT: distended, guarding, mass, organolmegaly, rebound, tenderness Rectal exam: PRESENT: deferred Extremities exam: PRESENT: pedal edema Neurological exam: PRESENT: alert - Very limited neurologic exam as patient cannot understand and or follow commands, altered, awake, oriented to person Psychiatric exam: PRESENT: flat affect, normal mood, unusual affect Skin exam: PRESENT: dry, intact, warm Results Laboratory Results: 10/23/19 04:56 10/23/19 04:56 10/23/19 10/23/19 10/23/19 00:31 04:56 04:56 WBC 11.8 H RBC 4.75 Hgb 14.5 Hct 42.6 MCV 90 MCH 30.6 MCHC 34.1 RDW 16.5 H Plt Count 248 Seg Neutrophils % 75.1 Sodium 136.6 L Potassium 4.0 Chloride 102 Carbon Dioxide 24 Anion Gap 11 BUN 26 H Creatinine 1.08 Est GFR ( Amer) > 60 Glucose 121 H Lactic Acid Calcium 8.5 Magnesium 1.9 Total Bilirubin 1.4 H AST 192 H Alkaline Phosphatase 157 H Total Protein 6.3 Albumin 3.5 TSH Free T3 pg/mL 10/23/19 10/23/19 04:56 04:56 WBC RBC Hgb Hct MCV MCH MCHC RDW Plt Count Seg Neutrophils % Sodium Potassium Chloride Carbon Dioxide Anion Gap BUN Creatinine Est GFR ( Amer) Glucose Lactic Acid 1.7 Calcium Magnesium Total Bilirubin AST Alkaline Phosphatase Total Protein Albumin TSH 4.69 H Free T3 pg/mL 3.10 10/21/19 20:56 Throat Throat Culture - Final NORMAL STEFFI 10/21/19 20:13 Troponin I 0.071 Impressions: Head CT 10/21/19 20:58 IMPRESSION: 1. No intracranial hemorrhage or mass lesion. 2. Possible permeative calvarial lesion at the left anterior superior orbital ridge. This area is not well seen. Correlation with symptomatology is recommended. This area was not imaged on the previous PET scan. Chest X-Ray 10/21/19 20:59 IMPRESSION: Abnormal opacity at the left lower lung and indistinctness of the left hemidiaphragm could represent a combination of pleural fluid and atelectasis. Other etiologies including an infectious process cannot be excluded. Increased opacity of the right lower lung may represent atelectasis versus an infectious process. Underlying pleural fluid cannot be excluded. Abdomen Ultrasound 10/21/19 22:05 IMPRESSION: Right effusion Question bidirectional flow in the portal vein No additional evidence of acute process Assessment and Plan - Diagnosis (1) Pneumonia Is this a current diagnosis for this admission?: Yes Plan: Possible pneumonia noted on right lung. Also has leukocytosis and lactic acidosis. Test results are pending for COVID-19. Receiving IV antibiotics. IV fluids administered. Will recheck lactic acid. 10/23/2019 Coronavirus test negative, no need to repeat, low suspicion IV antibiotics continue IV fluids (2) Hodgkin lymphoma Qualifiers: Hodgkin lymphoma type: unspecified type Lymphoma site: intra-abdominal nodes Qualified Code(s): C81.93 - Hodgkin lymphoma, unspecified, intra- abdominal lymph nodes Is this a current diagnosis for this admission?: Yes Plan: Discussed with patient's oncologist Dr. Ferguson who states that patient has stage IIIb Hodgkin's lymphoma underwent therapy with ABVD which was completed in July of this year. Recent PET/CT shows significant improvement and continued decrease in size of lymph nodes without enhanced metabolic activity. 10/23/2019 Suspect his confusion is related to metastasis of his lymphoma to his brain versus a new primary MRI brain with and without contrast ordered May need heme-onc consult (3) Acute metabolic encephalopathy Is this a current diagnosis for this admission?: Yes Plan: Became aggressive earlier today. Patient has orders for Ativan and Haldol as needed. Head CT did show some lesion in his calvarium but not in his brain. I have discussed with oncology and patient will need further evaluation with MRI brain. Will favor waiting for COVID to be ruled out prior to MRI. 10/23/2019 Unclear etiology but possibly related to pneumonia versus new brain lesion seen on CT MRI as above Continue treating pneumonia (5) Hepatocellular injury Is this a current diagnosis for this admission?: Yes Plan: Patient has no history of liver disease or alcoholism. I discussed with patient's family who states that patient's has not been started on any other new medication or herbal supplements besides Eliquis. Also Dr. Peña confirms patient has not received chemo since July. Right upper quadrant ultrasound is unremarkable. Check hepatitis panel. Trend CMP. 10/23/2019 LFTs seem to be trending down Continue IV fluids Could possibly have metastatic disease to liver/biliary system Consider adding abdominal CT as well (6) Internal jugular (IJ) vein thromboembolism, acute Qualifiers: Laterality: right Qualified Code(s): I82.C11 - Acute embolism and thrombosis of right internal jugular vein Is this a current diagnosis for this admission?: Yes (7) Obesity (BMI 30.0-34.9) Is this a current diagnosis for this admission?: Yes (8) Atrial fibrillation Qualifiers: Atrial fibrillation type: unspecified chronic Qualified Code(s): I48.20 - Chronic atrial fibrillation, unspecified; I48.2 - Chronic atrial fibrillation Is this a current diagnosis for this admission?: Yes Plan: Uncontrolled heart rate Intermittently refusing his medications Added oral diltiazem low-dose, can titrate up as needed Added IV Lopressor to be given as needed for heart rate over 120 provided SBP is not less than 100 - Time Time Spent with patient: 35 or more minutes Medications reviewed and adjusted accordingly: Yes - Inpatient Certification Medical Necessity: Significant Comorbidiites Make Outpatient Treatment Too Risky, Need Close Monitoring Due to Risk of Patient Decompensation, Risk of Complication if Not Cared For in Hospital, Risk of Diagnosis Which Will Require Inpatient Eval/Care/Monitoring
[2019-10-23] MEDS ORDERED: HALOPERIDOL LACTATE INJ 5 MG/1 ML VIAL IV PRN (20:15)
[2019-10-23] MEDS: ZOLPIDEM TARTRATE 5 MG TABLET PO SCH ×2 (22:46→23:33)
[2019-10-23 23:13] LABS: APPEARANCE,URINE CLEAR; BILIRUBIN,URINE NEGATIVE (NEGATIVE); COLOR,URINE YELLOW; GLUCOSE, URINE NEGATIVE (NEGATIVE); KETONES,URINE NEGATIVE (NEGATIVE); LEUKOCYTE ESTERASE,URINE NEGATIVE (NEGATIVE); NITRITE,URINE NEGATIVE (NEGATIVE); PROTEIN,URINE 30 mg/dL (NEGATIVE); URINE SPECIFIC GRAVITY 1.014; UROBILINOGEN,URINE NEGATIVE mg/dL (<2.0)
[2019-10-23] MEDS: METOPROLOL TARTRATE PF/INJ 5 MG/5 ML SDV IV PRN (23:43)
[2019-10-24] MEDS: LORAZEPAM INJ 2 MG/1 ML VIAL IV PRN ×4 (00:09→21:06)
[2019-10-24] MEDS: HALOPERIDOL LACTATE INJ 5 MG/1 ML VIAL IM PRN ×3 (04:02→22:22)
[2019-10-24 04:39] LABS: ABSOLUTE LYMPHOCYTES (AUTO) 0.8 10^3/uL (0.5-4.7); ABSOLUTE MONOCYTES (AUTO) 1.4 10^3/uL (0.1-1.4); ABSOLUTE NEUT (AUTO) 11.1 10^3/uL (1.7-8.2); BASOPHILS % (AUTO) 0.3 % (0-2); EOSINOPHILS % (AUTO) 0.1 % (0-6); HEMATOCRIT 42.4 % (37.9-51.0); HEMOGLOBIN 14.2 g/dL (13.5-17.0); MEAN CORPUSCULAR HEMOGLOBIN 30.7 pg (27.0-33.4); MEAN CORPUSCULAR HGB CONC 33.5 g/dL (32.0-36.0); MEAN CORPUSCULAR VOLUME 92 fl (80-97); MONOCYTES % (AUTO) 10.7 % (3-13); PLATELET COUNT 257 10^3/uL (150-450); RED BLOOD COUNT 4.63 10^6/uL (4.35-5.55); RED CELL DISTRIBUTION WIDTH 16.3 % (11.5-14.0); SEGMENTED NEUTROPHILS % (AUTO) 82.9 % (42-78); TOTAL CELLS COUNTED % (AUTO) 100 %; WHITE BLOOD COUNT 13.3 10^3/uL (4.0-10.5)
[2019-10-24 04:57] LABS: ALBUMIN 3.6 g/dL (3.5-5.0); ALKALINE PHOSPHATASE 131 U/L (38-126); ASPARTATE AMINO TRANSFERASE 122 U/L (17-59); BILIRUBIN,DIRECT 0.2 mg/dL (0.0-0.4); BILIRUBIN,TOTAL 1.6 mg/dL (0.2-1.3); TOTAL PROTEIN 6.5 g/dL (6.3-8.2)
[2019-10-24] MEDS: DILTIAZEM HCL 30 MG TABLET PO SCH ×3 (05:04→21:16)
[2019-10-24 07:37] LABS: HEPATITS B SURFACE ANTIGEN Negative (Negative)
[2019-10-24] MEDS: VANCOMYCIN HCL 1,250 MG in DEXTROSE 5%-WATER 250 ML IV SCH ×2 (08:14→21:09)
[2019-10-24 09:08] LABS: HEPATITIS C VIRUS ANTIBODY <0.1 s/co ratio (0.0-0.9)
[2019-10-24] MEDS: CEFEPIME HCL 2 GM in DEXTROSE 5%-WATER 50 ML IV SCH ×2 (11:31→21:10)
[2019-10-24] MEDS: ENOXAPARIN SODIUM INJ 120 MG/0.8 ML DISP.SYRIN SUBCUT SCH ×2 (11:32→21:16)
[2019-10-24] MEDS: LISINOPRIL 10 MG TABLET PO SCH (11:32)
[2019-10-24] MEDS: FAMOTIDINE 20 MG TABLET PO SCH ×2 (11:32→21:16)
[2019-10-24] MEDS: METOPROLOL SUCCINATE 25 MG TAB.SR.24H PO SCH (11:32)
[2019-10-24] MEDS: DOCUSATE SODIUM 100 MG CAPSULE PO SCH ×2 (11:32→17:27)
[2019-10-24] MEDS: METOPROLOL TARTRATE PF/INJ 5 MG/5 ML SDV IV PRN ×2 (12:48→22:28)
[2019-10-24] MEDS ORDERED: LORAZEPAM INJ 2 MG/1 ML VIAL IV PRN (13:12)
--- NOTE | 2019-10-24 14:01 | PDOC PROGRESS REPORT ---
Subjective Progress Note for:: 10/24/19 Subjective:: Patient has been more alert today and speaking more. He actually states he is in [facility] in a hospital but he only knows this when given multiple choice questions. He is currently in restraints due to constantly trying to get out of bed and pulling at his lines. We will get an MRI brain today as this could not be done last night due to agitation. I discussed with the nurse that the patient can have 1 mg IV Ativan prior to MRI and this dose can be repeated after 30 minutes if there is no effect. It is imperative that we get brain imaging today. I had an extensive conversation with the patient's family in which I discussed the course and the plan going forward. I am concerned that he has a metastatic brain lesion possibly with surrounding vasogenic edema that is causing his altered mental status. We will need to consult oncology if this is the case. LFTs are lower, heart rate is intermittently more controlled when the patient allows the nurse to give him his medications. Blood pressure was low overnight and he was started on some IV fluids. UA did not show infection. Hepatitis panel is pending. Reason For Visit: ACUTE ENCEPHALOPATHY, ELEVATED LACTIC ACID LEVEL, Physical Exam Vital Signs: Temp Pulse Resp BP Pulse Ox 97.6 F 95 20 122/73 93 10/24/19 08:04 10/24/19 08:04 10/24/19 08:04 10/24/19 08:04 10/24/19 08:04 Intake & Output 10/23/19 10/24/19 10/25/19 06:59 06:59 06:59 Intake Total 3672 300 300 Output Total 625 525 Balance 3047 -225 300 Weight 133.8 kg 133.8 kg General appearance: PRESENT: cooperative, disheveled, obese Head exam: PRESENT: atraumatic, normocephalic Eye exam: PRESENT: conjunctiva pink Mouth exam: PRESENT: moist Respiratory exam: PRESENT: clear to auscultation ana. ABSENT: rales, rhonchi, wheezes Cardiovascular exam: PRESENT: irregular rhythm. ABSENT: diastolic murmur, rubs, systolic murmur, tachycardia GI/Abdominal exam: PRESENT: normal bowel sounds, soft. ABSENT: distended, guarding, mass, organolmegaly, rebound, tenderness Rectal exam: PRESENT: deferred Neurological exam: PRESENT: alert, altered, awake, oriented to person, oriented to place. ABSENT: oriented to time, oriented to situation - Very limited neurologic exam as patient has a great deal of difficulty understanding and following commands Psychiatric exam: PRESENT: flat affect, normal mood Focused psych exam: PRESENT: restlessness Skin exam: PRESENT: dry, intact, warm Results Laboratory Results: 10/24/19 04:16 10/23/19 04:56 10/23/19 10/24/19 10/24/19 22:27 04:16 04:16 WBC 13.3 H RBC 4.63 Hgb 14.2 Hct 42.4 MCV 92 MCH 30.7 MCHC 33.5 RDW 16.3 H Plt Count 257 Seg Neutrophils % 82.9 H Magnesium Total Bilirubin 1.6 H AST 122 H Alkaline Phosphatase 131 H Total Protein 6.5 Albumin 3.6 Urine Color YELLOW Urine Appearance CLEAR Urine pH 5.0 Ur Specific [place] 1.014 Urine Protein 30 H Urine Glucose (UA) NEGATIVE Urine Ketones NEGATIVE Urine Blood NEGATIVE Urine Nitrite NEGATIVE Ur Leukocyte Esterase NEGATIVE Urine WBC (Auto) 2 Urine RBC (Auto) 0 10/24/19 04:16 WBC RBC Hgb Hct MCV MCH MCHC RDW Plt Count Seg Neutrophils % Magnesium 2.2 Total Bilirubin AST Alkaline Phosphatase Total Protein Albumin Urine Color Urine Appearance Urine pH Ur Specific [place] Urine Protein Urine Glucose (UA) Urine Ketones Urine Blood Urine Nitrite Ur Leukocyte Esterase Urine WBC (Auto) Urine RBC (Auto) 10/21/19 20:56 Throat Throat Culture - Final NORMAL STEFFI 10/21/19 20:13 Troponin I 0.071 Impressions: Head CT 10/21/19 20:58 IMPRESSION: 1. No intracranial hemorrhage or mass lesion. 2. Possible permeative calvarial lesion at the left anterior superior orbital ridge. This area is not well seen. Correlation with symptomatology is recommended. This area was not imaged on the previous PET scan. Chest X-Ray 10/21/19 20:59 IMPRESSION: Abnormal opacity at the left lower lung and indistinctness of the left hemidiaphragm could represent a combination of pleural fluid and atelectasis. Other etiologies including an infectious process cannot be excluded. Increased opacity of the right lower lung may represent atelectasis versus an infectious process. Underlying pleural fluid cannot be excluded. Abdomen Ultrasound 10/21/19 22:05 IMPRESSION: Right effusion Question bidirectional flow in the portal vein No additional evidence of acute process Assessment and Plan - Diagnosis (1) Pneumonia Is this a current diagnosis for this admission?: Yes Plan: Possible pneumonia noted on right lung. Also has leukocytosis and lactic acidosis. Test results are pending for COVID-19. Receiving IV antibiotics. IV fluids administered. Will recheck lactic acid. 10/23/2019 Coronavirus test negative, no need to repeat, low suspicion IV antibiotics continue IV fluids Improving, repeat chest x-ray 10/24 (2) Hodgkin lymphoma Qualifiers: Hodgkin lymphoma type: unspecified type Lymphoma site: intra-abdominal nodes Qualified Code(s): C81.93 - Hodgkin lymphoma, unspecified, intra- abdominal lymph nodes Is this a current diagnosis for this admission?: Yes Plan: Per previous physician: "Discussed with patient's oncologist Dr. Ferguson who states that patient has stage IIIb Hodgkin's lymphoma underwent therapy with ABVD which was completed in July of this year. Recent PET/CT shows significant improvement and continued decrease in size of lymph nodes without e nhanced metabolic activity." 10/23/2019 Suspect his confusion is related to metastasis of his lymphoma to his brain versus a new primary MRI brain with and without contrast ordered May need heme-onc consult pending above imaging results (3) Acute metabolic encephalopathy Is this a current diagnosis for this admission?: Yes Plan: Per previous physician: "Became aggressive earlier today. Patient has orders for Ativan and Haldol as needed. Head CT did show some lesion in his calvarium but not in his brain. I have discussed with oncology and patient will need further evaluation with MRI brain. Will favor waiting for COVID to be ruled out prior to MRI." Unclear etiology but possibly related to pneumonia versus new brain lesion seen on CT MRI as above Continue treating pneumonia Pneumonia negative Speech therapy consult (5) Hepatocellular injury Is this a current diagnosis for this admission?: Yes Plan: Per previous physician: "Patient has no history of liver disease or alcoholism. I discussed with patient's family who states that patient's has not been started on any other new medication or herbal supplements besides Eliquis. Also Dr. Peña confirms patient has not received chemo since July. Right upper quadrant ultrasound is unremarkable. Check hepatitis panel. Trend CMP." LFTs are trending down Continue IV fluids Could possibly have metastatic disease to liver/biliary system however this was not shown on CTA chest and abdomen (6) Internal jugular (IJ) vein thromboembolism, acute Qualifiers: Laterality: right Qualified Code(s): I82.C11 - Acute embolism and thrombosis of right internal jugular vein Is this a current diagnosis for this admission?: Yes (7) Obesity (BMI 30.0-34.9) Is this a current diagnosis for this admission?: Yes (8) Atrial fibrillation Qualifiers: Atrial fibrillation type: unspecified chronic Qualified Code(s): I48.20 - Chronic atrial fibrillation, unspecified; I48.2 - Chronic atrial fibrillation Is this a current diagnosis for this admission?: Yes Plan: Uncontrolled heart rate Intermittently refusing his medications Added oral diltiazem low-dose, can titrate up as needed; heart rate intermittently more difficult to control as patient sometimes refuses oral meds Added IV Lopressor to be given as needed for heart rate over 120 provided SBP is not less than 100 - Time Time Spent with patient: 35 or more minutes Medications reviewed and adjusted accordingly: Yes - Inpatient Certification Medical Necessity: Significant Comorbidiites Make Outpatient Treatment Too Risky, Need Close Monitoring Due to Risk of Patient Decompensation, Risk of Complication if Not Cared For in Hospital, Risk of Diagnosis Which Will Require Inpatient Eval/Care/Monitoring
[2019-10-24] MEDS: ZOLPIDEM TARTRATE 5 MG TABLET PO SCH (21:16)
[2019-10-25] MEDS ORDERED: ZIPRASIDONE MESYLATE INJ/PF 20 MG SDV IM ONE (02:00)
[2019-10-25] MEDS: DILTIAZEM HCL 30 MG TABLET PO SCH ×3 (05:08→21:27)
[2019-10-25] MEDS: LORAZEPAM INJ 2 MG/1 ML VIAL IV PRN (05:10)
[2019-10-25] MEDS ORDERED: ZIPRASIDONE MESYLATE INJ/PF 20 MG SDV IM PRN (05:23)
[2019-10-25] MEDS: VANCOMYCIN HCL 1,250 MG in DEXTROSE 5%-WATER 250 ML IV SCH ×2 (08:23→20:44)
[2019-10-25 09:16] LABS: ABSOLUTE MONOCYTES (AUTO) 1.9 10^3/uL (0.1-1.4); ABSOLUTE NEUT (AUTO) 8.9 10^3/uL (1.7-8.2); BASOPHILS % (AUTO) 0.1 % (0-2); HEMATOCRIT 45.4 % (37.9-51.0); HEMOGLOBIN 14.9 g/dL (13.5-17.0); LYMPHOCYTES % (AUTO) 8.5 % (13-45); MEAN CORPUSCULAR HEMOGLOBIN 30.3 pg (27.0-33.4); MEAN CORPUSCULAR HGB CONC 32.9 g/dL (32.0-36.0); MEAN CORPUSCULAR VOLUME 92 fl (80-97); MONOCYTES % (AUTO) 16.3 % (3-13); PLATELET COUNT 209 10^3/uL (150-450); RED BLOOD COUNT 4.93 10^6/uL (4.35-5.55); RED CELL DISTRIBUTION WIDTH 16.9 % (11.5-14.0); SEGMENTED NEUTROPHILS % (AUTO) 75.1 % (42-78); TOTAL CELLS COUNTED % (AUTO) 100 %; WHITE BLOOD COUNT 11.8 10^3/uL (4.0-10.5)
--- NOTE | 2019-10-25 09:21 | RADIOLOGY REPORT (SQ) ---
EXAM DESCRIPTION: CHEST SINGLE VIEW IMAGES COMPLETED DATE/TIME: 10/25/2019 9:07 am REASON FOR STUDY: Pneumonia COMPARISON: AP view of the chest from 10/21/2019. EXAM PARAMETERS: NUMBER OF VIEWS: One view. TECHNIQUE: An AP view of the chest was obtained. RADIATION DOSE: NA LIMITATIONS: None. FINDINGS: LUNGS AND PLEURA: The interstitium is prominent. The costophrenic sulci are blunted. The re is a dense opacity in the left retrocardiac space that obscures the contour of the descending thor acic aorta and left hemidiaphragm. There is no pneumothorax. MEDIASTINUM AND HILAR STRUCTURES: Stable mediastinal and hilar contours. HEART AND VASCULAR STRUCTURES: Stable enlarged cardiac silhouette. BONES: No acute findings. HARDWARE: The tip of the port catheter projects at the level of the cavoatrial junction. OTHER: No other finding. IMPRESSION: Cardiomegaly, indistinctness of the interstitium, and probable bilateral pleural effusio ns - clinical correlation for signs and symptoms of volume overload is recommended. In addition, the re is a dense opacity in the left retrocardiac space that could represent either atelectasis or pneum onia. TECHNICAL DOCUMENTATION: JOB ID: [id number] 2010 [employer]- All Rights Reserved Reading location - IP/workstation name: [email or web address]
[2019-10-25] MEDS ORDERED: LORAZEPAM INJ 2 MG/1 ML VIAL IV PRN ×2 (09:33→09:52)
[2019-10-25 09:55] LABS: ANION GAP 13 (5-19); BLOOD UREA NITROGEN 28 mg/dL (7-20); CALCIUM 9.2 mg/dL (8.4-10.2); CARBON DIOXIDE 25 mmol/L (22-30); CHLORIDE 102 mmol/L (98-107); GLUCOSE 111 mg/dL (75-110); POTASSIUM 4.6 mmol/L (3.6-5.0)
[2019-10-25] MEDS ORDERED: METOPROLOL SUCCINATE 50 MG TAB.SR.24H PO SCH (10:00)
[2019-10-25] MEDS: FAMOTIDINE 20 MG TABLET PO SCH ×2 (10:00→21:27)
[2019-10-25] MEDS: LISINOPRIL 10 MG TABLET PO SCH (10:00)
[2019-10-25] MEDS: DOCUSATE SODIUM 100 MG CAPSULE PO SCH ×2 (10:00→18:48)
[2019-10-25] MEDS: CEFEPIME HCL 2 GM in DEXTROSE 5%-WATER 50 ML IV SCH (11:02)
[2019-10-25] MEDS: OLANZAPINE INJ/PF 10 MG SDV IM PRN (12:05)
--- NOTE | 2019-10-25 14:31 | RADIOLOGY REPORT (SQ) ---
EXAM DESCRIPTION: MRI HEAD COMBO IMAGES COMPLETED DATE/TIME: 10/25/2019 1:29 pm REASON FOR STUDY: AMS COMPARISON: CT of the head without contrast from 10/21/2019. TECHNIQUE: Multiplanar imaging includes noncontrasted T1, T2, FLAIR, diffusion with ADC map and post gadolinium contrast T1 sequences. Images stored on PACS. CONTRAST TYPE AND DOSE: 20 mL Dotarem. RENAL FUNCTION: Not indicated. ACR Type II contrast agent associated with few, if any, unconfounded cases of NSF LIMITATIONS: None. FINDINGS: The midline structures, including the craniocervical junction, sella turcica and corpus ca llosum, are normal in appearance. There is no restricted diffusion on the DWI. There is no T2/FLAIR signal abnormality, acute intracra nial hemorrhage, extra-axial fluid collection, mass, mass effect or midline shift. The edward-white ma tter differentiation is preserved. There is no effacement of the cerebral sulci or basal subarachnoi d cisterns. The caliber of the ventricles is concordant with the degree of sulcation. The intracranial vascular flow voids are preserved. There is no susceptibility artifact on the gradi ent sequence. There is no pathologic intracranial enhancement. IMPRESSION: No acute intracranial abnormality. EVIDENCE OF ACUTE STROKE: NO. TECHNICAL DOCUMENTATION: JOB ID: [id number] 2010 [employer]- All Rights Reserved Reading location - IP/workstation name: [email or web address]
[2019-10-25] MEDS ORDERED: MEROPENEM 1 GM VIAL IV SCH (17:00)
--- NOTE | 2019-10-25 17:13 | PDOC PROGRESS REPORT ---
Subjective Progress Note for:: 10/25/19 Subjective:: Patient continues to be extremely confused and combative at times. He is in soft wrist restraints as he is sometimes a danger to the nursing staff. We were able to get an MRI of his brain today after giving him some IM Zyprexa. The MRI did not show any acute findings. I am concerned that he may have a CSF infection or perhaps an autoimmune encephalitis related to his cancer. I consulted neurology at [facility] and discussed the case with Dr. Hutson. They agreed with lumbar puncture and recommended getting B12, thiamine, RPR, Lyme antibodies, flow cytometry of CSF. They said if those things come back negative we should consult psychiatry though I voiced my disagreement with this notion. Patient clearly has a metabolic encephalopathy unrelated to psychiatric illness. He may benefit from transfer to a hospital with more resources than this 1 assuming all above testing comes back negative. His lumbar puncture is set for tomorrow and he will need some mild sedation in order to allow this test to happen. He is unable to voice any specific complaints today. Reason For Visit: ACUTE ENCEPHALOPATHY, ELEVATED LACTIC ACID LEVEL, Physical Exam Vital Signs: Temp Pulse Resp BP Pulse Ox 98.4 F 117 H 22 H 122/80 97 10/25/19 11:51 10/25/19 11:51 10/25/19 11:51 10/25/19 11:51 10/25/19 11:51 Intake & Output 10/24/19 10/25/19 10/26/19 06:59 06:59 06:59 Intake Total 300 700 Output Total 525 525 Balance -225 175 Weight 133.8 kg General appearance: PRESENT: no acute distress, disheveled, obese Head exam: PRESENT: atraumatic, normocephalic Eye exam: PRESENT: conjunctiva pink Mouth exam: PRESENT: moist Respiratory exam: PRESENT: clear to auscultation ana. ABSENT: rales, rhonchi, wheezes Cardiovascular exam: PRESENT: RRR. ABSENT: diastolic murmur, rubs, systolic mur mur GI/Abdominal exam: PRESENT: normal bowel sounds, soft. ABSENT: distended, guarding, mass, organolmegaly, rebound, tenderness Neurological exam: PRESENT: altered, other - Very limited neurologic exam as patient cannot understand and carry out commands. ABSENT: alert, awake, oriented to person, oriented to place, oriented to time, oriented to situation Psychiatric exam: PRESENT: agitated Skin exam: PRESENT: dry, intact, warm Results Laboratory Results: 10/25/19 07:33 10/25/19 07:33 10/25/19 10/25/19 10/25/19 07:33 07:33 07:33 WBC 11.8 H RBC 4.93 Hgb 14.9 Hct 45.4 MCV 92 MCH 30.3 MCHC 32.9 RDW 16.9 H Plt Count 209 Seg Neutrophils % 75.1 Sodium 140.0 Potassium 4.6 Chloride 102 Carbon Dioxide 25 Anion Gap 13 BUN 28 H Creatinine 1.19 Est GFR ( Amer) > 60 Glucose 111 H Calcium 9.2 Magnesium 2.3 10/21/19 20:13 Troponin I 0.071 Impressions: Head CT 10/21/19 20:58 IMPRESSION: 1. No intracranial hemorrhage or mass lesion. 2. Possible permeative calvarial lesion at the left anterior superior orbital ridge. This area is not well seen. Correlation with symptomatology is recommended. This area was not imaged on the previous PET scan. Abdomen Ultrasound 10/21/19 22:05 IMPRESSION: Right effusion Question bidirectional flow in the portal vein No additional evidence of acute process Chest X-Ray 10/25/19 00:00 IMPRESSION: Cardiomegaly, indistinctness of the interstitium, and probable bilateral pleural effusions - clinical correlation for signs and symptoms of volume overload is recommended. In addition, there is a dense opacity in the left retrocardiac space that could represent either atelectasis or pneumonia. Head MRI 10/25/19 10:48 IMPRESSION: No acute intracranial abnormality. EVIDENCE OF ACUTE STROKE: NO. Assessment and Plan - Diagnosis (1) Pneumonia Is this a current diagnosis for this admission?: Yes Plan: Possible pneumonia noted on right lung. Also has leukocytosis and lactic acidosis. Test results are pending for COVID-19. Receiving IV antibiotics. IV fluids administered. Will recheck lactic acid. 10/23/2019 Coronavirus test negative, no need to repeat, low suspicion IV antibiotics continue IV fluids Improving, repeat chest x-ray 10/2410/25/2019 Chest x-ray shows possible left posterior lobar pneumonia/opacity, bilateral pleural effusions May need to consider chest CT to better evaluate opacity on chest x-ray however patient is typically quite combative when we try to get imaging studies Change antibiotics to vancomycin/Merrem to give better coverage of meningitis organisms given patient is penicillin allergic. (2) Acute metabolic encephalopathy Is this a current diagnosis for this admission?: Yes Plan: Per previous physician: "Became aggressive earlier today. Patient has orders for Ativan and Haldol as needed. Head CT did show some lesion in his calvarium but not in his brain. I have discussed with oncology and patient will need further evaluation with MRI brain. Will favor waiting for COVID to be ruled out prior to MRI." Unclear etiology but possibly related to pneumonia versus new brain lesion seen on CT MRI as above Continue treating pneumonia Pneumonia negative Speech therapy consult 10/25/2019 MRI brain with and without contrast done and did not show any acute findings Consulted neurology at outside hospital who gave recommendations for additional testing RPR, VDRL CSF, Lyme antibodies, B12, thiamine Lumbar puncture ordered to be done 10/25 with appropriate studies of the fluid including cultures and flow cytometry Need to consider meningitis/encephalitis as a possible etiology. Possibly autoimmune encephalitis given his cancer history (3) Hodgkin lymphoma Qualifiers: Hodgkin lymphoma type: unspecified type Lymphoma site: intra-abdominal nodes Qualified Code(s): C81.93 - Hodgkin lymphoma, unspecified, intra- abdominal lymph nodes Is this a current diagnosis for this admission?: Yes Plan: Per previous physician: "Discussed with patient's oncologist Dr. Ferguson who states that patient has stage IIIb Hodgkin's lymphoma underwent therapy with ABVD which was completed in July of this year. Recent PET/CT shows significant improvement and continued decrease in size of lymph nodes without enhanced metabolic activity." 10/23/2019 Suspect his confusion is related to metastasis of his lymphoma to his brain versus a new primary MRI brain with and without contrast ordered May need heme-onc consult pending above imaging results (4) Metabolic encephalopathy Is this a current diagnosis for this admission?: Yes Plan: Unclear etiology (5) Hepatocellular injury Is this a current diagnosis for this admission?: Yes Plan: Per previous physician: "Patient has no history of liver disease or alcoholism. I discussed with patient's family who states that patient's has not been started on any other new medication or herbal supplements besides Eliquis. Also Dr. Peña confirms patient has not received chemo since July. Right upper quadrant ultrasound is unremarkable. Check hepatitis panel. Trend CMP." LFTs are trending down Continue IV fluids Could possibly have metastatic disease to liver/biliary system however this was not shown on CTA chest and abdomen Resolving (6) Internal jugular (IJ) vein thromboembolism, acute Qualifiers: Laterality: right Qualified Code(s): I82.C11 - Acute embolism and thrombosis of right internal jugular vein Is this a current diagnosis for this admission?: Yes (7) Obesity (BMI 30.0-34.9) Is this a current diagnosis for this admission?: Yes (8) Atrial fibrillation Qualifiers: Atrial fibrillation type: unspecified chronic Qualified Code(s): I48.20 - Chronic atrial fibrillation, unspecified; I48.2 - Chronic atrial fibrillation Is this a current diagnosis for this admission?: Yes - Time Time Spent with patient: 35 or more minutes Medications reviewed and adjusted accordingly: Yes - Inpatient Certification Based on my medical assessment, after consideration of the patient's comorbidities, presenting symptoms, or acuity I expect that the services needed warrant INPATIENT care.: Yes I certify that my determination is in accordance with my understanding of Medicare's requirements for reasonable and necessary INPATIENT services [42 CFR 412.3e].: Yes Medical Necessity: Significant Comorbidiites Make Outpatient Treatment Too Risky, Need Close Monitoring Due to Risk of Patient Decompensation, Need for IV Antibiotics, Risk of Complication if Not Cared For in Hospital, Risk of Diagnosis Which Will Require Inpatient Eval/Care/Monitoring
[2019-10-25] MEDS: ENOXAPARIN SODIUM INJ 120 MG/0.8 ML DISP.SYRIN SUBCUT SCH ×2 (18:45→21:29)
[2019-10-25] MEDS ORDERED: OLANZAPINE INJ/PF 10 MG SDV IM ONE (19:00)
[2019-10-25] MEDS: MEROPENEM 2 GM in NORMAL SALINE 100 ML IV SCH (20:42)
[2019-10-25] MEDS: ZOLPIDEM TARTRATE 5 MG TABLET PO SCH (21:36)
[2019-10-25 23:40] LABS: APPEARANCE,URINE SLIGHTLY-CLOUDY; BILIRUBIN,URINE NEGATIVE (NEGATIVE); COLOR,URINE YELLOW; GLUCOSE, URINE 50 mg/dL (NEGATIVE); KETONES,URINE TRACE mg/dL (NEGATIVE); LEUKOCYTE ESTERASE,URINE NEGATIVE (NEGATIVE); NITRITE,URINE NEGATIVE (NEGATIVE); PROTEIN,URINE 30 mg/dL (NEGATIVE); URINE SPECIFIC GRAVITY 1.029; UROBILINOGEN,URINE NEGATIVE mg/dL (<2.0)
[2019-10-26] MEDS: MEROPENEM 2 GM in NORMAL SALINE 100 ML IV SCH ×2 (05:27→21:16)
[2019-10-26] MEDS: DILTIAZEM HCL 30 MG TABLET PO SCH ×3 (05:27→21:11)
[2019-10-26] MEDS: HALOPERIDOL LACTATE INJ 5 MG/1 ML VIAL IM PRN (05:35)
[2019-10-26] MEDS: METOPROLOL TARTRATE PF/INJ 5 MG/5 ML SDV IV PRN (07:44)
[2019-10-26] MEDS: VANCOMYCIN HCL 1,250 MG in DEXTROSE 5%-WATER 250 ML IV SCH ×2 (08:10→19:29)
[2019-10-26 08:50] LABS: INTERNATIONAL RATION (INR) 1.68
[2019-10-26 08:57] LABS: ANION GAP 11 (5-19); BLOOD UREA NITROGEN 35 mg/dL (7-20); CALCIUM 8.9 mg/dL (8.4-10.2); CARBON DIOXIDE 21 mmol/L (22-30); CHLORIDE 105 mmol/L (98-107); GLUCOSE 137 mg/dL (75-110); POTASSIUM 4.7 mmol/L (3.6-5.0)
--- NOTE | 2019-10-26 10:07 | Progress Note ---
Provider Note Provider Note: [facility] Telephone Advice Consultation Chart reviewed. This is a 69-year-old man with Hodgkin Lymphoma with last ch emotherapy regimen (Adriamycin, vincristine, dexametasone) in Jul 2019 s/p PET scan demonstrating a decrease in retroperitoneal LAD. He has a port in the right chest and developed a DVT in right IJ (09/2019). He has a history of hypertension. Patient was taken to the ED due to altered mental status and shortness of breath. SARS-CoV-2 test was negative. He had mild leukocytosis, DEMARIO, elevated LFTs. A CXR demonstrated a retrocardiac opacity. Brain CT was suspicious for a calvarial lesion, but brain MRI was negative. Patient's leukocytosis improved, shortness of breath as well, but mental status has not improved. He will be on day 5 of vancomycin and cefepime today. Neurology was consulted and they recommended a diagnostic lumbar puncture which will be done today. ID consulted for oral alternatives for pneumonia. PMH: Hodgkin Lymphoma Hypertension PSH: Right chest port cholecystectomy tonsillectomy Allergies: Penicillins Allergy (Unknown, Verified 10/25/19 10:21) Anaphylaxis Medications: Alprazolam [Xanax] 0.5 mg PO BID 01/11/19 Metoprolol Succinate [Toprol Xl 25 mg Tab.sr] 50 mg PO DAILY 01/11/19 Tramadol HCl [Ultram 50 mg Tablet] 50 mg PO TID 01/11/19 Zolpidem Tartrate [Ambien] 10 mg PO QHS 01/11/19 Lisinopril [Zestril] 20 mg PO DAILY 02/07/19 Albuterol Sulfate [Proair HFA Inhalation Aerosol 8.5 gm MDI] 2 puff IH Q4HP PRN 10/22/19 Vital Signs: Temp Pulse Resp BP Pulse Ox 98.1 F 105 H 20 112/89 H 99 10/26/19 03:48 10/26/19 07:00 10/26/19 03:48 10/26/19 03:48 10/26/19 03:48 Intake & Output 10/25/19 10/26/19 10/27/19 06:59 06:59 06:59 Intake Total 700 1050 Output Total 525 865 Balance 175 185 Weight 114.6 kg Weight/Height Weight 114.6 kg Height 6 ft 3 in Laboratories: 10/25/19 07:33 10/26/19 08:28 MCV 92 fl (80-97) 10/25/19 07:33 MCH 30.3 pg (27.0-33.4) 10/25/19 07:33 MCHC 32.9 g/dL (32.0-36.0) 10/25/19 07:33 RDW 16.9 % (11.5-14.0) H 10/25/19 07:33 Seg Neutrophils % 75.1 % (42-78) 10/25/19 07:33 VBG pH 7.41 (7.30-7.42) 10/21/19 20:13 VBG pCO2 37.3 mmHg (35-63) 10/21/19 20:13 VBG HCO3 23.1 mmol/L (20-32) 10/21/19 20:13 VBG Base Excess -1.2 mmol/L 10/21/19 20:13 Chloride 105 mmol/L (98-107) 10/26/19 08:28 Carbon Dioxide 21 mmol/L (22-30) L 10/26/19 08:28 Anion Gap 11 (5-19) 10/26/19 08:28 Est GFR ( Amer) > 60 (>60) 10/26/19 08:28 Glucose 137 mg/dL (75-110) H 10/26/19 08:28 Lactic Acid 1.7 mmol/L (0.7-2.1) 10/23/19 04:56 Calcium 8.9 mg/dL (8.4-10.2) 10/26/19 08:28 Magnesium 2.3 mg/dL (1.6-2.3) 10/25/19 07:33 Ferritin 331.00 ng/mL (17.9-464.0) 10/22/19 05:09 Total Bilirubin 1.6 mg/dL (0.2-1.3) H 10/24/19 04:16 AST 122 U/L (17-59) H 10/24/19 04:16 Alkaline Phosphatase 131 U/L (38-126) H 10/24/19 04:16 Ammonia < 8.7 umol/L (9-33) L 10/22/19 05:09 Total Protein 6.5 g/dL (6.3-8.2) 10/24/19 04:16 Albumin 3.6 g/dL (3.5-5.0) 10/24/19 04:16 Vitamin B12 894.0 pg/mL (239-931) 10/25/19 21:48 TSH 4.69 uIU/mL (0.47-4.68) H 10/23/19 04:56 Free T3 pg/mL 3.10 pg/mL (2.77-5.27) 10/23/19 04:56 Urine Color YELLOW 10/25/19 22:40 Urine Appearance SLIGHTLY-CLOUDY 10/25/19 22:40 Urine pH 6.0 (5.0-9.0) 10/25/19 22:40 Ur Specific [place] 1.029 10/25/19 22:40 Urine Protein 30 mg/dL (NEGATIVE) H 10/25/19 22:40 Urine Glucose (UA) 50 mg/dL (NEGATIVE) H 10/25/19 22:40 Urine Ketones TRACE mg/dL (NEGATIVE) H 10/25/19 22:40 Urine Blood SMALL (NEGATIVE) H 10/25/19 22:40 Urine Nitrite NEGATIVE (NEGATIVE) 10/25/19 22:40 Ur Leukocyte Esterase NEGATIVE (NEGATIVE) 10/25/19 22:40 Urine WBC (Auto) 2 /HPF 10/25/19 22:40 Urine RBC (Auto) 6 /HPF 10/25/19 22:40 10/21/19 20:13 Troponin I 0.071 Microbiology: Blood culture 10/21/19 NGTD Throat culture: 10/21/19 NGTD Radiology: Head CT 10/21/19 20:58 IMPRESSION: 1. No intracranial hemorrhage or mass lesion. 2. Possible permeative calvarial lesion at the left anterior superior orbital ridge. This area is not well seen. Correlation with symptomatology is recommended. This area was not imaged on the previous PET scan. Abdomen Ultrasound 10/21/19 22:05 IMPRESSION: Right effusion Question bidirectional flow in the portal vein No additional evidence of acute process Chest X-Ray 10/25/19 00:00 IMPRESSION: Cardiomegaly, indistinctness of the interstitium, and probable bilateral pleural effusions - clinical correlation for signs and symptoms of volume overload is recommended. In addition, there is a dense opacity in the left retrocardiac space that could represent either atelectasis or pneumonia. Head MRI 10/25/19 10:48 IMPRESSION: No acute intracranial abnormality. EVIDENCE OF ACUTE STROKE: NO. Assessment and recommendations: Patient consulted for pneumonia to offer oral alternatives to complete therapy. He initially presented with shortness of breath and CXR demonstrated a retrocardiac opacity. He has received 4 days of vancomycin and cefepime which is adequate. A total of 7 days is recommended. If wished to transition to oral th erapy may consider doxycycline and ciprofloxacin with close monitoring of QTc as it is borderline prolonged (for 3 days). However, patient continues encephalopathic and there is concern for malignant vs infectious encephalitis. He will have a lumbar puncture today. Some ID workup from [facility] to consider include: HSV PCR, VZV PCR, HHV-6 PCR, EBV PCR, CMV PCR, Cryptococcus antigen, M tuberculosis PCR, VDRL, culture. Other work up from [facility]: cytology, NMDA receptor antibodies. Brain MRI was negative, PML less likely. HIV test recommended for completion. Please call back if any assistance needed. Rosanne Medel MD [facility] [phone]
--- NOTE | 2019-10-26 12:47 | PDOC PROGRESS REPORT ---
Subjective Progress Note for:: 10/26/19 Subjective:: Patient still having intermittent agitation episodes with intermittent somnolence. Per nursing, he has very lucid conversations at times but then quickly becomes angry/agitated and begins cursing at the nurses and other patients in the unit. By the numbers, he continues to improve. B12 is normal, thiamine is pending. RPR pending. He was supposed to have LP today but was given Lovenox last night inadvertently. This is been held and he will have lumbar puncture tomorrow with multiple appropriate studies ordered. ID has been consulted and has given their recommendations. HIV testing ordered. He will likely need mild sedation probably guided by someone from anesthesia in order to have the lumbar puncture done safely and effectively. Reason For Visit: ACUTE ENCEPHALOPATHY, ELEVATED LACTIC ACID LEVEL, Physical Exam Vital Signs: Temp Pulse Resp BP Pulse Ox 98.1 F 105 H 20 112/89 H 99 10/26/19 03:48 10/26/19 07:00 10/26/19 03:48 10/26/19 03:48 10/26/19 03:48 Intake & Output 10/25/19 10/26/19 10/27/19 06:59 06:59 06:59 Intake Total 700 1050 Output Total 525 865 Balance 175 185 Weight 114.6 kg General appearance: PRESENT: disheveled, obese Head exam: PRESENT: atraumatic, normocephalic Eye exam: PRESENT: conjunctiva pink Mouth exam: PRESENT: moist Respiratory exam: PRESENT: clear to auscultation ana. ABSENT: rales, rhonchi, wheezes Cardiovascular exam: PRESENT: RRR. ABSENT: diastolic murmur, rubs, systolic murmur GI/Abdominal exam: PRESENT: normal bowel sounds, soft. ABSENT: distended, guarding, mass, organolmegaly, rebound, tenderness Extremities exam: PRESENT: +1 edema Neurological exam: PRESENT: altered, other - Very limited neurologic exam pupils are equally round and reactive to light. Patient is unable/unwilling to follow commands today.. ABSENT: alert, awake, oriented to person, oriented to place, oriented to time, oriented to situation Psychiatric exam: PRESENT: flat affect Skin exam: PRESENT: dry, intact, warm Results Laboratory Results: 10/25/19 07:33 10/26/19 08:28 10/25/19 10/25/19 10/26/19 21:48 22:40 08:28 Sodium 136.9 L Potassium 4.7 Chloride 105 Carbon Dioxide 21 L Anion Gap 11 BUN 35 H Creatinine 1.19 Est GFR ( Amer) > 60 Glucose 137 H Calcium 8.9 Vitamin B12 894.0 Urine Color YELLOW Urine Appearance SLIGHTLY-CLOUDY Urine pH 6.0 Ur Specific [place] 1.029 Urine Protein 30 H Urine Glucose (UA) 50 H Urine Ketones TRACE H Urine Blood SMALL H Urine Nitrite NEGATIVE Ur Leukocyte Esterase NEGATIVE Urine WBC (Auto) 2 Urine RBC (Auto) 6 10/21/19 20:13 Troponin I 0.071 Impressions: Head CT 10/21/19 20:58 IMPRESSION: 1. No intracranial hemorrhage or mass lesion. 2. Possible permeative calvarial lesion at the left anterior superior orbital ridge. This area is not well seen. Correlation with symptomatology is recommended. This area was not imaged on the previous PET scan. Abdomen Ultrasound 10/21/19 22:05 IMPRESSION: Right effusion Question bidirectional flow in the portal vein No additional evidence of acute process Chest X-Ray 10/25/19 00:00 IMPRESSION: Cardiomegaly, indistinctness of the interstitium, and probable bilateral pleural effusions - clinical correlation for signs and symptoms of volume overload is recommended. In addition, there is a dense opacity in the left retrocardiac space that could represent either atelectasis or pneumonia. Head MRI 10/25/19 10:48 IMPRESSION: No acute intracranial abnormality. EVIDENCE OF ACUTE STROKE: NO. Assessment and Plan - Diagnosis (1) Pneumonia Is this a current diagnosis for this admission?: Yes Plan: Possible pneumonia noted on right lung. Also has leukocytosis and lactic acidosis. Test results are pending for COVID-19. Receiving IV antibiotics. IV fluids administered. Will recheck lactic acid. 10/23/2019 Coronavirus test negative, no need to repeat, low suspicion IV antibiotics continue IV fluids Improving, repeat chest x-ray 10/2410/25/2019 Chest x-ray shows possible left posterior lobar pneumonia/opacity, bilateral pleural effusions May need to consider chest CT to better evaluate opacity on chest x-ray however patient is typically quite combative when we try to get imaging studies Change antibiotics to vancomycin/Merrem to give better coverage of meningitis organisms given patient is penicillin allergic. 10/26/2019 Need to consider getting CT chest though this is complicated by his severe agitation whenever he has imaging studies done. Will order CT chest for today and he can be given his PRN medications to keep him calm for this procedure. Antibiotics continue and have been broadened yesterday to cover meningitis organisms (2) Acute metabolic encephalopathy Is this a current diagnosis for this admission?: Yes Plan: Per previous physician: "Became aggressive earlier today. Patient has orders for Ativan and Haldol as needed. Head CT did show some lesion in his calvarium but not in his brain. I have discussed with oncology and patient will need further evaluation with MRI brain. Will favor waiting for COVID to be ruled out prior to MRI." Unclear etiology but possibly related to pneumonia versus new brain lesion seen on CT MRI as above Continue treating pneumonia Pneumonia negative Speech therapy consult 10/25/2019 MRI brain with and without contrast done and did not show any acute findings Consulted neurology at outside hospital who gave recommendations for additional testing RPR, VDRL CSF, Lyme antibodies, B12, thiamine Lumbar puncture ordered to be done 10/25 with appropriate studies of the fluid including cultures and flow cytometry Need to consider meningitis/encephalitis as a possible etiology. Possibly autoimmune encephalitis given his cancer history 10/26/2019 Possible he has infectious etiology though he is on appropriate antibiotic therapy and his numbers are improving steadily without notable improvement in mentation NMDA receptor antibodies need to be ordered but EMR does not allow me to do this. I spoke with the lab staff who is looking into this test HIV ordered Added acyclovir for herpes encephalitis coverage If lumbar puncture tests are all unrevealing for infectious etiology, recommend a trial of steroids for possible autoimmune encephalitis, alternatively could try Rituxan or Cytoxin (3) Hodgkin lymphoma Qualifiers: Hodgkin lymphoma type: unspecified type Lymphoma site: intra-abdominal nodes Qualified Code(s): C81.93 - Hodgkin lymphoma, unspecified, intra- abdominal lymph nodes Is this a current diagnosis for this admission?: Yes (4) Metabolic encephalopathy Is this a current diagnosis for this admission?: Yes (5) Hepatocellular injury Is this a current diagnosis for this admission?: Yes Plan: Per previous physician: "Patient has no history of liver disease or alcoholism. I discussed with patient's family who states that patient's has not been started on any other new medication or herbal supplements besides Eliquis. Also Dr. Peña confirms patient has not received chemo since July. Right upper quadrant ultrasound is unremarkable. Check hepatitis panel. Trend CMP." LFTs are trending down Continue IV fluids Could possibly have metastatic disease to liver/biliary system however this was not shown on CTA chest and abdomen Resolving/resolved (6) Internal jugular (IJ) vein thromboembolism, acute Qualifiers: Laterality: right Qualified Code(s): I82.C11 - Acute embolism and thrombosis of right internal jugular vein Is this a current diagnosis for this admission?: Yes (7) Obesity (BMI 30.0-34.9) Is this a current diagnosis for this admission?: Yes (8) Atrial fibrillation Qualifiers: Atrial fibrillation type: unspecified chronic Qualified Code(s): I48.20 - Chronic atrial fibrillation, unspecified; I48.2 - Chronic atrial fibrillation Is this a current diagnosis for this admission?: Yes - Time Time Spent with patient: 35 or more minutes - Inpatient Certification Medical Necessity: Significant Comorbidiites Make Outpatient Treatment Too Risky, Need Close Monitoring Due to Risk of Patient Decompensation, Need for IV Antibiotics, Risk of Complication if Not Cared For in Hospital, Risk of Diagnosis Which Will Require Inpatient Eval/Care/Monitoring
[2019-10-26] MEDS ORDERED: ACYCLOVIR SODIUM INJ/PF 500 MG/10 ML SDV IV SCH (14:00)
[2019-10-26] MEDS: DOCUSATE SODIUM 100 MG CAPSULE PO SCH (19:12)
[2019-10-26] MEDS: ENOXAPARIN SODIUM INJ 120 MG/0.8 ML DISP.SYRIN SUBCUT SCH (19:14)
[2019-10-26] MEDS: FAMOTIDINE 20 MG TABLET PO SCH ×2 (19:15→21:11)
[2019-10-26] MEDS: LISINOPRIL 10 MG TABLET PO SCH (19:15)
[2019-10-26] MEDS: METOPROLOL SUCCINATE 50 MG TAB.SR.24H PO SCH (19:16)
[2019-10-26] MEDS: ACYCLOVIR SODIUM IV SCH ×2 (19:17→19:23)
[2019-10-26] MEDS: NORMAL SALINE IV SCH ×2 (19:17→19:23)
[2019-10-26] MEDS: ZOLPIDEM TARTRATE 5 MG TABLET PO SCH (21:11)
[2019-10-27] MEDS: NORMAL SALINE IV SCH ×3 (01:20→17:28)
[2019-10-27] MEDS: ACYCLOVIR SODIUM IV SCH ×3 (01:20→17:28)
[2019-10-27] MEDS: DILTIAZEM HCL 30 MG TABLET PO SCH ×3 (05:44→21:26)
[2019-10-27] MEDS: MEROPENEM 2 GM in NORMAL SALINE 100 ML IV SCH ×3 (05:45→21:26)
[2019-10-27 06:30] LABS: PROTHROMBIN TIME 18.2 SEC (11.4-15.4)
[2019-10-27] MEDS: VANCOMYCIN HCL 1,250 MG in DEXTROSE 5%-WATER 250 ML IV SCH ×2 (08:20→19:24)
[2019-10-27] MEDS ORDERED: LIDOCAINE 1% INJ-PF (10 MG/ML) 30 ML SDV ONE (09:27)
[2019-10-27] MEDS: LISINOPRIL 10 MG TABLET PO SCH (11:28)
[2019-10-27] MEDS: FAMOTIDINE 20 MG TABLET PO SCH ×2 (11:28→21:27)
[2019-10-27] MEDS: METOPROLOL SUCCINATE 50 MG TAB.SR.24H PO SCH (11:30)
[2019-10-27] MEDS: DOCUSATE SODIUM 100 MG CAPSULE PO SCH ×2 (11:31→17:27)
[2019-10-27 12:05] LABS: GLUCOSE,CSF 88 mg/dL (40-70); PROTEIN,CSF 57 mg/dL (12-60)
[2019-10-27 12:09] LABS: APPEARANCE ALL TUBES CLEAR; COLOR ALL TUBES COLORLESS; CSF TUBE NUMBER 3; RED BLOOD CELL,CSF 10 /uL (0-10); VOLUME TUBE 1 1.5 CC; VOLUME TUBE 3 1.5 CC
[2019-10-27 12:10] LABS: WHITE BLOOD CELL,CSF 0 /uL (0-5)
--- NOTE | 2019-10-27 13:25 | PDOC PROGRESS REPORT ---
Subjective Progress Note for:: 10/27/19 Subjective:: No adverse events overnight. Last night his mental status improved and he was able to sit up and eat a little bit of food and have a bit of a conversation. This morning he just says that he is very tired he does not remember anything from the past few days. He was asking me if he had gotten combative and tried to strike anyone. He was having trouble remembering the names of 1 of his home medications but overall he was able to hold a coherent conversation. Reason For Visit: ACUTE ENCEPHALOPATHY, ELEVATED LACTIC ACID LEVEL, Physical Exam Vital Signs: Temp Pulse Resp BP Pulse Ox 98.0 F 60 19 134/81 H 97 10/27/19 07:58 10/27/19 07:58 10/27/19 07:58 10/27/19 07:58 10/27/19 07:58 Intake & Output 10/26/19 10/27/19 10/28/19 06:59 06:59 06:59 Intake Total 1050 2403 250 Output Total 865 1500 Balance 185 903 250 Weight 114.6 kg 107.5 kg General appearance: PRESENT: no acute distress, cooperative, disheveled, obese, other - Fatigued Respiratory exam: PRESENT: clear to auscultation ana, symmetrical, unlabored. ABSENT: accessory muscle use, chest wall tenderness, crackles, prolonged expiratory phas, retraction, rhonchi, tachypnea, wheezes Cardiovascular exam: PRESENT: RRR, +S1, +S2 Pulses: PRESENT: normal carotid pulses Vascular exam: PRESENT: normal capillary refill GI/Abdominal exam: PRESENT: normal bowel sounds, soft. ABSENT: distended, guarding, rebound, tenderness Extremities exam: ABSENT: clubbing, pedal edema Musculoskeletal exam: PRESENT: normal inspection. ABSENT: deformity Neurological exam: PRESENT: awake, oriented to person, oriented to place, oriented to situation Psychiatric exam: PRESENT: flat affect Skin exam: PRESENT: dry, warm Results Laboratory Results: 10/25/19 07:33 10/26/19 08:28 10/27/19 10/27/19 10/27/19 10:28 10:28 10:28 Fluid Tube Number 3 CSF Volume 5.0 CSF Appearance CLEAR CSF Color COLORLESS CSF WBC 0 CSF RBC 10 CSF Glucose 88 H CSF Total Protein 57 CSF VDRL Cancelled 10/21/19 22:50 Blood Blood Culture - Final NO GROWTH IN 5 DAYS 10/21/19 20:13 Blood Blood Culture - Final NO GROWTH IN 5 DAYS 10/21/19 20:13 Troponin I 0.071 Impressions: Head CT 10/21/19 20:58 IMPRESSION: 1. No intracranial hemorrhage or mass lesion. 2. Possible permeative calvarial lesion at the left anterior superior orbital ridge. This area is not well seen. Correlation with symptomatology is recommended. This area was not imaged on the previous PET scan. Abdomen Ultrasound 10/21/19 22:05 IMPRESSION: Right effusion Question bidirectional flow in the portal vein No additional evidence of acute process Chest X-Ray 10/25/19 00:00 IMPRESSION: Cardiomegaly, indistinctness of the interstitium, and probable bilateral pleural effusions - clinical correlation for signs and symptoms of volume overload is recommended. In addition, there is a dense opacity in the left retrocardiac space that could represent either atelectasis or pneumonia. Head MRI 10/25/19 10:48 IMPRESSION: No acute intracranial abnormality. EVIDENCE OF ACUTE STROKE: NO. Assessment and Plan - Diagnosis (1) Acute kidney injury Is this a current diagnosis for this admission?: Yes Plan: Resolved (2) Hepatocellular injury Is this a current diagnosis for this admission?: Yes Plan: LFTs are trending down Continue IV fluids Could possibly have metastatic disease to liver/biliary system however this was not shown on CTA chest and abdomen Resolving/resolved (3) Hodgkins lymphoma Qualifiers: Hodgkin lymphoma type: unspecified type Lymphoma site: unspecified region Qualified Code(s): C81.90 - Hodgkin lymphoma, unspecified, unspecified site Is this a current diagnosis for this admission?: Yes Plan: We will continue follow-up with his oncologist discharge (4) Acute metabolic encephalopathy Is this a current diagnosis for this admission?: Yes Plan: He has had a bit of a breakthrough. He is really exhausted, but his mental status has improved substantially, and now he is eating and is able to hold a logical conversation. He had a lumbar puncture today, but there was not enough CSF to cover all the different tests that were ordered. I made the decision to discontinue the TB testing all of the associated tests, because it would have required 3 mL's of CSF, and he has gotten better despite the fact that we have not treated him for this. We are hoping that we will have enough for the remaining tests, but if not, the next thing I am going to have to discontinue it is the VDRL, because that requires 1 mL, and I reasoned that we could do a serum test for this if needed. We should be able to get the remaining studies with the amount of fluid that we have, but even with cutting those to series of tests there is not enough fluid for backup studies if the initial test fails. (5) Pneumonia Qualifiers: Pneumonia type: due to unspecified organism Laterality: bilateral Lung location: lower lobe of lung Qualified Code(s): J18.9 - Pneumonia, unspecified organism Is this a current diagnosis for this admission?: Yes Plan: Currently has broad-spectrum antibiotic coverage, cultures are negative, he is on room air. - Time Time Spent with patient: 25-34 minutes
[2019-10-27] MEDS: LORAZEPAM INJ 2 MG/1 ML VIAL IV PRN ×2 (19:23→23:49)
[2019-10-27] MEDS: HALOPERIDOL LACTATE INJ 5 MG/1 ML VIAL IM PRN (20:34)
[2019-10-27] MEDS: ZOLPIDEM TARTRATE 5 MG TABLET PO SCH (21:26)
[2019-10-28] MEDS: NORMAL SALINE IV SCH ×3 (01:58→18:30)
[2019-10-28] MEDS: ACYCLOVIR SODIUM IV SCH ×3 (01:58→18:30)
[2019-10-28] MEDS: HALOPERIDOL LACTATE INJ 5 MG/1 ML VIAL IM PRN ×2 (04:24→19:15)
[2019-10-28 05:09] LABS: HEMATOCRIT 43.6 % (37.9-51.0); HEMOGLOBIN 14.4 g/dL (13.5-17.0); MEAN CORPUSCULAR HEMOGLOBIN 30.3 pg (27.0-33.4); MEAN CORPUSCULAR HGB CONC 33.1 g/dL (32.0-36.0); MEAN CORPUSCULAR VOLUME 92 fl (80-97); PLATELET COUNT 207 10^3/uL (150-450); RED BLOOD COUNT 4.76 10^6/uL (4.35-5.55); RED CELL DISTRIBUTION WIDTH 16.7 % (11.5-14.0); WHITE BLOOD COUNT 12.4 10^3/uL (4.0-10.5)
[2019-10-28 05:18] LABS: APPEARANCE,URINE SLIGHTLY-CLOUDY; BILIRUBIN,URINE NEGATIVE (NEGATIVE); COLOR,URINE YELLOW; GLUCOSE, URINE 50 mg/dL (NEGATIVE); KETONES,URINE TRACE mg/dL (NEGATIVE); LEUKOCYTE ESTERASE,URINE NEGATIVE (NEGATIVE); NITRITE,URINE NEGATIVE (NEGATIVE); PROTEIN,URINE 100 mg/dL (NEGATIVE); URINE SPECIFIC GRAVITY 1.023; UROBILINOGEN,URINE NEGATIVE mg/dL (<2.0)
[2019-10-28] MEDS: DILTIAZEM HCL 30 MG TABLET PO SCH ×4 (05:39→23:13)
[2019-10-28] MEDS: MEROPENEM 2 GM in NORMAL SALINE 100 ML IV SCH ×3 (05:39→23:00)
--- NOTE | 2019-10-28 07:41 | RADIOLOGY REPORT (SQ) ---
EXAM DESCRIPTION: LUMBAR PUNCTURE; FLUORO/NEEDLE PLACEMENT/SPINE IMAGES COMPLETED DATE/TIME: 10/27/2019 11:42 am; 10/27/2019 11:43 am REASON FOR STUDY: AMS, encephalopathy; AMS, ENCEPHALOPATHY COMPARISON: MRI of the brain dated 10/25/2019. FLUOROSCOPY TIME: 1 second 3 Images saved to PACS. TECHNIQUE: Fluoroscopic guided lumbar puncture with opening and closing pressures. LIMITATIONS: None. PROCEDURE: After written consent and assessment were obtained, the patient was brought into the [facility] roscopy room and placed prone on the table. The patient's lower back was prepped in a sterile fashion and an entry site was selected under live fluoroscopic guidance. The entry site was anesthetized wit h 1% lidocaine. A 20 gauge needle was advanced through the skin and into the thecal sac at the level of L 3 -L 4 . An opening pressure of 31 units was obtained. After approximately 5 ml of CSF was drain ed, a closing pressure of 27 units was obtained. The needle was removed and a sterile bandage was mirtha darryl of the site. Specimens were sent to the lab for testing. A fluoroscopic spot image was saved to [facility] confirming level access. FINDINGS: Clear CSF IMPRESSION: Lumbar puncture under fluoroscopy. No immediate complication. COMMENT: Patient medication list reviewed: Yes- Quality ID# [id number]:Eligible professional attests to doc umenting in the medical record they obtained, updated, or reviewed the patient's current medications. Quality ID 145: Final reports for procedures using fluoroscopy that document radiation exposure indic es, or exposure time and number of fluorographic images (if radiation exposure indices are not availa ble) TECHNICAL DOCUMENTATION: Job ID: [id number] 2010 [email or web address]- All Rights Reserved Reading location - IP/workstation name: [email or web address]
--- NOTE | 2019-10-28 07:41 | RADIOLOGY REPORT (SQ) ---
EXAM DESCRIPTION: LUMBAR PUNCTURE; FLUORO/NEEDLE PLACEMENT/SPINE IMAGES COMPLETED DATE/TIME: 10/27/2019 11:42 am; 10/27/2019 11:43 am REASON FOR STUDY: AMS, encephalopathy; AMS, ENCEPHALOPATHY COMPARISON: MRI of the brain dated 10/25/2019. FLUOROSCOPY TIME: 1 second 3 Images saved to PACS. TECHNIQUE: Fluoroscopic guided lumbar puncture with opening and closing pressures. LIMITATIONS: None. PROCEDURE: After written consent and assessment were obtained, the patient was brought into the [facility] roscopy room and placed prone on the table. The patient's lower back was prepped in a sterile fashion and an entry site was selected under live fluoroscopic guidance. The entry site was anesthetized wit h 1% lidocaine. A 20 gauge needle was advanced through the skin and into the thecal sac at the level of L 3 -L 4 . An opening pressure of 31 units was obtained. After approximately 5 ml of CSF was drain ed, a closing pressure of 27 units was obtained. The needle was removed and a sterile bandage was mirtha darryl of the site. Specimens were sent to the lab for testing. A fluoroscopic spot image was saved to [facility] confirming level access. FINDINGS: Clear CSF IMPRESSION: Lumbar puncture under fluoroscopy. No immediate complication. COMMENT: Patient medication list reviewed: Yes- Quality ID# [id number]:Eligible professional attests to doc umenting in the medical record they obtained, updated, or reviewed the patient's current medications. Quality ID 145: Final reports for procedures using fluoroscopy that document radiation exposure indic es, or exposure time and number of fluorographic images (if radiation exposure indices are not availa ble) TECHNICAL DOCUMENTATION: Job ID: [id number] 2010 [employer]- All Rights Reserved Reading location - IP/workstation name: [email or web address]
[2019-10-28] MEDS ORDERED: FUROSEMIDE INJ/PF 40 MG/4 ML SDV IV ONE (08:40)
[2019-10-28] MEDS: VANCOMYCIN HCL 1,250 MG in DEXTROSE 5%-WATER 250 ML IV SCH ×2 (08:46→23:00)
--- NOTE | 2019-10-28 08:58 | RADIOLOGY REPORT (SQ) ---
EXAM DESCRIPTION: CHEST SINGLE VIEW IMAGES COMPLETED DATE/TIME: 10/28/2019 8:22 am REASON FOR STUDY: dyspnea COMPARISON: 10/25/2019 EXAM PARAMETERS: NUMBER OF VIEWS: One view. TECHNIQUE: Single frontal radiographic view of the chest acquired. RADIATION DOSE: NA LIMITATIONS: None. FINDINGS: LUNGS AND PLEURA: Bibasilar consolidation with mild bilateral effusions, left greater than right. No pneumothorax. MEDIASTINUM AND HILAR STRUCTURES: No discrete mass. HEART AND VASCULAR STRUCTURES: Enlarged cardiac silhouette, similar to prior. BONES: No acute findings. HARDWARE: Right IJ based chest port with catheter tip at cavoatrial junction. OTHER: No other significant finding. IMPRESSION: Stable patchy bibasilar consolidation, likely atelectasis or infection, with mild bilate ral effusions. Stable enlarged cardiac silhouette and central vascular congestion. TECHNICAL DOCUMENTATION: JOB ID: [id number] 2010 [employer]- All Rights Reserved Reading location - IP/workstation name: [email or web address]
[2019-10-28] MEDS ORDERED: FUROSEMIDE INJ/PF 100 MG/10 ML SDV IV ONE (09:30)
[2019-10-28] MEDS: DOCUSATE SODIUM 100 MG CAPSULE PO SCH ×2 (12:05→18:25)
[2019-10-28] MEDS: FAMOTIDINE 20 MG TABLET PO SCH ×3 (12:05→23:42)
[2019-10-28] MEDS: LISINOPRIL 10 MG TABLET PO SCH (12:05)
[2019-10-28] MEDS: METOPROLOL SUCCINATE 50 MG TAB.SR.24H PO SCH (12:06)
[2019-10-28] MEDS: OLANZAPINE INJ/PF 10 MG SDV IM PRN (12:25)
[2019-10-28] MEDS ORDERED: MEROPENEM 2 GM in NORMAL SALINE 100 ML IV SCH (14:00)
--- NOTE | 2019-10-28 15:59 | PDOC PROGRESS REPORT ---
Subjective Progress Note for:: 10/28/19 Subjective:: He got short of breath this morning became a bit encephalopathic again. He had to be put back on BiPAP for short time but was able to go back on oxygen per nasal cannula. He has had an excellent response to Lasix but we had to put him in soft restraints because he was combative and encephalopathic. He has since been resting fairly calmly. Reason For Visit: ACUTE ENCEPHALOPATHY, ELEVATED LACTIC ACID LEVEL, Physical Exam Vital Signs: Temp Pulse Resp BP Pulse Ox 97.7 F 110 H 13 97/53 L 98 10/28/19 08:30 10/28/19 14:00 10/28/19 08:30 10/28/19 08:30 10/28/19 08:30 Intake & Output 10/27/19 10/28/19 10/29/19 06:59 06:59 06:59 Intake Total 2403 3234 Output Total 1500 1425 3575 Balance 903 1809 -3575 Weight 107.5 kg 115.8 kg General appearance: PRESENT: cooperative, disheveled, obese, other - Fatigued Respiratory exam: PRESENT: Diminished but clear to auscultation ana, symme trical, unlabored. ABSENT: accessory muscle use, chest wall tenderness, crackles, prolonged expiratory phas, retraction, rhonchi, tachypnea, wheezes Cardiovascular exam: PRESENT: RRR, +S1, +S2 Pulses: PRESENT: normal carotid pulses Vascular exam: PRESENT: normal capillary refill GI/Abdominal exam: PRESENT: normal bowel sounds, soft. ABSENT: distended, guarding, rebound, tenderness Extremities exam: PRESENT: 1+ leg edema, pedal edema Musculoskeletal exam: PRESENT: normal inspection. ABSENT: deformity Neurological exam: PRESENT: awake, oriented to person, oriented to place, oriented to situation Psychiatric exam: PRESENT: flat affect Skin exam: PRESENT: dry, warm Results Laboratory Results: 10/28/19 04:19 10/26/19 08:28 10/25/19 10/28/19 10/28/19 22:00 04: 04:19 WBC 12.4 H RBC 4.76 Hgb 14.4 Hct 43.6 MCV 92 MCH 30.3 MCHC 33.1 RDW 16.7 H Plt Count 207 Vitamin B1 143.0 Urine Color YELLOW Urine Appearance SLIGHTLY-CLOUDY Urine pH 6.0 Ur Specific Buna 1.023 Urine Protein 100 H Urine Glucose (UA) 50 H Urine Ketones TRACE H Urine Blood SMALL H Urine Nitrite NEGATIVE Ur Leukocyte Esterase NEGATIVE Urine WBC (Auto) 3 Urine RBC (Auto) 7 10/21/19 20:13 Troponin I 0.071 Impressions: Head CT 10/21/19 20:58 IMPRESSION: 1. No intracranial hemorrhage or mass lesion. 2. Possible permeative calvarial lesion at the left anterior superior orbital ridge. This area is not well seen. Correlation with symptomatology is recommended. This area was not imaged on the previous PET scan. Abdomen Ultrasound 10/21/19 22:05 IMPRESSION: Right effusion Question bidirectional flow in the portal vein No additional evidence of acute process Head MRI 10/25/19 10:48 IMPRESSION: No acute intracranial abnormality. EVIDENCE OF ACUTE STROKE: NO. Guidance Fluoroscopy 10/27/19 00:00 IMPRESSION: Lumbar puncture under fluoroscopy. No immediate complication. Lumbar Puncture 10/27/19 00:00 IMPRESSION: Lumbar puncture under fluoroscopy. No immediate complication. Chest X-Ray 10/28/19 00:00 IMPRESSION: Stable patchy bibasilar consolidation, likely atelectasis or infection, with mild bilateral effusions. Stable enlarged cardiac silhouette and central vascular congestion. Assessment and Plan - Diagnosis (1) Acute kidney injury Is this a current diagnosis for this admission?: Yes Plan: Resolved (2) Hepatocellular injury Is this a current diagnosis for this admission?: Yes Plan: LFTs are trending down Continue IV fluids Could possibly have metastatic disease to liver/biliary system however this was not shown on CTA chest and abdomen Resolving/resolved (3) Hodgkins lymphoma Qualifiers: Hodgkin lymphoma type: unspecified type Lymphoma site: unspecified region Qualified Code(s): C81.90 - Hodgkin lymphoma, unspecified, unspecified site Is this a current diagnosis for this admission?: Yes Plan: We will continue follow-up with his oncologist discharge (4) Acute metabolic encephalopathy Is this a current diagnosis for this admission?: Yes Plan: This had begun to resolve, but just as he was starting to convalesce the fluid overload caught up with him and he got short of breath and this set him back cognitively. We had an excellent response to diuresis and he has since been resting. We will reassess later. (5) Pneumonia Qualifiers: Pneumonia type: due to unspecified organism Laterality: bilateral Lung location: lower lobe of lung Qualified Code(s): J18.9 - Pneumonia, unspecified organism Is this a current diagnosis for this admission?: Yes Plan: Currently has broad-spectrum antibiotic coverage, cultures are negative (6) Volume overload Qualifiers: Hypervolemia type: other Qualified Code(s): E87.79 - Other fluid overload Is this a current diagnosis for this admission?: Yes Plan: He had been in a positive fluid balance for a few days. He seemed to be doing okay yesterday and was on room air, but he acutely decompensated today. He had an excellent response to 1 dose of Lasix and has since been resting comfortably. - Time Time Spent with patient: 25-34 minutes
[2019-10-28] MEDS: LORAZEPAM INJ 2 MG/1 ML VIAL IV PRN (19:15)
[2019-10-28 19:33] LABS: APPEARANCE,URINE CLEAR; BILIRUBIN,URINE NEGATIVE (NEGATIVE); COLOR,URINE STRAW; GLUCOSE, URINE NEGATIVE (NEGATIVE); KETONES,URINE NEGATIVE (NEGATIVE); LEUKOCYTE ESTERASE,URINE NEGATIVE (NEGATIVE); NITRITE,URINE NEGATIVE (NEGATIVE); PROTEIN,URINE NEGATIVE (NEGATIVE); URINE SPECIFIC GRAVITY 1.008; UROBILINOGEN,URINE NEGATIVE mg/dL (<2.0)
[2019-10-28] MEDS: METOPROLOL TARTRATE PF/INJ 5 MG/5 ML SDV IV PRN (21:10)
[2019-10-28] MEDS: ZOLPIDEM TARTRATE 5 MG TABLET PO SCH (22:59)
[2019-10-28] MEDS: DILTIAZEM HCL INJ 25 MG/5 ML VIAL IV PRN (23:36)
[2019-10-29] MEDS: NORMAL SALINE IV SCH ×2 (03:04→10:01)
[2019-10-29] MEDS: ACETAMINOPHEN 325 MG TABLET PO PRN (03:04)
[2019-10-29] MEDS: ACYCLOVIR SODIUM IV SCH ×2 (03:04→10:01)
[2019-10-29] MEDS: DILTIAZEM HCL 30 MG TABLET PO SCH ×2 (06:39→23:09)
[2019-10-29] MEDS: MEROPENEM 2 GM in NORMAL SALINE 100 ML IV SCH ×3 (06:39→21:24)
[2019-10-29] MEDS: DILTIAZEM HCL INJ 25 MG/5 ML VIAL IV PRN ×2 (06:39→10:53)
[2019-10-29] MEDS: VANCOMYCIN HCL 1,250 MG in DEXTROSE 5%-WATER 250 ML IV SCH (08:02)
[2019-10-29 08:42] LABS: VANCOMYCIN,TROUGH 21.4 ug/mL (5.0-20.0)
[2019-10-29] MEDS: DOCUSATE SODIUM 100 MG CAPSULE PO SCH ×2 (09:50→17:09)
[2019-10-29] MEDS: LISINOPRIL 10 MG TABLET PO SCH (09:51)
[2019-10-29] MEDS: FAMOTIDINE 20 MG TABLET PO SCH ×2 (09:51→21:24)
[2019-10-29] MEDS: METOPROLOL SUCCINATE 50 MG TAB.SR.24H PO SCH (09:51)
--- NOTE | 2019-10-29 14:25 | PDOC PROGRESS REPORT ---
Subjective Progress Note for:: 10/29/19 Subjective:: Patient apparently got combative again yesterday night and was placed back on restraints. This morning he seems a lot, and he voices understanding that his behavior needs to improve to be allowed out of restraints. Patient answer questions appropriately. Denies any pain shortness of breath. Reason For Visit: ACUTE ENCEPHALOPATHY, ELEVATED LACTIC ACID LEVEL, Physical Exam Vital Signs: Temp Pulse Resp BP Pulse Ox 98.5 F 89 20 120/65 98 10/29/19 12:06 10/29/19 13:08 10/29/19 12:06 10/29/19 12:06 10/29/19 13:07 Intake & Output 10/28/19 10/29/19 10/30/19 06:59 06:59 06:59 Intake Total 3230 3139 763 Output Total 1425 1850 Balance 1809 -0886 763 Weight 115.8 kg 119.2 kg General appearance: PRESENT: no acute distress, cooperative Neck exam: ABSENT: JVD Respiratory exam: PRESENT: rhonchi, unlabored. ABSENT: tachypnea, wheezes Cardiovascular exam: PRESENT: RRR, +S1, +S2. ABSENT: tachycardia GI/Abdominal exam: PRESENT: soft. ABSENT: rebound, rigid, tenderness Neurological exam: PRESENT: alert, awake, oriented to person, oriented to place, oriented to time Results Laboratory Results: 10/28/19 04:19 10/29/19 07:48 10/28/19 10/29/19 19:10 07:48 Creatinine 0.82 Est GFR ( Amer) > 60 Urine Color STRAW Urine Appearance CLEAR Urine pH 5.0 Ur Specific Van 1.008 Urine Protein NEGATIVE Urine Glucose (UA) NEGATIVE Urine Ketones NEGATIVE Urine Blood SMALL H Urine Nitrite NEGATIVE Ur Leukocyte Esterase NEGATIVE Urine WBC (Auto) 0 Urine RBC (Auto) 0 10/27/19 10:28 Cerebral Spinal Fluid - Csf Gram Stain - Final 10/21/19 20:13 Troponin I 0.071 Impressions: Head CT 10/21/19 20:58 IMPRESSION: 1. No intracranial hemorrhage or mass lesion. 2. Possible permeative calvarial lesion at the left anterior superior orbital ridge. This area is not well seen. Correlation with symptomatology is recommended. This area was not imaged on the previous PET scan. Abdomen Ultrasound 10/21/19 22:05 IMPRESSION: Right effusion Question bidirectional flow in the portal vein No additional evidence of acute process Head MRI 10/25/19 10:48 IMPRESSION: No acute intracranial abnormality. EVIDENCE OF ACUTE STROKE: NO. Guidance Fluoroscopy 10/27/19 00:00 IMPRESSION: Lumbar puncture under fluoroscopy. No immediate complication. Lumbar Puncture 10/27/19 00:00 IMPRESSION: Lumbar puncture under fluoroscopy. No immediate complication. Chest X-Ray 10/28/19 00:00 IMPRESSION: Stable patchy bibasilar consolidation, likely atelectasis or infection, with mild bilateral effusions. Stable enlarged cardiac silhouette and central vascular congestion. Assessment and Plan - Diagnosis (1) Acute metabolic encephalopathy Is this a current diagnosis for this admission?: Yes Plan: Occasionally gets very combative, confused. does suggest patient may have PTSD from his days in the . However patient has showed cognitive decl ine since the end of last year. MRI of the brain was unremarkable. B12 level and thiamine are within normal limits. RPR, HIV negative. Lumbar puncture also seems unimpressive with 0 WBCs and normal total protein. Unfortunately sample was not sufficient to test for VDRL. Some studies are still pending. Will monitor patient. Haldol as needed for agitation. We will de-escalate restraints if patient behaves appropriately. (2) Pneumonia Qualifiers: Pneumonia type: due to unspecified organism Laterality: bilateral Lung location: lower lobe of lung Qualified Code(s): J18.9 - Pneumonia, unspecified organism Is this a current diagnosis for this admission?: Yes Plan: Patient has received about 7 days of broad-spectrum IV antibiotics including vancomycin, cefepime-->Meropenem. At this point, will favor discontinuing antibiotics after today's doses are completed. WBC count seems to be stable. (3) Respiratory failure with hypoxia Qualifiers: Chronicity: unspecified Qualified Code(s): J96.91 - Respiratory failure, unspecified with hypoxia Is this a current diagnosis for this admission?: Yes Plan: It is unlikely that patient's pneumonia will still persist despite receiving broad-spectrum IV antibiotics for 7 days. Did receive some Lasix yesterday. We will try to wean oxygen today as tolerated. If unable to wean oxygen will need to evaluate for the potential causes of hypoxia. (4) Hepatocellular injury Is this a current diagnosis for this admission?: Yes Plan: Viral hepatitis work-up negative, abdominal imaging unimpressive. Family denied any evidence of herbal use or other new drugs that could lead to liver toxicity Seems to be resolving as transaminases have trended down significantly (5) Hodgkin lymphoma Qualifiers: Hodgkin lymphoma type: unspecified type Lymphoma site: intra-abdominal nodes Qualified Code(s): C81.93 - Hodgkin lymphoma, unspecified, intra- abdominal lymph nodes Is this a current diagnosis for this admission?: Yes Plan: stage IIIb Hodgkin's lymphoma underwent therapy with ABVD which was completed in July of this year. Recent PET/CT shows significant improvement and continued decrease in size of lymph nodes without enhanced metabolic activity. (6) Internal jugular (IJ) vein thromboembolism, acute Qualifiers: Laterality: right Qualified Code(s): I82.C11 - Acute embolism and thrombosis of right internal jugular vein Is this a current diagnosis for this admission?: Yes Plan: This was recently diagnosed last month and patient was started on Eliquis. Family states that patient's confusion started after initiation of Eliquis with plans for removal of port at a later date. I do not know encephalopathy to be a side effect of Eliquis. Patient currently on Lovenox therapeutic dose. INR notably elevated. (7) Obesity (BMI 30.0-34.9) Is this a current diagnosis for this admission?: Yes - Time Time Spent with patient: Less than 15 minutes
[2019-10-29] MEDS: HALOPERIDOL LACTATE INJ 5 MG/1 ML VIAL IM PRN ×2 (14:45→23:28)
[2019-10-29] MEDS: DILTIAZEM HCL 180 MG CAPSULE.CR PO SCH ×2 (15:29→16:25)
[2019-10-30] MEDS: MEROPENEM 2 GM in NORMAL SALINE 100 ML IV SCH (06:45)
[2019-10-30 07:40] LABS: HEMATOCRIT 45.6 % (37.9-51.0); HEMOGLOBIN 15.5 g/dL (13.5-17.0); MEAN CORPUSCULAR HEMOGLOBIN 30.7 pg (27.0-33.4); MEAN CORPUSCULAR HGB CONC 33.9 g/dL (32.0-36.0); MEAN CORPUSCULAR VOLUME 91 fl (80-97); PLATELET COUNT 189 10^3/uL (150-450); RED BLOOD COUNT 5.04 10^6/uL (4.35-5.55); RED CELL DISTRIBUTION WIDTH 16.6 % (11.5-14.0); WHITE BLOOD COUNT 15.7 10^3/uL (4.0-10.5)
[2019-10-30 08:01] LABS: ALBUMIN 3.6 g/dL (3.5-5.0); ALKALINE PHOSPHATASE 103 U/L (38-126); ANION GAP 6 (5-19); ASPARTATE AMINO TRANSFERASE 41 U/L (17-59); BILIRUBIN,DIRECT 0.1 mg/dL (0.0-0.4); BILIRUBIN,TOTAL 1.4 mg/dL (0.2-1.3); BLOOD UREA NITROGEN 22 mg/dL (7-20); CALCIUM 9.2 mg/dL (8.4-10.2); CARBON DIOXIDE 32 mmol/L (22-30); CHLORIDE 99 mmol/L (98-107); GLUCOSE 137 mg/dL (75-110); PHOSPHORUS 3.4 mg/dL (2.5-4.5); POTASSIUM 4.2 mmol/L (3.6-5.0); TOTAL PROTEIN 6.3 g/dL (6.3-8.2)
[2019-10-30] MEDS: DOCUSATE SODIUM 100 MG CAPSULE PO SCH ×2 (09:23→17:51)
[2019-10-30] MEDS: FAMOTIDINE 20 MG TABLET PO SCH ×2 (09:23→22:46)
[2019-10-30] MEDS: DILTIAZEM HCL 180 MG CAPSULE.CR PO SCH (09:23)
[2019-10-30] MEDS: METOPROLOL SUCCINATE 50 MG TAB.SR.24H PO SCH (09:23)
[2019-10-30] MEDS: LISINOPRIL 10 MG TABLET PO SCH (09:23)
--- NOTE | 2019-10-30 10:51 | PDOC PROGRESS REPORT ---
Subjective Progress Note for:: 10/30/19 Subjective:: Patient go to the [employer] combative again last night necessitating restraints. Today patient seems calm once again. Denies any shortness of breath chest pain at this time. Still a little bit disoriented but able to carry on conversations. Reason For Visit: ACUTE ENCEPHALOPATHY, ELEVATED LACTIC ACID LEVEL, Physical Exam Vital Signs: Temp Pulse Resp BP Pulse Ox 97.2 F 108 H 18 127/90 H 94 10/30/19 07:05 10/30/19 07:05 10/30/19 07:05 10/30/19 07:05 10/30/19 08:59 Intake & Output 10/29/19 10/30/19 10/31/19 06:59 06:59 06:59 Intake Total 3139 1529 Output Total 7077 900 Balance -3936 629 Weight 119.2 kg 116.2 kg General appearance: PRESENT: no acute distress, cooperative Neck exam: ABSENT: JVD Respiratory exam: PRESENT: clear to auscultation ana, unlabored. ABSENT: tachypnea, wheezes Cardiovascular exam: PRESENT: RRR, +S1, +S2. ABSENT: tachycardia GI/Abdominal exam: PRESENT: soft. ABSENT: rebound, rigid, tenderness Extremities exam: PRESENT: pedal edema, +1 edema Neurological exam: PRESENT: alert, awake, oriented to person, oriented to place. ABSENT: oriented to time, oriented to situation Results Laboratory Results: 10/30/19 07:24 10/30/19 07:24 10/30/19 10/30/19 07:24 07:24 WBC 15.7 H RBC 5.04 Hgb 15.5 Hct 45.6 MCV 91 MCH 30.7 MCHC 33.9 RDW 16.6 H Plt Count 189 Sodium 137.4 Potassium 4.2 Chloride 99 Carbon Dioxide 32 H Anion Gap 6 BUN 22 H Creatinine 0.86 Est GFR ( Amer) > 60 Glucose 137 H Calcium 9.2 Phosphorus 3.4 Magnesium 2.2 Total Bilirubin 1.4 H AST 41 Alkaline Phosphatase 103 Total Protein 6.3 Albumin 3.6 10/27/19 10:28 Cerebral Spinal Fluid - Csf Gram Stain - Final 10/27/19 10:28 Cerebral Spinal Fluid - Csf CSF Culture - Final NO GROWTH 3 DAYS 10/21/19 10/30/19 20:13 07:24 Troponin I 0.071 NT-Pro-B Natriuret Pep 34068 H Impressions: Head CT 10/21/19 20:58 IMPRESSION: 1. No intracranial hemorrhage or mass lesion. 2. Possible permeative calvarial lesion at the left anterior superior orbital ridge. This area is not well seen. Correlation with symptomatology is recommended. This area was not imaged on the previous PET scan. Abdomen Ultrasound 10/21/19 22:05 IMPRESSION: Right effusion Question bidirectional flow in the portal vein No additional evidence of acute process Head MRI 10/25/19 10:48 IMPRESSION: No acute intracranial abnormality. EVIDENCE OF ACUTE STROKE: NO. Guidance Fluoroscopy 10/27/19 00:00 IMPRESSION: Lumbar puncture under fluoroscopy. No immediate complication. Lumbar Puncture 10/27/19 00:00 IMPRESSION: Lumbar puncture under fluoroscopy. No immediate complication. Chest X-Ray 10/28/19 00:00 IMPRESSION: Stable patchy bibasilar consolidation, likely atelectasis or infection, with mild bilateral effusions. Stable enlarged cardiac silhouette and central vascular congestion. Assessment and Plan - Diagnosis (1) Acute metabolic encephalopathy Is this a current diagnosis for this admission?: Yes Plan: Occasionally gets very combative, confused. does suggest patient may have PTSD from his days in the . However patient has showed cognitive decline since the end of last year. MRI of the brain was unremarkable. B12 level and thiamine are within normal limits. RPR, HIV negative. Lumbar puncture also seems unlikely for any infectious/inflammatory process with 0 WBCs and normal total protein. Some studies are still pending but unlikely to changeover operator given basic LP findings. Haldol as needed for agitation. We will de-escalate restraints if patient behaves appropriately. At this point I will consulted psychiatry for input regarding patient's confusion, aggression and cognitive decline since last year. (2) Acute CHF (congestive heart failure) Qualifiers: Heart failure type: diastolic Qualified Code(s): I50.31 - Acute diastolic (congestive) heart failure Is this a current diagnosis for this admission?: Yes Plan: BNP significantly elevated, chest x-ray is showing interstitial changes. MUGA scan from last year shows normal ejection fraction and was essentially normal. I will check an echocardiogram especially given patient ABVD chemotherapy. Fluid restriction, strict I's and O's, Lasix IV twice daily. (3) Pneumonia Qualifiers: Pneumonia type: due to unspecified organism Laterality: bilateral Lung location: lower lobe of lung Qualified Code(s): J18.9 - Pneumonia, unspecified organism Is this a current diagnosis for this admission?: Yes Plan: Patient has received about 7 days of broad-spectrum IV antibiotics including vancomycin, cefepime-->Meropenem. At this point, will favor discontinuing antibiotics even despite jump in WBC count today. Patient does have lymphoma. Monitor CBC. (4) Respiratory failure with hypoxia Qualifiers: Chronicity: unspecified Qualified Code(s): J96.91 - Respiratory failure, unspecified with hypoxia Is this a current diagnosis for this admission?: Yes Plan: It is unlikely that patient's pneumonia still persists despite receiving broad- spectrum IV antibiotics for 7 days. We will continue to attempt to wean oxygen supplementation. It seems that patient may be having acute CHF and may benefit from diuresis to help alleviate hypoxia. (5) Hepatocellular injury Is this a current diagnosis for this admission?: Yes Plan: Viral hepatitis work-up negative, abdominal imaging unimpressive. Family denied any evidence of herbal use or other new drugs that could lead to liver toxicity Seems to have resolved. (6) Hodgkin lymphoma Qualifiers: Hodgkin lymphoma type: unspecified type Lymphoma site: intra-abdominal nodes Qualified Code(s): C81.93 - Hodgkin lymphoma, unspecified, intra- abdominal lymph nodes Is this a current diagnosis for this admission?: Yes Plan: stage IIIb Hodgkin's lymphoma underwent therapy with ABVD which was completed in July of this year. Recent PET/CT shows significant improvement and continued decrease in size of lymph nodes without enhanced metabolic activity. Outpatient follow-up with Dr. Ferguson. (7) Internal jugular (IJ) vein thromboembolism, acute Qualifiers: Laterality: right Qualified Code(s): I82.C11 - Acute embolism and thrombosis of right internal jugular vein Is this a current diagnosis for this admission?: Yes Plan: This was recently diagnosed last month and patient was started on Eliquis. Family states that patient's confusion started after initiation of Eliquis with plans for removal of port at a later date. I do not know encephalopathy to be a side effect of Eliquis. However to ease family's worries I will switch patient to Xarelto. (8) Obesity (BMI 30.0-34.9) Is this a current diagnosis for this admission?: Yes - Time Time Spent with patient: Less than 15 minutes
[2019-10-30] MEDS: FUROSEMIDE INJ/PF 40 MG/4 ML SDV IV SCH ×2 (13:00→17:51)
[2019-10-30] MEDS: HALOPERIDOL LACTATE INJ 5 MG/1 ML VIAL IM PRN (13:46)
[2019-10-30] MEDS ORDERED: IPRATROPIUM/ALBUTEROL 0.5-2.5 MG/3 ML AMPUL NEB PRN (13:54)
[2019-10-30] MEDS: RIVAROXABAN 10 MG TABLET PO SCH (17:51)
--- NOTE | 2019-10-30 18:40 | XCELERA REPORT ---
[address] [address] Transthoracic Echocardiogram Report Name: LIAM GOLDMAN Age: 69 yrs Gender: Male : 1950 Patient Status: Inpatient Patient Location: [address] [place] [address] Study Date: 10/30/2019 02:25 PM Height: 75 in Weight: 256 lb BSA: 2.4 m2 Procedure: A complete two-dimensional transthoracic echocardiogram was performed (2D, M-mode, spectral and color flow Doppler). The study was technically difficult with many images being suboptimal in quality. Reason For Study: possible chf Ordering Physician: CATRACHITA ESQUIVEL Performed By: Luanne Nichols Interpretation Summary Interpretation Summary TRANS THORACIC ECHOCARDIOGRAM FINDINGS: LEFT VENTRICLE: LV Systolic function: LVEF is felt to be severely depressed at approximately 30 to 35%. Diffuse hypokinesia noted. Regional wall motion cannot be accurately commented upon. LV Diastolic Function: Grade II diastolic dysfunction noted. Left ventricular chamber size : Mildly dilated. Left ventricular wall thickness : is increased indicative of Mild LVH. INTERVENTRICULAR SEPTUM: no evidence of VSD noted. No asymmetric hypertrophy noted. RIGHT VENTRICLE: RV systolic function : is felt to be within normal limit. Right Ventricle Size : borderline dilated. LEFT ATRIUM size : mildly dilated. RIGHT ATRIUM size : is within normal limit. INTER ATRIAL SEPTUM : No definite atrial septal defect noted however a small PFO could be missed. AORTIC ROOT : seems to be within normal limits. Ascending aorta is not well visualized. INFERIOR VENA CAVA: Normal size with less than 50% resp variation. VALVES: MITRAL VALVE : Leaflets are mildly thickened. Mobility seems to be within normal limits. Mitral Regurgitation : Mild to moderate mitral regurgitation is noted. Mitral Stenosis: No mitral stenosis noted. Mitral valve prolapse : none noted. AORTIC VALVE: seems to be trileaflet with thickening but adequate excursion. Aortic stenosis : No aortic stenosis noted. Aortic regurgitation : Mild aortic incompetence noted. TRICUSPID VALVE : mobility and structures within normal limit. Tricuspid stenosis : no tricuspid stenosis noted. Tricuspid regurgitation : Mild tricuspid regurgitation noted. Estimated RVSP : Approximately 35 mmHg consistent with mild pulmonary hypertension. PULMONARY VALVE : was not well visualized but no significant abnormalities suspected. Pulmonary stenosis : no significant pulmonary stenosis noted. Pulmonary regurgitation : no significant pulmonary regurgitation noted. MASSES AND THROMBUS : No definite intracardiac thrombus or masses are noted. PERICARDIUM: No pericardial effusion was noted. IMPRESSION : 1. Severely depressed LVEF estimated at 30 to 35% 2. Mild LVH noted. 3. Grade II Diastolic Dysfunction noted. 4. Moderate mitral and mild aortic regurgitation noted. 5. Mild tricuspid regurgitation noted with mildly elevated RVSP at 35 mmHg. MMode/2D Measurements & Calculations RVDd: 2.7 cm LVIDd: 5.4 cm FS: 12.0 % Ao root diam: 2.8 cm IVSd: 1.1 cm LVIDs: 4.8 cm EDV(Teich): 141.3 ml Ao root area: 6.2 cm2 LVPWd: 1.1 cm ESV(Teich): 105.0 ml EF(Teich): 25.7 % Doppler Measurements & Calculations MV E max carlos: MV dec slope: Ao V2 max: LV V1 max P.7 cm/sec 637.5 cm/sec2 91.0 cm/sec 2.2 mmHg MV A max carlos: MV dec time: 0.15 sec Ao max PG: LV V1 max: 42.4 cm/sec 3.3 mmHg 74.1 cm/sec MV E/A: 2.2 PA V2 max: TR max carlos: 56.4 cm/sec 267.4 cm/sec PA max P.3 mmHg TR max P.6 mmHg : CATRACHITA ESQUIVEL Shyamal
--- NOTE | 2019-10-30 20:41 | PSYCHOLOGICAL NOTE ---
Psych Note - Psych Note Date seen by psych provider: 10/30/19 Time seen by psych provider: 16:00 - attempted Psych Note: Reason for Consult: 1 year of reported cognitive decline combined with combativeness and aggression. Clinician attempted to evaluate patient; unfortunately patient is currently unable/unwilling to engage. Patient was administer Haldol prior and is currently nonverbal and will not look at clinician. Patient is currently in 4 point sift restraints and on oxygen. Clinician spoke with attending nurse. She disclosed the patient had been agitated and was provide his prescribed haldol PRN medication. She notes that has since, he been very quiet, only nodding at times, seemed to have difficulties breathing so was put on oxygen and has been sweating. Head CT 10/21/19 20:58 IMPRESSION: 1. No intracranial hemorrhage or mass lesion. 2. Possible permeative calvarial lesion at the left anterior superior orbital ridge. This area is not well seen. Correlation with symptomatology is recommended. This area was not imaged on the previous PET scan. Head MRI 10/25/19 10:48 IMPRESSION: No acute intracranial abnormality. EVIDENCE OF ACUTE STROKE: NO. Medication recommendations per [facility]'s contracted psychiatrist Dr. Paris DOS SANTOS are as follows: please discontinue Haldol and zyprexa Please do not use Geodon or Ativan for agitation Please start Depakote 250 mg twice daily Please start Risperdal 0.25 mg every 12 hours as needed *Please discontinue home medications of Ambien and Xanax While there is no neurodegenerative language in the patient's Head CT and MRI findings; imaging is just one component used to identify neurodegenerative processes. It is recommended for the patient to follow up with Neurology. Attending physicians are asked to consider to avoid prescribing benzodiazepines (e.g. Ativan, Xanax, Valium, Klonopin), antipsychotics (e.g. Haldol, Geodon, Zyprexa, Seroquel), some sleep aids (e.g. Ambien, Lunesta, Sonata), narcotic pain medications, and high-dose steroids (prednisone) these have been known to cause and/or increased symptoms of aggression, psychosis and/or paranoia in patients with neurodegenerative processes such as dementia, Alzheimer's disease, traumatic brain injury, etc. Clinician will re-attempt evaluation at a later time
[2019-10-31 06:13] LABS: ANION GAP 6 (5-19); BLOOD UREA NITROGEN 30 mg/dL (7-20); CALCIUM 8.9 mg/dL (8.4-10.2); CARBON DIOXIDE 36 mmol/L (22-30); CHLORIDE 96 mmol/L (98-107); GLUCOSE 173 mg/dL (75-110); POTASSIUM 3.7 mmol/L (3.6-5.0)
[2019-10-31] MEDS ORDERED: POTASSIUM CHLORIDE 10 MEQ TABLET.ER PO ONE (08:00)
[2019-10-31] MEDS: FUROSEMIDE INJ/PF 40 MG/4 ML SDV IV SCH ×2 (09:47→18:15)
[2019-10-31] MEDS: LISINOPRIL 10 MG TABLET PO SCH (09:47)
[2019-10-31] MEDS: FAMOTIDINE 20 MG TABLET PO SCH ×2 (09:48→22:41)
[2019-10-31] MEDS: RISPERIDONE 0.25 MG TABLET PO SCH ×2 (09:48→22:41)
[2019-10-31] MEDS: DOCUSATE SODIUM 100 MG CAPSULE PO SCH ×2 (09:48→18:15)
[2019-10-31] MEDS: METOPROLOL SUCCINATE 50 MG TAB.SR.24H PO SCH (09:48)
[2019-10-31] MEDS: DIVALPROEX SODIUM 250 MG TAB.SR.24H PO SCH ×2 (09:49→18:15)
--- NOTE | 2019-10-31 10:43 | PDOC PROGRESS REPORT ---
Subjective Progress Note for:: 10/31/19 Subjective:: Patient is currently on restraints but was able to be de-escalated to one point. Patient denies any shortness of breath at this time. Denies chest pain. Explained his cardiac situation and his current heart failure to patient and he voices understanding. I had a conversation with patient's and daughter yesterday was informed that patient's behavior pattern has been declining for several months but that he often gets aggressive at home with family sometimes grabbing his daughter by the arm and pulling her. As such will be unsafe to send patient back to the home and first his behavioral issues need to be under better control and would likely benefit from placement at a facility Reason For Visit: ACUTE ENCEPHALOPATHY, ELEVATED LACTIC ACID LEVEL, Physical Exam Vital Signs: Temp Pulse Resp BP Pulse Ox 98.5 F 106 H 24 H 125/89 H 91 L 10/31/19 07:29 10/31/19 07:29 10/31/19 07:29 10/31/19 07:29 10/31/19 07:29 Intake & Output 10/30/19 10/31/19 11/01/19 06:59 06:59 06:59 Intake Total 1529 860 Output Total 900 1450 Balance 629 -590 Weight 116.2 kg 104.7 kg General appearance: PRESENT: no acute distress, cooperative Neck exam: ABSENT: JVD Respiratory exam: PRESENT: clear to auscultation ana, unlabored. ABSENT: tachypnea, wheezes Cardiovascular exam: PRESENT: RRR, +S1, +S2, tachycardia GI/Abdominal exam: PRESENT: soft. ABSENT: rebound, rigid, tenderness Extremities exam: PRESENT: pedal edema, +1 edema Neurological exam: PRESENT: alert, awake, oriented to person, oriented to place. ABSENT: oriented to time, oriented to situation Results Laboratory Results: 10/30/19 07:24 10/31/19 04:57 10/31/19 04:57 Sodium 137.9 Potassium 3.7 Chloride 96 L Carbon Dioxide 36 H Anion Gap 6 BUN 30 H Creatinine 1.08 Est GFR ( Amer) > 60 Glucose 173 H Calcium 8.9 10/27/19 10:28 Cerebral Spinal Fluid - Csf Gram Stain - Final 10/27/19 10:28 Cerebral Spinal Fluid - Csf CSF Culture - Final NO GROWTH 3 DAYS 10/21/19 10/30/19 20:13 07:24 Troponin I 0.071 NT-Pro-B Natriuret Pep 68592 H Impressions: Head CT 10/21/19 20:58 IMPRESSION: 1. No intracranial hemorrhage or mass lesion. 2. Possible permeative calvarial lesion at the left anterior superior orbital ridge. This area is not well seen. Correlation with symptomatology is recommended. This area was not imaged on the previous PET scan. Abdomen Ultrasound 10/21/19 22:05 IMPRESSION: Right effusion Question bidirectional flow in the portal vein No additional evidence of acute process Head MRI 10/25/19 10:48 IMPRESSION: No acute intracranial abnormality. EVIDENCE OF ACUTE STROKE: NO. Guidance Fluoroscopy 10/27/19 00:00 IMPRESSION: Lumbar puncture under fluoroscopy. No immediate complication. Lumbar Puncture 10/27/19 00:00 IMPRESSION: Lumbar puncture under fluoroscopy. No immediate complication. Chest X-Ray 10/28/19 00:00 IMPRESSION: Stable patchy bibasilar consolidation, likely atelectasis or infection, with mild bilateral effusions. Stable enlarged cardiac silhouette and central vascular congestion. Assessment and Plan - Diagnosis (1) Acute metabolic encephalopathy Is this a current diagnosis for this admission?: Yes Plan: Occasionally gets very combative, confused. does suggest patient may have PTSD from his days in the . However patient has showed cognitive decline and behavioral changes since the end of last year. MRI of the brain was unremarkable. B12 level and thiamine are within normal limits. RPR, HIV negative. Lumbar puncture is normal and seems unlikely for any infectious/inflammatory process with 0 WBCs and normal total protein. Oligoclonal bands is 0. Continue to de-escalate restraints Psychiatric consulted and recommend Depakote and risperidone which have been started. Hopefully can improve patient's behavior and subsequently shoot for placement at a facility familiar with managing neurocognitive disorders. Will ultimately need outpatient neurology follow-up for further Neuropsychiatric testing. (2) Acute CHF (congestive heart failure) Qualifiers: Heart failure type: combined systolic and diastolic Qualified Code(s): I50.41 - Acute combined systolic (congestive) and diastolic (congestive) heart failure Is this a current diagnosis for this admission?: Yes Plan: BNP significantly elevated, chest x-ray is showing interstitial changes. MUGA scan from last year shows normal ejection fraction and was essentially normal. TTE showing EF of 30-35%, DD 2/4, Mod MR, Mild AR, Mild PASP elevation of 35mmHg Fluid restriction, strict I's and O's, Lasix IV bid today then deescalate tomorrow (3) Pneumonia Qualifiers: Pneumonia type: due to unspecified organism Laterality: bilateral Lung location: lower lobe of lung Qualified Code(s): J18.9 - Pneumonia, unspecified organism Is this a current diagnosis for this admission?: Yes Plan: Patient has completed treatment with about 7-8 days of broad-spectrum IV antibiotics including vancomycin, cefepime-->Meropenem. Monitor CBC. (4) Respiratory failure with hypoxia Qualifiers: Chronicity: unspecified Qualified Code(s): J96.91 - Respiratory failure, unspecified with hypoxia Is this a current diagnosis for this admission?: Yes Plan: Weaned off oxygen. Continue treatment for CHF. Completed treatment for pneumonia. (5) Hepatocellular injury Is this a current diagnosis for this admission?: Yes Plan: Viral hepatitis work-up negative, abdominal imaging unimpressive. Family denied any evidence of herbal use or other new drugs that could lead to liver toxicity Seems to have resolved. (6) Hodgkin lymphoma Qualifiers: Hodgkin lymphoma type: unspecified type Lymphoma site: intra-abdominal nodes Qualified Code(s): C81.93 - Hodgkin lymphoma, unspecified, intra- abdominal lymph nodes Is this a current diagnosis for this admission?: Yes Plan: stage IIIb Hodgkin's lymphoma underwent therapy with ABVD which was completed in July of this year. Recent PET/CT shows significant improvement and continued decrease in size of lymph nodes without enhanced metabolic activity. Outpatient follow-up with Dr. Ferguson. (7) Internal jugular (IJ) vein thromboembolism, acute Qualifiers: Laterality: right Qualified Code(s): I82.C11 - Acute embolism and thrombosis of right internal jugular vein Is this a current diagnosis for this admission?: Yes Plan: This was recently diagnosed last month and patient was started on Eliquis. Family states that patient's confusion started after initiation of Eliquis with plans for removal of port at a later date. I do not know encephalopathy to be a side effect of Eliquis. However to ease family's worries I switched patient to Xarelto. (8) Obesity (BMI 30.0-34.9) Is this a current diagnosis for this admission?: Yes - Time Time Spent with patient: Less than 15 minutes
[2019-10-31] MEDS: RIVAROXABAN 10 MG TABLET PO SCH (18:15)
--- NOTE | 2019-10-31 23:10 | PSYCHOLOGICAL NOTE ---
Psych Note - Psych Note Date seen by psych provider: 10/31/19 Time seen by psych provider: 19:00 Psych Note: Second attempt at evaluation today. Patient is noted to have improved in presentation and engaged with clinician. He was polite and attempted to answer questions to the best of his ability. He is currently not orientated (he thinks he is in a business office in [place] and that it is 1981). Patient is noted to be very difficult to understand at times and some answers were unintelligible. Medication recommendations per [facility]'s contracted psychiatrist Dr. Paris DOS SANTOS are as follows: please discontinue Haldol and zyprexa Please do not use Geodon or Ativan for agitation Please start Depakote 250 mg twice daily Please start Risperdal 0.25 mg every 12 hours as needed *Please discontinue home medications of Ambien and Xanax While there is no neurodegenerative language in the patient's Head CT and MRI findings; imaging is just one component used to identify neurodegenerative processes. It is recommended for the patient to follow up with Neurology. Attending physicians are asked to consider to avoid prescribing benzodiazepines (e.g. Ativan, Xanax, Valium, Klonopin), antipsychotics (e.g. Haldol, Geodon, Zyprexa, Seroquel), some sleep aids (e.g. Ambien, Lunesta, Sonata), narcotic pain medications, and high-dose steroids (prednisone) these have been known to cause and/or increased symptoms of aggression, psychosis and/or paranoia in patients with neurodegenerative processes such as dementia, Alzheimer's disease, traumatic brain injury, etc. Impress/Plan: Patient is demonstrating improvement in both his presentation and engagement with staff. Day nurse reports she has not had any difficulties with the patient today. As of current time, the patient continues to have no concerns (per evening nurse). Unfortunately, there is not enough documented history (ie imaging, baseline neurocognitive capacity, baseline presentation/behaviors) to definitively identify a probable neurocognitive disorder; however, with reported history of PTSD and his current improved presentation after medication adjustment, it is possible the patient has experienced neurodegenerative processes. The patient would need to follow up with neurology for evaluation, diagnostic testing and proper diagnosis.
[2019-11-01 06:25] LABS: ANION GAP 13 (5-19); BLOOD UREA NITROGEN 42 mg/dL (7-20); CALCIUM 9.1 mg/dL (8.4-10.2); CARBON DIOXIDE 32 mmol/L (22-30); CHLORIDE 95 mmol/L (98-107); GLUCOSE 143 mg/dL (75-110); POTASSIUM 3.9 mmol/L (3.6-5.0)
[2019-11-01 07:10] LABS: ABSOLUTE MONOCYTES (AUTO) 1.5 10^3/uL (0.1-1.4); ABSOLUTE NEUT (AUTO) 10.8 10^3/uL (1.7-8.2); BASOPHILS % (AUTO) 0.2 % (0-2); EOSINOPHILS % (AUTO) 0.1 % (0-6); HEMATOCRIT 48.5 % (37.9-51.0); HEMOGLOBIN 16.2 g/dL (13.5-17.0); LYMPHOCYTES % (AUTO) 7.3 % (13-45); MEAN CORPUSCULAR HEMOGLOBIN 30.6 pg (27.0-33.4); MEAN CORPUSCULAR HGB CONC 33.4 g/dL (32.0-36.0); MEAN CORPUSCULAR VOLUME 92 fl (80-97); MONOCYTES % (AUTO) 11.4 % (3-13); PLATELET COUNT 189 10^3/uL (150-450); RED BLOOD COUNT 5.29 10^6/uL (4.35-5.55); RED CELL DISTRIBUTION WIDTH 16.9 % (11.5-14.0); TOTAL CELLS COUNTED % (AUTO) 100 %; WHITE BLOOD COUNT 13.3 10^3/uL (4.0-10.5)
[2019-11-01] MEDS ORDERED: RISPERIDONE 0.25 MG TABLET PO PRN (07:53)
[2019-11-01] MEDS: DOCUSATE SODIUM 100 MG CAPSULE PO SCH ×2 (09:14→17:11)
[2019-11-01] MEDS: METOPROLOL SUCCINATE 50 MG TAB.SR.24H PO SCH (09:15)
[2019-11-01] MEDS: FAMOTIDINE 20 MG TABLET PO SCH ×2 (09:15→22:20)
[2019-11-01] MEDS: LISINOPRIL 10 MG TABLET PO SCH (09:15)
[2019-11-01] MEDS: DIVALPROEX SODIUM 250 MG TAB.SR.24H PO SCH (09:15)
[2019-11-01] MEDS ORDERED: FUROSEMIDE 40 MG TABLET PO SCH (10:00)
[2019-11-01] MEDS ORDERED: ATROPINE SULFATE INJ 1 MG/10 ML DISP.SYRIN IV ONE (10:00)
[2019-11-01 10:35] LABS: HSV SOURCE CSF
[2019-11-01] MEDS ORDERED: GLUCAGON,HUMAN RECOMB 1 MG INJ ONE (10:52)
[2019-11-01] MEDS ORDERED: FUROSEMIDE INJ/PF 40 MG/4 ML SDV ONE (11:09)
[2019-11-01 11:15] LABS: ARTERIAL BLOOD H2CO3 1.93 mmol/L (1.05-1.35); ARTERIAL BLOOD HCO3 32.4 mmol/L (20-24); ARTERIAL BLOOD O2 SATURATION 99.1 % (94-98); ARTERIAL BLOOD PH 7.32 (7.35-7.45); ARTERIAL BLOOD PO2 183.1 mmHg (80-100); ARTERIAL BLOOD TOTAL CO2 34.3 mmol/L (23-27)
[2019-11-01 11:16] LABS: ARTERIAL BLOOD FIO2 100%
--- NOTE | 2019-11-01 11:38 | RADIOLOGY REPORT (SQ) ---
EXAM DESCRIPTION: CHEST SINGLE VIEW IMAGES COMPLETED DATE/TIME: 11/01/2019 11:18 am REASON FOR STUDY: rapid response COMPARISON: 10/28/2019 EXAM PARAMETERS: NUMBER OF VIEWS: One view. TECHNIQUE: Single frontal radiographic view of the chest acquired. RADIATION DOSE: NA LIMITATIONS: None. FINDINGS: LUNGS AND PLEURA: Grossly stable patchy bibasilar opacities and mild bilateral pleural eff usions. No pneumothorax. MEDIASTINUM AND HILAR STRUCTURES: No masses. Contour normal. HEART AND VASCULAR STRUCTURES: Enlarged cardiac silhouette, stable. BONES: No acute findings. HARDWARE: Right internal jugular base chest port with catheter tip at cavoatrial junction. OTHER: No other significant finding. IMPRESSION: Grossly stable patchy bibasilar predominant airspace disease and mild bilateral effusion s. Stable enlarged cardiac silhouette. TECHNICAL DOCUMENTATION: JOB ID: [id number] 2010 [employer]- All Rights Reserved Reading location - IP/workstation name: [email or web address]
[2019-11-01] MEDS ORDERED: FUROSEMIDE INJ/PF 40 MG/4 ML SDV IV ONE (12:00)
[2019-11-01 12:36] LABS: ALPHA-2-GLOBULIN 6.4 % (3.0-12.6); CSF ALBUMIN 51.2 % (56.8-76.4); PRE ALBUMIN 4.8 % (2.2-7.1); TOTAL PROTEIN CSF PE 34.1 mg/dL (0.0-44.0)
--- NOTE | 2019-11-01 12:47 | RADIOLOGY REPORT (SQ) ---
EXAM DESCRIPTION: CT HEAD WITHOUT IMAGES COMPLETED DATE/TIME: 11/01/2019 12:35 pm REASON FOR STUDY: rapid response COMPARISON: 10/25/2019 TECHNIQUE: Axial images acquired through the brain without intravenous contrast. Images reviewed wi th bone, brain and subdural windows. Additional sagittal and coronal reconstructions were generated. Images stored on PACS. All CT scanners at this facility use dose modulation, iterative reconstruction, and/or weight based d osing when appropriate to reduce radiation dose to as low as reasonably achievable (ALARA). [facility]: Dose Right [facility]: CareDose [facility]: Dose Right [facility]: Teradose 4D [facility]: YASSSU RADIATION DOSE: CT Rad equipment meets quality standard of care and radiation dose reduction techniq ues were employed. CTDIvol: 48.8 mGy. DLP: 1079 mGy-cm. mGy. LIMITATIONS: None. FINDINGS: VENTRICLES: Normal size and contour. CEREBRUM: No masses. No hemorrhage. No midline shift. No evidence for acute infarction. Normal gra y/white matter differentiation. No areas of low density in the white matter. CEREBELLUM: No masses. No hemorrhage. No alteration of density. No evidence for acute infarction. EXTRAAXIAL SPACES: No fluid collections. No masses. ORBITS AND GLOBE: No intra- or extraconal masses. Normal contour of globe without masses. CALVARIUM: Unchanged appearance of the irregular lytic lesion along the left anterior superior orbita l ridge. PARANASAL SINUSES: No fluid or mucosal thickening. SOFT TISSUES: No mass or hematoma. OTHER: No other significant finding. IMPRESSION: 1. No evidence of acute intracranial abnormality. 2. Unchanged appearance of the irregular lytic lesion along the left anterior superior orbital ridge . EVIDENCE OF ACUTE STROKE: NO. COMMENT: Quality ID # [id number]: Final reports with documentation of one or more dose reduction techniques (e.g., Automated exposure control, adjustment of the mA and/or kV according to patient size, use of iterative reconstruction technique) TECHNICAL DOCUMENTATION: JOB ID: [id number] 2010 [employer]- All Rights Reserved Reading location - IP/workstation name: [email or web address]
[2019-11-01 14:02] LABS: PROT ELEC MSPIKE Not Observed % (Not Observ)
--- NOTE | 2019-11-01 14:15 | PDOC PROGRESS REPORT ---
Subjective Progress Note for:: 11/01/19 Subjective:: Patient was noted to be drowsy this morning during my initial encounter. About 1-2 hours later, patient became obtunded and unresponsive with heart rates dropping into the 30s. POSITION CLASSIFICATION SPECIALIST was called and evaluated patient at bedside. Patient's BP was soft but within normal range. With systolic in the 90s. Patient's pulse ox was also within normal limits at the time of encounter during the POSITION CLASSIFICATION SPECIALIST. Patient seem to be atrial fibrillation with slow ventricular response. He was also extremely lethargic and not really communicating. Seem to be protecting airway. Telemetry pads were placed and atropine 0.5 mg was administered with immediate improvement of his heart rate into the 100. EKG was subsequently obtained which showed atrial fibrillation still. Patient's mental status began to improve but was still somnolent. Able to follow commands subsequently and performed ocular movements on command which seemed to be intact. ABG was obtained which showed mild respiratory acidosis with PCO2 in the 60s. Patient taken for head CT scan which was unremarkable for any acute changes. Troponin mildly elevated which will be trended out along with lactic acid. Chest x-ray showing some infiltrates but not much change significantly. Patient placed on a BiPAP as his mental status has improved though he is still somnolent. Will monitor patient closely still in the IMCU. Depakote and risperidone have been discontinued. Toprol-XL has also been discontinued. Reason For Visit: ACUTE ENCEPHALOPATHY, ELEVATED LACTIC ACID LEVEL, Physical Exam Vital Signs: Temp Pulse Resp BP Pulse Ox 97.3 F 85 20 121/82 100 10/31/19 20:15 11/01/19 09:28 11/01/19 13:26 10/31/19 20:15 11/01/19 13:26 Intake & Output 10/31/19 11/01/19 11/02/19 06:59 06:59 06:59 Intake Total 860 1160 Output Total 1450 600 Balance -590 560 Weight 104.7 kg 111.8 kg General appearance: PRESENT: cooperative, mild distress Neck exam: ABSENT: JVD Respiratory exam: PRESENT: rhonchi, symmetrical, tachypnea, unlabored. ABSENT: wheezes Cardiovascular exam: PRESENT: irregular rhythm, +S1, +S2, tachycardia GI/Abdominal exam: PRESENT: soft. ABSENT: rebound, rigid, tenderness Neurological exam: PRESENT: altered, awake - Awake but very drowsy, other - Able to follow commands. Able to move extremities but very weak in all extremities without any focality to his weakness. Symmetric size of pupils. Speech is slurred but likely to the fact that he is very drowsy. Ocular movements intact.. ABSENT: aphasic Psychiatric exam: ABSENT: agitated, anxious Results Laboratory Results: 11/01/19 05:44 11/01/19 05:44 11/01/19 11/01/19 11/01/19 05:44 05:44 10:55 WBC 13.3 H RBC 5.29 Hgb 16.2 Hct 48.5 MCV 92 MCH 30.6 MCHC 33.4 RDW 16.9 H Plt Count 189 Seg Neutrophils % 81.0 H Carbonic Acid 1.93 H HCO3/H2CO3 Ratio 16:1 ABG pH 7.32 L ABG pCO2 64.0 H ABG pO2 183.1 H ABG HCO3 32.4 H ABG O2 Saturation 99.1 H ABG Base Excess 4.0 FiO2 100% Sodium 140.0 Potassium 3.9 Chloride 95 L Carbon Dioxide 32 H Anion Gap 13 BUN 42 H Creatinine 1.28 H Est GFR ( Amer) > 60 Glucose 143 H Lactic Acid Calcium 9.1 Magnesium 2.2 11/01/19 11:18 WBC RBC Hgb Hct MCV MCH MCHC RDW Plt Count Seg Neutrophils % Carbonic Acid HCO3/H2CO3 Ratio ABG pH ABG pCO2 ABG pO2 ABG HCO3 ABG O2 Saturation ABG Base Excess FiO2 Sodium Potassium Chloride Carbon Dioxide Anion Gap BUN Creatinine Est GFR ( Amer) Glucose Lactic Acid 3.1 H Calcium Magnesium 10/21/19 10/30/19 11/01/19 20:13 07:24 11:18 Troponin I 0.071 0.108 NT-Pro-B Natriuret Pep 99690 H Impressions: Abdomen Ultrasound 10/21/19 22:05 IMPRESSION: Right effusion Question bidirectional flow in the portal vein No additional evidence of acute process Head MRI 10/25/19 10:48 IMPRESSION: No acute intracranial abnormality. EVIDENCE OF ACUTE STROKE: NO. Guidance Fluoroscopy 10/27/19 00:00 IMPRESSION: Lumbar puncture under fluoroscopy. No immediate complication. Lumbar Puncture 10/27/19 00:00 IMPRESSION: Lumbar puncture under fluoroscopy. No immediate complication. Chest X-Ray 11/01/19 00:00 IMPRESSION: Grossly stable patchy bibasilar predominant airspace disease and mild bilateral effusions. Stable enlarged cardiac silhouette. Head CT 11/01/19 00:00 IMPRESSION: 1. No evidence of acute intracranial abnormality. 2. Unchanged appearance of the irregular lytic lesion along the left anterior superior orbital ridge. EVIDENCE OF ACUTE STROKE: NO. Assessment and Plan - Diagnosis (1) Acute encephalopathy Is this a current diagnosis for this admission?: Yes Plan: Suspect that patient experienced toxic metabolic encephalopathy secondary to initiation of Depakote and receiving risperidone yesterday causing excessive sedation leading to some degree of acute hypercapnic respiratory failure. This was worsened by bradycardia from atrial fibrillation with slow ventricular response. Depakote and risperidone discontinued. Toprol-XL discontinued the patient has already received his dose this morning before becoming bradycardic. Placed on BiPAP Trend troponin and lactic acid. We will monitor closely (2) Cognitive and neurobehavioral dysfunction Is this a current diagnosis for this admission?: Yes Plan: Started end of last year and progressing often characterized by combativeness, aggressiveness, disorientation and confusion with forgetfulness. does suggest patient may have PTSD from his days in the . MRI of the brain was unremarkable. B12 level and thiamine are within normal limits. RPR, HIV negative. Lumbar puncture is normal and seems unlikely for any infectious/inflammatory process with 0 WBCs and normal total protein. Oligoclonal bands is 0. Continue to de-escalate restraints Psychiatric consulted Depakote and risperidone will be held giving he is lethargic this morning after receiving Depakote and risperidone yesterday. Hopefully can improve patient's behavior and subsequently shoot for placement at a facility familiar with managing neurocognitive disorders. Will ultimately need outpatient neurology follow-up for further Neuropsychiatric testing. (3) Acute metabolic encephalopathy Is this a current diagnosis for this admission?: Yes Plan: Occasionally gets very combative, confused. does suggest patient may have PTSD from his days in the . However patient has showed cognitive decline and behavioral changes since the end of last year. MRI of the brain was unremarkable. B12 level and thiamine are within normal limits. RPR, HIV negative. Lumbar puncture is normal and seems unlikely for any infectious/inflammatory process with 0 WBCs and normal total protein. Oligoclonal bands is 0. Continue to de-escalate restraints Psychiatric consulted and recommend Depakote and risperidone which have been started. Hopefully can improve patient's behavior and subsequently shoot for placement at a facility familiar with managing neurocognitive disorders. Will ultimately need outpatient neurology follow-up for further Neuropsychiatric testing. (4) Acute CHF (congestive heart failure) Qualifiers: Heart failure type: combined systolic and diastolic Qualified Code(s): I50.41 - Acute combined systolic (congestive) and diastolic (congestive) heart failure Is this a current diagnosis for this admission?: Yes Plan: BNP significantly elevated, chest x-ray is showing interstitial changes. MUGA scan from last year shows normal ejection fraction and was essentially normal. TTE showing EF of 30-35%, DD 2/4, Mod MR, Mild AR, Mild PASP elevation of 35mmHg Fluid restriction, strict I's and O's, Lasix IV then deescalate tomorrow (5) Pneumonia Qualifiers: Pneumonia type: due to unspecified organism Laterality: bilateral Lung location: lower lobe of lung Qualified Code(s): J18.9 - Pneumonia, unspecified organism Is this a current diagnosis for this admission?: Yes Plan: Patient has completed treatment with about 7-8 days of broad-spectrum IV antibiotics including vancomycin, cefepime-->Meropenem. Monitor CBC. (6) Respiratory failure with hypoxia Qualifiers: Chronicity: unspecified Qualified Code(s): J96.91 - Respiratory failure, unspecified with hypoxia Is this a current diagnosis for this admission?: Yes Plan: Weaned off oxygen. Continue treatment for CHF. Completed treatment for pneumonia. (7) Hepatocellular injury Is this a current diagnosis for this admission?: Yes Plan: Viral hepatitis work-up negative, abdominal imaging unimpressive. Family denied any evidence of herbal use or other new drugs that could lead to liver toxicity Seems to have resolved. (8) Hodgkin lymphoma Qualifiers: Hodgkin lymphoma type: unspecified type Lymphoma site: intra-abdominal nodes Qualified Code(s): C81.93 - Hodgkin lymphoma, unspecified, intra- abdominal lymph nodes Is this a current diagnosis for this admission?: Yes (9) Internal jugular (IJ) vein thromboembolism, acute Qualifiers: Laterality: right Qualified Code(s): I82.C11 - Acute embolism and thrombosis of right internal jugular vein Is this a current diagnosis for this admission?: Yes Plan: This was recently diagnosed last month and patient was started on Eliquis. Family states that patient's confusion started after initiation of Eliquis with plans for removal of port at a later date. I do not know encephalopathy to be a side effect of Eliquis. However to ease family's worries I switched patient to Xarelto. (10) Obesity (BMI 30.0-34.9) Is this a current diagnosis for this admission?: Yes - Time Time Spent with patient: 35 or more minutes Total Critical Time (Minutes): 40
[2019-11-01] MEDS: RIVAROXABAN 10 MG TABLET PO SCH (17:11)
[2019-11-02 06:03] LABS: ABSOLUTE BASOPHILS # (AUTO) 0.1 10^3/uL (0.0-0.2); ABSOLUTE EOSINOPHILS # (AUTO) 0.1 10^3/uL (0.0-0.6); ABSOLUTE LYMPHOCYTES (AUTO) 1.2 10^3/uL (0.5-4.7); ABSOLUTE MONOCYTES (AUTO) 1.8 10^3/uL (0.1-1.4); ABSOLUTE NEUT (AUTO) 12.5 10^3/uL (1.7-8.2); BASOPHILS % (AUTO) 0.4 % (0-2); EOSINOPHILS % (AUTO) 0.4 % (0-6); HEMATOCRIT 48.1 % (37.9-51.0); HEMOGLOBIN 16.2 g/dL (13.5-17.0); LYMPHOCYTES % (AUTO) 7.4 % (13-45); MEAN CORPUSCULAR HEMOGLOBIN 30.5 pg (27.0-33.4); MEAN CORPUSCULAR HGB CONC 33.6 g/dL (32.0-36.0); MEAN CORPUSCULAR VOLUME 91 fl (80-97); MONOCYTES % (AUTO) 11.4 % (3-13); PLATELET COUNT 197 10^3/uL (150-450); RED BLOOD COUNT 5.29 10^6/uL (4.35-5.55); RED CELL DISTRIBUTION WIDTH 17.1 % (11.5-14.0); SEGMENTED NEUTROPHILS % (AUTO) 80.4 % (42-78); TOTAL CELLS COUNTED % (AUTO) 100 %; WHITE BLOOD COUNT 15.6 10^3/uL (4.0-10.5)
[2019-11-02 06:22] LABS: ANION GAP 7 (5-19); BLOOD UREA NITROGEN 46 mg/dL (7-20); CALCIUM 8.7 mg/dL (8.4-10.2); CARBON DIOXIDE 38 mmol/L (22-30); CHLORIDE 95 mmol/L (98-107); GLUCOSE 123 mg/dL (75-110); POTASSIUM 3.6 mmol/L (3.6-5.0)
[2019-11-02] MEDS ORDERED: DIVALPROEX SODIUM 125 MG CAP.SPRINK PO SCH (10:00)
[2019-11-02] MEDS ORDERED: METOPROLOL SUCCINATE 50 MG TAB.SR.24H PO SCH (10:00)
[2019-11-02] MEDS: DOCUSATE SODIUM 100 MG CAPSULE PO SCH ×2 (10:40→17:04)
[2019-11-02] MEDS: FAMOTIDINE 20 MG TABLET PO SCH ×2 (10:41→22:01)
[2019-11-02] MEDS: LISINOPRIL 10 MG TABLET PO SCH (10:43)
--- NOTE | 2019-11-02 12:32 | PDOC PROGRESS REPORT ---
Subjective Progress Note for:: 11/02/19 Subjective:: Today patient is fully awake. However he has been very stubborn about taking his meds. He is refusing to take all his meds. Multiple attempts by myself and the nurse have been unsuccessful in trying to help patient realize his current medical conditions and the necessity of him taking his medications. He is still confused and not fully oriented. Still having very poor recollection of recent events and occasionally confabulates. Also clearly having some delusions and effectuated about how people are taking his money and how he has been given a lot of money to the government. Also patient refusing to be examined closely. Reason For Visit: ACUTE ENCEPHALOPATHY, ELEVATED LACTIC ACID LEVEL, Physical Exam Vital Signs: Temp Pulse Resp BP Pulse Ox 97.7 F 130 H 14 108/68 96 11/02/19 07:38 11/02/19 08:39 11/02/19 08:39 11/02/19 07:38 11/02/19 08:39 Intake & Output 11/01/19 11/02/19 11/03/19 06:59 06:59 06:59 Intake Total 1160 939 Output Total 600 1350 Balance 560 -411 Weight 111.8 kg 114.3 kg General appearance: PRESENT: no acute distress, obese. ABSENT: cooperative, hard of hearing Neck exam: ABSENT: JVD Respiratory exam: PRESENT: symmetrical, unlabored. ABSENT: accessory muscle use, retraction, tachypnea Cardiovascular exam: PRESENT: irregular rhythm, tachycardia - As noted on telemetry. ABSENT: bradycardia, RRR GI/Abdominal exam: PRESENT: soft Extremities exam: PRESENT: +1 edema Neurological exam: PRESENT: alert, altered, awake, oriented to person, oriented to place. ABSENT: oriented to time, oriented to situation Psychiatric exam: PRESENT: agitated - Mild, unusual affect. ABSENT: anxious, flat affect, homicidal ideation Focused psych exam: PRESENT: delusional, restlessness. ABSENT: catatonic, euphoric, internal stimuli, pressured speech Results Laboratory Results: 11/02/19 05:14 11/02/19 05:14 10/27/19 11/01/19 11/02/19 10:28 17:31 05:14 WBC 15.6 H RBC 5.29 Hgb 16.2 Hct 48.1 MCV 91 MCH 30.5 MCHC 33.6 RDW 17.1 H Plt Count 197 Seg Neutrophils % 80.4 H Sodium Potassium Chloride Carbon Dioxide Anion Gap BUN Creatinine Est GFR ( Amer) Glucose Lactic Acid 1.8 Calcium Magnesium CSF Total Protein PEP 34.1 CSF Prealbumin 4.8 CSF Albumin 51.2 L CSF Kerla-1-Tkcipkkm 7.0 H CSF Ekjta-9-Qljtjnuy 6.4 CSF Beta Globulin 21.5 H CSF Gamma Globulin 9.0 CSF PEP M-Santi Not Observed 11/02/19 05:14 WBC RBC Hgb Hct MCV MCH MCHC RDW Plt Count Seg Neutrophils % Sodium 139.8 Potassium 3.6 Chloride 95 L Carbon Dioxide 38 H Anion Gap 7 BUN 46 H Creatinine 1.33 H Est GFR ( Amer) > 60 Glucose 123 H Lactic Acid Calcium 8.7 Magnesium 2.2 CSF Total Protein PEP CSF Prealbumin CSF Albumin CSF Ddpzx-6-Ylhwxpas CSF Zlcxh-5-Lgmgmjzk CSF Beta Globulin CSF Gamma Globulin CSF PEP M-Santi 10/21/19 10/30/19 11/01/19 20:13 07:24 11:18 Troponin I 0.071 0.108 NT-Pro-B Natriuret Pep 52283 H 11/01/19 11/02/19 17:31 05:14 Troponin I 0.101 NT-Pro-B Natriuret Pep 72224 H Impressions: Abdomen Ultrasound 10/21/19 22:05 IMPRESSION: Right effusion Question bidirectional flow in the portal vein No additional evidence of acute process Head MRI 10/25/19 10:48 IMPRESSION: No acute intracranial abnormality. EVIDENCE OF ACUTE STROKE: NO. Guidance Fluoroscopy 10/27/19 00:00 IMPRESSION: Lumbar puncture under fluoroscopy. No immediate complication. Lumbar Puncture 10/27/19 00:00 IMPRESSION: Lumbar puncture under fluoroscopy. No immediate complication. Chest X-Ray 11/01/19 00:00 IMPRESSION: Grossly stable patchy bibasilar predominant airspace disease and mild bilateral effusions. Stable enlarged cardiac silhouette. Head CT 11/01/19 00:00 IMPRESSION: 1. No evidence of acute intracranial abnormality. 2. Unchanged appearance of the irregular lytic lesion along the left anterior superior orbital ridge. EVIDENCE OF ACUTE STROKE: NO. Assessment and Plan - Diagnosis (1) Cognitive and neurobehavioral dysfunction Is this a current diagnosis for this admission?: Yes Plan: Started end of last year and progressing often characterized by combativeness, aggressiveness, disorientation and confusion with forgetfulness. does suggest patient may have PTSD from his days in the . MRI of the brain was unremarkable. B12 level and thiamine are within normal limits. RPR, HIV negative. Lumbar puncture is normal and seems unlikely for any infectious/inflammatory process with 0 WBCs and normal total protein. Oligoclonal bands is 0. Psychiatric consulted and recommending Depakote and PRN risperidone. Patient has tendency to become quite lethargic when given psychotropics so we will be very cautious about its use. Have changed Depakote dose to 125 mg in the morning and 250 mg in the evening. Hopefully we can improve patient's behavior and subsequently shoot for placement at a facility familiar with managing neurocognitive disorders. Will ultimately need outpatient neurology follow-up as well for further Neuropsychiatric testing. (2) Acute encephalopathy Is this a current diagnosis for this admission?: Yes Plan: Toxic metabolic encephalopathy secondary to Depakote and risperidone has resolved. Patient back to his prior state. Depakote dose reduced her risperidone discontinued. (3) Acute CHF (congestive heart failure) Qualifiers: Heart failure type: combined systolic and diastolic Qualified Code(s): I50.41 - Acute combined systolic (congestive) and diastolic (congestive) heart failure Is this a current diagnosis for this admission?: Yes Plan: BNP significantly elevated, chest x-ray is showing interstitial changes. MUGA scan from last year shows normal ejection fraction and was essentially normal. TTE showing EF of 30-35%, DD 2/4, Mod MR, Mild AR, Mild PASP elevation of 35mmHg Fluid restriction, strict I's and O's Hold Lasix today (4) Pneumonia Qualifiers: Pneumonia type: due to unspecified organism Laterality: bilateral Lung location: lower lobe of lung Qualified Code(s): J18.9 - Pneumonia, unspecified organism Is this a current diagnosis for this admission?: Yes Plan: Patient has completed treatment with about 7-8 days of broad-spectrum IV antibiotics including vancomycin, cefepime-->Meropenem. Monitor CBC. (5) Respiratory failure with hypoxia Qualifiers: Chronicity: unspecified Qualified Code(s): J96.91 - Respiratory failure, unspecified with hypoxia Is this a current diagnosis for this admission?: Yes Plan: Seems resolved. Should be able to tolerate off oxygen as in prior days. Continue treatment for CHF. Completed treatment for pneumonia. (6) Atrial fibrillation Qualifiers: Atrial fibrillation type: unspecified chronic Qualified Code(s): I48.20 - Chronic atrial fibrillation, unspecified; I48.2 - Chronic atrial fibrillation Is this a current diagnosis for this admission?: Yes Plan: Due to symptomatic bradycardia into the 30s yesterday, Toprol-XL was discontinued but will have to resume at a lower dose and watch cautiously as patient seems notably in RVR today. (7) Hepatocellular injury Is this a current diagnosis for this admission?: Yes Plan: Resolved. Viral hepatitis work-up negative, abdominal imaging unimpressive. Family denied herbal use or other new drugs that could lead to liver toxicity. (8) Hodgkin lymphoma Qualifiers: Hodgkin lymphoma type: unspecified type Lymphoma site: intra-abdominal nodes Qualified Code(s): C81.93 - Hodgkin lymphoma, unspecified, intra- abdominal lymph nodes Is this a current diagnosis for this admission?: Yes Plan: stage IIIb Hodgkin's lymphoma s/p ABVD completed in 07/2019. [address] Andersen, his lymphoma has responded very well with recent PET/CT shows significant improvement and continued decrease in size of lymph nodes and now without any enhanced metabolic activity. Outpatient follow-up with Dr. Ferguson. (9) Internal jugular (IJ) vein thromboembolism, acute Qualifiers: Laterality: right Qualified Code(s): I82.C11 - Acute embolism and thrombosis of right internal jugular vein Is this a current diagnosis for this admission?: Yes Plan: This was recently diagnosed last month and patient was started on Eliquis. Family states that patient's confusion started after initiation of Eliquis with plans for removal of port at a later date. I do not know encephalopathy to be a side effect of Eliquis. However to ease family's worries I switched patient to Xarelto. (10) Obesity (BMI 30.0-34.9) Is this a current diagnosis for this admission?: Yes - Time Time Spent with patient: 15-24 minutes
[2019-11-02] MEDS: METOPROLOL SUCCINATE 50 MG TAB.SR.24H PO SCH ×2 (14:18→22:00)
[2019-11-02] MEDS: RIVAROXABAN 10 MG TABLET PO SCH (17:04)
[2019-11-02] MEDS: DIVALPROEX SODIUM 125 MG CAP.SPRINK PO SCH (22:00)
[2019-11-03] MEDS: FAMOTIDINE 20 MG TABLET PO SCH ×2 (09:42→21:36)
[2019-11-03] MEDS: DOCUSATE SODIUM 100 MG CAPSULE PO SCH ×2 (09:42→17:09)
[2019-11-03] MEDS: METOPROLOL SUCCINATE 50 MG TAB.SR.24H PO SCH ×2 (09:55→21:40)
[2019-11-03] MEDS: LISINOPRIL 10 MG TABLET PO SCH (09:55)
[2019-11-03] MEDS: FUROSEMIDE 40 MG TABLET PO SCH (09:55)
[2019-11-03] MEDS: DIVALPROEX SODIUM 125 MG CAP.SPRINK PO SCH ×2 (09:56→21:39)
--- NOTE | 2019-11-03 10:43 | EKG REPORT ---
SEVERITY:- ABNORMAL ECG - ATRIAL FIBRILLATION MULTIFORM VENTRICULAR PREMATURE COMPLEXES LOW VOLTAGE IN FRONTAL LEADS CONSIDER ANTEROSEPTAL INFARCT NONSPECIFIC T ABNORMALITIES, LATERAL LEADS : Confirmed by: Oskar Fiore 03-Nov-2019 10:43:00
--- NOTE | 2019-11-03 13:56 | PDOC PROGRESS REPORT ---
Subjective Progress Note for:: 11/03/19 Subjective:: Today patient is alert, more cooperative. Has not had any aggressive episodes for the past 3 days. Has been off restraints since yesterday afternoon. Agrees to take his medications today. Denies any difficulty breathing or chest pain. Reason For Visit: ACUTE ENCEPHALOPATHY, ELEVATED LACTIC ACID LEVEL, Physical Exam Vital Signs: Temp Pulse Resp BP Pulse Ox 98.1 F 85 17 123/71 96 11/03/19 12:00 11/03/19 12:00 11/03/19 12:00 11/03/19 12:00 11/03/19 12:00 Intake & Output 11/02/19 11/03/19 11/04/19 06:59 06:59 06:59 Intake Total 939 1074 237 Output Total 1350 315 Balance -411 759 237 Weight 114.3 kg 113.1 kg General appearance: PRESENT: no acute distress, cooperative Neck exam: ABSENT: JVD Respiratory exam: PRESENT: symmetrical, unlabored. ABSENT: accessory muscle use, retraction Cardiovascular exam: ABSENT: tachycardia GI/Abdominal exam: PRESENT: other - Normal inspection Neurological exam: PRESENT: alert, awake Psychiatric exam: ABSENT: agitated, anxious Focused psych exam: ABSENT: pressured speech Skin exam: ABSENT: jaundice Results Laboratory Results: 11/02/19 05:14 11/02/19 05:14 10/21/19 10/30/19 11/01/19 20:13 07:24 11:18 Troponin I 0.071 0.108 NT-Pro-B Natriuret Pep 18802 H 11/01/19 11/02/19 17:31 05:14 Troponin I 0.101 NT-Pro-B Natriuret Pep [id number] H Impressions: Abdomen Ultrasound 10/21/19 22:05 IMPRESSION: Right effusion Question bidirectional flow in the portal vein No additional evidence of acute process Head MRI 10/25/19 10:48 IMPRESSION: No acute intracranial abnormality. EVIDENCE OF ACUTE STROKE: NO. Guidance Fluoroscopy 10/27/19 00:00 IMPRESSION: Lumbar puncture under fluoroscopy. No immediate complication. Lumbar Puncture 10/27/19 00:00 IMPRESSION: Lumbar puncture under fluoroscopy. No immediate complication. Chest X-Ray 11/01/19 00:00 IMPRESSION: Grossly stable patchy bibasilar predominant airspace disease and mild bilateral effusions. Stable enlarged cardiac silhouette. Head CT 11/01/19 00:00 IMPRESSION: 1. No evidence of acute intracranial abnormality. 2. Unchanged appearance of the irregular lytic lesion along the left anterior superior orbital ridge. EVIDENCE OF ACUTE STROKE: NO. Assessment and Plan - Diagnosis (1) Cognitive and neurobehavioral dysfunction Is this a current diagnosis for this admission?: Yes Plan: Started end of last year and progressing often characterized by combativeness, aggressiveness, disorientation and confusion with forgetfulness. does suggest patient may have PTSD from his days in the . MRI of the brain was unremarkable. B12 level and thiamine are within normal limits. RPR, HIV negative. Lumbar puncture is normal and seems unlikely for any infectious/inflammatory process with 0 WBCs and normal total protein. Oligoclonal bands is 0. Psychiatric following Patient has tendency to become quite lethargic when given psychotropics so we will be very cautious about its use. On Depakote dose to 125 mg in the morning and 250 mg in the evening. Hopefully we can improve patient's behavior and subsequently shoot for placement at a facility familiar with managing neurocognitive disorders. Will ultimately need outpatient neurology follow-up as well for further Neuropsychiatric testing. (2) Acute encephalopathy Is this a current diagnosis for this admission?: Yes Plan: Toxic metabolic encephalopathy secondary to Depakote and risperidone has re solved. Patient back to his prior state. Depakote dose reduced her risperidone discontinued. (3) Acute CHF (congestive heart failure) Qualifiers: Heart failure type: combined systolic and diastolic Qualified Code(s): I50.41 - Acute combined systolic (congestive) and diastolic (congestive) heart failure Is this a current diagnosis for this admission?: Yes Plan: MUGA scan from last year showed normal function but TTE showing EF of 30-35%, DD 2/4, Mod MR, Mild AR, Mild PASP elevation of 35mmHg. Lasix, lisinopril and Toprol-XL. Hold off on LifeVest given his cognitive impairment. However he will need follow-up with a roll form operator for repeat imaging. (4) Pneumonia Qualifiers: Pneumonia type: due to unspecified organism Laterality: bilateral Lung location: lower lobe of lung Qualified Code(s): J18.9 - Pneumonia, unspecified organism Is this a current diagnosis for this admission?: Yes Plan: completed treatment with about 7-8 days of broad-spectrum IV antibiotics including vancomycin, cefepime-->Meropenem. (5) Respiratory failure with hypoxia Qualifiers: Chronicity: unspecified Qualified Code(s): J96.91 - Respiratory failure, unspecified with hypoxia Is this a current diagnosis for this admission?: Yes Plan: Seems resolved. (6) Atrial fibrillation Qualifiers: Atrial fibrillation type: unspecified chronic Qualified Code(s): I48.20 - Chronic atrial fibrillation, unspecified; I48.2 - Chronic atrial fibrillation Is this a current diagnosis for this admission?: Yes Plan: chadsvasc of 3. Toprol-XL and Xarelto. (7) Hepatocellular injury Is this a current diagnosis for this admission?: Yes Plan: Resolved. Viral hepatitis work-up negative, abdominal imaging unimpressive. Family denied herbal use or other new drugs that could lead to liver toxicity. (8) Hodgkin lymphoma Qualifiers: Hodgkin lymphoma type: unspecified type Lymphoma site: intra-abdominal nodes Qualified Code(s): C81.93 - Hodgkin lymphoma, unspecified, intra- abdominal lymph nodes Is this a current diagnosis for this admission?: Yes Plan: stage IIIb Hodgkin's lymphoma s/p ABVD completed in 07/2019. Per Dr Andersen, his lymphoma has responded very well with recent PET/CT shows significant improvement and continued decrease in size of lymph nodes and now without any enhanced metabolic activity. Outpatient follow-up with Dr. Ferguson. (9) Internal jugular (IJ) vein thromboembolism, acute Qualifiers: Laterality: right Qualified Code(s): I82.C11 - Acute embolism and thrombosis of right internal jugular vein Is this a current diagnosis for this admission?: Yes (10) Obesity (BMI 30.0-34.9) Is this a current diagnosis for this admission?: Yes - Time Time Spent with patient: Less than 15 minutes
[2019-11-03] MEDS: RIVAROXABAN 10 MG TABLET PO SCH (18:18)
[2019-11-04 07:38] LABS: BLOOD UREA NITROGEN 33 mg/dL (7-20); CALCIUM 8.7 mg/dL (8.4-10.2); CHLORIDE 93 mmol/L (98-107); GLUCOSE 104 mg/dL (75-110); POTASSIUM 3.4 mmol/L (3.6-5.0)
[2019-11-04 07:41] LABS: ABSOLUTE EOSINOPHILS # (AUTO) 0.1 10^3/uL (0.0-0.6); ABSOLUTE LYMPHOCYTES (AUTO) 0.9 10^3/uL (0.5-4.7); ABSOLUTE NEUT (AUTO) 8.8 10^3/uL (1.7-8.2); BASOPHILS % (AUTO) 0.3 % (0-2); EOSINOPHILS % (AUTO) 0.9 % (0-6); HEMATOCRIT 44.6 % (37.9-51.0); HEMOGLOBIN 15.3 g/dL (13.5-17.0); LYMPHOCYTES % (AUTO) 8.6 % (13-45); MEAN CORPUSCULAR HEMOGLOBIN 31.1 pg (27.0-33.4); MEAN CORPUSCULAR HGB CONC 34.2 g/dL (32.0-36.0); MEAN CORPUSCULAR VOLUME 91 fl (80-97); MONOCYTES % (AUTO) 9.2 % (3-13); PLATELET COUNT 204 10^3/uL (150-450); RED CELL DISTRIBUTION WIDTH 17.2 % (11.5-14.0); TOTAL CELLS COUNTED % (AUTO) 100 %; WHITE BLOOD COUNT 10.9 10^3/uL (4.0-10.5)
[2019-11-04 07:45] LABS: ANION GAP 8 (5-19); CARBON DIOXIDE 38 mmol/L (22-30)
[2019-11-04] MEDS ORDERED: POTASSIUM CHLORIDE 10 MEQ TABLET.ER PO ONE (09:00)
[2019-11-04] MEDS: FUROSEMIDE 40 MG TABLET PO SCH (09:46)
[2019-11-04] MEDS: FAMOTIDINE 20 MG TABLET PO SCH ×2 (09:46→21:18)
[2019-11-04] MEDS: METOPROLOL SUCCINATE 50 MG TAB.SR.24H PO SCH ×2 (09:47→21:18)
[2019-11-04] MEDS: DOCUSATE SODIUM 100 MG CAPSULE PO SCH ×2 (09:47→17:50)
[2019-11-04] MEDS: LISINOPRIL 10 MG TABLET PO SCH (09:47)
[2019-11-04] MEDS: DIVALPROEX SODIUM 125 MG CAP.SPRINK PO SCH ×2 (09:48→21:18)
--- NOTE | 2019-11-04 17:13 | PDOC PROGRESS REPORT ---
Subjective Progress Note for:: 11/04/19 Subjective:: Patient's behavior continues to improve. His aggression has resolved. He has not required any restraints since early Monday. Has no complaints today. Reason For Visit: ACUTE ENCEPHALOPATHY, ELEVATED LACTIC ACID LEVEL, Physical Exam Vital Signs: Temp Pulse Resp BP Pulse Ox 97.3 F 107 H 18 109/67 94 11/04/19 12:23 11/04/19 14:00 11/04/19 12:23 11/04/19 12:23 11/04/19 12:23 Intake & Output 11/03/19 11/04/19 11/05/19 06:59 06:59 06:59 Intake Total 1074 797 Output Total 315 Balance 759 797 Weight 113.1 kg 114.7 kg 114.7 kg General appearance: PRESENT: no acute distress, cooperative Cardiovascular exam: ABSENT: tachycardia Neurological exam: PRESENT: alert, awake Results Laboratory Results: 11/04/19 06:31 11/04/19 06:31 11/04/19 11/04/19 06:31 06:31 WBC 10.9 H RBC 4.90 Hgb 15.3 Hct 44.6 MCV 91 MCH 31.1 MCHC 34.2 RDW 17.2 H Plt Count 204 Seg Neutrophils % 81.0 H Sodium 138.8 Potassium 3.4 L Chloride 93 L Carbon Dioxide 38 H Anion Gap 8 BUN 33 H Creatinine 1.16 Est GFR ( Amer) > 60 Glucose 104 Calcium 8.7 10/21/19 10/30/19 11/01/19 20:13 07:24 11:18 Troponin I 0.071 0.108 NT-Pro-B Natriuret Pep 90356 H 11/01/19 11/02/19 17:31 05:14 Troponin I 0.101 NT-Pro-B Natriuret Pep 45704 H Impressions: Abdomen Ultrasound 10/21/19 22:05 IMPRESSION: Right effusion Question bidirectional flow in the portal vein No additional evidence of acute process Head MRI 10/25/19 10:48 IMPRESSION: No acute intracranial abnormality. EVIDENCE OF ACUTE STROKE: NO. Guidance Fluoroscopy 10/27/19 00:00 IMPRESSION: Lumbar puncture under fluoroscopy. No immediate complication. Lumbar Puncture 10/27/19 00:00 IMPRESSION: Lumbar puncture under fluoroscopy. No immediate complication. Chest X-Ray 11/01/19 00:00 IMPRESSION: Grossly stable patchy bibasilar predominant airspace disease and mild bilateral effusions. Stable enlarged cardiac silhouette. Head CT 11/01/19 00:00 IMPRESSION: 1. No evidence of acute intracranial abnormality. 2. Unchanged appearance of the irregular lytic lesion along the left anterior superior orbital ridge. EVIDENCE OF ACUTE STROKE: NO. Assessment and Plan - Diagnosis (1) Cognitive and neurobehavioral dysfunction Is this a current diagnosis for this admission?: Yes Plan: Started end of last year and progressing often characterized by combativeness, aggressiveness, disorientation and confusion with forgetfulness. does sugg est patient may have PTSD from his days in the . MRI of the brain was unremarkable. B12 level and thiamine are within normal limits. RPR, HIV negative. LP was normal and very unlikely for any infectious/inflammatory process with 0 WBCs and normal total protein. Oligoclonal bands is 0. CSF HSV pcrs and cultures are negative. Psychiatry evaluated Patient has tendency to become quite lethargic when given aggressive psychotropics so be cautious. He has done very well on Depakote 125 mg in AM & 250 mg QHS. His aggression seems to have resolved and he has not required restraints or IV/IM psychotropics for the past 3.5 days Working to get him to a facility. He will benefit from short-term rehab as well for 30 days or less at the skilled facility. Preferably, he should eventually go somewhere familiar with managing pts with neurocognitive disorders. He Will ultimately need outpatient neurology follow-up as well for further Neuropsychiatric testing for suspected new onset dementia. (2) Acute CHF (congestive heart failure) Qualifiers: Heart failure type: combined systolic and diastolic Qualified Code(s): I 50.41 - Acute combined systolic (congestive) and diastolic (congestive) heart failure Is this a current diagnosis for this admission?: Yes Plan: MUGA scan from last year showed normal function but TTE showing EF of 30-35%, DD 2/4, Mod MR, Mild AR, Mild PASP elevation of 35mmHg. Lasix, lisinopril and Toprol-XL. Hold off on LifeVest given his cognitive impairment. However he will need follow-up with a loading unit operator crimping for repeat imaging. (3) Pneumonia Qualifiers: Pneumonia type: due to unspecified organism Laterality: bilateral Lung location: lower lobe of lung Qualified Code(s): J18.9 - Pneumonia, unspecified organism Is this a current diagnosis for this admission?: Yes Plan: completed treatment with about 7-8 days of broad-spectrum IV antibiotics includ ing vancomycin, cefepime-->Meropenem. (4) Respiratory failure with hypoxia Qualifiers: Chronicity: unspecified Qualified Code(s): J96.91 - Respiratory failure, unspecified with hypoxia Is this a current diagnosis for this admission?: Yes Plan: Seems resolved. (5) Atrial fibrillation Qualifiers: Atrial fibrillation type: unspecified chronic Qualified Code(s): I48.20 - Chronic atrial fibrillation, unspecified; I48.2 - Chronic atrial fibrillation Is this a current diagnosis for this admission?: Yes Plan: chadsvasc of 3. Toprol-XL and Xarelto. (6) Hepatocellular injury Is this a current diagnosis for this admission?: Yes Plan: Resolved. Viral hepatitis work-up negative, abdominal imaging unimpressive. Family denied herbal use or other new drugs that could lead to liver toxicity. (7) Hodgkin lymphoma Qualifiers: Hodgkin lymphoma type: unspecified type Lymphoma site: intra-abdominal nodes Qualified Code(s): C81.93 - Hodgkin lymphoma, unspecified, intra- abdominal lymph nodes Is this a current diagnosis for this admission?: Yes Plan: stage IIIb Hodgkin's lymphoma s/p ABVD completed in 07/2019. Per Dr Andersen, his lymphoma has responded very well with recent PET/CT shows significant improvement and continued decrease in size of lymph nodes and now without any enhanced metabolic activity. Outpatient follow-up with Dr. Ferguson. (8) Internal jugular (IJ) vein thromboembolism, acute Qualifiers: Laterality: right Qualified Code(s): I82.C11 - Acute embolism and thrombosis of right internal jugular vein Is this a current diagnosis for this admission?: Yes Plan: This was recently diagnosed last month and patient was started on Eliquis. Family states that patient's confusion worsened after initiation of Eliquis. Plans for removal of port at a later date. I do not know encephalopathy to be a side effect of Eliquis. However to ease family's worries I switched patient to Xarelto. (9) Obesity (BMI 30.0-34.9) Is this a current diagnosis for this admission?: Yes - Time Time Spent with patient: Less than 15 minutes
[2019-11-04] MEDS: RIVAROXABAN 10 MG TABLET PO SCH (17:50)
[2019-11-05] MEDS: METOPROLOL SUCCINATE 50 MG TAB.SR.24H PO SCH ×2 (09:55→21:32)
[2019-11-05] MEDS: LISINOPRIL 10 MG TABLET PO SCH (09:55)
[2019-11-05] MEDS: FAMOTIDINE 20 MG TABLET PO SCH ×2 (09:56→21:32)
[2019-11-05] MEDS: DIVALPROEX SODIUM 125 MG CAP.SPRINK PO SCH ×2 (09:57→21:33)
[2019-11-05] MEDS: DOCUSATE SODIUM 100 MG CAPSULE PO SCH ×2 (09:57→17:14)
[2019-11-05 10:35] LABS: BLOOD UREA NITROGEN 30 mg/dL (7-20); CALCIUM 8.5 mg/dL (8.4-10.2); CHLORIDE 93 mmol/L (98-107); GLUCOSE 181 mg/dL (75-110); POTASSIUM 3.7 mmol/L (3.6-5.0)
[2019-11-05 10:43] LABS: ANION GAP 7 (5-19)
[2019-11-05 10:54] LABS: CARBON DIOXIDE 40 mmol/L (22-30)
[2019-11-05] MEDS: FUROSEMIDE 40 MG TABLET PO SCH (11:25)
--- NOTE | 2019-11-05 13:56 | PDOC PROGRESS REPORT ---
Subjective Progress Note for:: 11/05/19 Reason For Visit: ACUTE ENCEPHALOPATHY, ELEVATED LACTIC ACID LEVEL, 11/05/2019 Patient admitted for altered mental status, acute encephalopathy, elevated lactic acid level, pneumonia, hepatocellular injury, Hodgkin's lymphoma, Physical Exam Vital Signs: Temp Pulse Resp BP Pulse Ox 97.4 F 53 L 20 103/61 96 11/05/19 08:25 11/05/19 08:25 11/05/19 08:25 11/05/19 08:25 11/05/19 08:25 Intake & Output 11/04/19 11/05/19 11/06/19 06:59 06:59 06:59 Intake Total 797 860 Output Total 225 Balance 797 635 Weight 114.7 kg 114.7 kg General appearance: PRESENT: no acute distress Respiratory exam: PRESENT: clear to auscultation ana. ABSENT: rales, rhonchi, wheezes Cardiovascular exam: PRESENT: RRR. ABSENT: diastolic murmur, rubs, systolic murmur Neurological exam: PRESENT: alert, awake Psychiatric exam: PRESENT: flat affect, unusual affect Results Laboratory Results: 11/04/19 06:31 11/05/19 09:50 11/05/19 09:50 Sodium 139.5 Potassium 3.7 Chloride 93 L Carbon Dioxide 40 H* Anion Gap 7 BUN 30 H Creatinine 1.20 Est GFR ( Amer) > 60 Glucose 181 H Calcium 8.5 10/21/19 10/30/19 11/01/19 20:13 07:24 11:18 Troponin I 0.071 0.108 NT-Pro-B Natriuret Pep 76642 H 11/01/19 11/02/19 17:31 05:14 Troponin I 0.101 NT-Pro-B Natriuret Pep 19692 H Impressions: Abdomen Ultrasound 10/21/19 22:05 IMPRESSION: Right effusion Question bidirectional flow in the portal vein No additional evidence of acute process Head MRI 10/25/19 10:48 IMPRESSION: No acute intracranial abnormality. EVIDENCE OF ACUTE STROKE: NO. Guidance Fluoroscopy 10/27/19 00:00 IMPRESSION: Lumbar puncture under fluoroscopy. No immediate complication. Lumbar Puncture 10/27/19 00:00 IMPRESSION: Lumbar puncture under fluoroscopy. No immediate complication. Chest X-Ray 11/01/19 00:00 IMPRESSION: Grossly stable patchy bibasilar predominant airspace disease and mild bilateral effusions. Stable enlarged cardiac silhouette. Head CT 11/01/19 00:00 IMPRESSION: 1. No evidence of acute intracranial abnormality. 2. Unchanged appearance of the irregular lytic lesion along the left anterior superior orbital ridge. EVIDENCE OF ACUTE STROKE: NO. Assessment and Plan - Diagnosis (1) Acute encephalopathy Is this a current diagnosis for this admission?: Yes (2) Acute metabolic encephalopathy Is this a current diagnosis for this admission?: Yes (3) Atrial fibrillation Qualifiers: Atrial fibrillation type: unspecified chronic Qualified Code(s): I48.20 - Chronic atrial fibrillation, unspecified; I48.2 - Chronic atrial fibrillation Is this a current diagnosis for this admission?: Yes (4) Cognitive and neurobehavioral dysfunction Is this a current diagnosis for this admission?: Yes (5) Hepatocellular injury Is this a current diagnosis for this admission?: Yes (6) Hodgkins lymphoma Qualifiers: Hodgkin lymphoma type: unspecified type Lymphoma site: unspecified region Qualified Code(s): C81.90 - Hodgkin lymphoma, unspecified, unspecified site Is this a current diagnosis for this admission?: Yes (7) Anxiety Is this a current diagnosis for this admission?: Yes - Plan Summary Summary: 11/05/2019 Patient is currently waiting on placement. Far has been denied at several facilities and [facility] not [facility] Patient's encephalopathy is slowly improving Patient's antibiotics have been completed. Patient currently on Toprol and Xarelto COVID testing is negative blood cultures are negative Chemistry shows potassium stable 3.7 sodium stable 139 BUN improving now 30 creatinine improving now 1.20 BN P is pending Patient will need to see neurology and cardiology as an outpatient Patient was originally admitted for shortness of breath and altered mental status. Patient is medically stable for placement - Time Time Spent with patient: 25-34 minutes
[2019-11-05] MEDS: RIVAROXABAN 10 MG TABLET PO SCH (17:14)
[2019-11-06] MEDS: LISINOPRIL 10 MG TABLET PO SCH (09:38)
[2019-11-06] MEDS: METOPROLOL SUCCINATE 50 MG TAB.SR.24H PO SCH ×2 (09:39→22:10)
[2019-11-06] MEDS: FUROSEMIDE 40 MG TABLET PO SCH (09:39)
[2019-11-06] MEDS: DOCUSATE SODIUM 100 MG CAPSULE PO SCH ×2 (09:39→17:00)
[2019-11-06] MEDS: FAMOTIDINE 20 MG TABLET PO SCH ×2 (09:39→22:10)
[2019-11-06] MEDS: DIVALPROEX SODIUM 125 MG CAP.SPRINK PO SCH ×2 (09:41→22:10)
--- NOTE | 2019-11-06 12:17 | PDOC PROGRESS REPORT ---
Subjective Progress Note for:: 11/06/19 Reason For Visit: ACUTE ENCEPHALOPATHY, ELEVATED LACTIC ACID LEVEL, 11/06/2019 Altered mental status, acute encephalopathy ,elevated lactic acid level, pneumonia, hepatocellular injury ,Hodgkin's lymphoma Physical Exam Vital Signs: Temp Pulse Resp BP Pulse Ox 97.3 F 98 16 96/64 L 91 L 11/05/19 17:00 11/06/19 02:00 11/05/19 17:00 11/05/19 17:00 11/05/19 17:00 Intake & Output 11/05/19 11/06/19 11/07/19 06:59 06:59 06:59 Intake Total 860 478 Output Total 225 150 Balance 635 328 Weight 114.7 kg 116.1 kg General appearance: PRESENT: no acute distress Respiratory exam: PRESENT: clear to auscultation ana. ABSENT: rales, rhonchi, wheezes Cardiovascular exam: PRESENT: RRR. ABSENT: diastolic murmur, rubs, systolic murmur Neurological exam: PRESENT: alert, awake, oriented to person, oriented to place, oriented to time, oriented to situation, CN II-XII grossly intact. ABSENT: motor sensory deficit Psychiatric exam: PRESENT: unusual affect Results Laboratory Results: 11/04/19 06:31 11/05/19 09:50 10/21/19 10/30/19 11/01/19 20:13 07:24 11:18 Troponin I 0.071 0.108 NT-Pro-B Natriuret Pep [id number] H 11/01/19 11/02/19 11/05/19 17:31 05:14 09:50 Troponin I 0.101 NT-Pro-B Natriuret Pep 33477 H 61148 H Impressions: Abdomen Ultrasound 10/21/19 22:05 IMPRESSION: Right effusion Question bidirectional flow in the portal vein No additional evidence of acute process Head MRI 10/25/19 10:48 IMPRESSION: No acute intracranial abnormality. EVIDENCE OF ACUTE STROKE: NO. Guidance Fluoroscopy 10/27/19 00:00 IMPRESSION: Lumbar puncture under fluoroscopy. No immediate complication. Lumbar Puncture 10/27/19 00:00 IMPRESSION: Lumbar puncture under fluoroscopy. No immediate complication. Chest X-Ray 11/01/19 00:00 IMPRESSION: Grossly stable patchy bibasilar predominant airspace disease and mild bilateral effusions. Stable enlarged cardiac silhouette. Head CT 11/01/19 00:00 IMPRESSION: 1. No evidence of acute intracranial abnormality. 2. Unchanged appearance of the irregular lytic lesion along the left anterior superior orbital ridge. EVIDENCE OF ACUTE STROKE: NO. Assessment and Plan - Diagnosis (1) Acute encephalopathy Is this a current diagnosis for this admission?: Yes (2) Acute metabolic encephalopathy Is this a current diagnosis for this admission?: Yes (3) Atrial fibrillation Qualifiers: Atrial fibrillation type: unspecified chronic Qualified Code(s): I48.20 - Chronic atrial fibrillation, unspecified; I48.2 - Chronic atrial fibrillation Is this a current diagnosis for this admission?: Yes (4) Cognitive and neurobehavioral dysfunction Is this a current diagnosis for this admission?: Yes (5) Hepatocellular injury Is this a current diagnosis for this admission?: Yes (6) Hodgkins lymphoma Qualifiers: Hodgkin lymphoma type: unspecified type Lymphoma site: unspecified region Qualified Code(s): C81.90 - Hodgkin lymphoma, unspecified, unspecified site Is this a current diagnosis for this admission?: Yes (7) Anxiety Is this a current diagnosis for this admission?: Yes - Plan Summary Summary: 11/05/2019 Patient is currently waiting on placement. Far has been denied at several facilities and patient does not qualify for [facility] Patient's encephalopathy is slowly improving Patient's antibiotics have been completed. Patient currently on Toprol and Xarelto COVID testing is negative blood cultures are negative Chemistry shows potassium stable 3.7 sodium stable 139 BUN improving now 30 creatinine improving now 1.20 BN P is pending Patient will need to see neurology and cardiology as an outpatient Patient was originally admitted for shortness of breath and altered mental status. Patient is medically stable for placement 11/06/2019 Nurses notes from last night states that the patient was very hostile and aggressive towards 1 of the nurses. Security had to be called This morning patient states he does not remember that. Patient is very calm with me and answers questions appropriately. Tells me he would like to be discharged to his home when it he is discharged. Vital signs reveal his pulse to be about 90, although it is very labile Blood pressure is stable and runs low BNP on admission was 26 300 it went down to 22 100 and yesterday was 18,300 COVID is negative CSF fluid is negative blood culture x5 days is negative CT head scan done on the and the showed a bony lesion of the left calvarium, looks to be possibly due to trauma and may be old MRI scan of the head on 417 was negative did not make any mention of the lesion Patient is medically stable for discharge. Patient has times of intermittent confusion and aggression, however from reading the notes this may be his baseline personality - Time Time Spent with patient: 25-34 minutes
[2019-11-06] MEDS: ACETAMINOPHEN 325 MG TABLET PO PRN (16:10)
[2019-11-06] MEDS: RIVAROXABAN 10 MG TABLET PO SCH (16:55)
[2019-11-07] MEDS: METOPROLOL SUCCINATE 50 MG TAB.SR.24H PO SCH ×2 (09:58→21:10)
[2019-11-07] MEDS: LISINOPRIL 10 MG TABLET PO SCH (09:58)
[2019-11-07] MEDS: DOCUSATE SODIUM 100 MG CAPSULE PO SCH ×2 (09:58→17:26)
[2019-11-07] MEDS: FAMOTIDINE 20 MG TABLET PO SCH ×2 (09:58→21:10)
[2019-11-07] MEDS: DIVALPROEX SODIUM 125 MG CAP.SPRINK PO SCH ×2 (09:58→21:10)
[2019-11-07] MEDS: FUROSEMIDE 40 MG TABLET PO SCH (09:59)
--- NOTE | 2019-11-07 12:45 | Progress Note ---
Provider Note Provider Note: 11/07/2019 Patient will need 30 days or less of [facility] care
--- NOTE | 2019-11-07 14:23 | PDOC TRANSFER SUMMARY ---
Impression - Admit/DC Date/PCP Admission Date/Primary Care Provider: 10/21/19 23:41 NESTOR BANGURA-Hesham Discharge Date: 11/07/19 - Discharge Diagnosis (1) Acute encephalopathy Is this a current diagnosis for this admission?: Yes (2) Acute metabolic encephalopathy Is this a current diagnosis for this admission?: Yes (3) Atrial fibrillation Is this a current diagnosis for this admission?: Yes (4) Cognitive and neurobehavioral dysfunction Is this a current diagnosis for this admission?: Yes (5) Hepatocellular injury Is this a current diagnosis for this admission?: Yes (6) Hodgkins lymphoma Is this a current diagnosis for this admission?: Yes (7) Anxiety Is this a current diagnosis for this admission?: Yes - Assessment Summary: 11/05/2019 Patient is currently waiting on placement. Far has been denied at several facilities and patient does not qualify for [facility] Patient's encephalopathy is slowly improving Patient's antibiotics have been completed. Patient currently on Toprol and Xarelto COVID testing is negative blood cultures are negative Chemistry shows potassium stable 3.7 sodium stable 139 BUN improving now 30 creatinine improving now 1.20 BN P is pending Patient will need to see neurology and cardiology as an outpatient Patient was originally admitted for shortness of breath and altered mental status. Patient is medically stable for placement 11/06/2019 Nurses notes from last night states that the patient was very hostile and aggressive towards 1 of the nurses. Security had to be called This morning patient states he does not remember that. Patient is very calm with me and answers questions appropriately. Tells me he would like to be discharged to his home when it he is discharged. Vital signs reveal his pulse to be about 90, although it is very labile Blood pressure is stable and runs low BNP on admission was 26 300 it went down to 22 100 and yesterday was 18,300 COVID is negative CSF fluid is negative blood culture x5 days is negative CT head scan done on the and the showed a bony lesion of the left calvarium, looks to be possibly due to trauma and may be old MRI scan of the head on was negative did not make any mention of the lesion Patient is medically stable for discharge. Patient has times of intermittent confusion and aggression, however from reading the notes this may be his baseline personality 11/07/2019 Patient is being discharged today to long term facility Patient was admitted on 10/21/2019 for altered mental status. Patient presented to the emergency room with his ex-stepdaughter with a history of acute delirium and confusion. Patient had been to the emergency room 2 weeks earlier with shortness of breath. COVID 19 testing was performed. Was admitted to the medical floor. Due to patient having a past history of Hodgkin's lymphoma oncology was consulted. It was diagnosed with Hodgkin's lymphoma November 2018. Most recent PET scan/T scan done October 15, 2019 showed continued decrease in size of the retroperitoneal lymphadenopathy without any abnormal metabolic activity. RI of the brain has been performed with no abnormalities. Her infectious disease patient was treated with total of 7 days of IV vancomycin and cefepime. Patient had a lumbar puncture performed on 10/27/2019. Spinal fluid was clear and colorless with 0 WBCs 10 RBCs glucose slightly elevated at 88 protein normal at 34. 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 Patient will need further neurology follow-up. Patient's behavior continue to slowly improving and patient has not been in restraints now for many days. Patient will only have occasional flareups of anger, mostly directed towards females. Patient has been placed on Depakote 125 mg in the morning and 250 mg at nighttime for his aggression Most recent labs include a normal white count 10,900 on the hemoglobin 15.3 platelets 204,000 November 04 showed sodium 139 potassium 3.7 BUN of 30 creatinine 1.20 BNP has come down to 18,300 which is probably falsely elevated as patient has no indication of CHF Most recent urinalysis is clean RPR is nonreactive COVID 19 is negative HIV is negative Eli ink negative HSV 1 and 2 are negative Otitis screening is negative CSF fluid is negative Blood culture negative x5 days Time of discharge patient is awake alert oriented x4 patient has no evidence of being aggressive Patient is medically stable for discharge It is thought that patient's acute altered mental status on the basis of his sepsis and pneumonia, on top of his chronic PTSD and other neurocognitive disorders Also try to limit benzodiazepines and antipsychotic drugs - Additional Information Resuscitation Status: Full Code Discharge Diet: Cardiac Discharge Activity: Activity As Tolerated, Balance Activity w/Rest, Weigh Daily Referrals: DEEPIKA MO FNP-C [Primary Care Provider] - Follow up as needed Home Medications: Tramadol HCl [Ultram 50 mg Tablet] 50 mg PO TID 01/11/19 Lisinopril [Zestril] 20 mg PO DAILY 02/07/19 Albuterol Sulfate [Proair HFA Inhalation Aerosol 8.5 gm MDI] 2 puff IH Q4HP PRN 10/22/19 Acetaminophen [Tylenol 325 mg Tablet] 650 mg PO Q4HP PRN tablet 11/07/19 Divalproex Sodium [Depakote Sprinkle 125 mg Capsule] 125 mg PO DAILY cap.[email or web address] 11/07/19 Divalproex Sodium [Depakote Sprinkle 125 mg Capsule] 250 mg PO QHS cap.sprink 11/07/19 Docusate Sodium [Colace 100 mg Capsule] 100 mg PO BID capsule 11/07/19 Famotidine [Pepcid 20 mg Tablet] 20 mg PO Q12 tablet 11/07/19 Furosemide [Lasix 40 mg Tablet] 40 mg PO DAILY tablet 11/07/19 Mag Hydrox/Al Hydrox/Simeth [Maalox Plus Susp 30 Udcup] 30 ml PO Q6HP PRN udc 11/07/19 Magnesium Hydroxide [Milk of Magnesia 30 ml Udcup] 30 ml PO HSP PRN udc 11/07/19 Metoprolol Succinate [Toprol Xl 50 mg Tab.sr] 50 mg PO Q12 tab.sr.24h 11/07/19 Rivaroxaban [Xarelto 10 mg Tablet] 20 mg PO WSUPPER tablet 11/07/19 History of Present Illiness History of Present Illness: LIAM GOLDMAN is a 69 year old male Physical Exam Vital Signs: Temp Pulse Resp BP Pulse Ox 97.2 F 100 19 116/84 94 11/07/19 04:00 11/07/19 07:00 11/07/19 04:00 11/07/19 04:00 11/07/19 04:00 Intake & Output 11/06/19 11/07/19 11/08/19 06:59 06:59 06:59 Intake Total 478 920 Output Total 150 300 Balance 328 620 Weight 116.1 kg 113 kg Results Laboratory Results: WBC 10.9 10^3/uL (4.0-10.5) H 11/04/19 06:31 RBC 4.90 10^6/uL (4.35-5.55) 11/04/19 06:31 Hgb 15.3 g/dL (13.5-17.0) 11/04/19 06:31 Hct 44.6 % (37.9-51.0) 11/04/19 06:31 MCV 91 fl (80-97) 11/04/19 06:31 MCH 31.1 pg (27.0-33.4) 11/04/19 06:31 MCHC 34.2 g/dL (32.0-36.0) 11/04/19 06:31 RDW 17.2 % (11.5-14.0) H 11/04/19 06:31 Plt Count 204 10^3/uL (150-450) 11/04/19 06:31 Lymph % (Auto) 8.6 % (13-45) L 11/04/19 06:31 [place] % (Auto) 9.2 % (3-13) 11/04/19 06:31 Eos % (Auto) 0.9 % (0-6) 11/04/19 06:31 Baso % (Auto) 0.3 % (0-2) 11/04/19 06:31 Absolute Neuts (auto) 8.8 10^3/uL (1.7-8.2) H 11/04/19 06:31 Absolute Lymphs (auto) 0.9 10^3/uL (0.5-4.7) 11/04/19 06:31 Absolute Monos (auto) 1.0 10^3/uL (0.1-1.4) 11/04/19 06:31 Absolute Eos (auto) 0.1 10^3/uL (0.0-0.6) 11/04/19 06:31 Absolute Basos (auto) 0.0 10^3/uL (0.0-0.2) 11/04/19 06:31 Seg Neutrophils % 81.0 % (42-78) H 11/04/19 06:31 PT 18.2 SEC (11.4-15.4) H 10/27/19 05:27 INR 1.50 10/27/19 05:27 Carbonic Acid 1.93 mmol/L (1.05-1.35) H 11/01/19 10:55 HCO3/H2CO3 Ratio 16:1 11/01/19 10:55 ABG pH 7.32 (7.35-7.45) L 11/01/19 10:55 ABG pCO2 64.0 mmHg (35-45) H 11/01/19 10:55 ABG pO2 183.1 mmHg (80-100) H 11/01/19 10:55 ABG HCO3 32.4 mmol/L (20-24) H 11/01/19 10:55 ABG Total CO2 34.3 mmol/L (23-27) H 11/01/19 10:55 ABG O2 Saturation 99.1 % (94-98) H 11/01/19 10:55 ABG Base Excess 4.0 mmol/L 11/01/19 10:55 VBG pH 7.41 (7.30-7.42) 10/21/19 20:13 VBG pCO2 37.3 mmHg (35-63) 10/21/19 20:13 VBG HCO3 23.1 mmol/L (20-32) 10/21/19 20:13 VBG Base Excess -1.2 mmol/L 10/21/19 20:13 FiO2 100% 11/01/19 10:55 Sodium 139.5 mmol/L (137-145) 11/05/19 09:50 Potassium 3.7 mmol/L (3.6-5.0) 11/05/19 09:50 Chloride 93 mmol/L (98-107) L 11/05/19 09:50 Carbon Dioxide 40 mmol/L (22-30) H* 11/05/19 09:50 Anion Gap 7 (5-19) 11/05/19 09:50 BUN 30 mg/dL (7-20) H 11/05/19 09:50 Creatinine 1.20 mg/dL (0.52-1.25) 11/05/19 09:50 Est GFR ( Amer) > 60 (>60) 11/05/19 09:50 Est GFR (MDRD) Non-Af > 60 (>60) 11/05/19 09:50 Glucose 181 mg/dL (75-110) H 11/05/19 09:50 POC Glucose 105 mg/dL (70-110) 11/01/19 10:46 Lactic Acid 1.8 mmol/L (0.7-2.1) 11/01/19 17:31 Calcium 8.5 mg/dL (8.4-10.2) 11/05/19 09:50 Phosphorus 3.4 mg/dL (2.5-4.5) 10/30/19 07:24 Magnesium 2.2 mg/dL (1.6-2.3) 11/02/19 05:14 Ferritin 331.00 ng/mL (17.9-464.0) 10/22/19 05:09 Total Bilirubin 1.4 mg/dL (0.2-1.3) H 10/30/19 07:24 Direct Bilirubin 0.1 mg/dL (0.0-0.4) 10/30/19 07:24 Neonat Total Bilirubin Not Reportable 10/30/19 07:24 Neonat Direct Bilirubin Not Reportable 10/30/19 07:24 Neonat Indirect Bili Not Reportable 10/30/19 07:24 AST 41 U/L (17-59) 10/30/19 07:24 ALT 87 U/L (<50) H 10/30/19 07:24 Alkaline Phosphatase 103 U/L (38-126) 10/30/19 07:24 Ammonia < 8.7 umol/L (9-33) L 10/22/19 05:09 Troponin I 0.101 ng/mL 11/01/19 17:31 NT-Pro-B Natriuret Pep 90759 pg/mL (<125) H 11/05/19 09:50 Total Protein 6.3 g/dL (6.3-8.2) 10/30/19 07:24 Albumin 3.6 g/dL (3.5-5.0) 10/30/19 07:24 Vitamin B1 143.0 nmol/L (66.5-200.0) 10/25/19 22:00 Vitamin B12 894.0 pg/mL (239-931) 10/25/19 21:48 TSH 4.69 uIU/mL (0.47-4.68) H 10/23/19 04:56 Free T3 pg/mL 3.10 pg/mL (2.77-5.27) 10/23/19 04:56 Urine Color STRAW 10/28/19 19:10 Urine Appearance CLEAR 10/28/19 19:10 Urine pH 5.0 (5.0-9.0) 10/28/19 19:10 Ur Specific [place] 1.008 10/28/19 19:10 Urine Protein NEGATIVE mg/dL (NEGATIVE) 10/28/19 19:10 Urine Glucose (UA) NEGATIVE mg/dL (NEGATIVE) 10/28/19 19:10 Urine Ketones NEGATIVE mg/dL (NEGATIVE) 10/28/19 19:10 Urine Blood SMALL (NEGATIVE) H 10/28/19 19:10 Urine Nitrite NEGATIVE (NEGATIVE) 10/28/19 19:10 Urine Bilirubin NEGATIVE (NEGATIVE) 10/28/19 19:10 Urine Urobilinogen NEGATIVE mg/dL (<2.0) 10/28/19 19:10 Ur Leukocyte Esterase NEGATIVE (NEGATIVE) 10/28/19 19:10 Urine WBC (Auto) 0 /HPF 10/28/19 19:10 Urine RBC (Auto) 0 /HPF 10/28/19 19:10 U Hyaline Cast (Auto) 1 /LPF 10/28/19 19:10 Urine Bacteria (Auto) TRACE /HPF 10/28/19 19:10 Squamous Epi Cells Auto <1 /HPF 10/28/19 04:19 Urine Mucus (Auto) RARE /LPF 10/28/19 19:10 Urine Ascorbic Acid NEGATIVE (NEGATIVE) 10/28/19 19:10 Fluid Tube Number 3 10/27/19 10:28 CSF Volume 5.0 CC 10/27/19 10:28 CSF Appearance CLEAR 10/27/19 10:28 CSF Color COLORLESS 10/27/19 10:28 CSF WBC 0 /uL (0-5) 10/27/19 10:28 CSF RBC 10 /uL (0-10) 10/27/19 10:28 CSF Glucose 88 mg/dL (40-70) H 10/27/19 10:28 CSF Total Protein PEP 34.1 mg/dL (0.0-44.0) 10/27/19 10:28 CSF Total Protein 57 mg/dL (12-60) 10/27/19 10:28 CSF Prealbumin 4.8 % (2.2-7.1) 10/27/19 10:28 CSF Albumin 51.2 % (56.8-76.4) L 10/27/19 10:28 CSF [place]-9-Nzsfpfcu 7.0 % (1.1-6.6) H 10/27/19 10:28 CSF Vdqbo-8-Dnurpipt 6.4 % (3.0-12.6) 10/27/19 10:28 CSF Beta Globulin 21.5 % (7.3-17.9) H 10/27/19 10:28 CSF Gamma Globulin 9.0 % (3.0-13.0) 10/27/19 10:28 CSF PEP M-Santi Not Observed % (Not Observ) 10/27/19 10:28 CSF/Ser Oligoclon Bands Comment (.) 10/27/19 10:28 CSF VDRL Cancelled 10/27/19 10:28 Time Trough Drawn 0748 10/29/19 07:48 Vancomycin Trough 21.4 ug/mL (5.0-20.0) H 10/29/19 07:48 Urine Opiates Screen NEGATIVE 10/21/19 20:56 Urine Methadone Screen NEGATIVE 10/21/19 20:56 Ur Barbiturates Screen NEGATIVE 10/21/19 20:56 Ur Phencyclidine Scrn NEGATIVE 10/21/19 20:56 Ur Amphetamines Screen NEGATIVE 10/21/19 20:56 U Benzodiazepines Scrn UNCONFIRMED POSITIVE 10/21/19 20:56 Urine Cocaine Screen NEGATIVE 10/21/19 20:56 U Marijuana (THC) Screen NEGATIVE 10/21/19 20:56 Serum Alcohol < 10 mg/dL (NONE DETECTED) 10/21/19 20:13 Leuk/Lym Specimen Comment (.) 10/25/19 22:00 Leuk/Lym Spec Viability Comment (.) 10/25/19 22:00 Leuk/Lym Gating Strategy Comment (.) 10/25/19 22:00 Leuk/Lym Leuk Assess Comment (.) 10/25/19 22:00 Leuk/Lym Comment Comment (.) 10/25/19 22:00 Leuk/Lym Phenotype Chart Comment (.) 10/25/19 22:00 Leuk/Lym Interpretation Comment (.) 10/25/19 22:00 L/L Sign Pathologist Comment (.) 10/25/19 22:00 RPR NONREACTIVE (NONREACTIVE) 10/25/19 21:48 COVID-19 Source NASOPHARYNGEAL 10/22/19 00:39 COVID-19 ([place]) NOT DETECTED 10/22/19 00:39 Hepatitis A IgM Ab Negative (Negative) 10/23/19 04:56 Hep Bs Antigen Negative (Negative) 10/23/19 04:56 Hep B Core IgM Ab Negative (Negative) 10/23/19 04:56 Hepatitis C Antibody <0.1 s/co ratio (0.0-0.9) 10/23/19 04:56 Herpes Simplex Source CSF 10/27/19 10:28 HSV I DNA PCR Negative (Negative) 10/27/19 10:28 HSV II DNA PCR Negative (Negative) 10/27/19 10:28 HIV 1&2 Antibody NEGATIVE (NEGATIVE) 10/26/19 08:28 Influenza A (Rapid) NEGATIVE (NEGATIVE) 10/21/19 20:56 Influenza B (Rapid) NEGATIVE (NEGATIVE) 10/21/19 20:56 Group A Strep Rapid NEGATIVE (NEGATIVE) 10/21/19 20:56 Eli Ink NEGATIVE (NEGATIVE) 10/27/19 10:28 Flow Cytometry Comment Comment (.) 10/25/19 22:00 Cytology Clinical Info Comment (.) 10/25/19 22:00 10/21/19 10/30/19 11/01/19 20:13 07:24 11:18 Troponin I 0.071 0.108 NT-Pro-B Natriuret Pep 50129 H 11/01/19 11/02/19 11/05/19 17:31 05:14 09:50 Troponin I 0.101 NT-Pro-B Natriuret Pep 70351 H 38019 H Impressions: Head CT 10/21/19 20:58 IMPRESSION: 1. No intracranial hemorrhage or mass lesion. 2. Possible permeative calvarial lesion at the left anterior superior orbital ridge. This area is not well seen. Correlation with symptomatology is recommended. This area was not imaged on the previous PET scan. Chest X-Ray 10/21/19 20:59 IMPRESSION: Abnormal opacity at the left lower lung and indistinctness of the left hemidiaphragm could represent a combination of pleural fluid and atelectasis. Other etiologies including an infectious process cannot be excluded. Increased opacity of the right lower lung may represent atelectasis versus an infectious process. Underlying pleural fluid cannot be excluded. Abdomen Ultrasound 10/21/19 22:05 IMPRESSION: Right effusion Question bidirectional flow in the portal vein No additional evidence of acute process Chest X-Ray 10/25/19 00:00 IMPRESSION: Cardiomegaly, indistinctness of the interstitium, and probable bilateral pleural effusions - clinical correlation for signs and symptoms of volume overload is recommended. In addition, there is a dense opacity in the left retrocardiac space that could represent either atelectasis or pneumonia. Head MRI 10/25/19 10:48 IMPRESSION: No acute intracranial abnormality. EVIDENCE OF ACUTE STROKE: NO. Guidance Fluoroscopy 10/27/19 00:00 IMPRESSION: Lumbar puncture under fluoroscopy. No immediate complication. Lumbar Puncture 10/27/19 00:00 IMPRESSION: Lumbar puncture under fluoroscopy. No immediate complication. Chest X-Ray 10/28/19 00:00 IMPRESSION: Stable patchy bibasilar consolidation, likely atelectasis or infection, with mild bilateral effusions. Stable enlarged cardiac silhouette and central vascular congestion. Chest X-Ray 11/01/19 00:00 IMPRESSION: Grossly stable patchy bibasilar predominant airspace disease and mild bilateral effusions. Stable enlarged cardiac silhouette. Head CT 11/01/19 00:00 IMPRESSION: 1. No evidence of acute intracranial abnormality. 2. Unchanged appearance of the irregular lytic lesion along the left anterior superior orbital ridge. EVIDENCE OF ACUTE STROKE: NO. Stroke Is this a Stroke Patient?: No Acute Heart Failure - Is this a Heart Failure Patient?: No
[2019-11-07] MEDS: RIVAROXABAN 10 MG TABLET PO SCH (17:26)
[2019-11-08 08:41] VITALS: BP 107/73
== END 2019-11-08 09:08 | disposition short-term general hospital (02) | DRG 193 ==
LOC: ER 19:48 → EH 23:41 → 5 10-22 04:38 → 3S 10-23 16:06
PROVIDERS: ADMIT Emergency Medicine; ATTEND Physician Assistant
PROC: 009U3ZX Drainage of Spinal Canal, Percutaneous Approach, Diagnostic (ICD-10-PCS; principal; 2019-10-27)
PROC: B01BZZZ Fluoroscopy of Spinal Cord (ICD-10-PCS; 2019-10-27)
DX: J18.9 Pneumonia, unspecified organism (principal); G93.41 Metabolic encephalopathy; J96.91 Respiratory failure, unspecified with hypoxia; I50.41 Acute combined systolic (congestive) and diastolic (congestive) heart failure; N17.9 Acute kidney failure, unspecified; I48.20 Chronic atrial fibrillation, unspecified; E87.2 Acidosis; I82.C11 Acute embolism and thrombosis of right internal jugular vein; C81.93 Hodgkin lymphoma, unspecified, intra-abdominal lymph nodes; I11.0 Hypertensive heart disease with heart failure; K21.9 Gastro-esophageal reflux disease without esophagitis; R00.0 Tachycardia, unspecified; R94.5 Abnormal results of liver function studies; K76.9 Liver disease, unspecified; R41.9 Unspecified symptoms and signs involving cognitive functions and awareness; F41.8 Other specified anxiety disorders; F43.10 Post-traumatic stress disorder, unspecified; E66.9 Obesity, unspecified; Z20.818 Contact with and (suspected) exposure to other bacterial communicable diseases; Z78.1 Physical restraint status
CPT/HCPCS: 36415; 62328; 70450; 70553; 71045; 76705; 77003; 80048; 80053; 80074; 80076; 80202; 80307; 81001; 82140; 82565; 82607; 82728; 82803; 82945; 82962; 83605; 83735; 83880; 83916; 84100; 84157; 84166; 84425; 84443; 84481; 84484; 85025; 85027; 85610; 86592; 86701; 87040; 87070; 87205; 87210; 87252; 87529; 87635; 87804; 87880; 88184; 88185; 89050; 93005; 93010; 93306; 94660; 96365; 99291; A9576; J0133; J0461; J0692; J1630; J1650; J1940; J2060; J2185; J3370; J3486; J3490; J7050; J7060; J7120